=== PATIENT | male | born 1960 | race Caucasian/White ===

== ENCOUNTER 2021-03-12 17:28 | Inpatient (IN) | payer SELFPAY ==
[2021-03-12] MEDS ORDERED: Sodium Chloride 0.9% 10 ML Syringe FLUSH PRN (17:36)
[2021-03-12] MEDS ORDERED: cefTRIAXone 2 GM in Sodium Chloride 0.9% 100 ML IV ONE (17:39)
[2021-03-12] MEDS ORDERED: Albuterol 6.7 GM Inhaler INH ONE (17:40)
[2021-03-12] MEDS ORDERED: Ibuprofen 600 MG Tab PO ONE (17:42)
--- NOTE | 2021-03-12 17:54 | EDM.PDOC ---
<Scotty Paz - Last Filed: 03/12/21 18:47> ED HPI GENERAL MEDICAL PROBLEM - General Chief Complaint: Respiratory Problem Stated Complaint: COVID SYMPTOMS Time Seen by Provider: 03/12/21 17:29 Source of Information: Reports: Patient, Provider History Limitations: Reports: No Limitations - History of Present Illness INITIAL COMMENTS - FREE TEXT/NARRATIVE: The patient presents from the walk in clinic with dyspnea and hypoxia. He said this all started about 2 to 3 days ago. He denies cough. He has a fever when he arrived here of 101. He had a CXR done there and it appeared to look like COVID pattern with bilateral fluffy infiltrates in the lower lobes. He was checked for COVID by rapid essay and it was negative. His oxygen saturations went down to 88%. He was put on oxygen and sent up here to the ER. He refused to come by ambulance. 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 The patient does not smoke. He quit 20 years ago. He has no history of asthma or COPD. He is obese and recently lost about 80 pounds. He was hypertensive but with the weight loss he was able to come off of his medications. He has type II diabetes and he is on metformin. He has no chest pain, abdominal pain, nausea or vomiting. Onset: Gradual Duration: Day(s): (3) Severity: Moderate Improves with: Reports: None Worsens with: Reports: None Associated Symptoms: Reports: Fever/Chills, Shortness of Breath. Denies: Chest Pain, Cough, Headaches, Nausea/Vomiting - Related Data Allergies Allergy/AdvReac Type Severity Reaction Status Date / Time acetaminophen [From Tylenol] Allergy Severe Tachycardia Verified 03/12/21 17:38 aspirin Allergy Severe Tachycardia Verified 03/12/21 17:38 Home Meds: Home Meds Aspirin [Adult Aspirin Regimen] 81 mg PO DAILY 03/12/21 [History] metFORMIN [Glucophage XR] 500 mg PO BID 03/12/21 [History] Past Medical History Cardiovascular History: Reports: Hypertension Endocrine/Metabolic History: Reports: Diabetes, Type II Social & Family History - Tobacco Use Tobacco Use Status *Q: Former Tobacco User Used Tobacco, but Quit: Yes Month/Year Tobacco Last Used: 20+ years - Recreational Drug Use Recreational Drug Use: No ED ROS GENERAL - Review of Systems Review Of Systems: See Below Constitutional: Reports: Fever, Chills, Malaise, Weakness, Fatigue HEENT: Reports: No Symptoms Respiratory: Reports: Shortness of Breath. Denies: Cough Cardiovascular: Reports: No Symptoms Endocrine: Reports: No Symptoms GI/Abdominal: Reports: No Symptoms : Reports: No Symptoms Musculoskeletal: Reports: No Symptoms ED EXAM, GENERAL - Physical Exam Exam: See Below Exam Limited By: No Limitations General Appearance: Alert, No Apparent Distress Ears: Normal External Exam Nose: Normal Inspection Head: Atraumatic, Normocephalic Neck: Normal Inspection Respiratory/Chest: No Respiratory Distress, Decreased Breath Sounds Cardiovascular: Regular Rate, Rhythm, No Edema, No Murmur GI/Abdominal: Soft, Non-Tender, No Organomegaly, No Mass Back Exam: Normal Inspection Extremities: Normal Inspection #1 Interpretation EKG Date: 03/12/21 Time: 18:27 Rhythm: Other (sinus tachycardia) Rate (Beats/Min): 107 [place]: Normal P-Wave: Present QRS: Normal ST-T: Normal QT: Normal Course - Re-Assessments/Exams Free Text/Narrative Re-Assessment/Exam: 03/12/21 17:55 I ordered oxygen, IV saline lock, blood cultures, lactic acid, ABG, labs, al buterol 2 puffs, and rocephin 2 grams IV. 03/12/21 18:38 His EKG shows a sinus tachycardia with no acute changes. 03/12/21 18:47 His ABG shows a normal pH of 7.45. His pCO2 is low at 29.6. His pO2 is low at 74. I will have his oxygen bumped up some. It is change of shift. Dr Mott to take over. Departure - Departure Disposition: Admitted As Inpatient 65 Clinical Impression: COVID-19, Hypoxia - Discharge Information Referrals: Tricia Mohr NP [Primary Care Provider] - Forms: ED Department Discharge Sepsis Event Note (ED) - Evaluation Sepsis Screening Result: Possible Severe Sepsis Risk <Henry Mott - Last Filed: 03/12/21 19:58> Course - Vital Signs Last Recorded V/S: Last Vital Signs Temp 38.8 C H 03/12/21 17:35 Pulse 107 H 03/12/21 17:35 Resp 24 H 03/12/21 17:35 BP 166/79 H 03/12/21 17:35 Pulse Ox 96 03/12/21 18:58 - Orders/Labs/Meds Orders: Active Orders 24 hr Category Date Time Status Admission Status [Patient Status] [ADT] Routine ADT 03/12/21 19:54 Active Cardiac Monitoring [RC] . DIRECTED Care 03/12/21 17:36 Active EKG Documentation Completion [RC] STAT Care 03/12/21 17:37 Active Oxygen Therapy [RC] PRN Care 03/12/21 17:36 Active Peripheral IV Care [RC] . DIRECTED Care 03/12/21 17:37 Active RT Post Treatment Assessment [RC] Click to Edit Care 03/12/21 17:40 Active RT Pre-Treatment Assessment [RC] Click to Edit Care 03/12/21 17:40 Active BLOOD CULTURE [MREF] Stat Lab 03/12/21 18:02 Received BLOOD CULTURE [MREF] Stat Lab 03/12/21 18:11 Received D-DIMER QUANTITATIVE [COAG] Stat Lab 03/12/21 18:02 Received INR,PT,PROTHROMBIN TIME [COAG] Stat Lab 03/12/21 18:02 Received PTT,PARTIAL THROMBOPLSTIN TIME [COAG] Stat Lab 03/12/21 18:02 Received Sodium Chloride 0.9% [Saline Flush] Med 03/12/21 17:36 Active 10 ml FLUSH ASDIRECTED PRN Peripheral IV Insertion Adult [OM.PC] Stat Oth 03/12/21 17:36 Ordered Medication Orders Sodium Chloride (Sodium Chloride 0.9% 10 Ml Syringe) 10 ml FLUSH ASDIRECTED PRN PRN Reason: Keep Vein Open Last Admin: 03/12/21 17:49 Dose: 10 ml Documented by: [place] Labs: Laboratory Tests 03/12/21 03/12/21 03/12/21 Range/Units 17:38 18:02 18:02 WBC 4.57 (4.23-9.07) K/mm3 RBC 5.07 (4.63-6.08) M/mm3 Hgb 14.6 (13.7-17.5) gm/dl Hct 43.9 (40.1-51.0) % MCV 86.6 (79.0-92.2) fl MCH 28.8 (25.7-32.2) pg MCHC 33.3 (32.2-35.5) g/dl RDW Std Deviation 44.0 H (35.1-43.9) fL Plt Count 91 L (163-337) K/mm3 MPV 11.9 (9.4-12.3) fl Neut % (Auto) 77.1 H (34.0-67.9) % Lymph % (Auto) 14.9 L (21.8-53.1) % Howard % (Auto) 7.2 (5.3-12.2) % Eos % (Auto) 0 L (0.8-7.0) Baso % (Auto) 0.4 (0.1-1.2) % Neut # (Auto) 3.52 (1.78-5.38) K/mm3 Lymph # (Auto) 0.68 L (1.32-3.57) K/mm3 Howard # (Auto) 0.33 (0.30-0.82) K/mm3 Eos # (Auto) 0.00 L (0.04-0.54) K/mm3 Baso # (Auto) 0.02 (0.01-0.08) K/mm3 Manual Slide Review Abnormal smear Puncture Site . ABG pH 7.45 (7.35-7.45) ABG pCO2 29.6 L (35.0-45.0) mmHg ABG pO2 74.0 L (80.0-100.0) mmHg ABG HCO3 20.3 L (22.0-26.0) meq/L ABG O2 Saturation 96.3 (96.0-97.0) % ABG Base Excess -2.0 (-2-2.0) Shaheen Test Positive O2 Delivery Device . Oxygen Flow Rate 2.0 Sodium 135 L (136-145) mEq/L Potassium 3.9 (3.5-5.1) mEq/L Chloride 100 (98-107) mEq/L Carbon Dioxide 23 (21-32) mEq/L Anion Gap 15.9 H (5-15) BUN 13 (7-18) mg/dL Creatinine 1.2 (0.7-1.3) mg/dL Est Cr Clr Drug Dosing 68.85 mL/min Estimated GFR (MDRD) > 60 (>60) mL/min BUN/Creatinine Ratio 10.8 L (14-18) Glucose 153 H (70-99) mg/dL Lactic Acid (0.4-2.0) mmol/L Calcium 8.0 L (8.5-10.1) mg/dL Ferritin (26-388) ng/ml Total Bilirubin 1.1 H (0.2-1.0) mg/dL AST 115 H (15-37) U/L ALT 89 H (16-63) U/L Alkaline Phosphatase 32 L (46-116) U/L Lactate Dehydrogenase 562 H (85-227) U/L Troponin I 0.019 (0.00-0.056) ng/mL C-Reactive Protein 16.9 H* (<1.0) mg/dL Total Protein 7.4 (6.4-8.2) g/dl Albumin 3.1 L (3.4-5.0) g/dl Globulin 4.3 gm/dL Albumin/Globulin Ratio 0.7 L (1-2) SARS-CoV-2 RNA (NICOLE) (NEGATIVE) 03/12/21 03/12/21 03/12/21 Range/Units 18:02 18:02 18:15 WBC (4.23-9.07) K/mm3 RBC (4.63-6.08) M/mm3 Hgb (13.7-17.5) gm/dl Hct (40.1-51.0) % MCV (79.0-92.2) fl MCH (25.7-32.2) pg MCHC (32.2-35.5) g/dl RDW Std Deviation (35.1-43.9) fL Plt Count (163-337) K/mm3 MPV (9.4-12.3) fl Neut % (Auto) (34.0-67.9) % Lymph % (Auto) (21.8-53.1) % Howard % (Auto) (5.3-12.2) % Eos % (Auto) (0.8-7.0) Baso % (Auto) (0.1-1.2) % Neut # (Auto) (1.78-5.38) K/mm3 Lymph # (Auto) (1.32-3.57) K/mm3 Howard # (Auto) (0.30-0.82) K/mm3 Eos # (Auto) (0.04-0.54) K/mm3 Baso # (Auto) (0.01-0.08) K/mm3 Manual Slide Review Puncture Site ABG pH (7.35-7.45) ABG pCO2 (35.0-45.0) mmHg ABG pO2 (80.0-100.0) mmHg ABG HCO3 (22.0-26.0) meq/L ABG O2 Saturation (96.0-97.0) % ABG Base Excess (-2-2.0) Shaheen Test O2 Delivery Device Oxygen Flow Rate Sodium (136-145) mEq/L Potassium (3.5-5.1) mEq/L Chloride (98-107) mEq/L Carbon Dioxide (21-32) mEq/L Anion Gap (5-15) BUN (7-18) mg/dL Creatinine (0.7-1.3) mg/dL Est Cr Clr Drug Dosing mL/min Estimated GFR (MDRD) (>60) mL/min BUN/Creatinine Ratio (14-18) Glucose (70-99) mg/dL Lactic Acid 1.4 (0.4-2.0) mmol/L Calcium (8.5-10.1) mg/dL Ferritin 3732 H (26-388) ng/ml Total Bilirubin (0.2-1.0) mg/dL AST (15-37) U/L ALT (16-63) U/L Alkaline Phosphatase (46-116) U/L Lactate Dehydrogenase (85-227) U/L Troponin I (0.00-0.056) ng/mL C-Reactive Protein (<1.0) mg/dL Total Protein (6.4-8.2) g/dl Albumin (3.4-5.0) g/dl Globulin gm/dL Albumin/Globulin Ratio (1-2) SARS-CoV-2 RNA (NICOLE) Positive H (NEGATIVE) Meds: Medications Generic Name Dose Route Start Last Admin Trade Name Freq PRN Reason Stop Dose Admin Sodium Chloride 10 ml 03/12/21 17:36 03/12/21 17:49 Sodium Chloride 0.9% 10 Ml Syringe FLUSH 10 ml ASDIRECTED PRN Administration Keep Vein Open Discontinued Medications Generic Name Dose Route Start Last Admin Trade Name Freq PRN Reason Stop Dose Admin Albuterol 0 gm 03/12/21 17:40 03/12/21 17:49 Albuterol 6.7 Gm Inhaler INH 03/12/21 17:41 2 puff ONETIME ONE Administration Dexamethasone 6 mg 03/12/21 19:49 Dexamethasone 10 Mg/Ml Sdv IVPUSH 03/12/21 19:50 ONETIME ONE Ceftriaxone Sodium 2 gm/ 100 mls @ 200 mls/hr 03/12/21 17:39 03/12/21 17:49 Sodium Chloride IV 03/12/21 18:08 200 mls/hr ONETIME ONE Administration Ibuprofen 600 mg 03/12/21 17:42 03/12/21 17:49 Ibuprofen 600 Mg Tab PO 03/12/21 17:43 600 mg ONETIME ONE Administration - Re-Assessments/Exams Free Text/Narrative Re-Assessment/Exam: 03/12/21 19:48 Assumed care at change of shift at this point awaiting D-dimer this was ordered. Case was reviewed with Dr. Shipley, who will assume care. He would like for me to start 6 mg of Decadron. Departure - Departure Time of Disposition: 19:58 Sepsis Event Note (ED) - Focused Exam Vital Signs: Vital Signs Temp Pulse Resp BP Pulse Ox Pulse Ox 03/12/21 18:58 96 03/12/21 17:35 38.8 C H 107 H 24 H 166/79 H 96 - My Orders Last 24 Hours: My Active Orders 03/12/21 19:54 Admission Status [Patient Status] [ADT] Routine - Assessment/Plan Last 24 Hours: My Active Orders 03/12/21 19:54 Admission Status [Patient Status] [ADT] Routine
[2021-03-12] MEDS ORDERED: Dexamethasone 10 MG/ML SDV IVPUSH ONE (19:49)
[2021-03-13] MEDS ORDERED: metFORMIN 500 MG Tab PO SCH (07:00)
--- NOTE | 2021-03-13 07:10 | PCM.HP.2 ---
H&P History of Present Illness - General Date of Service: 03/13/21 Admit Problem/Dx: Admission Diagnosis/Problem Admission Diagnosis/Problem Hypoxia Source of Information: Patient, Old Records, Provider, RN, RN Notes Reviewed History Limitations: Reports: No Limitations - History of Present Illness Initial Comments - Free Text/Narative: This is a 60-year-old male presents to ED on 03/12/2021 with dyspnea and hypoxia. He reportedly went to the walk-in clinic who sent him here. He states symptoms began about 2 to 3 days prior. Denies a cough but was noted to have a fever on arrival of 101. Chest x-ray was obtained at the walk-in clinic which showed bilateral infiltrates in the lower lobes consistent with COVID-19 pneumonia. He was reportedly checked with a rapid Covid screen and was negative there. Saturations were noted to decrease to 80% and he was started on oxygen and sent here. They tried to send him by ambulance but he refused. 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 Patient is a former tobacco user quit 20 years ago. No history of lung problems such as asthma or COPD. He is obese with a BMI of 48.3 however he reports he recently lost 80 pounds. Was hypertensive though was able to come off his medications due to weight loss. He is a type II diabetic on Metformin. Denies any chest pain, abdominal pain, nausea, or vomiting. In the ED twelve-lead EKG was obtained showing sinus tachycardia at 107 bpm with no ectopy. Respirations were 24. Blood pressure 166/79. Pulse ox 96% on oxygen. Labs are obtained with a WBC of 4.57. Hemoglobin 14.6. Platelet 91,000. Neutrophils 77.1%. ABGs obtained with a pH of 7.45. PCO2 of 29.6. PO2 of 74.0. HCO3 of 20.3. Saturations of 96.3. This is well on 2 L. Sodium was 135. Potassium 3.9. Chloride 100. Carbon dioxide 23. Anion gap is 15.9. BUN is 13. Creatinine 1.2. GFR greater than 60. Glucose is 153. Calcium 8.0. Bilirubin 1.1. AST is 115. ALT 89. Alkaline phosphatase 32. LDH is 562. Troponin 0 0.019. CRP is 16.9. Protein 7.4. Albumin 3.1. Lactic acid is 1.1. Ferritin is 3732. D-dimer is 1.43. SARS-CoV-2 RNA is positive. He is given 6 mg dexamethasone and 2 g of Rocephin. He is also given an albuterol puff and ibuprofen. He carries a history of hypertension type II DM. He is a former smoker. His PCP is Tricia Mohr NP. He is subsequently admitted to the medical floor on te lemetry for management of his COVID-19 pneumonia. - Related Data Allergies/Adverse Reactions: Allergies Allergy/AdvReac Type Severity Reaction Status Date / Time acetaminophen [From Tylenol] Allergy Severe Tachycardia Verified 03/12/21 17:38 aspirin Allergy Severe Tachycardia Verified 03/12/21 17:38 Home Medications: Home Meds Aspirin [Adult Aspirin Regimen] 81 mg PO DAILY 03/12/21 [History] metFORMIN [Glucophage XR] 500 mg PO BID 03/12/21 [History] Past Medical History HEENT History: Reports: Impaired Vision Cardiovascular History: Reports: Hypertension Endocrine/Metabolic History: Reports: Diabetes, Type II Dermatologic History: Reports: Eczema - Infectious Disease History Infectious Disease History: Reports: None - Past Surgical History HEENT Surgical History: Reports: Tonsillectomy GI Surgical History: Reports: Colonoscopy Social & Family History - Family History Family Medical History: No Pertinent Family History - Tobacco Use Tobacco Use Status *Q: Former Tobacco User Years of Tobacco use: 15 Packs/Tins Daily: 4 Used Tobacco, but Quit: Yes Month/Year Tobacco Last Used: 2020 Second Hand Smoke Exposure: No - Caffeine Use Caffeine Use: Reports: Soda - Recreational Drug Use Recreational Drug Use: No H&P Review of Systems - Review of Systems: Review Of Systems: See Below General: Reports: Fever, Chills, Malaise, Weakness, Fatigue, Weight Loss HEENT: Reports: No Symptoms. Denies: Headaches, Sore Throat Pulmonary: Reports: Shortness of Breath. Denies: Wheezing, Pleuritic Chest Pain, Cough, Sputum Cardiovascular: Reports: Dyspnea on Exertion. Denies: Chest Pain, Palpitations, Edema, Blood Pressure Problem Gastrointestinal: Reports: No Symptoms. Denies: Abdominal Pain, Constipation, Diarrhea, Nausea, Vomiting Genitourinary: Reports: No Symptoms. Denies: Pain Musculoskeletal: Reports: No Symptoms Skin: Reports: No Symptoms. Denies: Cyanosis Psychiatric: Reports: No Symptoms Neurological: Reports: No Symptoms. Denies: Confusion, Pre-Existing Deficit, Difficulty Walking, Gait Disturbance Hematologic/Lymphatic: Reports: No Symptoms Immunologic: Reports: No Symptoms Exam - Exam Exam: See Below - Vital Signs Vital Signs: Last Vital Signs Temp 97.9 F 03/13/21 05:31 Pulse 75 03/13/21 05:31 Resp 20 03/13/21 05:31 BP 108/51 L 03/13/21 05:31 Pulse Ox 97 03/13/21 05:55 Weight: 346 lb - Exam Quality Assessment: Supplemental Oxygen (3L), DVT Prophylaxis. No: Urinary Catheter General: Alert, Oriented, Cooperative. No: Mild Distress HEENT: Conjunctiva Clear, EACs Clear, Mucosa Moist & Lavinia, Posterior Pharynx Clear Neck: Supple, Trachea Midline Lungs: Normal Respiratory Effort, Decreased Breath Sounds, Wheezing (right sided end expiratory ). No: Crackles, Rhonchi Cardiovascular: Regular Rate, Regular Rhythm GI/Abdominal Exam: Normal Bowel Sounds, Soft, Non-Tender, No Distention (Male) Exam: Deferred Rectal (Males) Exam: Deferred Back Exam: Normal Inspection, Full Range of Motion Extremities: Normal Inspection, Normal Range of Motion, Non-Tender, No Pedal Edema, Normal Capillary Refill Skin: Warm, Dry, Intact Neurological: Cranial Nerves Intact (grossly ) Neuro Extensive - Mental Status: Alert, Oriented x3, Normal Mood/Affect - Patient Data Lab Results Last 24 hrs: Laboratory Results - last 24 hr 03/12/21 03/12/21 03/12/21 Range/Units 17:38 18:02 18:02 WBC 4.57 (4.23-9.07) K/mm3 RBC 5.07 (4.63-6.08) M/mm3 Hgb 14.6 (13.7-17.5) gm/dl Hct 43.9 (40.1-51.0) % MCV 86.6 (79.0-92.2) fl MCH 28.8 (25.7-32.2) pg MCHC 33.3 (32.2-35.5) g/dl RDW Std Deviation 44.0 H (35.1-43.9) fL Plt Count 91 L (163-337) K/mm3 MPV 11.9 (9.4-12.3) fl Neut % (Auto) 77.1 H (34.0-67.9) % Lymph % (Auto) 14.9 L (21.8-53.1) % [place] % (Auto) 7.2 (5.3-12.2) % Eos % (Auto) 0 L (0.8-7.0) Baso % (Auto) 0.4 (0.1-1.2) % Neut # (Auto) 3.52 (1.78-5.38) K/mm3 Lymph # (Auto) 0.68 L (1.32-3.57) K/mm3 [place] # (Auto) 0.33 (0.30-0.82) K/mm3 Eos # (Auto) 0.00 L (0.04-0.54) K/mm3 Baso # (Auto) 0.02 (0.01-0.08) K/mm3 Manual Slide Review Abnormal smear PT 11.5 (9.7-12.0) SECONDS INR 1.08 APTT 27.5 (21.7-31.4) SECONDS D-Dimer, Quantitative 1.43 H (0.19-0.50) mg/L Puncture Site . ABG pH 7.45 (7.35-7.45) ABG pCO2 29.6 L (35.0-45.0) mmHg ABG pO2 74.0 L (80.0-100.0) mmHg ABG HCO3 20.3 L (22.0-26.0) meq/L ABG O2 Saturation 96.3 (96.0-97.0) % ABG Base Excess -2.0 (-2-2.0) Shaheen Test Positive VBG pH (7.30-7.40) VBG pCO2 (41-51) mmHg VBG pO2 (40-80) mmHG VBG HCO3 (22-26) meq/L VBG O2 Saturation VBG Base Excess (-4.0-2.0) O2 Delivery Device . Oxygen Flow Rate 2.0 Sodium (136-145) mEq/L Potassium (3.5-5.1) mEq/L Chloride (98-107) mEq/L Carbon Dioxide (21-32) mEq/L Anion Gap (5-15) BUN (7-18) mg/dL Creatinine (0.7-1.3) mg/dL Est Cr Clr Drug Dosing mL/min Estimated GFR (MDRD) (>60) mL/min BUN/Creatinine Ratio (14-18) Glucose (70-99) mg/dL Lactic Acid (0.4-2.0) mmol/L Calcium (8.5-10.1) mg/dL Ferritin (26-388) ng/ml Total Bilirubin (0.2-1.0) mg/dL Direct Bilirubin (0.0-0.2) mg/dl Indirect Bilirubin AST (15-37) U/L ALT (16-63) U/L Alkaline Phosphatase (46-116) U/L Lactate Dehydrogenase (85-227) U/L Troponin I (0.00-0.056) ng/mL C-Reactive Protein (<1.0) mg/dL Total Protein (6.4-8.2) g/dl Albumin (3.4-5.0) g/dl Globulin gm/dL Albumin/Globulin Ratio (1-2) SARS-CoV-2 RNA (NICOLE) (NEGATIVE) 03/12/21 03/12/21 03/12/21 Range/Units 18:02 18:02 18:02 WBC (4.23-9.07) K/mm3 RBC (4.63-6.08) M/mm3 Hgb (13.7-17.5) gm/dl Hct (40.1-51.0) % MCV (79.0-92.2) fl MCH (25.7-32.2) pg MCHC (32.2-35.5) g/dl RDW Std Deviation (35.1-43.9) fL Plt Count (163-337) K/mm3 MPV (9.4-12.3) fl Neut % (Auto) (34.0-67.9) % Lymph % (Auto) (21.8-53.1) % [place] % (Auto) (5.3-12.2) % Eos % (Auto) (0.8-7.0) Baso % (Auto) (0.1-1.2) % Neut # (Auto) (1.78-5.38) K/mm3 Lymph # (Auto) (1.32-3.57) K/mm3 [place] # (Auto) (0.30-0.82) K/mm3 Eos # (Auto) (0.04-0.54) K/mm3 Baso # (Auto) (0.01-0.08) K/mm3 Manual Slide Review PT (9.7-12.0) SECONDS INR APTT (21.7-31.4) SECONDS D-Dimer, Quantitative (0.19-0.50) mg/L Puncture Site ABG pH (7.35-7.45) ABG pCO2 (35.0-45.0) mmHg ABG pO2 (80.0-100.0) mmHg ABG HCO3 (22.0-26.0) meq/L ABG O2 Saturation (96.0-97.0) % ABG Base Excess (-2-2.0) Shaheen Test VBG pH (7.30-7.40) VBG pCO2 (41-51) mmHg VBG pO2 (40-80) mmHG VBG HCO3 (22-26) meq/L VBG O2 Saturation VBG Base Excess (-4.0-2.0) O2 Delivery Device Oxygen Flow Rate Sodium 135 L (136-145) mEq/L Potassium 3.9 (3.5-5.1) mEq/L Chloride 100 (98-107) mEq/L Carbon Dioxide 23 (21-32) mEq/L Anion Gap 15.9 H (5-15) BUN 13 (7-18) mg/dL Creatinine 1.2 (0.7-1.3) mg/dL Est Cr Clr Drug Dosing 68.85 mL/min Estimated GFR (MDRD) > 60 (>60) mL/min BUN/Creatinine Ratio 10.8 L (14-18) Glucose 153 H (70-99) mg/dL Lactic Acid 1.4 (0.4-2.0) mmol/L Calcium 8.0 L (8.5-10.1) mg/dL Ferritin 3732 H (26-388) ng/ml Total Bilirubin 1.1 H (0.2-1.0) mg/dL Direct Bilirubin (0.0-0.2) mg/dl Indirect Bilirubin AST 115 H (15-37) U/L ALT 89 H (16-63) U/L Alkaline Phosphatase 32 L (46-116) U/L Lactate Dehydrogenase 562 H (85-227) U/L Troponin I 0.019 (0.00-0.056) ng/mL C-Reactive Protein 16.9 H* (<1.0) mg/dL Total Protein 7.4 (6.4-8.2) g/dl Albumin 3.1 L (3.4-5.0) g/dl Globulin 4.3 gm/dL Albumin/Globulin Ratio 0.7 L (1-2) SARS-CoV-2 RNA (NICOLE) (NEGATIVE) 03/12/21 03/13/21 03/13/21 Range/Units 18:15 06:01 06:01 WBC 3.82 L (4.23-9.07) K/mm3 RBC 5.10 (4.63-6.08) M/mm3 Hgb 14.9 (13.7-17.5) gm/dl Hct 44.6 (40.1-51.0) % MCV 87.5 (79.0-92.2) fl MCH 29.2 (25.7-32.2) pg MCHC 33.4 (32.2-35.5) g/dl RDW Std Deviation 45.0 H (35.1-43.9) fL Plt Count 96 L (163-337) K/mm3 MPV 11.6 (9.4-12.3) fl Neut % (Auto) (34.0-67.9) % Lymph % (Auto) (21.8-53.1) % [place] % (Auto) (5.3-12.2) % Eos % (Auto) (0.8-7.0) Baso % (Auto) (0.1-1.2) % Neut # (Auto) (1.78-5.38) K/mm3 Lymph # (Auto) (1.32-3.57) K/mm3 [place] # (Auto) (0.30-0.82) K/mm3 Eos # (Auto) (0.04-0.54) K/mm3 Baso # (Auto) (0.01-0.08) K/mm3 Manual Slide Review PT (9.7-12.0) SECONDS INR APTT (21.7-31.4) SECONDS D-Dimer, Quantitative 1.13 H (0.19-0.50) mg/L Puncture Site ABG pH (7.35-7.45) ABG pCO2 (35.0-45.0) mmHg ABG pO2 (80.0-100.0) mmHg ABG HCO3 (22.0-26.0) meq/L ABG O2 Saturation (96.0-97.0) % ABG Base Excess (-2-2.0) Shaheen Test VBG pH (7.30-7.40) VBG pCO2 (41-51) mmHg VBG pO2 (40-80) mmHG VBG HCO3 (22-26) meq/L VBG O2 Saturation VBG Base Excess (-4.0-2.0) O2 Delivery Device Oxygen Flow Rate Sodium (136-145) mEq/L Potassium (3.5-5.1) mEq/L Chloride (98-107) mEq/L Carbon Dioxide (21-32) mEq/L Anion Gap (5-15) BUN (7-18) mg/dL Creatinine (0.7-1.3) mg/dL Est Cr Clr Drug Dosing mL/min Estimated GFR (MDRD) (>60) mL/min BUN/Creatinine Ratio (14-18) Glucose (70-99) mg/dL Lactic Acid (0.4-2.0) mmol/L Calcium (8.5-10.1) mg/dL Ferritin (26-388) ng/ml Total Bilirubin (0.2-1.0) mg/dL Direct Bilirubin (0.0-0.2) mg/dl Indirect Bilirubin AST (15-37) U/L ALT (16-63) U/L Alkaline Phosphatase (46-116) U/L Lactate Dehydrogenase (85-227) U/L Troponin I (0.00-0.056) ng/mL C-Reactive Protein (<1.0) mg/dL Total Protein (6.4-8.2) g/dl Albumin (3.4-5.0) g/dl Globulin gm/dL Albumin/Globulin Ratio (1-2) SARS-CoV-2 RNA (NICOLE) Positive H (NEGATIVE) 03/13/21 03/13/21 Range/Units 06:01 06:02 WBC (4.23-9.07) K/mm3 RBC (4.63-6.08) M/mm3 Hgb (13.7-17.5) gm/dl Hct (40.1-51.0) % MCV (79.0-92.2) fl MCH (25.7-32.2) pg MCHC (32.2-35.5) g/dl RDW Std Deviation (35.1-43.9) fL Plt Count (163-337) K/mm3 MPV (9.4-12.3) fl Neut % (Auto) (34.0-67.9) % Lymph % (Auto) (21.8-53.1) % [place] % (Auto) (5.3-12.2) % Eos % (Auto) (0.8-7.0) Baso % (Auto) (0.1-1.2) % Neut # (Auto) (1.78-5.38) K/mm3 Lymph # (Auto) (1.32-3.57) K/mm3 [place] # (Auto) (0.30-0.82) K/mm3 Eos # (Auto) (0.04-0.54) K/mm3 Baso # (Auto) (0.01-0.08) K/mm3 Manual Slide Review PT (9.7-12.0) SECONDS INR APTT (21.7-31.4) SECONDS D-Dimer, Quantitative (0.19-0.50) mg/L Puncture Site ABG pH (7.35-7.45) ABG pCO2 (35.0-45.0) mmHg ABG pO2 (80.0-100.0) mmHg ABG HCO3 (22.0-26.0) meq/L ABG O2 Saturation (96.0-97.0) % ABG Base Excess (-2-2.0) Shaheen Test VBG pH 7.32 (7.30-7.40) VBG pCO2 53.7 H (41-51) mmHg VBG pO2 26.0 L (40-80) mmHG VBG HCO3 26.8 H (22-26) meq/L VBG O2 Saturation 35.4 VBG Base Excess 0.1 (-4.0-2.0) O2 Delivery Device Nasal cannula Oxygen Flow Rate 3.0 Sodium 141 (136-145) mEq/L Potassium 4.9 (3.5-5.1) mEq/L Chloride 103 (98-107) mEq/L Carbon Dioxide 29 (21-32) mEq/L Anion Gap 13.9 (5-15) BUN 16 (7-18) mg/dL Creatinine 1.1 (0.7-1.3) mg/dL Est Cr Clr Drug Dosing 75.11 mL/min Estimated GFR (MDRD) > 60 (>60) mL/min BUN/Creatinine Ratio 14.5 (14-18) Glucose 231 H (70-99) mg/dL Lactic Acid (0.4-2.0) mmol/L Calcium 8.1 L (8.5-10.1) mg/dL Ferritin (26-388) ng/ml Total Bilirubin 0.8 (0.2-1.0) mg/dL Direct Bilirubin 0.50 H (0.0-0.2) mg/dl Indirect Bilirubin 0.30 AST 99 H (15-37) U/L ALT 87 H (16-63) U/L Alkaline Phosphatase 31 L (46-116) U/L Lactate Dehydrogenase (85-227) U/L Troponin I (0.00-0.056) ng/mL C-Reactive Protein (<1.0) mg/dL Total Protein 7.5 (6.4-8.2) g/dl Albumin 2.9 L (3.4-5.0) g/dl Globulin 4.6 gm/dL Albumin/Globulin Ratio 0.6 L (1-2) SARS-CoV-2 RNA (NICOLE) (NEGATIVE) Result Diagrams: 03/13/21 06:01 03/13/21 06:01 Sepsis Event Note - Evaluation Sepsis Screening Result: Possible Sepsis Risk - Focused Exam Vital Signs: Vital Signs Temp Pulse Pulse Resp BP BP Pulse Ox 03/13/21 05:55 03/13/21 05:31 97.9 F 75 20 108/51 L 99 03/12/21 21:02 98.8 F 86 18 112/63 98 03/12/21 20:31 94 20 124/72 94 L Pulse Ox 03/13/21 05:55 97 03/13/21 05:31 03/12/21 21:02 03/12/21 20:31 - Problem List (1) Type II diabetes mellitus SNOMED Code(s): 57576375 ICD Code: E11.9 - TYPE 2 DIABETES MELLITUS WITHOUT COMPLICATIONS Status: Chronic Priority: Medium Current Visit: Yes Qualifiers: Diabetes mellitus newspaper carrier insulin use: without long-term use Diabetes mellitus complication status: without complication Qualified Code(s): E11.9 - Type 2 diabetes mellitus without complications (2) History of hypertension SNOMED Code(s): 464421660 ICD Code: Z86.79 - PERSONAL HISTORY OF OTHER DISEASES OF THE CIRCULATORY SYSTEM Status: Chronic Priority: Low Current Visit: No (3) Morbid obesity SNOMED Code(s): 036454109 ICD Code: E66.01 - MORBID (SEVERE) OBESITY DUE TO EXCESS CALORIES Status: Chronic Priority: Low Current Visit: No (4) Elevated d-dimer SNOMED Code(s): 281980063 ICD Code: R79.89 - OTHER SPECIFIED ABNORMAL FINDINGS OF BLOOD CHEMISTRY Status: Acute Priority: Medium Current Visit: Yes (5) COVID-19 SNOMED Code(s): 653637157 ICD Code: U07.1 - COVID-19 Status: Acute Priority: High Current Visit: Yes (6) Hypoxia SNOMED Code(s): 230983215 ICD Code: R09.02 - HYPOXEMIA Status: Acute Priority: High Current Visit: Yes (7) Thrombocytopenia SNOMED Code(s): 487967712 ICD Code: D69.6 - THROMBOCYTOPENIA, UNSPECIFIED Status: Acute Priority: High Current Visit: Yes (8) Hepatic steatosis SNOMED Code(s): 596026137 ICD Code: K76.0 - FATTY (CHANGE OF) LIVER, NOT ELSEWHERE CLASSIFIED Status: Chronic Priority: Low Current Visit: Yes (9) Cholelithiasis SNOMED Code(s): 013521657 ICD Code: K80.20 - CALCULUS OF GALLBLADDER W/O CHOLECYSTITIS W/O OBSTRUCTION Status: Chronic Priority: Low Current Visit: Yes Qualifiers: Cholelithiasis location: gallbladder Cholecystitis presence: with cholecystitis Cholecystitis acuity: chronic Biliary obstruction: without biliary obstruction Qualified Code(s): K80.10 - Calculus of gallbladder with chronic cholecystitis without obstruction (10) Hypoalbuminemia SNOMED Code(s): 761559224 ICD Code: E88.09 - OTH DISORDERS OF PLASMA-PROTEIN METABOLISM, NEC Status: Acute Priority: Medium Current Visit: Yes Problem List Initiated/Reviewed/Updated: Yes Orders Last 24hrs: Active Orders 24 hr Category Date Time Status Admission Status [Patient Status] [ADT] Routine ADT 03/12/21 19:54 Active Cardiac Monitoring [RC] . DIRECTED Care 03/12/21 17:36 Active Oxygen Therapy [RC] PRN Care 03/12/21 17:36 Active RT Post Treatment Assessment [RC] Click to Edit Care 03/12/21 21:51 Active RT Pre-Treatment Assessment [RC] Click to Edit Care 03/12/21 21:51 Active Up With Assistance [RC] BID Care 03/12/21 21:46 Active ADA Diabetic [[place] [employer] Diet] [DIET Diet 03/13/21 Breakfast Active ] Ang Chest [CT] Stat Exams 03/12/21 20:57 Taken BLOOD CULTURE [MREF] Stat Lab 03/12/21 18:02 Received BLOOD CULTURE [MREF] Stat Lab 03/12/21 18:11 Received CBC W/O DIFF,HEMOGRAM [HEME] MOTH@0700 Lab 03/17/21 07:00 Ordered CBC W/O DIFF,HEMOGRAM [HEME] MOTH@0700 Lab 03/20/21 07:00 Ordered CBC W/O DIFF,HEMOGRAM [HEME] MOTH@0700 Lab 03/24/21 07:00 Ordered CBC W/O DIFF,HEMOGRAM [HEME] MOTH@0700 Lab 03/27/21 07:00 Ordered CBC W/O DIFF,HEMOGRAM [HEME] MOTH@0700 Lab 03/31/21 07:00 Ordered Albuterol [Proventil HFA] Med 03/12/21 21:50 Active See Dose Instructions INH Q6H PRN Aspirin [Halfprin] Med 03/13/21 09:00 Active 81 mg PO DAILY Heparin Sodium Med 03/12/21 21:15 Pending 5,000 units SUBCUT Q8H Sodium Chloride 0.9% [Saline Flush] Med 03/12/21 17:36 Active 10 ml FLUSH ASDIRECTED PRN metFORMIN [Glucophage] Med 03/13/21 07:00 Active 500 mg PO BIDMEALS Peripheral IV Insertion Adult [OM.PC] Stat Oth 03/12/21 17:36 Ordered Code Status [Resuscitation Status] Routine Resus Stat 03/12/21 21:34 Ordered Medication Orders Albuterol (Albuterol 6.7 Gm Inhaler) 0 gm INH Q6H PRN PRN Reason: Shortness of Breath Aspirin (Aspirin 81 Mg Tab.Ec) 81 mg PO DAILY CRULY Heparin Sodium (Porcine) (Heparin Sodium 5,000 Units/Ml Vial) 5,000 units SUBCUT Q8H CURLY Metformin HCl (Metformin 500 Mg Tab) 500 mg PO BIDMEALS CURLY Sodium Chloride (Sodium Chloride 0.9% 10 Ml Syringe) 10 ml FLUSH ASDIRECTED PRN PRN Reason: Keep Vein Open Last Admin: 03/12/21 17:49 Dose: 10 ml Documented by: AUSTIN Assessment/Plan Comment:: Assessment - 03/13/2021 (admitted late 03/12/2021) * This is a 60-year-old male presents to ED with dyspnea and hypoxia * Hx of hypertension though was able to come off his medications due to weight loss. He is a type II diabetic on Metformin. * Went to the walk-in clinic who sent him here * Symptoms began about 2 to 3 days prior * Denies a cough but was noted to have a fever on arrival of 101 * Chest x-ray was obtained at the walk-in clinic which showed bilateral infiltrates in the lower lobes consistent with COVID-19 pneumonia. * He was reportedly checked with a rapid Covid screen and was negative there * Saturations were noted to decrease to 80% and he was started on oxygen and sent here. 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 No history of lung problems such as asthma or COPD * Obese with a BMI of 48.3 however he reports he recently lost 80 pounds * Denies any chest pain, abdominal pain, nausea, or vomiting. * 12-lead EKG was obtained showing sinus tachycardia at 107 bpm with no ectopy. * Labs are obtained in ED and on floor: * WBC 4.57-->3.82 * Hemoglobin 14.6 ->14.9 * Platelet 91,000-->96,000 * Neutrophils 77.1%. * ABGs obtained with a pH of 7.45. PCO2 of 29.6. PO2 of 74.0. HCO3 of 20.3. Saturations of 96.3. This is on 2 L. * VB.32. PCO2 53.7. PO2 26.0. HCO3 of 26.8. Oxygen saturation 35.4. On 3 L. * Sodium 135-->141 * Potassium 3.9-->4.9 * Chloride 100-->103 * Carbon dioxide 23-->29 * Anion gap 15.9-->13.9 * BUN is 13-->16. Creatinine 1.2-->1.1. GFR greater than 60--> Greater than 60. * Glucose 153-->231. * Calcium 8.0-->8.1. * Bilirubin 1.1-->0.8. Direct bilirubin 0.50, Indirect bilirubin 0.30 * AST 115-->99. ALT 89-->87. Alkaline phosphatase 32-->31. * LDH 562. * Troponin 0.019. * CRP 16.9. * Protein 7.4-->7.5. * Albumin 3.1-->2.9. * Lactic acid 1.1. * Ferritin 3732. * D-dimer 1.43. * SARS-CoV-2 RNA is positive. * He is given 6 mg dexamethasone and 2 g of Rocephin. He is also given 2 puffs of an albuterol inhaler and ibuprofen. * Subsequently admitted to the medical floor on telemetry for management of his COVID-19 pneumonia. * CT obtained on floor on 03/12/2021 shows: * 1. No evidence of pulmonary embolus * 2. Moderate bilateral airspace disease compatible with infection * 3. Mild to moderate mediastinal and bihilar adenopathy * 4. Moderate hepatic steatosis * 5. Cholelithiasis PLAN: COVID-19 Hypoxia Elevated d-dimer Hypoalbuminemia * O2 as needed with goal saturations of 88-95% * Remdesivir day 08/06 * Dexamethasone day 09/11 * IS/Acapella * RT consultation * Airborne and contact isolation * Telemetry * Continuous pulse oximetry * Encourage proning * Encourage ambulation around room * CTA obtained and negative * Heparin subcutaneous * Continue daily aspirin * [employer] Check[employer] And Cashiers Supervisor consultation * Daily labs * Famotidine 20mg BID * PRN motrin for pain/fever (Reported adverse reaction to Tylenol) Type II diabetes mellitus * Hold home metformin * Low dose sliding scale insulin * QID AC and Bedtime blood glucose checks * Check A1C * Anticipate rise in blood glucose readings due to steroids History of hypertension * No current home BP meds * Monitor vital signs Thrombocytopenia * Monitor Morbid obesity * [employer] Checkers And [employer] Supervisor consultation Hepatic steatosis Cholelithiasis * No acute concerns * PCP follow-up Code status: Full Code PCP: Tricia Mohr NP DVT prohylaxis: Subcutaneous heparin Disposition: Patient admitted to [facility] on telemetry for COVID-19 treatment. Anticipated length of stay 4 to 5 days. - Mortality Measure Prognosis:: Good
[2021-03-13] MEDS: Heparin Sodium 5,000 Units/ML Vial SUBCUT SCH ×5 (07:35→22:50)
[2021-03-13] MEDS ORDERED: Ondansetron 4 MG/2 ML SDV IV PRN (07:40)
--- NOTE | 2021-03-13 07:52 | CT ---
CT chest Technique: Multiple axial sections were obtained from above the lung apices inferiorly through the lung bases. Intravenous contrast was utilized. Study has been performed as a pulmonary angiogram protocol. Comparison: No prior chest imaging is available. Findings: Pulmonary arteries are moderately well opacified. No filling defects are seen to indicate pulmonary embolism. Mild coronary artery calcification is seen. Slight atherosclerotic calcification is noted within the thoracic aorta. No aneurysm is seen within the thoracic aorta. No pericardial thickening is identified. Slightly prominent lymph nodes are seen within both hilar regions. Lymph nodes are noted within the mediastinum which are minimally prominent. Liver shows fatty infiltration. Calcified gallstones are seen within the gallbladder. Spleen measures at the upper limits of normal in size at 14.0 cm. Lung window settings were reviewed. Multiple patchy areas of increased density are seen throughout both sides of the chest. Bone window settings were reviewed. No acute osseous abnormality is seen. Diffuse disc space narrowing is seen within the spine as well as diffuse endplate osteophytes. Impression: 1. No findings of pulmonary embolism. 2. Multiple areas of pulmonary density throughout both sides of the chest compatible with multifocal pneumonia. Please exclude COVID etiology. 3. Fatty infiltration within the liver. Spleen size is at the upper limits of normal. Calcified gallstones are seen within the gallbladder. Degenerative change is scattered within the spine. 4. Slightly prominent mediastinal and hilar lymph nodes most likely reactive from the lung process. Diagnostic code #3 I agree with preliminary report from [facility], finalized on 03/12/21, 11:11 PM CDT, code 1
[2021-03-13] MEDS ORDERED: Ibuprofen 600 MG Tab PO PRN (08:14)
[2021-03-13] MEDS: Aspirin 81 MG Tab.EC PO SCH (08:28)
[2021-03-13] MEDS: Famotidine 20 MG Tab PO SCH ×2 (08:28→22:51)
[2021-03-13] MEDS ORDERED: REMDESIVIR 200 MG in Sodium Chloride 0.9% 250 ML IV ONE (08:30)
[2021-03-13 08:51] LABS: HEMOGLOBIN A1C 6.8 %
[2021-03-13] MEDS: Insulin Lispro 100 UNIT/ML 10 ML Vial SUBCUT SCH ×3 (12:00→22:50)
[2021-03-13] MEDS: Dexamethasone 4 MG Tab PO SCH (17:57)
[2021-03-13] MEDS: oxyCODONE 5 MG Tab PO PRN (22:51)
[2021-03-14] MEDS: Heparin Sodium 5,000 Units/ML Vial SUBCUT SCH ×2 (05:57→06:31)
[2021-03-14] MEDS: oxyCODONE 5 MG Tab PO PRN ×4 (07:13→21:27)
--- NOTE | 2021-03-14 07:17 | PCM.PN ---
- General Info Date of Service: 03/14/21 Admission Dx/Problem (Free Text): Admission Diagnosis/Problem Admission Diagnosis/Problem Hypoxia Functional Status: Reports: Pain Controlled, Tolerating Diet, Ambulating, Urinating, Incentive Spirometry, Other (Acapella ). Denies: New Symptoms - Review of Systems General: Reports: No Symptoms, Weakness (improving ), Fatigue (improving ). Denies: Fever, Malaise, Chills HEENT: Reports: No Symptoms. Denies: Headaches, Sore Throat Pulmonary: Reports: No Symptoms. Denies: Shortness of Breath, Cough, Sputum, Wheezing Cardiovascular: Reports: Dyspnea on Exertion (improved ). Denies: Chest Pain, Palpitations, Edema Gastrointestinal: Reports: No Symptoms. Denies: Abdominal Pain, Constipation, Diarrhea, Nausea, Vomiting Genitourinary: Reports: No Symptoms. Denies: Pain Musculoskeletal: Reports: No Symptoms Skin: Reports: No Symptoms. Denies: Cyanosis Neurological: Reports: No Symptoms. Denies: Confusion, Pre-Existing Deficit, Difficulty Walking, Gait Disturbance Psychiatric: Reports: No Symptoms - Patient Data Vitals - Most Recent: Last Vital Signs Temp 98.2 F 03/14/21 06:03 Pulse 78 03/14/21 06:03 Resp 20 03/14/21 06:03 BP 132/76 03/14/21 06:03 Pulse Ox 95 03/14/21 06:03 Weight - Most Recent: 342 lb 8 oz I&O - Last 24 Hours: Intake & Output 03/13/21 03/14/21 03/14/21 22:59 06:59 14:59 Intake Total 767 500 Balance 767 500 Lab Results Last 24 Hours: Laboratory Results - last 24 hr 03/13/21 03/13/21 03/13/21 Range/Units 07:45 11:31 17:08 POC Glucose 227 H 137 H (70-99) mg/dL Hemoglobin A1c 6.8 H ( - 5.6) % 03/13/21 03/14/21 Range/Units 22:20 05:55 POC Glucose 166 H 205 H (70-99) mg/dL Hemoglobin A1c ( - 5.6) % Med Orders - Current: Current Medications Albuterol (Albuterol 6.7 Gm Inhaler) 0 gm INH Q6H PRN PRN Reason: Shortness of Breath Aspirin (Aspirin 81 Mg Tab.Ec) 81 mg PO DAILY [facility] Last Admin: 03/13/21 08:28 Dose: 81 mg Documented by: Dexamethasone (Dexamethasone 4 Mg Tab) 6 mg PO Q24H [facility] Stop: 03/21/21 18:01 Last Admin: 03/13/21 17:57 Dose: 6 mg Documented by: Famotidine (Famotidine 20 Mg Tab) 20 mg PO BID [facility] Last Admin: 03/13/21 22:51 Dose: 20 mg Documented by: Heparin Sodium (Porcine) (Heparin Sodium 5,000 Units/Ml Vial) 5,000 units SUBCUT Q8H [facility] Last Admin: 03/14/21 06:31 Dose: Not Given Documented by: Remdesivir 100 mg/ Sodium (Chloride) 100 mls @ 100 mls/hr IV Q24H [facility] Stop: 03/17/21 09:29 Ibuprofen (Ibuprofen 600 Mg Tab) 600 mg PO Q6H PRN PRN Reason: fever/pain Last Admin: 03/13/21 17:57 Dose: 600 mg Documented by: Insulin Human Lispro (Insulin Lispro 100 Unit/Ml 10 Ml Vial) 0 unit SUBCUT QIDACANDBED [facility]; Protocol Last Admin: 03/13/21 22:50 Dose: 2 unit Documented by: Multivitamins/Minerals/Vitamin C (Multivitamin Tab) 1 tab PO DAILY [facility] Ondansetron HCl (Ondansetron 4 Mg/2 Ml Sdv) 4 mg IV Q6H PRN PRN Reason: Nausea/Vomiting Oxycodone HCl (Oxycodone 5 Mg Tab) 5 mg PO Q4H PRN PRN Reason: Pain (moderate 4-6) Last Admin: 03/14/21 07:13 Dose: 5 mg Documented by: Sodium Chloride (Sodium Chloride 0.9% 10 Ml Syringe) 10 ml FLUSH ASDIRECTED PRN PRN Reason: Keep Vein Open Last Admin: 03/12/21 17:49 Dose: 10 ml Documented by: Discontinued Medications Albuterol (Albuterol 6.7 Gm Inhaler) 0 gm INH ONETIME ONE Stop: 03/12/21 17:41 Last Admin: 03/12/21 17:49 Dose: 2 puff Documented by: Dexamethasone (Dexamethasone 10 Mg/Ml Sdv) 6 mg IVPUSH ONETIME ONE Stop: 03/12/21 19:50 Last Admin: 03/12/21 20:24 Dose: 6 mg Documented by: Ceftriaxone Sodium 2 gm/ (Sodium Chloride) 100 mls @ 200 mls/hr IV ONETIME ONE Stop: 03/12/21 18:08 Last Admin: 03/12/21 17:49 Dose: 200 mls/hr Documented by: Remdesivir 200 mg/ Sodium (Chloride) 250 mls @ 250 mls/hr IV ONETIME ONE Stop: 03/13/21 09:29 Last Admin: 03/13/21 08:28 Dose: 250 mls/hr Documented by: Ibuprofen (Ibuprofen 600 Mg Tab) 600 mg PO ONETIME ONE Stop: 03/12/21 17:43 Last Admin: 03/12/21 17:49 Dose: 600 mg Documented by: Metformin HCl (Metformin 500 Mg Tab) 500 mg PO BIDMEALS [facility] Last Admin: 03/13/21 07:36 Dose: Not Given Documented by: - Exam Quality Assessment: Supplemental Oxygen (1L), DVT Prophylaxis. No: Urine Catheter General: Alert, Oriented, Cooperative, No Acute Distress HEENT: Pupils Equal, Pupils Reactive, Mucous Membr. Moist/[place] Neck: Supple, Trachea Midline Lungs: Normal Respiratory Effort, Decreased Breath Sounds. No: Crackles, Rhonchi, Wheezing Cardiovascular: Regular Rate, Regular Rhythm GI/Abdominal Exam: Normal Bowel Sounds, Soft, Non-Tender, No Distention (Male) Exam: Deferred Back Exam: Normal Inspection, Full Range of Motion Extremities: Normal Inspection, Normal Range of Motion, Non-Tender, Normal Capillary Refill, Pedal Edema Peripheral Pulses: 2+: Radial (L), Radial (R), Dorsalis Pedis (L), Dorsalis Pedis (R) Skin: Warm, Dry, Intact Neurological: No New Focal Deficit Psy/Mental Status: Alert, Normal Affect, Normal Mood - Patient Data Lab Results Last 24 hrs: Laboratory Results - last 24 hr 03/13/21 03/13/21 03/13/21 Range/Units 07:45 11:31 17:08 POC Glucose 227 H 137 H (70-99) mg/dL Hemoglobin A1c 6.8 H ( - 5.6) % 03/13/21 03/14/21 Range/Units 22:20 05:55 POC Glucose 166 H 205 H (70-99) mg/dL Hemoglobin A1c ( - 5.6) % Result Diagrams: 03/14/21 06:30 03/14/21 06:36 Sepsis Event Note - Evaluation Sepsis Screening Result: Possible Sepsis Risk - Focused Exam Vital Signs: Vital Signs Temp Pulse Resp BP Pulse Ox Pulse Ox 03/14/21 06:03 98.2 F 78 20 132/76 95 03/14/21 05:49 92 L 03/13/21 22:55 83 20 129/76 93 L 03/13/21 20:39 91 L - Problem List & Annotations (1) Type II diabetes mellitus SNOMED Code(s): 42264995 Code(s): E11.9 - TYPE 2 DIABETES MELLITUS WITHOUT COMPLICATIONS Status: Chronic Priority: Medium Current Visit: Yes Qualifiers: Diabetes mellitus senior living insulin use: without senior living use Diabetes mellitus complication status: without complication Qualified Code(s): E11.9 - Type 2 diabetes mellitus without complications (2) History of hypertension SNOMED Code(s): 480208610 Code(s): Z86.79 - PERSONAL HISTORY OF OTHER DISEASES OF THE CIRCULATORY SYSTEM Status: Chronic Priority: Low Current Visit: No (3) Morbid obesity SNOMED Code(s): 183375886 Code(s): E66.01 - MORBID (SEVERE) OBESITY DUE TO EXCESS CALORIES Status: Chronic Priority: Low Current Visit: No (4) Elevated d-dimer SNOMED Code(s): 217335912 Code(s): R79.89 - OTHER SPECIFIED ABNORMAL FINDINGS OF BLOOD CHEMISTRY Status: Acute Priority: Medium Current Visit: Yes (5) COVID-19 SNOMED Code(s): 138806984 Code(s): U07.1 - COVID-19 Status: Acute Priority: High Current Visit: Yes (6) Hypoxia SNOMED Code(s): 311688823 Code(s): R09.02 - HYPOXEMIA Status: Acute Priority: High Current Visit: Yes (7) Thrombocytopenia SNOMED Code(s): 118897359 Code(s): D69.6 - THROMBOCYTOPENIA, UNSPECIFIED Status: Acute Priority: High Current Visit: Yes (8) Hepatic steatosis SNOMED Code(s): 576199952 Code(s): K76.0 - FATTY (CHANGE OF) LIVER, NOT ELSEWHERE CLASSIFIED Status: Chronic Priority: Low Current Visit: Yes (9) Cholelithiasis SNOMED Code(s): 350946795 Code(s): K80.20 - CALCULUS OF GALLBLADDER W/O CHOLECYSTITIS W/O OBSTRUCTION Status: Chronic Priority: Low Current Visit: Yes Qualifiers: Cholelithiasis location: gallbladder Cholecystitis presence: with cholecystitis Cholecystitis acuity: chronic Biliary obstruction: without biliary obstruction Qualified Code(s): K80.10 - Calculus of gallbladder with chronic cholecystitis without obstruction (10) Hypoalbuminemia SNOMED Code(s): 434289473 Code(s): E88.09 - OTH DISORDERS OF PLASMA-PROTEIN METABOLISM, NEC Status: Acute Priority: Medium Current Visit: Yes - Problem List Review Problem List Initiated/Reviewed/Updated: Yes - My Orders Last 24 Hours: My Active Orders 03/13/21 07:38 Positioning, Patient [RC] ASDIRECTED RT Incentive Spirometry [RC] ASDIRECTED Isolation [COMM] Stat RT Acapella [RESPCARE] Routine 03/13/21 07:40 Height and Weight [RC] 0600 Intake and Output [RC] 05,16 Vital Signs [RC] 0300,0900,1500,2100 Ondansetron [Zofran] 4 mg IV Q6H PRN 03/13/21 07:41 Pulse Oximetry [RC] CONTINUOUS 03/13/21 07:43 OT Evaluation and Treatment [CONS] Routine PT Evaluation and Treatment [CONS] Routine Respiratory Care Assess and Treatment [CONS] Routine 03/13/21 07:45 Blood Glucose Check, Bedside [RC] QIDACANDBED 03/13/21 08:05 Consult to Gastroenterology Technician [CONS] Routine 03/13/21 08:14 Ibuprofen [Motrin] 600 mg PO Q6H PRN 03/13/21 09:00 Famotidine [Pepcid] 20 mg PO BID 03/13/21 11:00 Insulin Lispro [HumaLOG] See Protocol SUBCUT QIDACANDBED 03/13/21 18:00 dexAMETHasone 6 mg PO Q24H 03/14/21 06:36 C-REACTIVE PROTEIN [CHEM] AM COMPREHENSIVE METABOLIC PN,CMP [CHEM] AM MAGNESIUM [CHEM] AM 03/14/21 08:30 Remdesivir 100 mg Sodium Chloride 0.9% [Normal Saline] 100 ml IV Q24H 03/15/21 05:11 C-REACTIVE PROTEIN [CHEM] AM COMPREHENSIVE METABOLIC PN,CMP [CHEM] AM D-DIMER QUANTITATIVE [COAG] AM MAGNESIUM [CHEM] AM 03/16/21 05:11 C-REACTIVE PROTEIN [CHEM] AM COMPREHENSIVE METABOLIC PN,CMP [CHEM] AM MAGNESIUM [CHEM] AM 03/17/21 05:11 C-REACTIVE PROTEIN [CHEM] AM COMPREHENSIVE METABOLIC PN,CMP [CHEM] AM MAGNESIUM [CHEM] AM - Assessment Assessment:: Assessment - 03/13/2021 (admitted late 03/12/2021) * This is a 60-year-old male presents to ED with dyspnea and hypoxia * Hx of hypertension though was able to come off his medications due to weight loss. He is a type II diabetic on Metformin. * Went to the walk-in clinic who sent him here * Symptoms began about 2 to 3 days prior * Denies a cough but was noted to have a fever on arrival of 101 * Chest x-ray was obtained at the walk-in clinic which showed bilateral infiltrates in the lower lobes consistent with COVID-19 pneumonia. * He was reportedly checked with a rapid Covid screen and was negative there * Saturations were noted to decrease to 80% and he was started on oxygen and sent here. 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 No history of lung problems such as asthma or COPD * Obese with a BMI of 48.3 however he reports he recently lost 80 pounds * Denies any chest pain, abdominal pain, nausea, or vomiting. * 12-lead EKG was obtained showing sinus tachycardia at 107 bpm with no ectopy. * Labs are obtained in ED and on floor: * WBC 4.57-->3.82 * Hemoglobin 14.6 ->14.9 * Platelet 91,000-->96,000 * Neutrophils 77.1%. * ABGs obtained with a pH of 7.45. PCO2 of 29.6. PO2 of 74.0. HCO3 of 20.3. Saturations of 96.3. This is on 2 L. * VB.32. PCO2 53.7. PO2 26.0. HCO3 of 26.8. Oxygen saturation 35.4. On 3 L. * Sodium 135-->141 * Potassium 3.9-->4.9 * Chloride 100-->103 * Carbon dioxide 23-->29 * Anion gap 15.9-->13.9 * BUN is 13-->16. Creatinine 1.2-->1.1. GFR greater than 60--> Greater than 60. * Glucose 153-->231. * Calcium 8.0-->8.1. * Bilirubin 1.1-->0.8. Direct bilirubin 0.50, Indirect bilirubin 0.30 * AST 115-->99. ALT 89-->87. Alkaline phosphatase 32-->31. * LDH 562. * Troponin 0.019. * CRP 16.9. * Protein 7.4-->7.5. * Albumin 3.1-->2.9. * Lactic acid 1.1. * Ferritin 3732. * D-dimer 1.43. * SARS-CoV-2 RNA is positive. * He is given 6 mg dexamethasone and 2 g of Rocephin. He is also given 2 puffs of an albuterol inhaler and ibuprofen. * Subsequently admitted to the medical floor on telemetry for management of his COVID-19 pneumonia. * CT obtained on floor on 03/12/2021 shows: * 1. No evidence of pulmonary embolus * 2. Moderate bilateral airspace disease compatible with infection * 3. Mild to moderate mediastinal and bihilar adenopathy * 4. Moderate hepatic steatosis * 5. Cholelithiasis 03/14/2021 This is a 60-year-old male admitted for COVID-19 treatment and hypoxia. Overall he is been doing quite well. Has been ambulating around the room. He did note some blood in his urine today so UA will be ordered. labs today show WBC 5.20. Hemoglobin 14.5. Hematocrit 43.6. Platelet improved to 100,000. Neutrophils elevated at 74.7.sodium of 139. Potassium 4.6. Chloride 103. Carbon dioxide 28. Anion gap 12.6. BUN 22. Creatinine 1.2. GFR greater than 60. Glucose has been 1 37-2 12. Calcium is 8.0. Magnesium 2.5. Total bilirubin 0.8. AST is 80, ALT 77, alkaline phosphatase 27. CRP is 12.6. Albumin is 2.7. We will recheck a D-dimer tomorrow. He has been weaned down to 1 L of oxygen. He has been utilizing his incentive spirometry and Acapella. He reports he is still tired but feels pretty good. We will continue treatment plan with likely discharge after completing remdesivir. - Plan Plan:: COVID-19 Hypoxia Elevated d-dimer Hypoalbuminemia * O2 as needed with goal saturations of 88-95% * Remdesivir day 2/ * Dexamethasone day 10/09 * IS/Acapella * RT consultation * Airborne and contact isolation * Telemetry * Continuous pulse oximetry * Encourage proning * Encourage ambulation around room * CTA obtained and negative * Heparin subcutaneous * Continue daily aspirin * Gastroenterology Technician consultation * Daily labs * Famotidine 20mg BID * PRN motrin for pain/fever (Reported adverse reaction to Tylenol) Type II diabetes mellitus * Hold home metformin * Medium dose sliding scale insulin * QID AC and Bedtime blood glucose checks * Anticipate rise in blood glucose readings due to steroids History of hypertension * No current home BP meds * Monitor vital signs Thrombocytopenia, improving * Monitor Morbid obesity * Gastroenterology Technician consultation Hepatic steatosis Cholelithiasis * No acute concerns * PCP follow-up Code status: Full Code PCP: Tricia Mohr NP DVT prohylaxis: Subcutaneous heparin Disposition: Patient admitted to [facility] on telemetry for COVID-19 treatment. Anticipated length of stay 4 to 5 days.
[2021-03-14] MEDS: REMDESIVIR 100 MG in Sodium Chloride 0.9% 100 ML IV SCH (07:51)
[2021-03-14] MEDS: Famotidine 20 MG Tab PO SCH ×3 (07:51→21:26)
[2021-03-14] MEDS: Multivitamin Tab PO SCH ×2 (07:52→08:51)
[2021-03-14] MEDS: Insulin Lispro 100 UNIT/ML 10 ML Vial SUBCUT SCH ×4 (07:52→21:26)
[2021-03-14] MEDS: Aspirin 81 MG Tab.EC PO SCH ×2 (07:52→08:50)
[2021-03-14] MEDS ORDERED: Lidocaine 2% Jelly 10 ML Urojet MUCMEM ONE (16:00)
[2021-03-14] MEDS ORDERED: Sodium Chloride 0.9% 10 ML Syringe FLUSH PRN (16:43)
[2021-03-14] MEDS ORDERED: Diatrizoate Meglumine/Diatrizoate Sodium 37% 120 ML Bottle PO ONE (16:43)
[2021-03-14] MEDS ORDERED: Iopamidol 612 MG/ML 100 ML Bottle IVPUSH ONE (16:43)
[2021-03-14] MEDS: Dexamethasone 4 MG Tab PO SCH (17:27)
[2021-03-14] MEDS ORDERED: Tamsulosin 0.4 MG Cap.ER PO ONE (17:55)
[2021-03-14] MEDS: Albuterol 6.7 GM Inhaler INH PRN (19:16)
[2021-03-15] MEDS: REMDESIVIR 100 MG in Sodium Chloride 0.9% 100 ML IV SCH (08:10)
[2021-03-15] MEDS: Aspirin 81 MG Tab.EC PO SCH (08:11)
[2021-03-15] MEDS: Multivitamin Tab PO SCH (08:11)
[2021-03-15] MEDS: Famotidine 20 MG Tab PO SCH ×2 (08:11→21:15)
[2021-03-15] MEDS: Insulin Lispro 100 UNIT/ML 10 ML Vial SUBCUT SCH ×4 (08:11→21:14)
--- NOTE | 2021-03-15 08:34 | CT ---
CT abdomen and pelvis Technique: Multiple axial sections were obtained from above the dome of the diaphragm inferiorly through the pubic symphysis. Intravenous and oral contrast was utilized. Delayed images were also obtained through the abdomen and pelvis. Reconstructed coronal and sagittal images were obtained. Comparison: No prior CT abdomen or pelvis study is available. Findings: Right kidney shows surrounding inflammatory change. Mild diminished enhancement of the right kidney is seen as well as slight enlargement. There is dilated right ureter being noted. These findings are caused by an obstructing distal right ureteral calculus measuring approximately 3.5 mm. This occurs slightly proximal to the UVJ. There appears to be a minimal calcification measuring about 1-1.5 mm within the bladder. Kidneys show no abnormal calculi. On delayed images there is no contrast excretion into the right ureter. Delayed images show contrast within the left ureter and bladder. Diffuse patchy areas of increased density are seen within both lung bases as visualized which is compatible with COVID pneumonia. Liver shows slight fatty infiltration. Numerous calcified gallstones are noted within the gallbladder. Spleen measures at the upper limits of normal in size at 13.76 cm. Adrenal glands show no nodule. Pancreas shows no discrete abnormality. Abdominal aorta shows mild atherosclerotic calcification within the aorta and iliac vessels with no aneurysm being seen. No retroperitoneal adenopathy or mesenteric abnormalities are seen. Appendix is seen which is normal in size. No pelvic mass or adenopathy is identified. Bone window settings were reviewed which show diffuse degenerative change throughout the spine as well as within the sacroiliac joints and both hips. Impression: 1. Obstructing calculus within the distal right ureter located proximal to the UVJ. This obstructing calculus measures approximately 3.5 mm. This obstructing calculus causes obstructive changes within the right kidney as noted above. 2. Findings of COVID pneumonia within both lung bases. 3. Other findings as noted above which are nonacute. Diagnostic code #3 I agree with preliminary report from [facility], finalized on 03/14/21, 5:57 PM CDT, code 1
--- NOTE | 2021-03-15 10:10 | PCM.PN ---
- General Info Date of Service: 03/15/21 Admission Dx/Problem (Free Text): Admission Diagnosis/Problem Admission Diagnosis/Problem Hypoxia Subjective Update: Patient with mild cough denies chest pain denies sob no further hematuria Functional Status: Reports: Pain Controlled - Review of Systems HEENT: Reports: No Symptoms Pulmonary: Reports: Cough Cardiovascular: Reports: No Symptoms Gastrointestinal: Reports: No Symptoms Musculoskeletal: Reports: No Symptoms Skin: Reports: No Symptoms - Patient Data Vitals - Most Recent: Last Vital Signs Temp 97.7 F 03/15/21 08:09 Pulse 82 03/15/21 08:09 Resp 18 03/15/21 08:09 BP 137/78 03/15/21 08:09 Pulse Ox 91 L 03/15/21 09:04 Weight - Most Recent: 341 lb 9.6 oz I&O - Last 24 Hours: Intake & Output 03/14/21 03/15/21 03/15/21 22:59 06:59 14:59 Intake Total 1258 600 Output Total 975 Balance 1258 -375 Lab Results Last 24 Hours: Laboratory Results - last 24 hr 03/14/21 03/14/21 03/14/21 Range/Units 06:30 11:11 13:38 WBC 5.20 (4.23-9.07) K/mm3 RBC 4.98 (4.63-6.08) M/mm3 Hgb 14.5 (13.7-17.5) gm/dl Hct 43.6 (40.1-51.0) % MCV 87.6 (79.0-92.2) fl MCH 29.1 (25.7-32.2) pg MCHC 33.3 (32.2-35.5) g/dl RDW Std Deviation 44.5 H (35.1-43.9) fL Plt Count 100 L (163-337) K/mm3 MPV 11.8 (9.4-12.3) fl Neut % (Auto) 74.7 H (34.0-67.9) % Lymph % (Auto) 13.7 L (21.8-53.1) % Ness % (Auto) 9.6 (5.3-12.2) % Eos % (Auto) 0 L (0.8-7.0) Baso % (Auto) 1.0 (0.1-1.2) % Neut # (Auto) 3.89 (1.78-5.38) K/mm3 Lymph # (Auto) 0.71 L (1.32-3.57) K/mm3 Ness # (Auto) 0.50 (0.30-0.82) K/mm3 Eos # (Auto) 0.00 L (0.04-0.54) K/mm3 Baso # (Auto) 0.05 (0.01-0.08) K/mm3 Manual Slide Review D-Dimer, Quantitative (0.19-0.50) mg/L Sodium (136-145) mEq/L Potassium (3.5-5.1) mEq/L Chloride (98-107) mEq/L Carbon Dioxide (21-32) mEq/L Anion Gap (5-15) BUN (7-18) mg/dL Creatinine (0.7-1.3) mg/dL Est Cr Clr Drug Dosing mL/min Estimated GFR (MDRD) (>60) mL/min BUN/Creatinine Ratio (14-18) Glucose (70-99) mg/dL POC Glucose 165 H (70-99) mg/dL Calcium (8.5-10.1) mg/dL Magnesium (1.8-2.4) mg/dL Total Bilirubin (0.2-1.0) mg/dL AST (15-37) U/L ALT (16-63) U/L Alkaline Phosphatase (46-116) U/L C-Reactive Protein (<1.0) mg/dL Total Protein (6.4-8.2) g/dl Albumin (3.4-5.0) g/dl Globulin gm/dL Albumin/Globulin Ratio (1-2) Urine Color Brown H (Yellow) Urine Appearance Cloudy H (Clear) Urine pH 6.0 (5.0-8.0) Ur Specific Gray > or = 1.030 (1.005-1.030) Urine Protein 2+ H (Negative) Urine Glucose (UA) Negative (Negative) Urine Ketones Negative (Negative) Urine Occult Blood 3+ H (Negative) Urine Nitrite Negative (Negative) Urine Bilirubin 1+ H (Negative) Urine Urobilinogen 4.0 H (0.2-1.0) Ur Leukocyte Esterase Negative (Negative) Urine RBC 20-30 H (0-5) /hpf Urine WBC Not seen (0-5) /hpf Ur Squamous Epith Cells Not seen (0-5) /hpf Amorphous Sediment Many H (NOT SEEN) /hpf Urine Bacteria Not seen (FEW) /hpf Urine Mucus Not seen (FEW) /hpf 03/14/21 03/14/21 03/15/21 Range/Units 17:26 21:17 06:15 WBC (4.23-9.07) K/mm3 RBC (4.63-6.08) M/mm3 Hgb (13.7-17.5) gm/dl Hct (40.1-51.0) % MCV (79.0-92.2) fl MCH (25.7-32.2) pg MCHC (32.2-35.5) g/dl RDW Std Deviation (35.1-43.9) fL Plt Count (163-337) K/mm3 MPV (9.4-12.3) fl Neut % (Auto) (34.0-67.9) % Lymph % (Auto) (21.8-53.1) % Ness % (Auto) (5.3-12.2) % Eos % (Auto) (0.8-7.0) Baso % (Auto) (0.1-1.2) % Neut # (Auto) (1.78-5.38) K/mm3 Lymph # (Auto) (1.32-3.57) K/mm3 Ness # (Auto) (0.30-0.82) K/mm3 Eos # (Auto) (0.04-0.54) K/mm3 Baso # (Auto) (0.01-0.08) K/mm3 Manual Slide Review D-Dimer, Quantitative (0.19-0.50) mg/L Sodium (136-145) mEq/L Potassium (3.5-5.1) mEq/L Chloride (98-107) mEq/L Carbon Dioxide (21-32) mEq/L Anion Gap (5-15) BUN (7-18) mg/dL Creatinine (0.7-1.3) mg/dL Est Cr Clr Drug Dosing mL/min Estimated GFR (MDRD) (>60) mL/min BUN/Creatinine Ratio (14-18) Glucose (70-99) mg/dL POC Glucose 147 H 159 H 215 H (70-99) mg/dL Calcium (8.5-10.1) mg/dL Magnesium (1.8-2.4) mg/dL Total Bilirubin (0.2-1.0) mg/dL AST (15-37) U/L ALT (16-63) U/L Alkaline Phosphatase (46-116) U/L C-Reactive Protein (<1.0) mg/dL Total Protein (6.4-8.2) g/dl Albumin (3.4-5.0) g/dl Globulin gm/dL Albumin/Globulin Ratio (1-2) Urine Color (Yellow) Urine Appearance (Clear) Urine pH (5.0-8.0) Ur Specific Gray (1.005-1.030) Urine Protein (Negative) Urine Glucose (UA) (Negative) Urine Ketones (Negative) Urine Occult Blood (Negative) Urine Nitrite (Negative) Urine Bilirubin (Negative) Urine Urobilinogen (0.2-1.0) Ur Leukocyte Esterase (Negative) Urine RBC (0-5) /hpf Urine WBC (0-5) /hpf Ur Squamous Epith Cells (0-5) /hpf Amorphous Sediment (NOT SEEN) /hpf Urine Bacteria (FEW) /hpf Urine Mucus (FEW) /hpf 03/15/21 03/15/21 03/15/21 Range/Units 07:18 07:18 07:18 WBC 5.17 (4.23-9.07) K/mm3 RBC 5.01 (4.63-6.08) M/mm3 Hgb 14.7 (13.7-17.5) gm/dl Hct 44.2 (40.1-51.0) % MCV 88.2 (79.0-92.2) fl MCH 29.3 (25.7-32.2) pg MCHC 33.3 (32.2-35.5) g/dl RDW Std Deviation 45.2 H (35.1-43.9) fL Plt Count 143 L (163-337) K/mm3 MPV 11.0 (9.4-12.3) fl Neut % (Auto) 64.4 (34.0-67.9) % Lymph % (Auto) 18.6 L (21.8-53.1) % Ness % (Auto) 13.3 H (5.3-12.2) % Eos % (Auto) 0 L (0.8-7.0) Baso % (Auto) 3.1 H (0.1-1.2) % Neut # (Auto) 3.33 (1.78-5.38) K/mm3 Lymph # (Auto) 0.96 L (1.32-3.57) K/mm3 Ness # (Auto) 0.69 (0.30-0.82) K/mm3 Eos # (Auto) 0.00 L (0.04-0.54) K/mm3 Baso # (Auto) 0.16 H (0.01-0.08) K/mm3 Manual Slide Review Normal smear D-Dimer, Quantitative 1.71 H (0.19-0.50) mg/L Sodium 138 (136-145) mEq/L Potassium 4.4 (3.5-5.1) mEq/L Chloride 103 (98-107) mEq/L Carbon Dioxide 25 (21-32) mEq/L Anion Gap 14.4 (5-15) BUN 26 H (7-18) mg/dL Creatinine 1.2 (0.7-1.3) mg/dL Est Cr Clr Drug Dosing 68.85 mL/min Estimated GFR (MDRD) > 60 (>60) mL/min BUN/Creatinine Ratio 21.7 H (14-18) Glucose 212 H (70-99) mg/dL POC Glucose (70-99) mg/dL Calcium 8.2 L (8.5-10.1) mg/dL Magnesium 2.7 H (1.8-2.4) mg/dL Total Bilirubin 0.9 (0.2-1.0) mg/dL AST 77 H (15-37) U/L ALT 75 H (16-63) U/L Alkaline Phosphatase 29 L (46-116) U/L C-Reactive Protein 9.5 H* (<1.0) mg/dL Total Protein 7.5 (6.4-8.2) g/dl Albumin 2.9 L (3.4-5.0) g/dl Globulin 4.6 gm/dL Albumin/Globulin Ratio 0.6 L (1-2) Urine Color (Yellow) Urine Appearance (Clear) Urine pH (5.0-8.0) Ur Specific Gray (1.005-1.030) Urine Protein (Negative) Urine Glucose (UA) (Negative) Urine Ketones (Negative) Urine Occult Blood (Negative) Urine Nitrite (Negative) Urine Bilirubin (Negative) Urine Urobilinogen (0.2-1.0) Ur Leukocyte Esterase (Negative) Urine RBC (0-5) /hpf Urine WBC (0-5) /hpf Ur Squamous Epith Cells (0-5) /hpf Amorphous Sediment (NOT SEEN) /hpf Urine Bacteria (FEW) /hpf Urine Mucus (FEW) /hpf Aiden Results Last 24 Hours: Microbiology 03/12/21 18:11 Blood Culture - Preliminary Blood - Venous - Lab Draw 03/12/21 18:02 Blood Culture - Preliminary Blood - Venous Med Orders - Current: Current Medications Albuterol (Albuterol 6.7 Gm Inhaler) 0 gm INH Q6H PRN PRN Reason: Shortness of Breath Last Admin: 03/14/21 19:16 Dose: 2 puff Documented by: Aspirin (Aspirin 81 Mg Tab.Ec) 81 mg PO DAILY [facility] Last Admin: 03/15/21 08:11 Dose: 81 mg Documented by: Dexamethasone (Dexamethasone 4 Mg Tab) 6 mg PO Q24H [facility] Stop: 03/21/21 18:01 Last Admin: 03/14/21 17:27 Dose: 6 mg Documented by: Famotidine (Famotidine 20 Mg Tab) 20 mg PO BID [facility] Last Admin: 03/15/21 08:11 Dose: 20 mg Documented by: Remdesivir 100 mg/ Sodium (Chloride) 100 mls @ 100 mls/hr IV Q24H [facility] Stop: 03/17/21 09:29 Last Admin: 03/15/21 08:10 Dose: 100 mls/hr Documented by: Ibuprofen (Ibuprofen 600 Mg Tab) 600 mg PO Q6H PRN PRN Reason: fever/pain Last Admin: 03/13/21 17:57 Dose: 600 mg Documented by: Insulin Human Lispro (Insulin Lispro 100 Unit/Ml 10 Ml Vial) 0 unit SUBCUT QIDACANDBED [facility]; Protocol Last Admin: 03/15/21 08:11 Dose: 4 unit Documented by: Multivitamins/Minerals/Vitamin C (Multivitamin Tab) 1 tab PO DAILY [facility] Last Admin: 03/15/21 08:11 Dose: 1 tab Documented by: Ondansetron HCl (Ondansetron 4 Mg/2 Ml Sdv) 4 mg IV Q6H PRN PRN Reason: Nausea/Vomiting Oxycodone HCl (Oxycodone 5 Mg Tab) 5 mg PO Q4H PRN PRN Reason: Pain (moderate 4-6) Last Admin: 03/14/21 21:27 Dose: 5 mg Documented by: Sodium Chloride (Sodium Chloride 0.9% 10 Ml Syringe) 10 ml FLUSH ASDIRECTED PRN PRN Reason: Keep Vein Open Last Admin: 03/12/21 17:49 Dose: 10 ml Documented by: Discontinued Medications Albuterol (Albuterol 6.7 Gm Inhaler) 0 gm INH ONETIME ONE Stop: 03/12/21 17:41 Last Admin: 03/12/21 17:49 Dose: 2 puff Documented by: Dexamethasone (Dexamethasone 10 Mg/Ml Sdv) 6 mg IVPUSH ONETIME ONE Stop: 03/12/21 19:50 Last Admin: 03/12/21 20:24 Dose: 6 mg Documented by: Diatrizoate Meglum/Diatrizoate Sod (Diatrizoate Meglumine/Diatrizoate Sodium 37% 120 Ml Bottle) 60 ml PO ONETIME ONE Stop: 03/14/21 16:44 Last Admin: 03/14/21 16:55 Dose: 60 ml Documented by: Heparin Sodium (Porcine) (Heparin Sodium 5,000 Units/Ml Vial) 5,000 units SUBCUT Q8H [facility] Last Admin: 03/14/21 06:31 Dose: Not Given Documented by: Ceftriaxone Sodium 2 gm/ (Sodium Chloride) 100 mls @ 200 mls/hr IV ONETIME ONE Stop: 03/12/21 18:08 Last Admin: 03/12/21 17:49 Dose: 200 mls/hr Documented by: Remdesivir 200 mg/ Sodium (Chloride) 250 mls @ 250 mls/hr IV ONETIME ONE Stop: 03/13/21 09:29 Last Admin: 03/13/21 08:28 Dose: 250 mls/hr Documented by: Ibuprofen (Ibuprofen 600 Mg Tab) 600 mg PO ONETIME ONE Stop: 03/12/21 17:43 Last Admin: 03/12/21 17:49 Dose: 600 mg Documented by: Iopamidol (Iopamidol 612 Mg/Ml 100 Ml Bottle) 100 ml IVPUSH ONETIME ONE Stop: 03/14/21 16:44 Last Admin: 03/14/21 16:56 Dose: 100 ml Documented by: Lidocaine HCl (Lidocaine 2% Jelly 10 Ml Urojet) 10 ml MUCMEM ONETIME ONE Stop: 03/14/21 16:01 Last Admin: 03/14/21 16:54 Dose: 10 ml Documented by: Metformin HCl (Metformin 500 Mg Tab) 500 mg PO BIDMEALS [facility] Last Admin: 03/13/21 07:36 Dose: Not Given Documented by: Sodium Chloride (Sodium Chloride 0.9% 10 Ml Syringe) 10 ml FLUSH ONETIME PRN PRN Reason: Keep Vein Open Stop: 03/14/21 19:00 Last Admin: 03/14/21 16:56 Dose: 10 ml Documented by: Tamsulosin HCl (Tamsulosin 0.4 Mg Cap.Er) 0.4 mg PO ONETIME ONE Stop: 03/14/21 17:56 Last Admin: 03/14/21 18:09 Dose: 0.4 mg Documented by: - Exam Urinary Catheter Total Time: 0Days 0Hours General: Alert, Oriented HEENT: EOMI, Mucous Membr. Moist/[place] Neck: Supple Lungs: Decreased Breath Sounds Cardiovascular: Regular Rate, Regular Rhythm GI/Abdominal Exam: Normal Bowel Sounds, Soft, Non-Tender Extremities: Normal Inspection Skin: Warm, Dry, Intact Neurological: No New Focal Deficit - Patient Data Lab Results Last 24 hrs: Laboratory Results - last 24 hr 03/14/21 03/14/21 03/14/21 Range/Units 06:30 11:11 13:38 WBC 5.20 (4.23-9.07) K/mm3 RBC 4.98 (4.63-6.08) M/mm3 Hgb 14.5 (13.7-17.5) gm/dl Hct 43.6 (40.1-51.0) % MCV 87.6 (79.0-92.2) fl MCH 29.1 (25.7-32.2) pg MCHC 33.3 (32.2-35.5) g/dl RDW Std Deviation 44.5 H (35.1-43.9) fL Plt Count 100 L (163-337) K/mm3 MPV 11.8 (9.4-12.3) fl Neut % (Auto) 74.7 H (34.0-67.9) % Lymph % (Auto) 13.7 L (21.8-53.1) % Ness % (Auto) 9.6 (5.3-12.2) % Eos % (Auto) 0 L (0.8-7.0) Baso % (Auto) 1.0 (0.1-1.2) % Neut # (Auto) 3.89 (1.78-5.38) K/mm3 Lymph # (Auto) 0.71 L (1.32-3.57) K/mm3 Ness # (Auto) 0.50 (0.30-0.82) K/mm3 Eos # (Auto) 0.00 L (0.04-0.54) K/mm3 Baso # (Auto) 0.05 (0.01-0.08) K/mm3 Manual Slide Review D-Dimer, Quantitative (0.19-0.50) mg/L Sodium (136-145) mEq/L Potassium (3.5-5.1) mEq/L Chloride (98-107) mEq/L Carbon Dioxide (21-32) mEq/L Anion Gap (5-15) BUN (7-18) mg/dL Creatinine (0.7-1.3) mg/dL Est Cr Clr Drug Dosing mL/min Estimated GFR (MDRD) (>60) mL/min BUN/Creatinine Ratio (14-18) Glucose (70-99) mg/dL POC Glucose 165 H (70-99) mg/dL Calcium (8.5-10.1) mg/dL Magnesium (1.8-2.4) mg/dL Total Bilirubin (0.2-1.0) mg/dL AST (15-37) U/L ALT (16-63) U/L Alkaline Phosphatase (46-116) U/L C-Reactive Protein (<1.0) mg/dL Total Protein (6.4-8.2) g/dl Albumin (3.4-5.0) g/dl Globulin gm/dL Albumin/Globulin Ratio (1-2) Urine Color Brown H (Yellow) Urine Appearance Cloudy H (Clear) Urine pH 6.0 (5.0-8.0) Ur Specific Gray > or = 1.030 (1.005-1.030) Urine Protein 2+ H (Negative) Urine Glucose (UA) Negative (Negative) Urine Ketones Negative (Negative) Urine Occult Blood 3+ H (Negative) Urine Nitrite Negative (Negative) Urine Bilirubin 1+ H (Negative) Urine Urobilinogen 4.0 H (0.2-1.0) Ur Leukocyte Esterase Negative (Negative) Urine RBC 20-30 H (0-5) /hpf Urine WBC Not seen (0-5) /hpf Ur Squamous Epith Cells Not seen (0-5) /hpf Amorphous Sediment Many H (NOT SEEN) /hpf Urine Bacteria Not seen (FEW) /hpf Urine Mucus Not seen (FEW) /hpf 03/14/21 03/14/21 03/15/21 Range/Units 17:26 21:17 06:15 WBC (4.23-9.07) K/mm3 RBC (4.63-6.08) M/mm3 Hgb (13.7-17.5) gm/dl Hct (40.1-51.0) % MCV (79.0-92.2) fl MCH (25.7-32.2) pg MCHC (32.2-35.5) g/dl RDW Std Deviation (35.1-43.9) fL Plt Count (163-337) K/mm3 MPV (9.4-12.3) fl Neut % (Auto) (34.0-67.9) % Lymph % (Auto) (21.8-53.1) % Ness % (Auto) (5.3-12.2) % Eos % (Auto) (0.8-7.0) Baso % (Auto) (0.1-1.2) % Neut # (Auto) (1.78-5.38) K/mm3 Lymph # (Auto) (1.32-3.57) K/mm3 Ness # (Auto) (0.30-0.82) K/mm3 Eos # (Auto) (0.04-0.54) K/mm3 Baso # (Auto) (0.01-0.08) K/mm3 Manual Slide Review D-Dimer, Quantitative (0.19-0.50) mg/L Sodium (136-145) mEq/L Potassium (3.5-5.1) mEq/L Chloride (98-107) mEq/L Carbon Dioxide (21-32) mEq/L Anion Gap (5-15) BUN (7-18) mg/dL Creatinine (0.7-1.3) mg/dL Est Cr Clr Drug Dosing mL/min Estimated GFR (MDRD) (>60) mL/min BUN/Creatinine Ratio (14-18) Glucose (70-99) mg/dL POC Glucose 147 H 159 H 215 H (70-99) mg/dL Calcium (8.5-10.1) mg/dL Magnesium (1.8-2.4) mg/dL Total Bilirubin (0.2-1.0) mg/dL AST (15-37) U/L ALT (16-63) U/L Alkaline Phosphatase (46-116) U/L C-Reactive Protein (<1.0) mg/dL Total Protein (6.4-8.2) g/dl Albumin (3.4-5.0) g/dl Globulin gm/dL Albumin/Globulin Ratio (1-2) Urine Color (Yellow) Urine Appearance (Clear) Urine pH (5.0-8.0) Ur Specific Gray (1.005-1.030) Urine Protein (Negative) Urine Glucose (UA) (Negative) Urine Ketones (Negative) Urine Occult Blood (Negative) Urine Nitrite (Negative) Urine Bilirubin (Negative) Urine Urobilinogen (0.2-1.0) Ur Leukocyte Esterase (Negative) Urine RBC (0-5) /hpf Urine WBC (0-5) /hpf Ur Squamous Epith Cells (0-5) /hpf Amorphous Sediment (NOT SEEN) /hpf Urine Bacteria (FEW) /hpf Urine Mucus (FEW) /hpf 03/15/21 03/15/21 03/15/21 Range/Units 07:18 07:18 07:18 WBC 5.17 (4.23-9.07) K/mm3 RBC 5.01 (4.63-6.08) M/mm3 Hgb 14.7 (13.7-17.5) gm/dl Hct 44.2 (40.1-51.0) % MCV 88.2 (79.0-92.2) fl MCH 29.3 (25.7-32.2) pg MCHC 33.3 (32.2-35.5) g/dl RDW Std Deviation 45.2 H (35.1-43.9) fL Plt Count 143 L (163-337) K/mm3 MPV 11.0 (9.4-12.3) fl Neut % (Auto) 64.4 (34.0-67.9) % Lymph % (Auto) 18.6 L (21.8-53.1) % Ness % (Auto) 13.3 H (5.3-12.2) % Eos % (Auto) 0 L (0.8-7.0) Baso % (Auto) 3.1 H (0.1-1.2) % Neut # (Auto) 3.33 (1.78-5.38) K/mm3 Lymph # (Auto) 0.96 L (1.32-3.57) K/mm3 Ness # (Auto) 0.69 (0.30-0.82) K/mm3 Eos # (Auto) 0.00 L (0.04-0.54) K/mm3 Baso # (Auto) 0.16 H (0.01-0.08) K/mm3 Manual Slide Review Normal smear D-Dimer, Quantitative 1.71 H (0.19-0.50) mg/L Sodium 138 (136-145) mEq/L Potassium 4.4 (3.5-5.1) mEq/L Chloride 103 (98-107) mEq/L Carbon Dioxide 25 (21-32) mEq/L Anion Gap 14.4 (5-15) BUN 26 H (7-18) mg/dL Creatinine 1.2 (0.7-1.3) mg/dL Est Cr Clr Drug Dosing 68.85 mL/min Estimated GFR (MDRD) > 60 (>60) mL/min BUN/Creatinine Ratio 21.7 H (14-18) Glucose 212 H (70-99) mg/dL POC Glucose (70-99) mg/dL Calcium 8.2 L (8.5-10.1) mg/dL Magnesium 2.7 H (1.8-2.4) mg/dL Total Bilirubin 0.9 (0.2-1.0) mg/dL AST 77 H (15-37) U/L ALT 75 H (16-63) U/L Alkaline Phosphatase 29 L (46-116) U/L C-Reactive Protein 9.5 H* (<1.0) mg/dL Total Protein 7.5 (6.4-8.2) g/dl Albumin 2.9 L (3.4-5.0) g/dl Globulin 4.6 gm/dL Albumin/Globulin Ratio 0.6 L (1-2) Urine Color (Yellow) Urine Appearance (Clear) Urine pH (5.0-8.0) Ur Specific Gray (1.005-1.030) Urine Protein (Negative) Urine Glucose (UA) (Negative) Urine Ketones (Negative) Urine Occult Blood (Negative) Urine Nitrite (Negative) Urine Bilirubin (Negative) Urine Urobilinogen (0.2-1.0) Ur Leukocyte Esterase (Negative) Urine RBC (0-5) /hpf Urine WBC (0-5) /hpf Ur Squamous Epith Cells (0-5) /hpf Amorphous Sediment (NOT SEEN) /hpf Urine Bacteria (FEW) /hpf Urine Mucus (FEW) /hpf Result Diagrams: 03/15/21 07:18 03/15/21 07:18 Aiden Results Last 24 hrs: Microbiology 03/12/21 18:11 Blood Culture - Preliminary Blood - Venous - Lab Draw 03/12/21 18:02 Blood Culture - Preliminary Blood - Venous Imaging Impressions Last 24 hrs: CT AP notable for 4.5 mm stone at the right UV junction with moderate right hydroureteronephrosis and extensive right perinephric/periureteral inflammation Sepsis Event Note - Evaluation Sepsis Screening Result: Possible Sepsis Risk - Focused Exam Vital Signs: Vital Signs Temp Pulse Resp BP Pulse Ox Pulse Ox 03/15/21 09:04 91 L 03/15/21 08:09 97.7 F 82 18 137/78 96 03/15/21 07:36 98.1 F 82 20 143/81 H 95 03/15/21 04:22 98.2 F 81 18 144/67 H 92 L - Problem List Review Problem List Initiated/Reviewed/Updated: Yes - My Orders Last 24 Hours: My Active Orders 03/14/21 Dinner ADA Diabetic [[place] [employer] Diet] [DIET] - Assessment Assessment:: Assessment - 03/13/2021 (admitted late 03/12/2021) * This is a 60-year-old male presents to ED with dyspnea and hypoxia * Hx of hypertension though was able to come off his medications due to weight loss. He is a type II diabetic on Metformin. * Went to the walk-in clinic who sent him here * Symptoms began about 2 to 3 days prior * Denies a cough but was noted to have a fever on arrival of 101 * Chest x-ray was obtained at the walk-in clinic which showed bilateral infiltrates in the lower lobes consistent with COVID-19 pneumonia. * He was reportedly checked with a rapid Covid screen and was negative there * Saturations were noted to decrease to 80% and he was started on oxygen and sent here. 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 No history of lung problems such as asthma or COPD * Obese with a BMI of 48.3 however he reports he recently lost 80 pounds * Denies any chest pain, abdominal pain, nausea, or vomiting. * 12-lead EKG was obtained showing sinus tachycardia at 107 bpm with no ectopy. * Labs are obtained in ED and on floor: * WBC 4.57-->3.82 * Hemoglobin 14.6 ->14.9 * Platelet 91,000-->96,000 * Neutrophils 77.1%. * ABGs obtained with a pH of 7.45. PCO2 of 29.6. PO2 of 74.0. HCO3 of 20.3. Saturations of 96.3. This is on 2 L. * VB.32. PCO2 53.7. PO2 26.0. HCO3 of 26.8. Oxygen saturation 35.4. On 3 L. * Sodium 135-->141 * Potassium 3.9-->4.9 * Chloride 100-->103 * Carbon dioxide 23-->29 * Anion gap 15.9-->13.9 * BUN is 13-->16. Creatinine 1.2-->1.1. GFR greater than 60--> Greater than 60. * Glucose 153-->231. * Calcium 8.0-->8.1. * Bilirubin 1.1-->0.8. Direct bilirubin 0.50, Indirect bilirubin 0.30 * AST 115-->99. ALT 89-->87. Alkaline phosphatase 32-->31. * LDH 562. * Troponin 0.019. * CRP 16.9. * Protein 7.4-->7.5. * Albumin 3.1-->2.9. * Lactic acid 1.1. * Ferritin 3732. * D-dimer 1.43. * SARS-CoV-2 RNA is positive. * He is given 6 mg dexamethasone and 2 g of Rocephin. He is also given 2 puffs of an albuterol inhaler and ibuprofen. * Subsequently admitted to the medical floor on telemetry for management of his COVID-19 pneumonia. * CT obtained on floor on 03/12/2021 shows: * 1. No evidence of pulmonary embolus * 2. Moderate bilateral airspace disease compatible with infection * 3. Mild to moderate mediastinal and bihilar adenopathy * 4. Moderate hepatic steatosis * 5. Cholelithiasis 03/14/2021 This is a 60-year-old male admitted for COVID-19 treatment and hypoxia. Overall he is been doing quite well. Has been ambulating around the room. He did note some blood in his urine today so UA will be ordered. labs today show WBC 5.20. Hemoglobin 14.5. Hematocrit 43.6. Platelet improved to 100,000. Neutrophils elevated at 74.7.sodium of 139. Potassium 4.6. Chloride 103. Carbon dioxide 28. Anion gap 12.6. BUN 22. Creatinine 1.2. GFR greater than 60. Glucose has been 1 37-2 12. Calcium is 8.0. Magnesium 2.5. Total bilirubin 0.8. AST is 80, ALT 77, alkaline phosphatase 27. CRP is 12.6. Albumin is 2.7. We will recheck a D-dimer tomorrow. He has been weaned down to 1 L of oxygen. He has been utilizing his incentive spirometry and Acapella. He reports he is still tired but feels pretty good. We will continue treatment plan with likely discharge after completing remdesivir. - Plan Plan:: COVID-19 Hypoxia Elevated d-dimer Hypoalbuminemia * O2 as needed with goal saturations of 88-95% * Remdesivir-continue * Dexamethasone -continue * IS/Acapella * RT consultation * Airborne and contact isolation * Telemetry * Continuous pulse oximetry * Encourage proning * Encourage ambulation around room * CTA obtained and negative * Heparin subcutaneous * Continue daily aspirin * Medical Transport Specialist consultation * Daily labs * Famotidine 20mg BID * PRN motrin for pain/fever (Reported adverse reaction to Tylenol) Type II diabetes mellitus * Hold home metformin * Medium dose sliding scale insulin * QID AC and Bedtime blood glucose checks * Anticipate rise in blood glucose readings due to steroids History of hypertension * No current home BP meds * Monitor vital signs Thrombocytopenia, improving * Monitor Morbid obesity * Medical Transport Specialist consultation Hepatic steatosis Cholelithiasis * No acute concerns * PCP follow-up * Nephrolithiasis with right hydroureteronephrosis. CT AP notable for 4.5 mm stone at the right UV junction with moderate right hydroureteronephrosis and extensive right perinephric/periureteral inflammation -case discussed with urology; per urology 90% likelihood that stone will pass by itself -started on flomax 03/14 Code status: Full Code PCP: Tricia Mohr NP DVT prohylaxis: Subcutaneous heparin Disposition: Patient admitted to [facility] on telemetry for COVID-19 treatment. Anticipated length of stay 4 to 5 days.
[2021-03-15] MEDS: Dexamethasone 4 MG Tab PO SCH (18:46)
[2021-03-15] MEDS: oxyCODONE 5 MG Tab PO PRN (21:15)
[2021-03-16] MEDS: Albuterol 6.7 GM Inhaler INH PRN ×3 (08:21→21:14)
[2021-03-16] MEDS: Multivitamin Tab PO SCH (09:29)
[2021-03-16] MEDS: REMDESIVIR 100 MG in Sodium Chloride 0.9% 100 ML IV SCH (09:29)
[2021-03-16] MEDS: Insulin Lispro 100 UNIT/ML 10 ML Vial SUBCUT SCH ×4 (09:29→21:19)
[2021-03-16] MEDS: Famotidine 20 MG Tab PO SCH ×2 (09:29→20:56)
[2021-03-16] MEDS: Aspirin 81 MG Tab.EC PO SCH (09:29)
--- NOTE | 2021-03-16 12:44 | PCM.PN ---
- General Info Date of Service: 03/16/21 Admission Dx/Problem (Free Text): Admission Diagnosis/Problem Admission Diagnosis/Problem Hypoxia Subjective Update: denies chest pain on supplemental oxygen intermittent cough no diarrhea - Review of Systems General: Reports: Weakness, Fatigue HEENT: Reports: No Symptoms Pulmonary: Reports: Cough Cardiovascular: Reports: No Symptoms Gastrointestinal: Reports: No Symptoms Musculoskeletal: Reports: No Symptoms Neurological: Reports: No Symptoms - Patient Data Vitals - Most Recent: Last Vital Signs Temp 98.4 F 03/16/21 09:38 Pulse 85 03/16/21 09:38 Resp 20 03/16/21 09:38 BP 137/65 03/16/21 09:38 Pulse Ox 90 L 03/16/21 09:38 Weight - Most Recent: 341 lb 1.6 oz I&O - Last 24 Hours: Intake & Output 03/15/21 03/16/21 03/16/21 22:59 06:59 14:59 Intake Total 188 800 Output Total 900 Balance 188 -100 Lab Results Last 24 Hours: Laboratory Results - last 24 hr 03/15/21 03/15/21 03/16/21 Range/Units 17:03 21:13 05:44 WBC (4.23-9.07) K/mm3 RBC (4.63-6.08) M/mm3 Hgb (13.7-17.5) gm/dl Hct (40.1-51.0) % MCV (79.0-92.2) fl MCH (25.7-32.2) pg MCHC (32.2-35.5) g/dl RDW Std Deviation (35.1-43.9) fL Plt Count (163-337) K/mm3 MPV (9.4-12.3) fl Neut % (Auto) (34.0-67.9) % Lymph % (Auto) (21.8-53.1) % Guthrie % (Auto) (5.3-12.2) % Eos % (Auto) (0.8-7.0) Baso % (Auto) (0.1-1.2) % Neut # (Auto) (1.78-5.38) K/mm3 Lymph # (Auto) (1.32-3.57) K/mm3 Guthrie # (Auto) (0.30-0.82) K/mm3 Eos # (Auto) (0.04-0.54) K/mm3 Baso # (Auto) (0.01-0.08) K/mm3 Manual Slide Review Sodium 142 (136-145) mEq/L Potassium 4.1 (3.5-5.1) mEq/L Chloride 107 (98-107) mEq/L Carbon Dioxide 25 (21-32) mEq/L Anion Gap 14.1 (5-15) BUN 22 H (7-18) mg/dL Creatinine 1.0 (0.7-1.3) mg/dL Est Cr Clr Drug Dosing 82.62 mL/min Estimated GFR (MDRD) > 60 (>60) mL/min BUN/Creatinine Ratio 22.0 H (14-18) Glucose 225 H (70-99) mg/dL POC Glucose 144 H 167 H (70-99) mg/dL Calcium 7.9 L (8.5-10.1) mg/dL Magnesium 2.4 (1.8-2.4) mg/dL Total Bilirubin 0.9 (0.2-1.0) mg/dL AST 74 H (15-37) U/L ALT 80 H (16-63) U/L Alkaline Phosphatase 27 L (46-116) U/L C-Reactive Protein 6.2 H* (<1.0) mg/dL Total Protein 7.1 (6.4-8.2) g/dl Albumin 2.7 L (3.4-5.0) g/dl Globulin 4.4 gm/dL Albumin/Globulin Ratio 0.6 L (1-2) 03/16/21 03/16/21 03/16/21 Range/Units 05:44 06:46 10:37 WBC 5.15 (4.23-9.07) K/mm3 RBC 4.94 (4.63-6.08) M/mm3 Hgb 14.5 (13.7-17.5) gm/dl Hct 43.3 (40.1-51.0) % MCV 87.7 (79.0-92.2) fl MCH 29.4 (25.7-32.2) pg MCHC 33.5 (32.2-35.5) g/dl RDW Std Deviation 45.5 H (35.1-43.9) fL Plt Count 163 (163-337) K/mm3 MPV 10.6 (9.4-12.3) fl Neut % (Auto) 68.6 H (34.0-67.9) % Lymph % (Auto) 18.8 L (21.8-53.1) % Guthrie % (Auto) 9.9 (5.3-12.2) % Eos % (Auto) 0 L (0.8-7.0) Baso % (Auto) 1.9 H (0.1-1.2) % Neut # (Auto) 3.53 (1.78-5.38) K/mm3 Lymph # (Auto) 0.97 L (1.32-3.57) K/mm3 Guthrie # (Auto) 0.51 (0.30-0.82) K/mm3 Eos # (Auto) 0.00 L (0.04-0.54) K/mm3 Baso # (Auto) 0.10 H (0.01-0.08) K/mm3 Manual Slide Review Normal smear Sodium (136-145) mEq/L Potassium (3.5-5.1) mEq/L Chloride (98-107) mEq/L Carbon Dioxide (21-32) mEq/L Anion Gap (5-15) BUN (7-18) mg/dL Creatinine (0.7-1.3) mg/dL Est Cr Clr Drug Dosing mL/min Estimated GFR (MDRD) (>60) mL/min BUN/Creatinine Ratio (14-18) Glucose (70-99) mg/dL POC Glucose 219 H 155 H (70-99) mg/dL Calcium (8.5-10.1) mg/dL Magnesium (1.8-2.4) mg/dL Total Bilirubin (0.2-1.0) mg/dL AST (15-37) U/L ALT (16-63) U/L Alkaline Phosphatase (46-116) U/L C-Reactive Protein (<1.0) mg/dL Total Protein (6.4-8.2) g/dl Albumin (3.4-5.0) g/dl Globulin gm/dL Albumin/Globulin Ratio (1-2) Med Orders - Current: Current Medications Albuterol (Albuterol 6.7 Gm Inhaler) 0 gm INH Q6H PRN PRN Reason: Shortness of Breath Last Admin: 03/16/21 08:21 Dose: 2 puff Documented by: Aspirin (Aspirin 81 Mg Tab.Ec) 81 mg PO DAILY [facility] Last Admin: 03/16/21 09:29 Dose: 81 mg Documented by: Dexamethasone (Dexamethasone 4 Mg Tab) 6 mg PO Q24H [facility] Stop: 03/21/21 18:01 Last Admin: 03/15/21 18:46 Dose: 6 mg Documented by: Famotidine (Famotidine 20 Mg Tab) 20 mg PO BID [facility] Last Admin: 03/16/21 09:29 Dose: 20 mg Documented by: Remdesivir 100 mg/ Sodium (Chloride) 100 mls @ 100 mls/hr IV Q24H [facility] Stop: 03/17/21 09:29 Last Admin: 03/16/21 09:29 Dose: 100 mls/hr Documented by: Ibuprofen (Ibuprofen 600 Mg Tab) 600 mg PO Q6H PRN PRN Reason: fever/pain Last Admin: 03/13/21 17:57 Dose: 600 mg Documented by: Insulin Human Lispro (Insulin Lispro 100 Unit/Ml 10 Ml Vial) 0 unit SUBCUT QIDACANDBED [facility]; Protocol Last Admin: 03/16/21 10:41 Dose: 2 unit Documented by: Multivitamins/Minerals/Vitamin C (Multivitamin Tab) 1 tab PO DAILY [facility] Last Admin: 03/16/21 09:29 Dose: 1 tab Documented by: Ondansetron HCl (Ondansetron 4 Mg/2 Ml Sdv) 4 mg IV Q6H PRN PRN Reason: Nausea/Vomiting Oxycodone HCl (Oxycodone 5 Mg Tab) 5 mg PO Q4H PRN PRN Reason: Pain (moderate 4-6) Last Admin: 03/15/21 21:15 Dose: 5 mg Documented by: Sodium Chloride (Sodium Chloride 0.9% 10 Ml Syringe) 10 ml FLUSH ASDIRECTED PRN PRN Reason: Keep Vein Open Last Admin: 03/12/21 17:49 Dose: 10 ml Documented by: Discontinued Medications Albuterol (Albuterol 6.7 Gm Inhaler) 0 gm INH ONETIME ONE Stop: 03/12/21 17:41 Last Admin: 03/12/21 17:49 Dose: 2 puff Documented by: Dexamethasone (Dexamethasone 10 Mg/Ml Sdv) 6 mg IVPUSH ONETIME ONE Stop: 03/12/21 19:50 Last Admin: 03/12/21 20:24 Dose: 6 mg Documented by: Diatrizoate Meglum/Diatrizoate Sod (Diatrizoate Meglumine/Diatrizoate Sodium 37% 120 Ml Bottle) 60 ml PO ONETIME ONE Stop: 03/14/21 16:44 Last Admin: 03/14/21 16:55 Dose: 60 ml Documented by: Heparin Sodium (Porcine) (Heparin Sodium 5,000 Units/Ml Vial) 5,000 units SUBCUT Q8H [facility] Last Admin: 03/14/21 06:31 Dose: Not Given Documented by: Ceftriaxone Sodium 2 gm/ (Sodium Chloride) 100 mls @ 200 mls/hr IV ONETIME ONE Stop: 03/12/21 18:08 Last Admin: 03/12/21 17:49 Dose: 200 mls/hr Documented by: Remdesivir 200 mg/ Sodium (Chloride) 250 mls @ 250 mls/hr IV ONETIME ONE Stop: 03/13/21 09:29 Last Admin: 03/13/21 08:28 Dose: 250 mls/hr Documented by: Ibuprofen (Ibuprofen 600 Mg Tab) 600 mg PO ONETIME ONE Stop: 03/12/21 17:43 Last Admin: 03/12/21 17:49 Dose: 600 mg Documented by: Iopamidol (Iopamidol 612 Mg/Ml 100 Ml Bottle) 100 ml IVPUSH ONETIME ONE Stop: 03/14/21 16:44 Last Admin: 03/14/21 16:56 Dose: 100 ml Documented by: Lidocaine HCl (Lidocaine 2% Jelly 10 Ml Urojet) 10 ml MUCMEM ONETIME ONE Stop: 03/14/21 16:01 Last Admin: 03/14/21 16:54 Dose: 10 ml Documented by: Metformin HCl (Metformin 500 Mg Tab) 500 mg PO BIDMEALS [facility] Last Admin: 03/13/21 07:36 Dose: Not Given Documented by: Sodium Chloride (Sodium Chloride 0.9% 10 Ml Syringe) 10 ml FLUSH ONETIME PRN PRN Reason: Keep Vein Open Stop: 03/14/21 19:00 Last Admin: 03/14/21 16:56 Dose: 10 ml Documented by: Tamsulosin HCl (Tamsulosin 0.4 Mg Cap.Er) 0.4 mg PO ONETIME ONE Stop: 03/14/21 17:56 Last Admin: 03/14/21 18:09 Dose: 0.4 mg Documented by: - Exam Quality Assessment: Supplemental Oxygen Urinary Catheter Total Time: 0Days 0Hours General: Alert, Oriented HEENT: EOMI Neck: Supple Lungs: Decreased Breath Sounds Cardiovascular: Regular Rate, Regular Rhythm GI/Abdominal Exam: Soft, Non-Tender, No Distention Extremities: Normal Inspection Skin: Warm, Dry, Intact Neurological: No New Focal Deficit Psy/Mental Status: Alert, Normal Affect, Normal Mood - Patient Data Lab Results Last 24 hrs: Laboratory Results - last 24 hr 03/15/21 03/15/21 03/16/21 Range/Units 17:03 21:13 05:44 WBC (4.23-9.07) K/mm3 RBC (4.63-6.08) M/mm3 Hgb (13.7-17.5) gm/dl Hct (40.1-51.0) % MCV (79.0-92.2) fl MCH (25.7-32.2) pg MCHC (32.2-35.5) g/dl RDW Std Deviation (35.1-43.9) fL Plt Count (163-337) K/mm3 MPV (9.4-12.3) fl Neut % (Auto) (34.0-67.9) % Lymph % (Auto) (21.8-53.1) % Guthrie % (Auto) (5.3-12.2) % Eos % (Auto) (0.8-7.0) Baso % (Auto) (0.1-1.2) % Neut # (Auto) (1.78-5.38) K/mm3 Lymph # (Auto) (1.32-3.57) K/mm3 Guthrie # (Auto) (0.30-0.82) K/mm3 Eos # (Auto) (0.04-0.54) K/mm3 Baso # (Auto) (0.01-0.08) K/mm3 Manual Slide Review Sodium 142 (136-145) mEq/L Potassium 4.1 (3.5-5.1) mEq/L Chloride 107 (98-107) mEq/L Carbon Dioxide 25 (21-32) mEq/L Anion Gap 14.1 (5-15) BUN 22 H (7-18) mg/dL Creatinine 1.0 (0.7-1.3) mg/dL Est Cr Clr Drug Dosing 82.62 mL/min Estimated GFR (MDRD) > 60 (>60) mL/min BUN/Creatinine Ratio 22.0 H (14-18) Glucose 225 H (70-99) mg/dL POC Glucose 144 H 167 H (70-99) mg/dL Calcium 7.9 L (8.5-10.1) mg/dL Magnesium 2.4 (1.8-2.4) mg/dL Total Bilirubin 0.9 (0.2-1.0) mg/dL AST 74 H (15-37) U/L ALT 80 H (16-63) U/L Alkaline Phosphatase 27 L (46-116) U/L C-Reactive Protein 6.2 H* (<1.0) mg/dL Total Protein 7.1 (6.4-8.2) g/dl Albumin 2.7 L (3.4-5.0) g/dl Globulin 4.4 gm/dL Albumin/Globulin Ratio 0.6 L (1-2) 03/16/21 03/16/21 03/16/21 Range/Units 05:44 06:46 10:37 WBC 5.15 (4.23-9.07) K/mm3 RBC 4.94 (4.63-6.08) M/mm3 Hgb 14.5 (13.7-17.5) gm/dl Hct 43.3 (40.1-51.0) % MCV 87.7 (79.0-92.2) fl MCH 29.4 (25.7-32.2) pg MCHC 33.5 (32.2-35.5) g/dl RDW Std Deviation 45.5 H (35.1-43.9) fL Plt Count 163 (163-337) K/mm3 MPV 10.6 (9.4-12.3) fl Neut % (Auto) 68.6 H (34.0-67.9) % Lymph % (Auto) 18.8 L (21.8-53.1) % Guthrie % (Auto) 9.9 (5.3-12.2) % Eos % (Auto) 0 L (0.8-7.0) Baso % (Auto) 1.9 H (0.1-1.2) % Neut # (Auto) 3.53 (1.78-5.38) K/mm3 Lymph # (Auto) 0.97 L (1.32-3.57) K/mm3 Guthrie # (Auto) 0.51 (0.30-0.82) K/mm3 Eos # (Auto) 0.00 L (0.04-0.54) K/mm3 Baso # (Auto) 0.10 H (0.01-0.08) K/mm3 Manual Slide Review Normal smear Sodium (136-145) mEq/L Potassium (3.5-5.1) mEq/L Chloride (98-107) mEq/L Carbon Dioxide (21-32) mEq/L Anion Gap (5-15) BUN (7-18) mg/dL Creatinine (0.7-1.3) mg/dL Est Cr Clr Drug Dosing mL/min Estimated GFR (MDRD) (>60) mL/min BUN/Creatinine Ratio (14-18) Glucose (70-99) mg/dL POC Glucose 219 H 155 H (70-99) mg/dL Calcium (8.5-10.1) mg/dL Magnesium (1.8-2.4) mg/dL Total Bilirubin (0.2-1.0) mg/dL AST (15-37) U/L ALT (16-63) U/L Alkaline Phosphatase (46-116) U/L C-Reactive Protein (<1.0) mg/dL Total Protein (6.4-8.2) g/dl Albumin (3.4-5.0) g/dl Globulin gm/dL Albumin/Globulin Ratio (1-2) Result Diagrams: 03/16/21 05:44 03/16/21 05:44 Sepsis Event Note - Evaluation Sepsis Screening Result: Possible Sepsis Risk - Focused Exam Vital Signs: Vital Signs Temp Pulse Resp BP Pulse Ox Pulse Ox 03/16/21 09:38 98.4 F 85 20 137/65 90 L 03/16/21 08:48 90 L 03/16/21 08:21 94 L 03/16/21 04:33 78 90 L 03/16/21 04:31 98.2 F 66 15 119/73 88 L - Problem List Review Problem List Initiated/Reviewed/Updated: Yes - Assessment Assessment:: Assessment - 03/13/2021 (admitted late 03/12/2021) * This is a 60-year-old male presents to ED with dyspnea and hypoxia * Hx of hypertension though was able to come off his medications due to weight loss. He is a type II diabetic on Metformin. * Went to the walk-in clinic who sent him here * Symptoms began about 2 to 3 days prior * Denies a cough but was noted to have a fever on arrival of 101 * Chest x-ray was obtained at the walk-in clinic which showed bilateral infiltrates in the lower lobes consistent with COVID-19 pneumonia. * He was reportedly checked with a rapid Covid screen and was negative there * Saturations were noted to decrease to 80% and he was started on oxygen and sent here. 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 No history of lung problems such as asthma or COPD * Obese with a BMI of 48.3 however he reports he recently lost 80 pounds * Denies any chest pain, abdominal pain, nausea, or vomiting. * 12-lead EKG was obtained showing sinus tachycardia at 107 bpm with no ectopy. * Labs are obtained in ED and on floor: * WBC 4.57-->3.82 * Hemoglobin 14.6 ->14.9 * Platelet 91,000-->96,000 * Neutrophils 77.1%. * ABGs obtained with a pH of 7.45. PCO2 of 29.6. PO2 of 74.0. HCO3 of 20.3. Saturations of 96.3. This is on 2 L. * VB.32. PCO2 53.7. PO2 26.0. HCO3 of 26.8. Oxygen saturation 35.4. On 3 L. * Sodium 135-->141 * Potassium 3.9-->4.9 * Chloride 100-->103 * Carbon dioxide 23-->29 * Anion gap 15.9-->13.9 * BUN is 13-->16. Creatinine 1.2-->1.1. GFR greater than 60--> Greater than 60. * Glucose 153-->231. * Calcium 8.0-->8.1. * Bilirubin 1.1-->0.8. Direct bilirubin 0.50, Indirect bilirubin 0.30 * AST 115-->99. ALT 89-->87. Alkaline phosphatase 32-->31. * LDH 562. * Troponin 0.019. * CRP 16.9. * Protein 7.4-->7.5. * Albumin 3.1-->2.9. * Lactic acid 1.1. * Ferritin 3732. * D-dimer 1.43. * SARS-CoV-2 RNA is positive. * He is given 6 mg dexamethasone and 2 g of Rocephin. He is also given 2 puffs of an albuterol inhaler and ibuprofen. * Subsequently admitted to the medical floor on telemetry for management of his COVID-19 pneumonia. * CT obtained on floor on 03/12/2021 shows: * 1. No evidence of pulmonary embolus * 2. Moderate bilateral airspace disease compatible with infection * 3. Mild to moderate mediastinal and bihilar adenopathy * 4. Moderate hepatic steatosis * 5. Cholelithiasis 03/14/2021 This is a 60-year-old male admitted for COVID-19 treatment and hypoxia. Overall he is been doing quite well. Has been ambulating around the room. He did note some blood in his urine today so UA will be ordered. labs today show WBC 5.20. Hemoglobin 14.5. Hematocrit 43.6. Platelet improved to 100,000. Neutrophils elevated at 74.7.sodium of 139. Potassium 4.6. Chloride 103. Carbon dioxide 28. Anion gap 12.6. BUN 22. Creatinine 1.2. GFR greater than 60. Glucose has been 1 37-2 12. Calcium is 8.0. Magnesium 2.5. Total bilirubin 0.8. AST is 80, ALT 77, alkaline phosphatase 27. CRP is 12.6. Albumin is 2.7. We will recheck a D-dimer tomorrow. He has been weaned down to 1 L of oxygen. He has been utilizing his incentive spirometry and Acapella. He reports he is still tired but feels pretty good. We will continue treatment plan with likely discharge after completing remdesivir. - Plan Plan:: COVID-19 Hypoxia Elevated d-dimer Hypoalbuminemia * O2 as needed with goal saturations of 88-95% * Remdesivir-continue * Dexamethasone -continue * IS/Acapella * RT consultation * Airborne and contact isolation * Telemetry * Continuous pulse oximetry * Encourage proning * Encourage ambulation around room * CTA obtained and negative * Heparin subcutaneous * Continue daily aspirin * Estimator And Drafter Supervisor consultation * Daily labs * Famotidine 20mg BID * PRN motrin for pain/fever (Reported adverse reaction to Tylenol) Type II diabetes mellitus * Hold home metformin * Medium dose sliding scale insulin * QID AC and Bedtime blood glucose checks * Anticipate rise in blood glucose readings due to steroids History of hypertension * No current home BP meds * Monitor vital signs Thrombocytopenia, improving * Monitor Morbid obesity * Estimator And Drafter Supervisor consultation Hepatic steatosis Cholelithiasis * No acute concerns * PCP follow-up * Nephrolithiasis with right hydroureteronephrosis. CT AP notable for 4.5 mm stone at the right UV junction with moderate right hydroureteronephrosis and extensive right perinephric/periureteral inflammation -case discussed with urology; per urology 90% likelihood that stone will pass by itself -started on flomax 03/14 Code status: Full Code PCP: Tricia Mohr NP DVT prohylaxis: scd; heparin stopped due to jason hematuria Disposition: Patient admitted to [facility] on telemetry for COVID-19 treatment. Anticipated length of stay 4 to 5 days.
[2021-03-16] MEDS ORDERED: HYDROmorphone 0.5 MG/0.5 ML Syringe IVPUSH PRN (12:50)
[2021-03-16] MEDS: Dexamethasone 4 MG Tab PO SCH (17:43)
[2021-03-16] MEDS: oxyCODONE 5 MG Tab PO PRN (20:55)
[2021-03-16] MEDS: Tamsulosin 0.4 MG Cap.ER PO SCH (20:56)
[2021-03-17] MEDS: oxyCODONE 5 MG Tab PO PRN ×3 (04:00→13:47)
--- NOTE | 2021-03-17 07:39 | PCM.PN ---
<Red Lutz - Last Filed: 03/17/21 12:24> - General Info Date of Service: 03/17/21 Admission Dx/Problem (Free Text): Admission Diagnosis/Problem Admission Diagnosis/Problem Hypoxia Functional Status: Reports: Pain Controlled, Tolerating Diet (Reports loss of some taste), Ambulating, Urinating, Incentive Spirometry, Other (Acapella ). Denies: New Symptoms - Review of Systems General: Reports: No Symptoms, Weakness, Fatigue. Denies: Fever, Malaise, Chills HEENT: Reports: No Symptoms. Denies: Headaches, Sore Throat Pulmonary: Reports: Shortness of Breath, Cough. Denies: Sputum, Wheezing Cardiovascular: Reports: No Symptoms, Dyspnea on Exertion. Denies: Chest Pain, Palpitations Gastrointestinal: Reports: No Symptoms. Denies: Abdominal Pain, Constipation, Diarrhea, Nausea, Vomiting Genitourinary: Reports: No Symptoms. Denies: Pain Musculoskeletal: Reports: No Symptoms Skin: Reports: No Symptoms. Denies: Cyanosis Neurological: Reports: No Symptoms. Denies: Confusion, Numbness, Pre-Existing Deficit, Tingling, Difficulty Walking, Weakness, Gait Disturbance Psychiatric: Reports: No Symptoms - Patient Data Vitals - Most Recent: Last Vital Signs Temp 98.2 F 03/17/21 03:52 Pulse 66 03/17/21 04:10 Resp 14 03/16/21 21:03 BP 126/64 03/17/21 03:52 Pulse Ox 90 L 03/17/21 05:43 Weight - Most Recent: 339 lb 9.6 oz I&O - Last 24 Hours: Intake & Output 03/16/21 03/17/21 03/17/21 22:59 06:59 14:59 Intake Total 190 800 Output Total 1200 Balance 190 -400 Lab Results Last 24 Hours: Laboratory Results - last 24 hr 03/16/21 03/16/21 03/16/21 Range/Units 10:37 16:22 21:01 WBC (4.23-9.07) K/mm3 RBC (4.63-6.08) M/mm3 Hgb (13.7-17.5) gm/dl Hct (40.1-51.0) % MCV (79.0-92.2) fl MCH (25.7-32.2) pg MCHC (32.2-35.5) g/dl RDW Std Deviation (35.1-43.9) fL Plt Count (163-337) K/mm3 MPV (9.4-12.3) fl Neut % (Auto) (34.0-67.9) % Lymph % (Auto) (21.8-53.1) % [place] % (Auto) (5.3-12.2) % Eos % (Auto) (0.8-7.0) Baso % (Auto) (0.1-1.2) % Neut # (Auto) (1.78-5.38) K/mm3 Lymph # (Auto) (1.32-3.57) K/mm3 [place] # (Auto) (0.30-0.82) K/mm3 Eos # (Auto) (0.04-0.54) K/mm3 Baso # (Auto) (0.01-0.08) K/mm3 Manual Slide Review Sodium (136-145) mEq/L Potassium (3.5-5.1) mEq/L Chloride (98-107) mEq/L Carbon Dioxide (21-32) mEq/L Anion Gap (5-15) BUN (7-18) mg/dL Creatinine (0.7-1.3) mg/dL Est Cr Clr Drug Dosing mL/min Estimated GFR (MDRD) (>60) mL/min BUN/Creatinine Ratio (14-18) Glucose (70-99) mg/dL POC Glucose 155 H 121 H 231 H (70-99) mg/dL Calcium (8.5-10.1) mg/dL Magnesium (1.8-2.4) mg/dL Total Bilirubin (0.2-1.0) mg/dL AST (15-37) U/L ALT (16-63) U/L Alkaline Phosphatase (46-116) U/L C-Reactive Protein (<1.0) mg/dL Total Protein (6.4-8.2) g/dl Albumin (3.4-5.0) g/dl Globulin gm/dL Albumin/Globulin Ratio (1-2) 03/17/21 03/17/21 03/17/21 Range/Units 05:36 05:36 06:27 WBC 5.44 (4.23-9.07) K/mm3 RBC 4.67 (4.63-6.08) M/mm3 Hgb 13.6 L (13.7-17.5) gm/dl Hct 41.1 (40.1-51.0) % MCV 88.0 (79.0-92.2) fl MCH 29.1 (25.7-32.2) pg MCHC 33.1 (32.2-35.5) g/dl RDW Std Deviation 45.5 H (35.1-43.9) fL Plt Count 181 (163-337) K/mm3 MPV 11.0 (9.4-12.3) fl Neut % (Auto) 67.0 (34.0-67.9) % Lymph % (Auto) 18.8 L (21.8-53.1) % [place] % (Auto) 11.6 (5.3-12.2) % Eos % (Auto) 0.2 L (0.8-7.0) Baso % (Auto) 1.3 H (0.1-1.2) % Neut # (Auto) 3.65 (1.78-5.38) K/mm3 Lymph # (Auto) 1.02 L (1.32-3.57) K/mm3 [place] # (Auto) 0.63 (0.30-0.82) K/mm3 Eos # (Auto) 0.01 L (0.04-0.54) K/mm3 Baso # (Auto) 0.07 (0.01-0.08) K/mm3 Manual Slide Review Normal smear Sodium 143 (136-145) mEq/L Potassium 4.1 (3.5-5.1) mEq/L Chloride 108 H (98-107) mEq/L Carbon Dioxide 25 (21-32) mEq/L Anion Gap 14.1 (5-15) BUN 20 H (7-18) mg/dL Creatinine 0.9 (0.7-1.3) mg/dL Est Cr Clr Drug Dosing 91.80 mL/min Estimated GFR (MDRD) > 60 (>60) mL/min BUN/Creatinine Ratio 22.2 H (14-18) Glucose 239 H (70-99) mg/dL POC Glucose 219 H (70-99) mg/dL Calcium 7.7 L (8.5-10.1) mg/dL Magnesium 2.3 (1.8-2.4) mg/dL Total Bilirubin 0.8 (0.2-1.0) mg/dL AST 65 H (15-37) U/L ALT 83 H (16-63) U/L Alkaline Phosphatase 27 L (46-116) U/L C-Reactive Protein 6.5 H* (<1.0) mg/dL Total Protein 6.6 (6.4-8.2) g/dl Albumin 2.4 L (3.4-5.0) g/dl Globulin 4.2 gm/dL Albumin/Globulin Ratio 0.6 L (1-2) Med Orders - Current: Current Medications Albuterol (Albuterol 6.7 Gm Inhaler) 0 gm INH Q6H PRN PRN Reason: Shortness of Breath Last Admin: 03/16/21 21:14 Dose: 2 puff Documented by: Aspirin (Aspirin 81 Mg Tab.Ec) 81 mg PO DAILY [facility] Last Admin: 03/16/21 09:29 Dose: 81 mg Documented by: Dexamethasone (Dexamethasone 4 Mg Tab) 6 mg PO Q24H [facility] Stop: 03/21/21 18:01 Last Admin: 03/16/21 17:43 Dose: 6 mg Documented by: Famotidine (Famotidine 20 Mg Tab) 20 mg PO BID [facility] Last Admin: 03/16/21 20:56 Dose: 20 mg Documented by: Hydromorphone HCl (Hydromorphone 0.5 Mg/0.5 Ml Syringe) 0.5 mg IVPUSH Q1H PRN PRN Reason: Pain (severe 7-10) Last Admin: 03/16/21 21:20 Dose: 0.5 mg Documented by: Remdesivir 100 mg/ Sodium (Chloride) 100 mls @ 100 mls/hr IV Q24H [facility] Stop: 03/17/21 09:29 Last Admin: 03/16/21 09:29 Dose: 100 mls/hr Documented by: Ibuprofen (Ibuprofen 600 Mg Tab) 600 mg PO Q6H PRN PRN Reason: fever/pain Last Admin: 03/13/21 17:57 Dose: 600 mg Documented by: Insulin Human Lispro (Insulin Lispro 100 Unit/Ml 10 Ml Vial) 0 unit SUBCUT QIDACANDBED [facility]; Protocol Last Admin: 03/16/21 21:19 Dose: 4 unit Documented by: Multivitamins/Minerals/Vitamin C (Multivitamin Tab) 1 tab PO DAILY [facility] Last Admin: 03/16/21 09:29 Dose: 1 tab Documented by: Ondansetron HCl (Ondansetron 4 Mg/2 Ml Sdv) 4 mg IV Q6H PRN PRN Reason: Nausea/Vomiting Oxycodone HCl (Oxycodone 5 Mg Tab) 5 mg PO Q4H PRN PRN Reason: Pain (moderate 4-6) Last Admin: 03/17/21 04:00 Dose: 5 mg Documented by: Sodium Chloride (Sodium Chloride 0.9% 10 Ml Syringe) 10 ml FLUSH ASDIRECTED PRN PRN Reason: Keep Vein Open Last Admin: 03/12/21 17:49 Dose: 10 ml Documented by: Tamsulosin HCl (Tamsulosin 0.4 Mg Cap.Er) 0.4 mg PO DAILY [facility] Last Admin: 03/16/21 20:56 Dose: 0.4 mg Documented by: Discontinued Medications Albuterol (Albuterol 6.7 Gm Inhaler) 0 gm INH ONETIME ONE Stop: 03/12/21 17:41 Last Admin: 03/12/21 17:49 Dose: 2 puff Documented by: Dexamethasone (Dexamethasone 10 Mg/Ml Sdv) 6 mg IVPUSH ONETIME ONE Stop: 03/12/21 19:50 Last Admin: 03/12/21 20:24 Dose: 6 mg Documented by: Diatrizoate Meglum/Diatrizoate Sod (Diatrizoate Meglumine/Diatrizoate Sodium 37% 120 Ml Bottle) 60 ml PO ONETIME ONE Stop: 03/14/21 16:44 Last Admin: 03/14/21 16:55 Dose: 60 ml Documented by: Heparin Sodium (Porcine) (Heparin Sodium 5,000 Units/Ml Vial) 5,000 units SUBCUT Q8H [facility] Last Admin: 03/14/21 06:31 Dose: Not Given Documented by: Ceftriaxone Sodium 2 gm/ (Sodium Chloride) 100 mls @ 200 mls/hr IV ONETIME ONE Stop: 03/12/21 18:08 Last Admin: 03/12/21 17:49 Dose: 200 mls/hr Documented by: Remdesivir 200 mg/ Sodium (Chloride) 250 mls @ 250 mls/hr IV ONETIME ONE Stop: 03/13/21 09:29 Last Admin: 03/13/21 08:28 Dose: 250 mls/hr Documented by: Ibuprofen (Ibuprofen 600 Mg Tab) 600 mg PO ONETIME ONE Stop: 03/12/21 17:43 Last Admin: 03/12/21 17:49 Dose: 600 mg Documented by: Iopamidol (Iopamidol 612 Mg/Ml 100 Ml Bottle) 100 ml IVPUSH ONETIME ONE Stop: 03/14/21 16:44 Last Admin: 03/14/21 16:56 Dose: 100 ml Documented by: Lidocaine HCl (Lidocaine 2% Jelly 10 Ml Urojet) 10 ml MUCMEM ONETIME ONE Stop: 03/14/21 16:01 Last Admin: 03/14/21 16:54 Dose: 10 ml Documented by: Metformin HCl (Metformin 500 Mg Tab) 500 mg PO BIDMEALS CURLY Last Admin: 03/13/21 07:36 Dose: Not Given Documented by: Sodium Chloride (Sodium Chloride 0.9% 10 Ml Syringe) 10 ml FLUSH ONETIME PRN PRN Reason: Keep Vein Open Stop: 03/14/21 19:00 Last Admin: 03/14/21 16:56 Dose: 10 ml Documented by: Tamsulosin HCl (Tamsulosin 0.4 Mg Cap.Er) 0.4 mg PO ONETIME ONE Stop: 03/14/21 17:56 Last Admin: 03/14/21 18:09 Dose: 0.4 mg Documented by: - Exam Quality Assessment: Supplemental Oxygen (Switching to high flow today. ), DVT Prophylaxis. No: Urine Catheter Urinary Catheter Total Time: 0Days 0Hours General: Alert, Oriented, Cooperative, No Acute Distress HEENT: Pupils Equal, Pupils Reactive, Mucous Membr. Moist/[place] Neck: Supple, Trachea Midline Lungs: Normal Respiratory Effort, Decreased Breath Sounds. No: Crackles, Rales, Wheezing Cardiovascular: Regular Rate, Regular Rhythm GI/Abdominal Exam: Normal Bowel Sounds, Soft, Non-Tender, No Distention (Male) Exam: Deferred Back Exam: Normal Inspection, Full Range of Motion Extremities: Normal Inspection, Normal Range of Motion, Non-Tender, No Pedal Edema, Normal Capillary Refill Peripheral Pulses: 2+: Radial (L), Radial (R), Dorsalis Pedis (L), Dorsalis Pedis (R) Skin: Warm, Dry, Intact Neurological: No New Focal Deficit Psy/Mental Status: Alert, Normal Affect, Normal Mood - Patient Data Lab Results Last 24 hrs: Laboratory Results - last 24 hr 03/16/21 03/16/21 03/16/21 Range/Units 10:37 16:22 21:01 WBC (4.23-9.07) K/mm3 RBC (4.63-6.08) M/mm3 Hgb (13.7-17.5) gm/dl Hct (40.1-51.0) % MCV (79.0-92.2) fl MCH (25.7-32.2) pg MCHC (32.2-35.5) g/dl RDW Std Deviation (35.1-43.9) fL Plt Count (163-337) K/mm3 MPV (9.4-12.3) fl Neut % (Auto) (34.0-67.9) % Lymph % (Auto) (21.8-53.1) % [place] % (Auto) (5.3-12.2) % Eos % (Auto) (0.8-7.0) Baso % (Auto) (0.1-1.2) % Neut # (Auto) (1.78-5.38) K/mm3 Lymph # (Auto) (1.32-3.57) K/mm3 [place] # (Auto) (0.30-0.82) K/mm3 Eos # (Auto) (0.04-0.54) K/mm3 Baso # (Auto) (0.01-0.08) K/mm3 Manual Slide Review Sodium (136-145) mEq/L Potassium (3.5-5.1) mEq/L Chloride (98-107) mEq/L Carbon Dioxide (21-32) mEq/L Anion Gap (5-15) BUN (7-18) mg/dL Creatinine (0.7-1.3) mg/dL Est Cr Clr Drug Dosing mL/min Estimated GFR (MDRD) (>60) mL/min BUN/Creatinine Ratio (14-18) Glucose (70-99) mg/dL POC Glucose 155 H 121 H 231 H (70-99) mg/dL Calcium (8.5-10.1) mg/dL Magnesium (1.8-2.4) mg/dL Total Bilirubin (0.2-1.0) mg/dL AST (15-37) U/L ALT (16-63) U/L Alkaline Phosphatase (46-116) U/L C-Reactive Protein (<1.0) mg/dL Total Protein (6.4-8.2) g/dl Albumin (3.4-5.0) g/dl Globulin gm/dL Albumin/Globulin Ratio (1-2) 03/17/21 03/17/21 03/17/21 Range/Units 05:36 05:36 06:27 WBC 5.44 (4.23-9.07) K/mm3 RBC 4.67 (4.63-6.08) M/mm3 Hgb 13.6 L (13.7-17.5) gm/dl Hct 41.1 (40.1-51.0) % MCV 88.0 (79.0-92.2) fl MCH 29.1 (25.7-32.2) pg MCHC 33.1 (32.2-35.5) g/dl RDW Std Deviation 45.5 H (35.1-43.9) fL Plt Count 181 (163-337) K/mm3 MPV 11.0 (9.4-12.3) fl Neut % (Auto) 67.0 (34.0-67.9) % Lymph % (Auto) 18.8 L (21.8-53.1) % [place] % (Auto) 11.6 (5.3-12.2) % Eos % (Auto) 0.2 L (0.8-7.0) Baso % (Auto) 1.3 H (0.1-1.2) % Neut # (Auto) 3.65 (1.78-5.38) K/mm3 Lymph # (Auto) 1.02 L (1.32-3.57) K/mm3 [place] # (Auto) 0.63 (0.30-0.82) K/mm3 Eos # (Auto) 0.01 L (0.04-0.54) K/mm3 Baso # (Auto) 0.07 (0.01-0.08) K/mm3 Manual Slide Review Normal smear Sodium 143 (136-145) mEq/L Potassium 4.1 (3.5-5.1) mEq/L Chloride 108 H (98-107) mEq/L Carbon Dioxide 25 (21-32) mEq/L Anion Gap 14.1 (5-15) BUN 20 H (7-18) mg/dL Creatinine 0.9 (0.7-1.3) mg/dL Est Cr Clr Drug Dosing 91.80 mL/min Estimated GFR (MDRD) > 60 (>60) mL/min BUN/Creatinine Ratio 22.2 H (14-18) Glucose 239 H (70-99) mg/dL POC Glucose 219 H (70-99) mg/dL Calcium 7.7 L (8.5-10.1) mg/dL Magnesium 2.3 (1.8-2.4) mg/dL Total Bilirubin 0.8 (0.2-1.0) mg/dL AST 65 H (15-37) U/L ALT 83 H (16-63) U/L Alkaline Phosphatase 27 L (46-116) U/L C-Reactive Protein 6.5 H* (<1.0) mg/dL Total Protein 6.6 (6.4-8.2) g/dl Albumin 2.4 L (3.4-5.0) g/dl Globulin 4.2 gm/dL Albumin/Globulin Ratio 0.6 L (1-2) Result Diagrams: 03/17/21 05:36 03/17/21 05:36 Sepsis Event Note - Evaluation Sepsis Screening Result: Possible Sepsis Risk - Focused Exam Vital Signs: Vital Signs Temp Temp Pulse Pulse Resp BP BP 03/17/21 05:43 03/17/21 04:10 66 03/17/21 03:52 98.2 F 76 126/64 03/16/21 21:15 03/16/21 21:03 98.2 F 87 14 145/77 H Pulse Ox Pulse Ox 03/17/21 05:43 90 L 03/17/21 04:10 88 L 03/17/21 03:52 80 L 03/16/21 21:15 93 L 03/16/21 21:03 91 L - Problem List & Annotations (1) Type II diabetes mellitus SNOMED Code(s): 88993032 Code(s): E11.9 - TYPE 2 DIABETES MELLITUS WITHOUT COMPLICATIONS Status: Chronic Priority: Medium Current Visit: Yes Qualifiers: Diabetes mellitus intermediate frame tender insulin use: without prison use Diabetes mellitus complication status: without complication Qualified Code(s): E11.9 - Type 2 diabetes mellitus without complications (2) History of hypertension SNOMED Code(s): 070546282 Code(s): Z86.79 - PERSONAL HISTORY OF OTHER DISEASES OF THE CIRCULATORY SYSTEM Status: Chronic Priority: Low Current Visit: No (3) Morbid obesity SNOMED Code(s): 065276585 Code(s): E66.01 - MORBID (SEVERE) OBESITY DUE TO EXCESS CALORIES Status: Chronic Priority: Low Current Visit: No (4) Elevated d-dimer SNOMED Code(s): 593520900 Code(s): R79.89 - OTHER SPECIFIED ABNORMAL FINDINGS OF BLOOD CHEMISTRY Status: Acute Priority: Medium Current Visit: Yes (5) COVID-19 SNOMED Code(s): 481185372 Code(s): U07.1 - COVID-19 Status: Acute Priority: High Current Visit: Yes (6) Hypoxia SNOMED Code(s): 206902696 Code(s): R09.02 - HYPOXEMIA Status: Acute Priority: High Current Visit: Yes (7) Thrombocytopenia SNOMED Code(s): 915234874 Code(s): D69.6 - THROMBOCYTOPENIA, UNSPECIFIED Status: Acute Priority: High Current Visit: Yes (8) Hepatic steatosis SNOMED Code(s): 931239519 Code(s): K76.0 - FATTY (CHANGE OF) LIVER, NOT ELSEWHERE CLASSIFIED Status: Chronic Priority: Low Current Visit: Yes (9) Cholelithiasis SNOMED Code(s): 014669022 Code(s): K80.20 - CALCULUS OF GALLBLADDER W/O CHOLECYSTITIS W/O OBSTRUCTION Status: Chronic Priority: Low Current Visit: Yes Qualifiers: Cholelithiasis location: gallbladder Cholecystitis presence: with cholecystitis Cholecystitis acuity: chronic Biliary obstruction: without biliary obstruction Qualified Code(s): K80.10 - Calculus of gallbladder with chronic cholecystitis without obstruction (10) Hypoalbuminemia SNOMED Code(s): 762863257 Code(s): E88.09 - OTH DISORDERS OF PLASMA-PROTEIN METABOLISM, NEC Status: Acute Priority: Medium Current Visit: Yes (11) Nephrolithiasis SNOMED Code(s): 09976109 Code(s): N20.0 - CALCULUS OF KIDNEY Status: Acute Current Visit: Yes (12) Hydroureter on right SNOMED Code(s): 77473761 Code(s): N13.4 - HYDROURETER Status: Acute Current Visit: Yes (13) Hydronephrosis SNOMED Code(s): 08484212 Code(s): N13.30 - UNSPECIFIED HYDRONEPHROSIS Status: Acute Priority: High Current Visit: Yes Qualifiers: Hydronephrosis type: unspecified Qualified Code(s): N13.30 - Unspecified hydronephrosis - Problem List Review Problem List Initiated/Reviewed/Updated: Yes - My Orders Last 24 Hours: My Active Orders 03/18/21 05:11 CBC WITH AUTO DIFF [HEME] AM - Assessment Assessment:: Assessment - 03/13/2021 (admitted late 03/12/2021) * This is a 60-year-old male presents to ED with dyspnea and hypoxia * Hx of hypertension though was able to come off his medications due to weight loss. He is a type II diabetic on Metformin. * Went to the walk-in clinic who sent him here * Symptoms began about 2 to 3 days prior * Denies a cough but was noted to have a fever on arrival of 101 * Chest x-ray was obtained at the walk-in clinic which showed bilateral infiltrates in the lower lobes consistent with COVID-19 pneumonia. * He was reportedly checked with a rapid Covid screen and was negative there * Saturations were noted to decrease to 80% and he was started on oxygen and sent here. 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 No history of lung problems such as asthma or COPD * Obese with a BMI of 48.3 however he reports he recently lost 80 pounds * Denies any chest pain, abdominal pain, nausea, or vomiting. * 12-lead EKG was obtained showing sinus tachycardia at 107 bpm with no ectopy. * Labs are obtained in ED and on floor: * WBC 4.57-->3.82 * Hemoglobin 14.6 ->14.9 * Platelet 91,000-->96,000 * Neutrophils 77.1%. * ABGs obtained with a pH of 7.45. PCO2 of 29.6. PO2 of 74.0. HCO3 of 20.3. Saturations of 96.3. This is on 2 L. * VB.32. PCO2 53.7. PO2 26.0. HCO3 of 26.8. Oxygen saturation 35.4. On 3 L. * Sodium 135-->141 * Potassium 3.9-->4.9 * Chloride 100-->103 * Carbon dioxide 23-->29 * Anion gap 15.9-->13.9 * BUN is 13-->16. Creatinine 1.2-->1.1. GFR greater than 60--> Greater than 60. * Glucose 153-->231. * Calcium 8.0-->8.1. * Bilirubin 1.1-->0.8. Direct bilirubin 0.50, Indirect bilirubin 0.30 * AST 115-->99. ALT 89-->87. Alkaline phosphatase 32-->31. * LDH 562. * Troponin 0.019. * CRP 16.9. * Protein 7.4-->7.5. * Albumin 3.1-->2.9. * Lactic acid 1.1. * Ferritin 3732. * D-dimer 1.43. * SARS-CoV-2 RNA is positive. * He is given 6 mg dexamethasone and 2 g of Rocephin. He is also given 2 puffs of an albuterol inhaler and ibuprofen. * Subsequently admitted to the medical floor on telemetry for management of his COVID-19 pneumonia. * CT obtained on floor on 03/12/2021 shows: * 1. No evidence of pulmonary embolus * 2. Moderate bilateral airspace disease compatible with infection * 3. Mild to moderate mediastinal and bihilar adenopathy * 4. Moderate hepatic steatosis * 5. Cholelithiasis 03/14/2021 This is a 60-year-old male admitted for COVID-19 treatment and hypoxia. Overall he is been doing quite well. Has been ambulating around the room. He did note some blood in his urine today so UA will be ordered. labs today show WBC 5.20. Hemoglobin 14.5. Hematocrit 43.6. Platelet improved to 100,000. Neutrophils elevated at 74.7.sodium of 139. Potassium 4.6. Chloride 103. Carbon dioxide 28. Anion gap 12.6. BUN 22. Creatinine 1.2. GFR greater than 60. Glucose has been 1 37-2 12. Calcium is 8.0. Magnesium 2.5. Total bilirubin 0.8. AST is 80, ALT 77, alkaline phosphatase 27. CRP is 12.6. Albumin is 2.7. We will recheck a D-dimer tomorrow. He has been weaned down to 1 L of oxygen. He has been utilizing his incentive spirometry and Acapella. He reports he is still tired but feels pretty good. We will continue treatment plan with likely discharge after completing remdesivir. 03/15/2021 Patient with mild cough denies chest pain denies sob no further hematuria 03/16/2021 denies chest pain on supplemental oxygen intermittent cough no diarrhea 03/17/2021 60-year-old male admitted for treatment of COVID-19 hypoxia. Late 03-14-2021 patient was noted to have gross bleeding from his penis. UA was obtained and CT scan of the abdomen pelvis was also obtained showing 1. Obstructing calculus within the distal right ureter located proximal to the UVJ. This obstructing calculus measures approximately 3.5 mm. This obstructing calculus causes obstructive changes within the right kidney as noted above. 2. Findings of Covid pneumonia within both lung bases. 3. Other findings as noted above which are nonacute. Three-way irrigating Gonzalez catheter was placed. Attending hospitalist did contact urology who reported a high probability of the patient passing the stone. He was placed on Flomax. Gonzalez catheter was ultimately removed. Since that time patient has had worsening desaturations. He was switched to high flow 50 L with an FiO2 of 65%. He was given Actemra. We will start the patient on 125 mg Solu-Medrol every 12 hours for now. Repeat chest x-ray was obtained showing worsening infiltrates. We again discussed proning, although the patient reports that he is unable to prone. We discussed utilizing incentive spirometry and A capella. Labs today show a WBC of 5.44. Hemoglobin 13.6. Platelet 181,000. Neutrophils 67%. D-dimer is 1.99. Sodium 143. Potassium 4.1. Chloride 108. Carbon dioxide 25. Anion gap 14.1. BUN is 20. Creatinine 0.9. GFR greater than 60. Glucose is 239. Calcium 7.7. Magnesium is 2.3. Bilirubin 0.8. AST 65, ALT 83, alkaline phosphatase 27. CRP is 6.5. Albumin is 2.4. Patient did complete remdesivir treatment today. As his bleeding from his penis is stopped and as he has no gross hematuria anymore we will begin Lovenox 40 mg daily for VTE prophylaxis. Unknown length of stay pending oxygen wean. - Plan Plan:: COVID-19 Hypoxia Elevated d-dimer Hypoalbuminemia * O2 as needed with goal saturations of 88-95% * Completed Remdesivir * Switch from dexamethasone to 125mg BID solumedrol due to worsening saturations * IS/Acapella * RT consultation * High flow oxygen as directed * Airborne and contact isolation * Telemetry * Continuous pulse oximetry * Encourage proning * Encourage ambulation around room * CTA obtained and negative * Lovenox subcutaneous * Continue daily aspirin * Global Lead consultation * Daily labs * Famotidine 20mg BID * PRN motrin for pain/fever (Reported adverse reaction to Tylenol) * Given Actemera on 03/17/2021 Type II diabetes mellitus * Hold home metformin * Medium dose sliding scale insulin * QID AC and Bedtime blood glucose checks * Anticipate rise in blood glucose readings due to steroids History of hypertension * No current home BP meds * Monitor vital signs Thrombocytopenia, improving * Monitor Morbid obesity * Global Lead consultation Hepatic steatosis Cholelithiasis * No acute concerns * PCP follow-up Nephrolithiasis right hydroureteronephrosis * CT obtained * Case discussed with urology; per urology 90% likelihood that stone will pass by itself * Started on Flomax 03/14 Code status: Full Code PCP: Tricia Mohr NP DVT prohylaxis: Lovenox Disposition: Patient admitted to [facility] [place] on telemetry for COVID-19 treatment. LOS >96 hours due to worsening COVID-19 PNA. <David Hernandez Jr - Last Filed: 03/17/21 16:50> - Patient Data Vitals - Most Recent: Last Vital Signs Temp 98.2 F 03/17/21 16:22 Pulse 75 03/17/21 16:22 Resp 20 03/17/21 16:22 BP 142/62 H 03/17/21 16:22 Pulse Ox 95 03/17/21 16:22 I&O - Last 24 Hours: Intake & Output 03/17/21 03/17/21 03/17/21 06:59 14:59 22:59 Intake Total 800 560 Output Total 1200 400 Balance -400 160 Lab Results Last 24 Hours: Laboratory Results - last 24 hr 03/16/21 03/17/21 03/17/21 Range/Units 21:01 05:36 05:36 WBC 5.44 (4.23-9.07) K/mm3 RBC 4.67 (4.63-6.08) M/mm3 Hgb 13.6 L (13.7-17.5) gm/dl Hct 41.1 (40.1-51.0) % MCV 88.0 (79.0-92.2) fl MCH 29.1 (25.7-32.2) pg MCHC 33.1 (32.2-35.5) g/dl RDW Std Deviation 45.5 H (35.1-43.9) fL Plt Count 181 (163-337) K/mm3 MPV 11.0 (9.4-12.3) fl Neut % (Auto) 67.0 (34.0-67.9) % Lymph % (Auto) 18.8 L (21.8-53.1) % [place] % (Auto) 11.6 (5.3-12.2) % Eos % (Auto) 0.2 L (0.8-7.0) Baso % (Auto) 1.3 H (0.1-1.2) % Neut # (Auto) 3.65 (1.78-5.38) K/mm3 Lymph # (Auto) 1.02 L (1.32-3.57) K/mm3 [place] # (Auto) 0.63 (0.30-0.82) K/mm3 Eos # (Auto) 0.01 L (0.04-0.54) K/mm3 Baso # (Auto) 0.07 (0.01-0.08) K/mm3 Manual Slide Review Normal smear D-Dimer, Quantitative (0.19-0.50) mg/L Sodium 143 (136-145) mEq/L Potassium 4.1 (3.5-5.1) mEq/L Chloride 108 H (98-107) mEq/L Carbon Dioxide 25 (21-32) mEq/L Anion Gap 14.1 (5-15) BUN 20 H (7-18) mg/dL Creatinine 0.9 (0.7-1.3) mg/dL Est Cr Clr Drug Dosing 91.80 mL/min Estimated GFR (MDRD) > 60 (>60) mL/min BUN/Creatinine Ratio 22.2 H (14-18) Glucose 239 H (70-99) mg/dL POC Glucose 231 H (70-99) mg/dL Calcium 7.7 L (8.5-10.1) mg/dL Magnesium 2.3 (1.8-2.4) mg/dL Total Bilirubin 0.8 (0.2-1.0) mg/dL AST 65 H (15-37) U/L ALT 83 H (16-63) U/L Alkaline Phosphatase 27 L (46-116) U/L C-Reactive Protein 6.5 H* (<1.0) mg/dL Total Protein 6.6 (6.4-8.2) g/dl Albumin 2.4 L (3.4-5.0) g/dl Globulin 4.2 gm/dL Albumin/Globulin Ratio 0.6 L (1-2) 03/17/21 03/17/21 03/17/21 Range/Units 06:27 10:37 11:07 WBC (4.23-9.07) K/mm3 RBC (4.63-6.08) M/mm3 Hgb (13.7-17.5) gm/dl Hct (40.1-51.0) % MCV (79.0-92.2) fl MCH (25.7-32.2) pg MCHC (32.2-35.5) g/dl RDW Std Deviation (35.1-43.9) fL Plt Count (163-337) K/mm3 MPV (9.4-12.3) fl Neut % (Auto) (34.0-67.9) % Lymph % (Auto) (21.8-53.1) % [place] % (Auto) (5.3-12.2) % Eos % (Auto) (0.8-7.0) Baso % (Auto) (0.1-1.2) % Neut # (Auto) (1.78-5.38) K/mm3 Lymph # (Auto) (1.32-3.57) K/mm3 [place] # (Auto) (0.30-0.82) K/mm3 Eos # (Auto) (0.04-0.54) K/mm3 Baso # (Auto) (0.01-0.08) K/mm3 Manual Slide Review D-Dimer, Quantitative 1.99 H (0.19-0.50) mg/L Sodium (136-145) mEq/L Potassium (3.5-5.1) mEq/L Chloride (98-107) mEq/L Carbon Dioxide (21-32) mEq/L Anion Gap (5-15) BUN (7-18) mg/dL Creatinine (0.7-1.3) mg/dL Est Cr Clr Drug Dosing mL/min Estimated GFR (MDRD) (>60) mL/min BUN/Creatinine Ratio (14-18) Glucose (70-99) mg/dL POC Glucose 219 H 139 H (70-99) mg/dL Calcium (8.5-10.1) mg/dL Magnesium (1.8-2.4) mg/dL Total Bilirubin (0.2-1.0) mg/dL AST (15-37) U/L ALT (16-63) U/L Alkaline Phosphatase (46-116) U/L C-Reactive Protein (<1.0) mg/dL Total Protein (6.4-8.2) g/dl Albumin (3.4-5.0) g/dl Globulin gm/dL Albumin/Globulin Ratio (1-2) / Range/Units 16:25 WBC (4.23-9.07) K/mm3 RBC (4.63-6.08) M/mm3 Hgb (13.7-17.5) gm/dl Hct (40.1-51.0) % MCV (79.0-92.2) fl MCH (25.7-32.2) pg MCHC (32.2-35.5) g/dl RDW Std Deviation (35.1-43.9) fL Plt Count (163-337) K/mm3 MPV (9.4-12.3) fl Neut % (Auto) (34.0-67.9) % Lymph % (Auto) (21.8-53.1) % [place] % (Auto) (5.3-12.2) % Eos % (Auto) (0.8-7.0) Baso % (Auto) (0.1-1.2) % Neut # (Auto) (1.78-5.38) K/mm3 Lymph # (Auto) (1.32-3.57) K/mm3 [place] # (Auto) (0.30-0.82) K/mm3 Eos # (Auto) (0.04-0.54) K/mm3 Baso # (Auto) (0.01-0.08) K/mm3 Manual Slide Review D-Dimer, Quantitative (0.19-0.50) mg/L Sodium (136-145) mEq/L Potassium (3.5-5.1) mEq/L Chloride (98-107) mEq/L Carbon Dioxide (21-32) mEq/L Anion Gap (5-15) BUN (7-18) mg/dL Creatinine (0.7-1.3) mg/dL Est Cr Clr Drug Dosing mL/min Estimated GFR (MDRD) (>60) mL/min BUN/Creatinine Ratio (14-18) Glucose (70-99) mg/dL POC Glucose 209 H (70-99) mg/dL Calcium (8.5-10.1) mg/dL Magnesium (1.8-2.4) mg/dL Total Bilirubin (0.2-1.0) mg/dL AST (15-37) U/L ALT (16-63) U/L Alkaline Phosphatase (46-116) U/L C-Reactive Protein (<1.0) mg/dL Total Protein (6.4-8.2) g/dl Albumin (3.4-5.0) g/dl Globulin gm/dL Albumin/Globulin Ratio (1-2) Med Orders - Current: Current Medications Albuterol (Albuterol 6.7 Gm Inhaler) 0 gm INH Q6H PRN PRN Reason: Shortness of Breath Last Admin: 03/17/21 14:13 Dose: 2 puff Documented by: Aspirin (Aspirin 81 Mg Tab.Ec) 81 mg PO DAILY [facility] Last Admin: 03/17/21 09:46 Dose: 81 mg Documented by: Enoxaparin Sodium (Enoxaparin 40 Mg/0.4 Ml Syringe) 40 mg SUBCUT DAILY [facility] Last Admin: 03/17/21 11:27 Dose: 40 mg Documented by: Famotidine (Famotidine 20 Mg Tab) 20 mg PO BID [facility] Last Admin: 03/17/21 09:46 Dose: 20 mg Documented by: Hydromorphone HCl (Hydromorphone 0.5 Mg/0.5 Ml Syringe) 0.5 mg IVPUSH Q1H PRN PRN Reason: Pain (severe 7-10) Last Admin: 03/16/21 21:20 Dose: 0.5 mg Documented by: Ibuprofen (Ibuprofen 600 Mg Tab) 600 mg PO Q6H PRN PRN Reason: fever/pain Last Admin: 03/13/21 17:57 Dose: 600 mg Documented by: Insulin Human Lispro (Insulin Lispro 100 Unit/Ml 10 Ml Vial) 0 unit SUBCUT QIDACANDBED [facility]; Protocol Last Admin: 03/17/21 16:48 Dose: 4 unit Documented by: Methylprednisolone Sodium Succinate (Methylprednisolone Sodium Succinate 125 Mg/2 Ml Sdv) 125 mg IVPUSH Q12H [facility] Last Admin: 03/17/21 13:18 Dose: 125 mg Documented by: Multivitamins/Minerals/Vitamin C (Multivitamin Tab) 1 tab PO DAILY [facility] Last Admin: 03/17/21 09:47 Dose: 1 tab Documented by: Ondansetron HCl (Ondansetron 4 Mg/2 Ml Sdv) 4 mg IV Q6H PRN PRN Reason: Nausea/Vomiting Oxycodone HCl (Oxycodone 5 Mg Tab) 5 mg PO Q4H PRN PRN Reason: Pain (moderate 4-6) Last Admin: 03/17/21 13:47 Dose: 5 mg Documented by: Sodium Chloride (Sodium Chloride 0.9% 10 Ml Syringe) 10 ml FLUSH ASDIRECTED PRN PRN Reason: Keep Vein Open Last Admin: 03/12/21 17:49 Dose: 10 ml Documented by: Tamsulosin HCl (Tamsulosin 0.4 Mg Cap.Er) 0.4 mg PO DAILY [facility] Last Admin: 03/17/21 09:47 Dose: 0.4 mg Documented by: Discontinued Medications Albuterol (Albuterol 6.7 Gm Inhaler) 0 gm INH ONETIME ONE Stop: 03/12/21 17:41 Last Admin: 03/12/21 17:49 Dose: 2 puff Documented by: Dexamethasone (Dexamethasone 10 Mg/Ml Sdv) 6 mg IVPUSH ONETIME ONE Stop: 03/12/21 19:50 Last Admin: 03/12/21 20:24 Dose: 6 mg Documented by: Dexamethasone (Dexamethasone 4 Mg Tab) 6 mg PO Q24H [facility] Stop: 03/21/21 18:01 Last Admin: 03/16/21 17:43 Dose: 6 mg Documented by: Diatrizoate Meglum/Diatrizoate Sod (Diatrizoate Meglumine/Diatrizoate Sodium 37% 120 Ml Bottle) 60 ml PO ONETIME ONE Stop: 03/14/21 16:44 Last Admin: 03/14/21 16:55 Dose: 60 ml Documented by: Heparin Sodium (Porcine) (Heparin Sodium 5,000 Units/Ml Vial) 5,000 units SUBCUT Q8H [facility] Last Admin: 03/14/21 06:31 Dose: Not Given Documented by: Ceftriaxone Sodium 2 gm/ (Sodium Chloride) 100 mls @ 200 mls/hr IV ONETIME ONE Stop: 03/12/21 18:08 Last Admin: 03/12/21 17:49 Dose: 200 mls/hr Documented by: Remdesivir 200 mg/ Sodium (Chloride) 250 mls @ 250 mls/hr IV ONETIME ONE Stop: 03/13/21 09:29 Last Admin: 03/13/21 08:28 Dose: 250 mls/hr Documented by: Remdesivir 100 mg/ Sodium (Chloride) 100 mls @ 100 mls/hr IV Q24H [facility] Stop: 03/17/21 09:29 Last Admin: 03/17/21 09:50 Dose: 100 mls/hr Documented by: Tocilizumab 800 mg/ Sodium (Chloride) 100 mls @ 100 mls/hr IV ONETIME ONE Stop: 03/17/21 11:29 Last Admin: 03/17/21 11:24 Dose: 100 mls/hr Documented by: Ibuprofen (Ibuprofen 600 Mg Tab) 600 mg PO ONETIME ONE Stop: 03/12/21 17:43 Last Admin: 03/12/21 17:49 Dose: 600 mg Documented by: Iopamidol (Iopamidol 612 Mg/Ml 100 Ml Bottle) 100 ml IVPUSH ONETIME ONE Stop: 03/14/21 16:44 Last Admin: 03/14/21 16:56 Dose: 100 ml Documented by: Lidocaine HCl (Lidocaine 2% Jelly 10 Ml Urojet) 10 ml MUCMEM ONETIME ONE Stop: 03/14/21 16:01 Last Admin: 03/14/21 16:54 Dose: 10 ml Documented by: Metformin HCl (Metformin 500 Mg Tab) 500 mg PO BIDMEALS CURLY Last Admin: 03/13/21 07:36 Dose: Not Given Documented by: Sodium Chloride (Sodium Chloride 0.9% 10 Ml Syringe) 10 ml FLUSH ONETIME PRN PRN Reason: Keep Vein Open Stop: 03/14/21 19:00 Last Admin: 03/14/21 16:56 Dose: 10 ml Documented by: Tamsulosin HCl (Tamsulosin 0.4 Mg Cap.Er) 0.4 mg PO ONETIME ONE Stop: 03/14/21 17:56 Last Admin: 03/14/21 18:09 Dose: 0.4 mg Documented by: - Patient Data Lab Results Last 24 hrs: Laboratory Results - last 24 hr 03/16/21 03/17/21 03/17/21 Range/Units 21:01 05:36 05:36 WBC 5.44 (4.23-9.07) K/mm3 RBC 4.67 (4.63-6.08) M/mm3 Hgb 13.6 L (13.7-17.5) gm/dl Hct 41.1 (40.1-51.0) % MCV 88.0 (79.0-92.2) fl MCH 29.1 (25.7-32.2) pg MCHC 33.1 (32.2-35.5) g/dl RDW Std Deviation 45.5 H (35.1-43.9) fL Plt Count 181 (163-337) K/mm3 MPV 11.0 (9.4-12.3) fl Neut % (Auto) 67.0 (34.0-67.9) % Lymph % (Auto) 18.8 L (21.8-53.1) % [place] % (Auto) 11.6 (5.3-12.2) % Eos % (Auto) 0.2 L (0.8-7.0) Baso % (Auto) 1.3 H (0.1-1.2) % Neut # (Auto) 3.65 (1.78-5.38) K/mm3 Lymph # (Auto) 1.02 L (1.32-3.57) K/mm3 [place] # (Auto) 0.63 (0.30-0.82) K/mm3 Eos # (Auto) 0.01 L (0.04-0.54) K/mm3 Baso # (Auto) 0.07 (0.01-0.08) K/mm3 Manual Slide Review Normal smear D-Dimer, Quantitative (0.19-0.50) mg/L Sodium 143 (136-145) mEq/L Potassium 4.1 (3.5-5.1) mEq/L Chloride 108 H (98-107) mEq/L Carbon Dioxide 25 (21-32) mEq/L Anion Gap 14.1 (5-15) BUN 20 H (7-18) mg/dL Creatinine 0.9 (0.7-1.3) mg/dL Est Cr Clr Drug Dosing 91.80 mL/min Estimated GFR (MDRD) > 60 (>60) mL/min BUN/Creatinine Ratio 22.2 H (14-18) Glucose 239 H (70-99) mg/dL POC Glucose 231 H (70-99) mg/dL Calcium 7.7 L (8.5-10.1) mg/dL Magnesium 2.3 (1.8-2.4) mg/dL Total Bilirubin 0.8 (0.2-1.0) mg/dL AST 65 H (15-37) U/L ALT 83 H (16-63) U/L Alkaline Phosphatase 27 L (46-116) U/L C-Reactive Protein 6.5 H* (<1.0) mg/dL Total Protein 6.6 (6.4-8.2) g/dl Albumin 2.4 L (3.4-5.0) g/dl Globulin 4.2 gm/dL Albumin/Globulin Ratio 0.6 L (1-2) 03/17/21 03/17/21 03/17/21 Range/Units 06:27 10:37 11:07 WBC (4.23-9.07) K/mm3 RBC (4.63-6.08) M/mm3 Hgb (13.7-17.5) gm/dl Hct (40.1-51.0) % MCV (79.0-92.2) fl MCH (25.7-32.2) pg MCHC (32.2-35.5) g/dl RDW Std Deviation (35.1-43.9) fL Plt Count (163-337) K/mm3 MPV (9.4-12.3) fl Neut % (Auto) (34.0-67.9) % Lymph % (Auto) (21.8-53.1) % [place] % (Auto) (5.3-12.2) % Eos % (Auto) (0.8-7.0) Baso % (Auto) (0.1-1.2) % Neut # (Auto) (1.78-5.38) K/mm3 Lymph # (Auto) (1.32-3.57) K/mm3 [place] # (Auto) (0.30-0.82) K/mm3 Eos # (Auto) (0.04-0.54) K/mm3 Baso # (Auto) (0.01-0.08) K/mm3 Manual Slide Review D-Dimer, Quantitative 1.99 H (0.19-0.50) mg/L Sodium (136-145) mEq/L Potassium (3.5-5.1) mEq/L Chloride (98-107) mEq/L Carbon Dioxide (21-32) mEq/L Anion Gap (5-15) BUN (7-18) mg/dL Creatinine (0.7-1.3) mg/dL Est Cr Clr Drug Dosing mL/min Estimated GFR (MDRD) (>60) mL/min BUN/Creatinine Ratio (14-18) Glucose (70-99) mg/dL POC Glucose 219 H 139 H (70-99) mg/dL Calcium (8.5-10.1) mg/dL Magnesium (1.8-2.4) mg/dL Total Bilirubin (0.2-1.0) mg/dL AST (15-37) U/L ALT (16-63) U/L Alkaline Phosphatase (46-116) U/L C-Reactive Protein (<1.0) mg/dL Total Protein (6.4-8.2) g/dl Albumin (3.4-5.0) g/dl Globulin gm/dL Albumin/Globulin Ratio (1-2) / Range/Units 16:25 WBC (4.23-9.07) K/mm3 RBC (4.63-6.08) M/mm3 Hgb (13.7-17.5) gm/dl Hct (40.1-51.0) % MCV (79.0-92.2) fl MCH (25.7-32.2) pg MCHC (32.2-35.5) g/dl RDW Std Deviation (35.1-43.9) fL Plt Count (163-337) K/mm3 MPV (9.4-12.3) fl Neut % (Auto) (34.0-67.9) % Lymph % (Auto) (21.8-53.1) % [place] % (Auto) (5.3-12.2) % Eos % (Auto) (0.8-7.0) Baso % (Auto) (0.1-1.2) % Neut # (Auto) (1.78-5.38) K/mm3 Lymph # (Auto) (1.32-3.57) K/mm3 [place] # (Auto) (0.30-0.82) K/mm3 Eos # (Auto) (0.04-0.54) K/mm3 Baso # (Auto) (0.01-0.08) K/mm3 Manual Slide Review D-Dimer, Quantitative (0.19-0.50) mg/L Sodium (136-145) mEq/L Potassium (3.5-5.1) mEq/L Chloride (98-107) mEq/L Carbon Dioxide (21-32) mEq/L Anion Gap (5-15) BUN (7-18) mg/dL Creatinine (0.7-1.3) mg/dL Est Cr Clr Drug Dosing mL/min Estimated GFR (MDRD) (>60) mL/min BUN/Creatinine Ratio (14-18) Glucose (70-99) mg/dL POC Glucose 209 H (70-99) mg/dL Calcium (8.5-10.1) mg/dL Magnesium (1.8-2.4) mg/dL Total Bilirubin (0.2-1.0) mg/dL AST (15-37) U/L ALT (16-63) U/L Alkaline Phosphatase (46-116) U/L C-Reactive Protein (<1.0) mg/dL Total Protein (6.4-8.2) g/dl Albumin (3.4-5.0) g/dl Globulin gm/dL Albumin/Globulin Ratio (1-2) Result Diagrams: 03/17/21 05:36 03/17/21 05:36 Sepsis Event Note - Focused Exam Vital Signs: Vital Signs Temp Pulse Resp BP Pulse Ox Pulse Ox Pulse Ox 03/17/21 16:22 98.2 F 75 20 142/62 H 95 03/17/21 14:14 92 L 03/17/21 13:21 98.2 F 88 20 134/60 92 L 03/17/21 10:48 90 L 03/17/21 09:31 98.1 F 90 24 H 132/63 80 L 03/17/21 08:22 90 L 03/17/21 05:43 90 L - Plan Plan:: Case reviewed and discussed in full. Agree with evaluation, assessment and plan.
[2021-03-17] MEDS: Albuterol 6.7 GM Inhaler INH PRN ×3 (08:21→20:24)
[2021-03-17] MEDS: Aspirin 81 MG Tab.EC PO SCH (09:46)
[2021-03-17] MEDS: Famotidine 20 MG Tab PO SCH ×2 (09:46→22:19)
[2021-03-17] MEDS: Multivitamin Tab PO SCH (09:47)
[2021-03-17] MEDS: Tamsulosin 0.4 MG Cap.ER PO SCH (09:47)
[2021-03-17] MEDS: Insulin Lispro 100 UNIT/ML 10 ML Vial SUBCUT SCH ×4 (09:48→22:19)
[2021-03-17] MEDS: REMDESIVIR 100 MG in Sodium Chloride 0.9% 100 ML IV SCH (09:50)
[2021-03-17] MEDS: Enoxaparin 40 MG/0.4 ML Syringe SUBCUT SCH (11:27)
[2021-03-17] MEDS: methylPREDNISolone Sodium Succinate 125 MG/2 ML SDV IVPUSH SCH (13:18)
--- NOTE | 2021-03-17 13:41 | CR ---
Chest: Portable view of the chest was obtained. Comparison: Prior CT chest study of 03/12/21. Patchy areas of increased density are seen on both sides of the chest. Chest CT is more accurate for determining severity of parenchymal change. Heart size and mediastinum are within normal limits for portable x-ray. No acute osseous finding is seen. Impression: 1. Patchy areas of increased density on both sides of the chest which correlate to chest CT, these most likely represent multifocal pneumonia. Diagnostic code #3 I agree with preliminary report from [facility], finalized on 03/17/21, 11:46 AM CDT, code 1
[2021-03-18] MEDS: methylPREDNISolone Sodium Succinate 125 MG/2 ML SDV IVPUSH SCH ×2 (01:09→12:30)
[2021-03-18] MEDS ORDERED: Magnesium Hydroxide 400 MG/5 ML Susp 30 ML Cup PO ONE (06:30)
--- NOTE | 2021-03-18 07:43 | PCM.PN ---
<Red Lutz - Last Filed: 03/18/21 11:16> - General Info Date of Service: 03/18/21 Admission Dx/Problem (Free Text): Admission Diagnosis/Problem Admission Diagnosis/Problem Hypoxia Functional Status: Reports: Pain Controlled, Tolerating Diet, Ambulating, Urinating, Incentive Spirometry, Other (Acapella ). Denies: New Symptoms - Review of Systems General: Reports: Weakness, Fatigue, Chills. Denies: Fever, Malaise HEENT: Reports: No Symptoms. Denies: Headaches, Sore Throat Pulmonary: Reports: Cough, Sputum (occasional ). Denies: Shortness of Breath, Wheezing Cardiovascular: Reports: Dyspnea on Exertion. Denies: Chest Pain, Palpitations, Edema Gastrointestinal: Reports: No Symptoms. Denies: Abdominal Pain, Constipation, Diarrhea, Nausea, Vomiting Genitourinary: Reports: No Symptoms. Denies: Pain Musculoskeletal: Reports: No Symptoms Skin: Reports: No Symptoms. Denies: Cyanosis Neurological: Reports: Weakness. Denies: Confusion, Pre-Existing Deficit, Difficulty Walking, Gait Disturbance Psychiatric: Reports: No Symptoms - Patient Data Vitals - Most Recent: Last Vital Signs Temp 97.9 F 03/18/21 03:42 Pulse 66 03/18/21 03:42 Resp 16 03/18/21 03:42 BP 154/84 H 03/18/21 03:42 Pulse Ox 94 L 03/18/21 06:35 Weight - Most Recent: 337 lb 6.4 oz I&O - Last 24 Hours: Intake & Output 03/17/21 03/18/21 03/18/21 22:59 06:59 14:59 Intake Total 560 600 Output Total 400 850 Balance 160 -250 Lab Results Last 24 Hours: Laboratory Results - last 24 hr 03/17/21 03/17/21 03/17/21 Range/Units 10:37 11:07 16:25 WBC (4.23-9.07) K/mm3 RBC (4.63-6.08) M/mm3 Hgb (13.7-17.5) gm/dl Hct (40.1-51.0) % MCV (79.0-92.2) fl MCH (25.7-32.2) pg MCHC (32.2-35.5) g/dl RDW Std Deviation (35.1-43.9) fL Plt Count (163-337) K/mm3 MPV (9.4-12.3) fl Neut % (Auto) (34.0-67.9) % Lymph % (Auto) (21.8-53.1) % [place] % (Auto) (5.3-12.2) % Eos % (Auto) (0.8-7.0) Baso % (Auto) (0.1-1.2) % Neut # (Auto) (1.78-5.38) K/mm3 Lymph # (Auto) (1.32-3.57) K/mm3 [place] # (Auto) (0.30-0.82) K/mm3 Eos # (Auto) (0.04-0.54) K/mm3 Baso # (Auto) (0.01-0.08) K/mm3 Manual Slide Review D-Dimer, Quantitative 1.99 H (0.19-0.50) mg/L Sodium (136-145) mEq/L Potassium (3.5-5.1) mEq/L Chloride (98-107) mEq/L Carbon Dioxide (21-32) mEq/L Anion Gap (5-15) BUN (7-18) mg/dL Creatinine (0.7-1.3) mg/dL Est Cr Clr Drug Dosing mL/min Estimated GFR (MDRD) (>60) mL/min BUN/Creatinine Ratio (14-18) Glucose (70-99) mg/dL POC Glucose 139 H 209 H (70-99) mg/dL Calcium (8.5-10.1) mg/dL Magnesium (1.8-2.4) mg/dL Total Bilirubin (0.2-1.0) mg/dL AST (15-37) U/L ALT (16-63) U/L Alkaline Phosphatase (46-116) U/L C-Reactive Protein (<1.0) mg/dL Total Protein (6.4-8.2) g/dl Albumin (3.4-5.0) g/dl Globulin gm/dL Albumin/Globulin Ratio (1-2) 03/17/21 03/18/21 03/18/21 Range/Units 21:52 05:31 05:31 WBC 7.05 (4.23-9.07) K/mm3 RBC 4.65 (4.63-6.08) M/mm3 Hgb 13.4 L (13.7-17.5) gm/dl Hct 40.9 (40.1-51.0) % MCV 88.0 (79.0-92.2) fl MCH 28.8 (25.7-32.2) pg MCHC 32.8 (32.2-35.5) g/dl RDW Std Deviation 45.4 H (35.1-43.9) fL Plt Count 221 (163-337) K/mm3 MPV 10.9 (9.4-12.3) fl Neut % (Auto) 85.0 H (34.0-67.9) % Lymph % (Auto) 9.4 L (21.8-53.1) % [place] % (Auto) 4.8 L (5.3-12.2) % Eos % (Auto) 0 L (0.8-7.0) Baso % (Auto) 0.1 (0.1-1.2) % Neut # (Auto) 5.99 H (1.78-5.38) K/mm3 Lymph # (Auto) 0.66 L (1.32-3.57) K/mm3 [place] # (Auto) 0.34 (0.30-0.82) K/mm3 Eos # (Auto) 0.00 L (0.04-0.54) K/mm3 Baso # (Auto) 0.01 (0.01-0.08) K/mm3 Manual Slide Review Abnormal smear D-Dimer, Quantitative (0.19-0.50) mg/L Sodium 141 (136-145) mEq/L Potassium 4.7 (3.5-5.1) mEq/L Chloride 104 (98-107) mEq/L Carbon Dioxide 22 (21-32) mEq/L Anion Gap 19.7 H (5-15) BUN 21 H (7-18) mg/dL Creatinine 0.9 (0.7-1.3) mg/dL Est Cr Clr Drug Dosing 91.80 mL/min Estimated GFR (MDRD) > 60 (>60) mL/min BUN/Creatinine Ratio 23.3 H (14-18) Glucose 292 H (70-99) mg/dL POC Glucose 304 H (70-99) mg/dL Calcium 7.9 L (8.5-10.1) mg/dL Magnesium 2.3 (1.8-2.4) mg/dL Total Bilirubin 0.6 (0.2-1.0) mg/dL AST 47 H (15-37) U/L ALT 76 H (16-63) U/L Alkaline Phosphatase 28 L (46-116) U/L C-Reactive Protein 6.3 H* (<1.0) mg/dL Total Protein 6.8 (6.4-8.2) g/dl Albumin 2.5 L (3.4-5.0) g/dl Globulin 4.3 gm/dL Albumin/Globulin Ratio 0.6 L (1-2) 03/18/21 Range/Units 06:49 WBC (4.23-9.07) K/mm3 RBC (4.63-6.08) M/mm3 Hgb (13.7-17.5) gm/dl Hct (40.1-51.0) % MCV (79.0-92.2) fl MCH (25.7-32.2) pg MCHC (32.2-35.5) g/dl RDW Std Deviation (35.1-43.9) fL Plt Count (163-337) K/mm3 MPV (9.4-12.3) fl Neut % (Auto) (34.0-67.9) % Lymph % (Auto) (21.8-53.1) % [place] % (Auto) (5.3-12.2) % Eos % (Auto) (0.8-7.0) Baso % (Auto) (0.1-1.2) % Neut # (Auto) (1.78-5.38) K/mm3 Lymph # (Auto) (1.32-3.57) K/mm3 [place] # (Auto) (0.30-0.82) K/mm3 Eos # (Auto) (0.04-0.54) K/mm3 Baso # (Auto) (0.01-0.08) K/mm3 Manual Slide Review D-Dimer, Quantitative (0.19-0.50) mg/L Sodium (136-145) mEq/L Potassium (3.5-5.1) mEq/L Chloride (98-107) mEq/L Carbon Dioxide (21-32) mEq/L Anion Gap (5-15) BUN (7-18) mg/dL Creatinine (0.7-1.3) mg/dL Est Cr Clr Drug Dosing mL/min Estimated GFR (MDRD) (>60) mL/min BUN/Creatinine Ratio (14-18) Glucose (70-99) mg/dL POC Glucose 304 H (70-99) mg/dL Calcium (8.5-10.1) mg/dL Magnesium (1.8-2.4) mg/dL Total Bilirubin (0.2-1.0) mg/dL AST (15-37) U/L ALT (16-63) U/L Alkaline Phosphatase (46-116) U/L C-Reactive Protein (<1.0) mg/dL Total Protein (6.4-8.2) g/dl Albumin (3.4-5.0) g/dl Globulin gm/dL Albumin/Globulin Ratio (1-2) Med Orders - Current: Current Medications Albuterol (Albuterol 6.7 Gm Inhaler) 0 gm INH Q6H PRN PRN Reason: Shortness of Breath Last Admin: 03/17/21 20:24 Dose: 2 puff Documented by: Aspirin (Aspirin 81 Mg Tab.Ec) 81 mg PO DAILY [facility] Last Admin: 03/17/21 09:46 Dose: 81 mg Documented by: Enoxaparin Sodium (Enoxaparin 40 Mg/0.4 Ml Syringe) 40 mg SUBCUT DAILY [facility] Last Admin: 03/17/21 11:27 Dose: 40 mg Documented by: Famotidine (Famotidine 20 Mg Tab) 20 mg PO BID [facility] Last Admin: 03/17/21 22:19 Dose: 20 mg Documented by: Hydromorphone HCl (Hydromorphone 0.5 Mg/0.5 Ml Syringe) 0.5 mg IVPUSH Q1H PRN PRN Reason: Pain (severe 7-10) Last Admin: 03/16/21 21:20 Dose: 0.5 mg Documented by: Ibuprofen (Ibuprofen 600 Mg Tab) 600 mg PO Q6H PRN PRN Reason: fever/pain Last Admin: 03/13/21 17:57 Dose: 600 mg Documented by: Insulin Human Lispro (Insulin Lispro 100 Unit/Ml 10 Ml Vial) 0 unit SUBCUT QIDACANDBED [facility]; Protocol Last Admin: 03/17/21 22:19 Dose: 8 unit Documented by: Methylprednisolone Sodium Succinate (Methylprednisolone Sodium Succinate 125 Mg/2 Ml Sdv) 125 mg IVPUSH Q12H [facility] Last Admin: 03/18/21 01:09 Dose: 125 mg Documented by: Multivitamins/Minerals/Vitamin C (Multivitamin Tab) 1 tab PO DAILY [facility] Last Admin: 03/17/21 09:47 Dose: 1 tab Documented by: Ondansetron HCl (Ondansetron 4 Mg/2 Ml Sdv) 4 mg IV Q6H PRN PRN Reason: Nausea/Vomiting Oxycodone HCl (Oxycodone 5 Mg Tab) 5 mg PO Q4H PRN PRN Reason: Pain (moderate 4-6) Last Admin: 03/17/21 13:47 Dose: 5 mg Documented by: Sodium Chloride (Sodium Chloride 0.9% 10 Ml Syringe) 10 ml FLUSH ASDIRECTED PRN PRN Reason: Keep Vein Open Last Admin: 03/12/21 17:49 Dose: 10 ml Documented by: Tamsulosin HCl (Tamsulosin 0.4 Mg Cap.Er) 0.4 mg PO DAILY [facility] Last Admin: 03/17/21 09:47 Dose: 0.4 mg Documented by: Discontinued Medications Albuterol (Albuterol 6.7 Gm Inhaler) 0 gm INH ONETIME ONE Stop: 03/12/21 17:41 Last Admin: 03/12/21 17:49 Dose: 2 puff Documented by: Dexamethasone (Dexamethasone 10 Mg/Ml Sdv) 6 mg IVPUSH ONETIME ONE Stop: 03/12/21 19:50 Last Admin: 03/12/21 20:24 Dose: 6 mg Documented by: Dexamethasone (Dexamethasone 4 Mg Tab) 6 mg PO Q24H [facility] Stop: 03/21/21 18:01 Last Admin: 03/16/21 17:43 Dose: 6 mg Documented by: Diatrizoate Meglum/Diatrizoate Sod (Diatrizoate Meglumine/Diatrizoate Sodium 37% 120 Ml Bottle) 60 ml PO ONETIME ONE Stop: 03/14/21 16:44 Last Admin: 03/14/21 16:55 Dose: 60 ml Documented by: Heparin Sodium (Porcine) (Heparin Sodium 5,000 Units/Ml Vial) 5,000 units SUBC UT Q8H [facility] Last Admin: 03/14/21 06:31 Dose: Not Given Documented by: Ceftriaxone Sodium 2 gm/ (Sodium Chloride) 100 mls @ 200 mls/hr IV ONETIME ONE Stop: 03/12/21 18:08 Last Admin: 03/12/21 17:49 Dose: 200 mls/hr Documented by: Remdesivir 200 mg/ Sodium (Chloride) 250 mls @ 250 mls/hr IV ONETIME ONE Stop: 03/13/21 09:29 Last Admin: 03/13/21 08:28 Dose: 250 mls/hr Documented by: Remdesivir 100 mg/ Sodium (Chloride) 100 mls @ 100 mls/hr IV Q24H [facility] Stop: 03/17/21 09:29 Last Admin: 03/17/21 09:50 Dose: 100 mls/hr Documented by: Tocilizumab 800 mg/ Sodium (Chloride) 100 mls @ 100 mls/hr IV ONETIME ONE Stop: 03/17/21 11:29 Last Admin: 03/17/21 11:24 Dose: 100 mls/hr Documented by: Ibuprofen (Ibuprofen 600 Mg Tab) 600 mg PO ONETIME ONE Stop: 03/12/21 17:43 Last Admin: 03/12/21 17:49 Dose: 600 mg Documented by: Iopamidol (Iopamidol 612 Mg/Ml 100 Ml Bottle) 100 ml IVPUSH ONETIME ONE Stop: 03/14/21 16:44 Last Admin: 03/14/21 16:56 Dose: 100 ml Documented by: Lidocaine HCl (Lidocaine 2% Jelly 10 Ml Urojet) 10 ml MUCMEM ONETIME ONE Stop: 03/14/21 16:01 Last Admin: 03/14/21 16:54 Dose: 10 ml Documented by: Magnesium Hydroxide (Magnesium Hydroxide 400 Mg/5 Ml Susp 30 Ml Cup) 30 ml PO ONETIME ONE Stop: 03/18/21 06:31 Metformin HCl (Metformin 500 Mg Tab) 500 mg PO BIDMEALS [facility] Last Admin: 03/13/21 07:36 Dose: Not Given Documented by: Sodium Chloride (Sodium Chloride 0.9% 10 Ml Syringe) 10 ml FLUSH ONETIME PRN PRN Reason: Keep Vein Open Stop: 03/14/21 19:00 Last Admin: 03/14/21 16:56 Dose: 10 ml Documented by: Tamsulosin HCl (Tamsulosin 0.4 Mg Cap.Er) 0.4 mg PO ONETIME ONE Stop: 03/14/21 17:56 Last Admin: 03/14/21 18:09 Dose: 0.4 mg Documented by: - Exam Quality Assessment: Supplemental Oxygen (50 L with FiO2 of 60.), Urine Catheter, DVT Prophylaxis Urinary Catheter Total Time: 0Days 0Hours General: Alert, Oriented, Cooperative, No Acute Distress HEENT: Pupils Equal, Pupils Reactive, Mucous Membr. Moist/[place] Neck: Supple, Trachea Midline Lungs: Normal Respiratory Effort, Decreased Breath Sounds. No: Rhonchi, Wheezing Cardiovascular: Regular Rate, Regular Rhythm GI/Abdominal Exam: Normal Bowel Sounds, Soft, Non-Tender, No Distention (Male) Exam: Deferred Back Exam: Normal Inspection, Full Range of Motion Extremities: Normal Inspection, Normal Range of Motion, Non-Tender, No Pedal Edema, Normal Capillary Refill Peripheral Pulses: 2+: Radial (L), Radial (R), Dorsalis Pedis (L), Dorsalis Pe dis (R) Skin: Warm, Dry, Intact Neurological: No New Focal Deficit Psy/Mental Status: Alert, Normal Affect, Normal Mood - Patient Data Lab Results Last 24 hrs: Laboratory Results - last 24 hr 03/17/21 03/17/21 03/17/21 Range/Units 10:37 11:07 16:25 WBC (4.23-9.07) K/mm3 RBC (4.63-6.08) M/mm3 Hgb (13.7-17.5) gm/dl Hct (40.1-51.0) % MCV (79.0-92.2) fl MCH (25.7-32.2) pg MCHC (32.2-35.5) g/dl RDW Std Deviation (35.1-43.9) fL Plt Count (163-337) K/mm3 MPV (9.4-12.3) fl Neut % (Auto) (34.0-67.9) % Lymph % (Auto) (21.8-53.1) % [place] % (Auto) (5.3-12.2) % Eos % (Auto) (0.8-7.0) Baso % (Auto) (0.1-1.2) % Neut # (Auto) (1.78-5.38) K/mm3 Lymph # (Auto) (1.32-3.57) K/mm3 [place] # (Auto) (0.30-0.82) K/mm3 Eos # (Auto) (0.04-0.54) K/mm3 Baso # (Auto) (0.01-0.08) K/mm3 Manual Slide Review D-Dimer, Quantitative 1.99 H (0.19-0.50) mg/L Sodium (136-145) mEq/L Potassium (3.5-5.1) mEq/L Chloride (98-107) mEq/L Carbon Dioxide (21-32) mEq/L Anion Gap (5-15) BUN (7-18) mg/dL Creatinine (0.7-1.3) mg/dL Est Cr Clr Drug Dosing mL/min Estimated GFR (MDRD) (>60) mL/min BUN/Creatinine Ratio (14-18) Glucose (70-99) mg/dL POC Glucose 139 H 209 H (70-99) mg/dL Calcium (8.5-10.1) mg/dL Magnesium (1.8-2.4) mg/dL Total Bilirubin (0.2-1.0) mg/dL AST (15-37) U/L ALT (16-63) U/L Alkaline Phosphatase (46-116) U/L C-Reactive Protein (<1.0) mg/dL Total Protein (6.4-8.2) g/dl Albumin (3.4-5.0) g/dl Globulin gm/dL Albumin/Globulin Ratio (1-2) 03/17/21 03/18/21 03/18/21 Range/Units 21:52 05:31 05:31 WBC 7.05 (4.23-9.07) K/mm3 RBC 4.65 (4.63-6.08) M/mm3 Hgb 13.4 L (13.7-17.5) gm/dl Hct 40.9 (40.1-51.0) % MCV 88.0 (79.0-92.2) fl MCH 28.8 (25.7-32.2) pg MCHC 32.8 (32.2-35.5) g/dl RDW Std Deviation 45.4 H (35.1-43.9) fL Plt Count 221 (163-337) K/mm3 MPV 10.9 (9.4-12.3) fl Neut % (Auto) 85.0 H (34.0-67.9) % Lymph % (Auto) 9.4 L (21.8-53.1) % [place] % (Auto) 4.8 L (5.3-12.2) % Eos % (Auto) 0 L (0.8-7.0) Baso % (Auto) 0.1 (0.1-1.2) % Neut # (Auto) 5.99 H (1.78-5.38) K/mm3 Lymph # (Auto) 0.66 L (1.32-3.57) K/mm3 [place] # (Auto) 0.34 (0.30-0.82) K/mm3 Eos # (Auto) 0.00 L (0.04-0.54) K/mm3 Baso # (Auto) 0.01 (0.01-0.08) K/mm3 Manual Slide Review Abnormal smear D-Dimer, Quantitative (0.19-0.50) mg/L Sodium 141 (136-145) mEq/L Potassium 4.7 (3.5-5.1) mEq/L Chloride 104 (98-107) mEq/L Carbon Dioxide 22 (21-32) mEq/L Anion Gap 19.7 H (5-15) BUN 21 H (7-18) mg/dL Creatinine 0.9 (0.7-1.3) mg/dL Est Cr Clr Drug Dosing 91.80 mL/min Estimated GFR (MDRD) > 60 (>60) mL/min BUN/Creatinine Ratio 23.3 H (14-18) Glucose 292 H (70-99) mg/dL POC Glucose 304 H (70-99) mg/dL Calcium 7.9 L (8.5-10.1) mg/dL Magnesium 2.3 (1.8-2.4) mg/dL Total Bilirubin 0.6 (0.2-1.0) mg/dL AST 47 H (15-37) U/L ALT 76 H (16-63) U/L Alkaline Phosphatase 28 L (46-116) U/L C-Reactive Protein 6.3 H* (<1.0) mg/dL Total Protein 6.8 (6.4-8.2) g/dl Albumin 2.5 L (3.4-5.0) g/dl Globulin 4.3 gm/dL Albumin/Globulin Ratio 0.6 L (1-2) 03/18/21 Range/Units 06:49 WBC (4.23-9.07) K/mm3 RBC (4.63-6.08) M/mm3 Hgb (13.7-17.5) gm/dl Hct (40.1-51.0) % MCV (79.0-92.2) fl MCH (25.7-32.2) pg MCHC (32.2-35.5) g/dl RDW Std Deviation (35.1-43.9) fL Plt Count (163-337) K/mm3 MPV (9.4-12.3) fl Neut % (Auto) (34.0-67.9) % Lymph % (Auto) (21.8-53.1) % [place] % (Auto) (5.3-12.2) % Eos % (Auto) (0.8-7.0) Baso % (Auto) (0.1-1.2) % Neut # (Auto) (1.78-5.38) K/mm3 Lymph # (Auto) (1.32-3.57) K/mm3 [place] # (Auto) (0.30-0.82) K/mm3 Eos # (Auto) (0.04-0.54) K/mm3 Baso # (Auto) (0.01-0.08) K/mm3 Manual Slide Review D-Dimer, Quantitative (0.19-0.50) mg/L Sodium (136-145) mEq/L Potassium (3.5-5.1) mEq/L Chloride (98-107) mEq/L Carbon Dioxide (21-32) mEq/L Anion Gap (5-15) BUN (7-18) mg/dL Creatinine (0.7-1.3) mg/dL Est Cr Clr Drug Dosing mL/min Estimated GFR (MDRD) (>60) mL/min BUN/Creatinine Ratio (14-18) Glucose (70-99) mg/dL POC Glucose 304 H (70-99) mg/dL Calcium (8.5-10.1) mg/dL Magnesium (1.8-2.4) mg/dL Total Bilirubin (0.2-1.0) mg/dL AST (15-37) U/L ALT (16-63) U/L Alkaline Phosphatase (46-116) U/L C-Reactive Protein (<1.0) mg/dL Total Protein (6.4-8.2) g/dl Albumin (3.4-5.0) g/dl Globulin gm/dL Albumin/Globulin Ratio (1-2) Result Diagrams: 03/18/21 05:31 03/18/21 05:31 Sepsis Event Note - Evaluation Sepsis Screening Result: No Definite Risk - Focused Exam Vital Signs: Vital Signs Temp Pulse Resp BP Pulse Ox Pulse Ox 03/18/21 06:35 94 L 03/18/21 03:42 97.9 F 66 16 154/84 H 88 L 03/18/21 01:16 98.1 F 70 20 146/76 H 90 L 03/17/21 21:54 98.4 F 81 20 150/78 H 90 L 03/17/21 20:24 97 - Problem List & Annotations (1) Type II diabetes mellitus SNOMED Code(s): 27377434 Code(s): E11.9 - TYPE 2 DIABETES MELLITUS WITHOUT COMPLICATIONS Status: [facility] Priority: Medium Current Visit: Yes Qualifiers: 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: without assisted use Diabetes mellitus complication status: without complication Qualified Code(s): E11.9 - Type 2 diabetes mellitus without complications (2) History of hypertension SNOMED Code(s): 719976863 Code(s): Z86.79 - PERSONAL HISTORY OF OTHER DISEASES OF THE CIRCULATORY SYSTEM Status: Chronic Priority: Low Current Visit: No (3) Morbid obesity SNOMED Code(s): 321465270 Code(s): E66.01 - MORBID (SEVERE) OBESITY DUE TO EXCESS CALORIES Status: Chronic Priority: Low Current Visit: No (4) Elevated d-dimer SNOMED Code(s): 306443109 Code(s): R79.89 - OTHER SPECIFIED ABNORMAL FINDINGS OF BLOOD CHEMISTRY Status: Acute Priority: Medium Current Visit: Yes (5) COVID-19 SNOMED Code(s): 291670250 Code(s): U07.1 - COVID-19 Status: Acute Priority: High Current Visit: Yes (6) Hypoxia SNOMED Code(s): 725005264 Code(s): R09.02 - HYPOXEMIA Status: Acute Priority: High Current Visit: Yes (7) Thrombocytopenia SNOMED Code(s): 122940880 Code(s): D69.6 - THROMBOCYTOPENIA, UNSPECIFIED Status: Resolved Priority: High Current Visit: Yes (8) Hepatic steatosis SNOMED Code(s): 283330730 Code(s): K76.0 - FATTY (CHANGE OF) LIVER, NOT ELSEWHERE CLASSIFIED Status: Chronic Priority: Low Current Visit: Yes (9) Cholelithiasis SNOMED Code(s): 511834027 Code(s): K80.20 - CALCULUS OF GALLBLADDER W/O CHOLECYSTITIS W/O OBSTRUCTION Status: Chronic Priority: Low Current Visit: Yes Qualifiers: Cholelithiasis location: gallbladder Cholecystitis presence: with cholecystitis Cholecystitis acuity: chronic Biliary obstruction: without biliary obstruction Qualified Code(s): K80.10 - Calculus of gallbladder with chronic cholecystitis without obstruction (10) Hypoalbuminemia SNOMED Code(s): 135060196 Code(s): E88.09 - OTH DISORDERS OF PLASMA-PROTEIN METABOLISM, NEC Status: Acute Priority: Medium Current Visit: Yes (11) Nephrolithiasis SNOMED Code(s): 25828229 Code(s): N20.0 - CALCULUS OF KIDNEY Status: Acute Current Visit: Yes (12) Hydroureter on right SNOMED Code(s): 55444757 Code(s): N13.4 - HYDROURETER Status: Acute Current Visit: Yes (13) Hydronephrosis SNOMED Code(s): 37438401 Code(s): N13.30 - UNSPECIFIED HYDRONEPHROSIS Status: Acute Priority: High Current Visit: Yes Qualifiers: Hydronephrosis type: unspecified Qualified Code(s): N13.30 - Unspecified hydronephrosis - Problem List Review Problem List Initiated/Reviewed/Updated: Yes - My Orders Last 24 Hours: My Active Orders 03/17/21 11:15 Enoxaparin [Lovenox] 40 mg SUBCUT DAILY 03/17/21 12:30 methylPREDNISolone Sod Succ [Solu-MEDROL] 125 mg IVPUSH Q12H 03/17/21 12:33 RT Oxygen High Flow [RESPCARE] Routine 03/19/21 05:11 CBC WITH AUTO DIFF [HEME] AM CMP [COMPREHENSIVE METABOLIC PN,CMP] [CHEM] AM CRP [C-REACTIVE PROTEIN] [CHEM] AM MAGNESIUM [CHEM] AM 03/19/21 09:54 DD [D-DIMER QUANTITATIVE] [COAG] Q48H 03/20/21 05:11 CBC WITH AUTO DIFF [HEME] AM CMP [COMPREHENSIVE METABOLIC PN,CMP] [CHEM] AM CRP [C-REACTIVE PROTEIN] [CHEM] AM MAGNESIUM [CHEM] AM 03/21/21 05:11 CBC WITH AUTO DIFF [HEME] AM CMP [COMPREHENSIVE METABOLIC PN,CMP] [CHEM] AM CRP [C-REACTIVE PROTEIN] [CHEM] AM MAGNESIUM [CHEM] AM 03/21/21 09:54 DD [D-DIMER QUANTITATIVE] [COAG] Q48H 03/23/21 09:54 DD [D-DIMER QUANTITATIVE] [COAG] Q48H - Assessment Assessment:: Assessment - 03/13/2021 (admitted late 03/12/2021) * This is a 60-year-old male presents to ED with dyspnea and hypoxia * Hx of hypertension though was able to come off his medications due to weight loss. He is a type II diabetic on Metformin. * Went to the walk-in clinic who sent him here * Symptoms began about 2 to 3 days prior * Denies a cough but was noted to have a fever on arrival of 101 * Chest x-ray was obtained at the walk-in clinic which showed bilateral in filtrates in the lower lobes consistent with COVID-19 pneumonia. * He was reportedly checked with a rapid Covid screen and was negative there * Saturations were noted to decrease to 80% and he was started on oxygen and sent here. 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 No history of lung problems such as asthma or COPD * Obese with a BMI of 48.3 however he reports he recently lost 80 pounds * Denies any chest pain, abdominal pain, nausea, or vomiting. * 12-lead EKG was obtained showing sinus tachycardia at 107 bpm with no ectopy. * Labs are obtained in ED and on floor: * WBC 4.57-->3.82 * Hemoglobin 14.6 ->14.9 * Platelet 91,000-->96,000 * Neutrophils 77.1%. * ABGs obtained with a pH of 7.45. PCO2 of 29.6. PO2 of 74.0. HCO3 of 20.3. Saturations of 96.3. This is on 2 L. * VB.32. PCO2 53.7. PO2 26.0. HCO3 of 26.8. Oxygen saturation 35.4. On 3 L. * Sodium 135-->141 * Potassium 3.9-->4.9 * Chloride 100-->103 * Carbon dioxide 23-->29 * Anion gap 15.9-->13.9 * BUN is 13-->16. Creatinine 1.2-->1.1. GFR greater than 60--> Greater than 60. * Glucose 153-->231. * Calcium 8.0-->8.1. * Bilirubin 1.1-->0.8. Direct bilirubin 0.50, Indirect bilirubin 0.30 * AST 115-->99. ALT 89-->87. Alkaline phosphatase 32-->31. * LDH 562. * Troponin 0.019. * CRP 16.9. * Protein 7.4-->7.5. * Albumin 3.1-->2.9. * Lactic acid 1.1. * Ferritin 3732. * D-dimer 1.43. * SARS-CoV-2 RNA is positive. * He is given 6 mg dexamethasone and 2 g of Rocephin. He is also given 2 puffs of an albuterol inhaler and ibuprofen. * Subsequently admitted to the medical floor on telemetry for management of his COVID-19 pneumonia. * CT obtained on floor on 03/12/2021 shows: * 1. No evidence of pulmonary embolus * 2. Moderate bilateral airspace disease compatible with infection * 3. Mild to moderate mediastinal and bihilar adenopathy * 4. Moderate hepatic steatosis * 5. Cholelithiasis 03/14/2021 This is a 60-year-old male admitted for COVID-19 treatment and hypoxia. Overall he is been doing quite well. Has been ambulating around the room. He did note some blood in his urine today so UA will be ordered. labs today show WBC 5.20. Hemoglobin 14.5. Hematocrit 43.6. Platelet improved to 100,000. Neutrophils elevated at 74.7.sodium of 139. Potassium 4.6. Chloride 103. Carbon dioxide 28. Anion gap 12.6. BUN 22. Creatinine 1.2. GFR greater than 60. Glucose has been 1 37-2 12. Calcium is 8.0. Magnesium 2.5. Total bilirubin 0.8. AST is 80, ALT 77, alkaline phosphatase 27. CRP is 12.6. Albumin is 2.7. We will recheck a D-dimer tomorrow. He has been weaned down to 1 L of oxygen. He has been utilizing his incentive spirometry and Acapella. He reports he is still tired but feels pretty good. We will continue treatment plan with likely discharge after completing remdesivir. 03/15/2021 Patient with mild cough denies chest pain denies sob no further hematuria 03/16/2021 denies chest pain on supplemental oxygen intermittent cough no diarrhea 03/17/2021 60-year-old male admitted for treatment of COVID-19 hypoxia. Late 03-14-2021 pat ient was noted to have gross bleeding from his penis. UA was obtained and CT scan of the abdomen pelvis was also obtained showing 1. Obstructing calculus within the distal right ureter located proximal to the UVJ. This obstructing calculus measures approximately 3.5 mm. This obstructing calculus causes obstructive changes within the right kidney as noted above. 2. Findings of Covid pneumonia within both lung bases. 3. Other findings as noted above which are nonacute. Three-way irrigating Gonzalez catheter was placed. Attending hospitalist did contact urology who reported a high probability of the patient passing the stone. He was placed on Flomax. Gonzalez catheter was ultimately removed. Since th at time patient has had worsening desaturations. He was switched to high flow 50 L with an FiO2 of 65%. He was given Actemra. We will start the patient on 125 mg Solu-Medrol every 12 hours for now. Repeat chest x-ray was obtained showing worsening infiltrates. We again discussed proning, although the patient reports that he is unable to prone. We discussed utilizing incentive spirometry and Acapella. Labs today show a WBC of 5.44. Hemoglobin 13.6. Platelet 181,000. Neutrophils 67%. D-dimer is 1.99. Sodium 143. Potassium 4.1. Chloride 108. Carbon dioxide 25. Anion gap 14.1. BUN is 20. Creatinine 0.9. GFR greater than 60. Glucose is 239. Calcium 7.7. Magnesium is 2.3. Bilirubin 0.8. AST 65, ALT 83, alkaline phosphatase 27. CRP is 6.5. Albumin is 2.4. Patient did complete remdesivir treatment today. As his bleeding from his penis is stopped and as he has no gross hematuria anymore we will begin Lovenox 40 mg daily for VTE prophylaxis. Unknown length of stay pending oxygen wean. 03/18/2021 This is a 64-year-old male admitted for Covid pneumonia and after admission found to have a renal stone. Overall he states that he is doing okay. He reports he is chilled but otherwise has no concerns. He has been cautious not overdo it has he feels like he pushed himself a little too hard a few days ago and he had difficulty recovering from that. He denies any abdominal pain or continued bleeding from his penis. He was placed on Lovenox 40 mg daily. We will recheck a D-dimer tomorrow. Labs today show WBC of 7.05. Hemoglobin 13.4. Platelet 221,000. Neutrophils are elevated 85%. Sodium 141. Potassium 4.7. Chloride 104. Carbon dioxide 22. Anion gap 19.7. BUN is 21. Creatinine 0.9. GFR greater than 60. Glucose has been 209 to 304. Magnesium 2.3. Total bilirubin 0.6. AST is 47, ALT 76, alkaline phosphatase 28. CRP is 6.3. Protein 6.8. Albumin 2.5. We will increase sliding scale insulin to high dose and monitor need for long-acting insulin. He continues to utilize incentive spirometry and Acapella. He is on high flow currently 50 L with FiO2 of 60. We will continue to work on weaning oxygen. He received Actemra and has been on twice daily 125 mg Solu-Medrol since. Unknown length of stay due to severity of COVID-19 symptoms. - Plan Plan:: COVID-19 Hypoxia Elevated d-dimer Hypoalbuminemia * O2 as needed with goal saturations of 88-95% * Completed Remdesivir * Switch from dexamethasone to 125mg BID solumedrol due to worsening saturations * IS/Acapella * RT consultation * High flow oxygen as directed * Airborne and contact isolation * Telemetry * Continuous pulse oximetry * Encourage proning * Encourage ambulation around room * CTA obtained and negative * Lovenox subcutaneous * Continue daily aspirin * Hospitality [facility] consultation * Daily labs * Famotidine 20mg BID * PRN motrin for pain/fever (Reported adverse reaction to Tylenol) * Given Actemera on 03/17/2021 Type II diabetes mellitus * Hold home metformin * High dose sliding scale insulin * QID AC and Bedtime blood glucose checks * Anticipate rise in blood glucose readings due to steroids * Monitor need for long acting insulin coverage History of hypertension * No current home BP meds * Monitor vital signs Thrombocytopenia, Resolved * Monitor Morbid obesity * Hospitality [facility] consultation Hepatic steatosis Cholelithiasis * No acute concerns * PCP follow-up Nephrolithiasis right hydroureteronephrosis * CT obtained * Case discussed with urology; per urology 90% likelihood that stone will pass by itself * Started on Flomax 03/14 Code status: Full Code PCP: Tricia Mohr NP DVT prohylaxis: Lovenox Disposition: Patient admitted to [facility] on telemetry for COVID-19 treatment. LOS >96 hours due to worsening COVID-19 PNA. <David Hernandez Jr - Last Filed: 03/18/21 16:46> - Patient Data Vitals - Most Recent: Last Vital Signs Temp 98.4 F 03/18/21 08:35 Pulse 67 03/18/21 08:36 Resp 30 H 03/18/21 08:35 BP 138/63 03/18/21 08:35 Pulse Ox 89 L 03/18/21 10:22 I&O - Last 24 Hours: Intake & Output 03/18/21 03/18/21 03/18/21 06:59 14:59 22:59 Intake Total 600 Output Total 850 Balance -250 Lab Results Last 24 Hours: Laboratory Results - last 24 hr 03/17/21 03/18/21 03/18/21 Range/Units 21:52 05:31 05:31 WBC 7.05 (4.23-9.07) K/mm3 RBC 4.65 (4.63-6.08) M/mm3 Hgb 13.4 L (13.7-17.5) gm/dl Hct 40.9 (40.1-51.0) % MCV 88.0 (79.0-92.2) fl MCH 28.8 (25.7-32.2) pg MCHC 32.8 (32.2-35.5) g/dl RDW Std Deviation 45.4 H (35.1-43.9) fL Plt Count 221 (163-337) K/mm3 MPV 10.9 (9.4-12.3) fl Neut % (Auto) 85.0 H (34.0-67.9) % Lymph % (Auto) 9.4 L (21.8-53.1) % [place] % (Auto) 4.8 L (5.3-12.2) % Eos % (Auto) 0 L (0.8-7.0) Baso % (Auto) 0.1 (0.1-1.2) % Neut # (Auto) 5.99 H (1.78-5.38) K/mm3 Lymph # (Auto) 0.66 L (1.32-3.57) K/mm3 [place] # (Auto) 0.34 (0.30-0.82) K/mm3 Eos # (Auto) 0.00 L (0.04-0.54) K/mm3 Baso # (Auto) 0.01 (0.01-0.08) K/mm3 Manual Slide Review Abnormal smear Sodium 141 (136-145) mEq/L Potassium 4.7 (3.5-5.1) mEq/L Chloride 104 (98-107) mEq/L Carbon Dioxide 22 (21-32) mEq/L Anion Gap 19.7 H (5-15) BUN 21 H (7-18) mg/dL Creatinine 0.9 (0.7-1.3) mg/dL Est Cr Clr Drug Dosing 91.80 mL/min Estimated GFR (MDRD) > 60 (>60) mL/min BUN/Creatinine Ratio 23.3 H (14-18) Glucose 292 H (70-99) mg/dL POC Glucose 304 H (70-99) mg/dL Calcium 7.9 L (8.5-10.1) mg/dL Magnesium 2.3 (1.8-2.4) mg/dL Total Bilirubin 0.6 (0.2-1.0) mg/dL AST 47 H (15-37) U/L ALT 76 H (16-63) U/L Alkaline Phosphatase 28 L (46-116) U/L C-Reactive Protein 6.3 H* (<1.0) mg/dL Total Protein 6.8 (6.4-8.2) g/dl Albumin 2.5 L (3.4-5.0) g/dl Globulin 4.3 gm/dL Albumin/Globulin Ratio 0.6 L (1-2) 03/18/21 03/18/21 Range/Units 06:49 11:40 WBC (4.23-9.07) K/mm3 RBC (4.63-6.08) M/mm3 Hgb (13.7-17.5) gm/dl Hct (40.1-51.0) % MCV (79.0-92.2) fl MCH (25.7-32.2) pg MCHC (32.2-35.5) g/dl RDW Std Deviation (35.1-43.9) fL Plt Count (163-337) K/mm3 MPV (9.4-12.3) fl Neut % (Auto) (34.0-67.9) % Lymph % (Auto) (21.8-53.1) % [place] % (Auto) (5.3-12.2) % Eos % (Auto) (0.8-7.0) Baso % (Auto) (0.1-1.2) % Neut # (Auto) (1.78-5.38) K/mm3 Lymph # (Auto) (1.32-3.57) K/mm3 [place] # (Auto) (0.30-0.82) K/mm3 Eos # (Auto) (0.04-0.54) K/mm3 Baso # (Auto) (0.01-0.08) K/mm3 Manual Slide Review Sodium (136-145) mEq/L Potassium (3.5-5.1) mEq/L Chloride (98-107) mEq/L Carbon Dioxide (21-32) mEq/L Anion Gap (5-15) BUN (7-18) mg/dL Creatinine (0.7-1.3) mg/dL Est Cr Clr Drug Dosing mL/min Estimated GFR (MDRD) (>60) mL/min BUN/Creatinine Ratio (14-18) Glucose (70-99) mg/dL POC Glucose 304 H 279 H (70-99) mg/dL Calcium (8.5-10.1) mg/dL Magnesium (1.8-2.4) mg/dL Total Bilirubin (0.2-1.0) mg/dL AST (15-37) U/L ALT (16-63) U/L Alkaline Phosphatase (46-116) U/L C-Reactive Protein (<1.0) mg/dL Total Protein (6.4-8.2) g/dl Albumin (3.4-5.0) g/dl Globulin gm/dL Albumin/Globulin Ratio (1-2) Aiden Results Last 24 Hours: Microbiology 03/12/21 18:11 Blood Culture - Final Blood - Venous - Lab Draw 03/12/21 18:02 Blood Culture - Final Blood - Venous Med Orders - Current: Current Medications Albuterol (Albuterol 6.7 Gm Inhaler) 0 gm INH Q6H PRN PRN Reason: Shortness of Breath Last Admin: 03/17/21 20:24 Dose: 2 puff Documented by: Aspirin (Aspirin 81 Mg Tab.Ec) 81 mg PO DAILY [facility] Last Admin: 03/18/21 08:23 Dose: 81 mg Documented by: Enoxaparin Sodium (Enoxaparin 40 Mg/0.4 Ml Syringe) 40 mg SUBCUT DAILY [facility] Last Admin: 03/18/21 08:23 Dose: 40 mg Documented by: Famotidine (Famotidine 20 Mg Tab) 20 mg PO BID [facility] Last Admin: 03/18/21 08:23 Dose: 20 mg Documented by: Hydromorphone HCl (Hydromorphone 0.5 Mg/0.5 Ml Syringe) 0.5 mg IVPUSH Q1H PRN PRN Reason: Pain (severe 7-10) Last Admin: 03/16/21 21:20 Dose: 0.5 mg Documented by: Ibuprofen (Ibuprofen 600 Mg Tab) 600 mg PO Q6H PRN PRN Reason: fever/pain Last Admin: 03/13/21 17:57 Dose: 600 mg Documented by: Insulin Human Lispro (Insulin Lispro 100 Unit/Ml 10 Ml Vial) 0 unit SUBCUT QIDACANDBED [facility]; Protocol Last Admin: 03/18/21 12:29 Dose: 9 unit Documented by: Methylprednisolone Sodium Succinate (Methylprednisolone Sodium Succinate 125 Mg/2 Ml Sdv) 125 mg IVPUSH Q12H [facility] Last Admin: 03/18/21 12:30 Dose: 125 mg Documented by: Multivitamins/Minerals/Vitamin C (Multivitamin Tab) 1 tab PO DAILY [facility] Last Admin: 03/18/21 08:23 Dose: 1 tab Documented by: Ondansetron HCl (Ondansetron 4 Mg/2 Ml Sdv) 4 mg IV Q6H PRN PRN Reason: Nausea/Vomiting Oxycodone HCl (Oxycodone 5 Mg Tab) 5 mg PO Q4H PRN PRN Reason: Pain (moderate 4-6) Last Admin: 03/17/21 13:47 Dose: 5 mg Documented by: Sodium Chloride (Sodium Chloride 0.9% 10 Ml Syringe) 10 ml FLUSH ASDIRECTED PRN PRN Reason: Keep Vein Open Last Admin: 03/12/21 17:49 Dose: 10 ml Documented by: Tamsulosin HCl (Tamsulosin 0.4 Mg Cap.Er) 0.4 mg PO DAILY [facility] Last Admin: 03/18/21 08:23 Dose: 0.4 mg Documented by: Discontinued Medications Albuterol (Albuterol 6.7 Gm Inhaler) 0 gm INH ONETIME ONE Stop: 03/12/21 17:41 Last Admin: 03/12/21 17:49 Dose: 2 puff Documented by: Dexamethasone (Dexamethasone 10 Mg/Ml Sdv) 6 mg IVPUSH ONETIME ONE Stop: 03/12/21 19:50 Last Admin: 03/12/21 20:24 Dose: 6 mg Documented by: Dexamethasone (Dexamethasone 4 Mg Tab) 6 mg PO Q24H [facility] Stop: 03/21/21 18:01 Last Admin: 03/16/21 17:43 Dose: 6 mg Documented by: Diatrizoate Meglum/Diatrizoate Sod (Diatrizoate Meglumine/Diatrizoate Sodium 37% 120 Ml Bottle) 60 ml PO ONETIME ONE Stop: 03/14/21 16:44 Last Admin: 03/14/21 16:55 Dose: 60 ml Documented by: Heparin Sodium (Porcine) (Heparin Sodium 5,000 Units/Ml Vial) 5,000 units SUBCUT Q8H [facility] Last Admin: 03/14/21 06:31 Dose: Not Given Documented by: Ceftriaxone Sodium 2 gm/ (Sodium Chloride) 100 mls @ 200 mls/hr IV ONETIME ONE Stop: 03/12/21 18:08 Last Admin: 03/12/21 17:49 Dose: 200 mls/hr Documented by: Remdesivir 200 mg/ Sodium (Chloride) 250 mls @ 250 mls/hr IV ONETIME ONE Stop: 03/13/21 09:29 Last Admin: 03/13/21 08:28 Dose: 250 mls/hr Documented by: Remdesivir 100 mg/ Sodium (Chloride) 100 mls @ 100 mls/hr IV Q24H [facility] Stop: 03/17/21 09:29 Last Admin: 03/17/21 09:50 Dose: 100 mls/hr Documented by: Tocilizumab 800 mg/ Sodium (Chloride) 100 mls @ 100 mls/hr IV ONETIME ONE Stop: 03/17/21 11:29 Last Admin: 03/17/21 11:24 Dose: 100 mls/hr Documented by: Ibuprofen (Ibuprofen 600 Mg Tab) 600 mg PO ONETIME ONE Stop: 03/12/21 17:43 Last Admin: 03/12/21 17:49 Dose: 600 mg Documented by: Iopamidol (Iopamidol 612 Mg/Ml 100 Ml Bottle) 100 ml IVPUSH ONETIME ONE Stop: 03/14/21 16:44 Last Admin: 03/14/21 16:56 Dose: 100 ml Documented by: Lidocaine HCl (Lidocaine 2% Jelly 10 Ml Urojet) 10 ml MUCMEM ONETIME ONE Stop: 03/14/21 16:01 Last Admin: 03/14/21 16:54 Dose: 10 ml Documented by: Magnesium Hydroxide (Magnesium Hydroxide 400 Mg/5 Ml Susp 30 Ml Cup) 30 ml PO ONETIME ONE Stop: 03/18/21 06:31 Last Admin: 03/18/21 06:30 Dose: Not Given Documented by: Metformin HCl (Metformin 500 Mg Tab) 500 mg PO BIDMEALS [facility] Last Admin: 03/13/21 07:36 Dose: Not Given Documented by: Sodium Chloride (Sodium Chloride 0.9% 10 Ml Syringe) 10 ml FLUSH ONETIME PRN PRN Reason: Keep Vein Open Stop: 03/14/21 19:00 Last Admin: 03/14/21 16:56 Dose: 10 ml Documented by: Tamsulosin HCl (Tamsulosin 0.4 Mg Cap.Er) 0.4 mg PO ONETIME ONE Stop: 03/14/21 17:56 Last Admin: 03/14/21 18:09 Dose: 0.4 mg Documented by: - Patient Data Lab Results Last 24 hrs: Laboratory Results - last 24 hr 03/17/21 03/18/21 03/18/21 Range/Units 21:52 05:31 05:31 WBC 7.05 (4.23-9.07) K/mm3 RBC 4.65 (4.63-6.08) M/mm3 Hgb 13.4 L (13.7-17.5) gm/dl Hct 40.9 (40.1-51.0) % MCV 88.0 (79.0-92.2) fl MCH 28.8 (25.7-32.2) pg MCHC 32.8 (32.2-35.5) g/dl RDW Std Deviation 45.4 H (35.1-43.9) fL Plt Count 221 (163-337) K/mm3 MPV 10.9 (9.4-12.3) fl Neut % (Auto) 85.0 H (34.0-67.9) % Lymph % (Auto) 9.4 L (21.8-53.1) % [place] % (Auto) 4.8 L (5.3-12.2) % Eos % (Auto) 0 L (0.8-7.0) Baso % (Auto) 0.1 (0.1-1.2) % Neut # (Auto) 5.99 H (1.78-5.38) K/mm3 Lymph # (Auto) 0.66 L (1.32-3.57) K/mm3 [place] # (Auto) 0.34 (0.30-0.82) K/mm3 Eos # (Auto) 0.00 L (0.04-0.54) K/mm3 Baso # (Auto) 0.01 (0.01-0.08) K/mm3 Manual Slide Review Abnormal smear Sodium 141 (136-145) mEq/L Potassium 4.7 (3.5-5.1) mEq/L Chloride 104 (98-107) mEq/L Carbon Dioxide 22 (21-32) mEq/L Anion Gap 19.7 H (5-15) BUN 21 H (7-18) mg/dL Creatinine 0.9 (0.7-1.3) mg/dL Est Cr Clr Drug Dosing 91.80 mL/min Estimated GFR (MDRD) > 60 (>60) mL/min BUN/Creatinine Ratio 23.3 H (14-18) Glucose 292 H (70-99) mg/dL POC Glucose 304 H (70-99) mg/dL Calcium 7.9 L (8.5-10.1) mg/dL Magnesium 2.3 (1.8-2.4) mg/dL Total Bilirubin 0.6 (0.2-1.0) mg/dL AST 47 H (15-37) U/L ALT 76 H (16-63) U/L Alkaline Phosphatase 28 L (46-116) U/L C-Reactive Protein 6.3 H* (<1.0) mg/dL Total Protein 6.8 (6.4-8.2) g/dl Albumin 2.5 L (3.4-5.0) g/dl Globulin 4.3 gm/dL Albumin/Globulin Ratio 0.6 L (1-2) 03/18/21 03/18/21 Range/Units 06:49 11:40 WBC (4.23-9.07) K/mm3 RBC (4.63-6.08) M/mm3 Hgb (13.7-17.5) gm/dl Hct (40.1-51.0) % MCV (79.0-92.2) fl MCH (25.7-32.2) pg MCHC (32.2-35.5) g/dl RDW Std Deviation (35.1-43.9) fL Plt Count (163-337) K/mm3 MPV (9.4-12.3) fl Neut % (Auto) (34.0-67.9) % Lymph % (Auto) (21.8-53.1) % [place] % (Auto) (5.3-12.2) % Eos % (Auto) (0.8-7.0) Baso % (Auto) (0.1-1.2) % Neut # (Auto) (1.78-5.38) K/mm3 Lymph # (Auto) (1.32-3.57) K/mm3 [place] # (Auto) (0.30-0.82) K/mm3 Eos # (Auto) (0.04-0.54) K/mm3 Baso # (Auto) (0.01-0.08) K/mm3 Manual Slide Review Sodium (136-145) mEq/L Potassium (3.5-5.1) mEq/L Chloride (98-107) mEq/L Carbon Dioxide (21-32) mEq/L Anion Gap (5-15) BUN (7-18) mg/dL Creatinine (0.7-1.3) mg/dL Est Cr Clr Drug Dosing mL/min Estimated GFR (MDRD) (>60) mL/min BUN/Creatinine Ratio (14-18) Glucose (70-99) mg/dL POC Glucose 304 H 279 H (70-99) mg/dL Calcium (8.5-10.1) mg/dL Magnesium (1.8-2.4) mg/dL Total Bilirubin (0.2-1.0) mg/dL AST (15-37) U/L ALT (16-63) U/L Alkaline Phosphatase (46-116) U/L C-Reactive Protein (<1.0) mg/dL Total Protein (6.4-8.2) g/dl Albumin (3.4-5.0) g/dl Globulin gm/dL Albumin/Globulin Ratio (1-2) Result Diagrams: 03/18/21 05:31 03/18/21 05:31 Aiden Results Last 24 hrs: Microbiology 03/12/21 18:11 Blood Culture - Final Blood - Venous - Lab Draw 03/12/21 18:02 Blood Culture - Final Blood - Venous Sepsis Event Note - Focused Exam Vital Signs: Vital Signs Temp Pulse Resp BP Pulse Ox Pulse Ox 03/18/21 10:22 89 L 03/18/21 08:36 67 88 L 03/18/21 08:35 98.4 F 70 30 H 138/63 87 L 03/18/21 06:35 94 L - Plan Plan:: Case discussed in full. Agree with evaluation, assessment and plan.
[2021-03-18] MEDS: Insulin Lispro 100 UNIT/ML 10 ML Vial SUBCUT SCH ×4 (08:22→21:51)
[2021-03-18] MEDS: Aspirin 81 MG Tab.EC PO SCH (08:23)
[2021-03-18] MEDS: Multivitamin Tab PO SCH (08:23)
[2021-03-18] MEDS: Famotidine 20 MG Tab PO SCH ×2 (08:23→21:52)
[2021-03-18] MEDS: Tamsulosin 0.4 MG Cap.ER PO SCH (08:23)
[2021-03-18] MEDS: Enoxaparin 40 MG/0.4 ML Syringe SUBCUT SCH (08:23)
[2021-03-18] MEDS: Albuterol 6.7 GM Inhaler INH PRN (20:55)
[2021-03-18] MEDS: oxyCODONE 5 MG Tab PO PRN (21:52)
[2021-03-19] MEDS: methylPREDNISolone Sodium Succinate 125 MG/2 ML SDV IVPUSH SCH ×3 (01:49→23:59)
--- NOTE | 2021-03-19 07:22 | PCM.PN ---
<Red Lutz - Last Filed: 03/19/21 12:11> - General Info Date of Service: 03/19/21 Admission Dx/Problem (Free Text): Admission Diagnosis/Problem Admission Diagnosis/Problem Hypoxia Functional Status: Reports: Pain Controlled, Tolerating Diet, Ambulating, Urinating, Incentive Spirometry, Other (Acapella ). Denies: New Symptoms - Review of Systems General: Reports: Weakness, Fatigue, Malaise. Denies: Fever, Chills HEENT: Reports: No Symptoms. Denies: Headaches, Sore Throat Pulmonary: Reports: Shortness of Breath, Cough. Denies: Pleuritic Chest Pain, Sputum, Wheezing Cardiovascular: Reports: Dyspnea on Exertion, Edema. Denies: Chest Pain, Palpitations Gastrointestinal: Reports: No Symptoms. Denies: Abdominal Pain, Constipation, Diarrhea, Nausea, Vomiting Genitourinary: Reports: No Symptoms. Denies: Pain Musculoskeletal: Reports: No Symptoms Skin: Reports: No Symptoms. Denies: Cyanosis Neurological: Reports: No Symptoms. Denies: Confusion, Pre-Existing Deficit, Difficulty Walking, Gait Disturbance Psychiatric: Reports: No Symptoms - Patient Data Vitals - Most Recent: Last Vital Signs Temp 97.9 F 03/19/21 06:03 Pulse 61 03/19/21 06:03 Resp 20 03/19/21 06:03 BP 135/64 03/19/21 06:03 Pulse Ox 92 L 03/19/21 06:18 Weight - Most Recent: 336 lb 14.4 oz I&O - Last 24 Hours: Intake & Output 03/18/21 03/19/21 03/19/21 22:59 06:59 14:59 Intake Total 390 350 Output Total 775 700 Balance -385 -350 Lab Results Last 24 Hours: Laboratory Results - last 24 hr 03/18/21 03/18/21 03/18/21 Range/Units 11:40 17:45 21:38 WBC (4.23-9.07) K/mm3 RBC (4.63-6.08) M/mm3 Hgb (13.7-17.5) gm/dl Hct (40.1-51.0) % MCV (79.0-92.2) fl MCH (25.7-32.2) pg MCHC (32.2-35.5) g/dl RDW Std Deviation (35.1-43.9) fL Plt Count (163-337) K/mm3 MPV (9.4-12.3) fl Neut % (Auto) (34.0-67.9) % Lymph % (Auto) (21.8-53.1) % Price % (Auto) (5.3-12.2) % Eos % (Auto) (0.8-7.0) Baso % (Auto) (0.1-1.2) % Neut # (Auto) (1.78-5.38) K/mm3 Lymph # (Auto) (1.32-3.57) K/mm3 Price # (Auto) (0.30-0.82) K/mm3 Eos # (Auto) (0.04-0.54) K/mm3 Baso # (Auto) (0.01-0.08) K/mm3 Manual Slide Review D-Dimer, Quantitative (0.19-0.50) mg/L Sodium (136-145) mEq/L Potassium (3.5-5.1) mEq/L Chloride (98-107) mEq/L Carbon Dioxide (21-32) mEq/L Anion Gap (5-15) BUN (7-18) mg/dL Creatinine (0.7-1.3) mg/dL Est Cr Clr Drug Dosing mL/min Estimated GFR (MDRD) (>60) mL/min BUN/Creatinine Ratio (14-18) Glucose (70-99) mg/dL POC Glucose 279 H 262 H 310 H (70-99) mg/dL Calcium (8.5-10.1) mg/dL Magnesium (1.8-2.4) mg/dL Total Bilirubin (0.2-1.0) mg/dL AST (15-37) U/L ALT (16-63) U/L Alkaline Phosphatase (46-116) U/L C-Reactive Protein (<1.0) mg/dL Total Protein (6.4-8.2) g/dl Albumin (3.4-5.0) g/dl Globulin gm/dL Albumin/Globulin Ratio (1-2) 03/19/21 03/19/21 03/19/21 Range/Units 05:12 05:12 05:12 WBC 10.67 H (4.23-9.07) K/mm3 RBC 4.70 (4.63-6.08) M/mm3 Hgb 13.8 (13.7-17.5) gm/dl Hct 41.7 (40.1-51.0) % MCV 88.7 (79.0-92.2) fl MCH 29.4 (25.7-32.2) pg MCHC 33.1 (32.2-35.5) g/dl RDW Std Deviation 46.0 H (35.1-43.9) fL Plt Count 251 (163-337) K/mm3 MPV 10.7 (9.4-12.3) fl Neut % (Auto) 87.1 H (34.0-67.9) % Lymph % (Auto) 7.5 L (21.8-53.1) % Price % (Auto) 4.5 L (5.3-12.2) % Eos % (Auto) 0.1 L (0.8-7.0) Baso % (Auto) 0.1 (0.1-1.2) % Neut # (Auto) 9.29 H (1.78-5.38) K/mm3 Lymph # (Auto) 0.80 L (1.32-3.57) K/mm3 Price # (Auto) 0.48 (0.30-0.82) K/mm3 Eos # (Auto) 0.01 L (0.04-0.54) K/mm3 Baso # (Auto) 0.01 (0.01-0.08) K/mm3 Manual Slide Review Abnormal smear D-Dimer, Quantitative 1.79 H (0.19-0.50) mg/L Sodium 142 (136-145) mEq/L Potassium 4.7 (3.5-5.1) mEq/L Chloride 109 H (98-107) mEq/L Carbon Dioxide 25 (21-32) mEq/L Anion Gap 12.7 (5-15) BUN 23 H (7-18) mg/dL Creatinine 0.9 (0.7-1.3) mg/dL Est Cr Clr Drug Dosing 91.80 mL/min Estimated GFR (MDRD) > 60 (>60) mL/min BUN/Creatinine Ratio 25.6 H (14-18) Glucose 214 H (70-99) mg/dL POC Glucose (70-99) mg/dL Calcium 8.4 L (8.5-10.1) mg/dL Magnesium 2.4 (1.8-2.4) mg/dL Total Bilirubin 0.7 (0.2-1.0) mg/dL AST 38 H (15-37) U/L ALT 70 H (16-63) U/L Alkaline Phosphatase 33 L (46-116) U/L C-Reactive Protein 3.8 H* (<1.0) mg/dL Total Protein 6.8 (6.4-8.2) g/dl Albumin 2.6 L (3.4-5.0) g/dl Globulin 4.2 gm/dL Albumin/Globulin Ratio 0.6 L (1-2) 03/19/21 Range/Units 06:03 WBC (4.23-9.07) K/mm3 RBC (4.63-6.08) M/mm3 Hgb (13.7-17.5) gm/dl Hct (40.1-51.0) % MCV (79.0-92.2) fl MCH (25.7-32.2) pg MCHC (32.2-35.5) g/dl RDW Std Deviation (35.1-43.9) fL Plt Count (163-337) K/mm3 MPV (9.4-12.3) fl Neut % (Auto) (34.0-67.9) % Lymph % (Auto) (21.8-53.1) % Price % (Auto) (5.3-12.2) % Eos % (Auto) (0.8-7.0) Baso % (Auto) (0.1-1.2) % Neut # (Auto) (1.78-5.38) K/mm3 Lymph # (Auto) (1.32-3.57) K/mm3 Price # (Auto) (0.30-0.82) K/mm3 Eos # (Auto) (0.04-0.54) K/mm3 Baso # (Auto) (0.01-0.08) K/mm3 Manual Slide Review D-Dimer, Quantitative (0.19-0.50) mg/L Sodium (136-145) mEq/L Potassium (3.5-5.1) mEq/L Chloride (98-107) mEq/L Carbon Dioxide (21-32) mEq/L Anion Gap (5-15) BUN (7-18) mg/dL Creatinine (0.7-1.3) mg/dL Est Cr Clr Drug Dosing mL/min Estimated GFR (MDRD) (>60) mL/min BUN/Creatinine Ratio (14-18) Glucose (70-99) mg/dL POC Glucose 210 H (70-99) mg/dL Calcium (8.5-10.1) mg/dL Magnesium (1.8-2.4) mg/dL Total Bilirubin (0.2-1.0) mg/dL AST (15-37) U/L ALT (16-63) U/L Alkaline Phosphatase (46-116) U/L C-Reactive Protein (<1.0) mg/dL Total Protein (6.4-8.2) g/dl Albumin (3.4-5.0) g/dl Globulin gm/dL Albumin/Globulin Ratio (1-2) Aiden Results Last 24 Hours: Microbiology 03/12/21 18:11 Blood Culture - Final Blood - Venous - Lab Draw 03/12/21 18:02 Blood Culture - Final Blood - Venous Med Orders - Current: Current Medications Albuterol (Albuterol 6.7 Gm Inhaler) 0 gm INH Q6H PRN PRN Reason: Shortness of Breath Last Admin: 03/18/21 20:55 Dose: 2 puff Documented by: Aspirin (Aspirin 81 Mg Tab.Ec) 81 mg PO DAILY [facility] Last Admin: 03/18/21 08:23 Dose: 81 mg Documented by: Enoxaparin Sodium (Enoxaparin 40 Mg/0.4 Ml Syringe) 40 mg SUBCUT DAILY [facility] Last Admin: 03/18/21 08:23 Dose: 40 mg Documented by: Famotidine (Famotidine 20 Mg Tab) 20 mg PO BID [facility] Last Admin: 03/18/21 21:52 Dose: 20 mg Documented by: Hydromorphone HCl (Hydromorphone 0.5 Mg/0.5 Ml Syringe) 0.5 mg IVPUSH Q1H PRN PRN Reason: Pain (severe 7-10) Last Admin: 03/16/21 21:20 Dose: 0.5 mg Documented by: Ibuprofen (Ibuprofen 600 Mg Tab) 600 mg PO Q6H PRN PRN Reason: fever/pain Last Admin: 03/13/21 17:57 Dose: 600 mg Documented by: Insulin Human Lispro (Insulin Lispro 100 Unit/Ml 10 Ml Vial) 0 unit SUBCUT QIDACANDBED [facility]; Protocol Last Admin: 03/18/21 21:51 Dose: 12 unit Documented by: Methylprednisolone Sodium Succinate (Methylprednisolone Sodium Succinate 125 Mg/2 Ml Sdv) 125 mg IVPUSH Q12H [facility] Last Admin: 03/19/21 01:49 Dose: 125 mg Documented by: Multivitamins/Minerals/Vitamin C (Multivitamin Tab) 1 tab PO DAILY [facility] Last Admin: 03/18/21 08:23 Dose: 1 tab Documented by: Ondansetron HCl (Ondansetron 4 Mg/2 Ml Sdv) 4 mg IV Q6H PRN PRN Reason: Nausea/Vomiting Oxycodone HCl (Oxycodone 5 Mg Tab) 5 mg PO Q4H PRN PRN Reason: Pain (moderate 4-6) Last Admin: 03/18/21 21:52 Dose: 5 mg Documented by: Sodium Chloride (Sodium Chloride 0.9% 10 Ml Syringe) 10 ml FLUSH ASDIRECTED PRN PRN Reason: Keep Vein Open Last Admin: 03/12/21 17:49 Dose: 10 ml Documented by: Tamsulosin HCl (Tamsulosin 0.4 Mg Cap.Er) 0.4 mg PO DAILY [facility] Last Admin: 03/18/21 08:23 Dose: 0.4 mg Documented by: Discontinued Medications Albuterol (Albuterol 6.7 Gm Inhaler) 0 gm INH ONETIME ONE Stop: 03/12/21 17:41 Last Admin: 03/12/21 17:49 Dose: 2 puff Documented by: Dexamethasone (Dexamethasone 10 Mg/Ml Sdv) 6 mg IVPUSH ONETIME ONE Stop: 03/12/21 19:50 Last Admin: 03/12/21 20:24 Dose: 6 mg Documented by: Dexamethasone (Dexamethasone 4 Mg Tab) 6 mg PO Q24H [facility] Stop: 03/21/21 18:01 Last Admin: 03/16/21 17:43 Dose: 6 mg Documented by: Diatrizoate Meglum/Diatrizoate Sod (Diatrizoate Meglumine/Diatrizoate Sodium 37% 120 Ml Bottle) 60 ml PO ONETIME ONE Stop: 03/14/21 16:44 Last Admin: 03/14/21 16:55 Dose: 60 ml Documented by: Heparin Sodium (Porcine) (Heparin Sodium 5,000 Units/Ml Vial) 5,000 units SUBCUT Q8H [facility] Last Admin: 03/14/21 06:31 Dose: Not Given Documented by: Ceftriaxone Sodium 2 gm/ (Sodium Chloride) 100 mls @ 200 mls/hr IV ONETIME ONE Stop: 03/12/21 18:08 Last Admin: 03/12/21 17:49 Dose: 200 mls/hr Documented by: Remdesivir 200 mg/ Sodium (Chloride) 250 mls @ 250 mls/hr IV ONETIME ONE Stop: 03/13/21 09:29 Last Admin: 03/13/21 08:28 Dose: 250 mls/hr Documented by: Remdesivir 100 mg/ Sodium (Chloride) 100 mls @ 100 mls/hr IV Q24H [facility] Stop: 03/17/21 09:29 Last Admin: 03/17/21 09:50 Dose: 100 mls/hr Documented by: Tocilizumab 800 mg/ Sodium (Chloride) 100 mls @ 100 mls/hr IV ONETIME ONE Stop: 03/17/21 11:29 Last Admin: 03/17/21 11:24 Dose: 100 mls/hr Documented by: Ibuprofen (Ibuprofen 600 Mg Tab) 600 mg PO ONETIME ONE Stop: 03/12/21 17:43 Last Admin: 03/12/21 17:49 Dose: 600 mg Documented by: Iopamidol (Iopamidol 612 Mg/Ml 100 Ml Bottle) 100 ml IVPUSH ONETIME ONE Stop: 03/14/21 16:44 Last Admin: 03/14/21 16:56 Dose: 100 ml Documented by: Lidocaine HCl (Lidocaine 2% Jelly 10 Ml Urojet) 10 ml MUCMEM ONETIME ONE Stop: 03/14/21 16:01 Last Admin: 03/14/21 16:54 Dose: 10 ml Documented by: Magnesium Hydroxide (Magnesium Hydroxide 400 Mg/5 Ml Susp 30 Ml Cup) 30 ml PO ONETIME ONE Stop: 03/18/21 06:31 Last Admin: 03/18/21 06:30 Dose: Not Given Documented by: Metformin HCl (Metformin 500 Mg Tab) [facility] Last Admin: 03/13/21 07:36 Dose: Not Given Documented by: Sodium Chloride (Sodium Chloride 0.9% 10 Ml Syringe) 10 ml FLUSH ONETIME PRN PRN Reason: Keep Vein Open Stop: 03/14/21 19:00 Last Admin: 03/14/21 16:56 Dose: 10 ml Documented by: Tamsulosin HCl (Tamsulosin 0.4 Mg Cap.Er) 0.4 mg PO ONETIME ONE Stop: 03/14/21 17:56 Last Admin: 03/14/21 18:09 Dose: 0.4 mg Documented by: - Exam Quality Assessment: Supplemental Oxygen (BiPAP with FiO2 of 90%), DVT Prophylaxis Urinary Catheter Total Time: 0Days 0Hours General: Alert, Oriented, Cooperative, No Acute Distress HEENT: Pupils Equal, Pupils Reactive, Mucous Membr. Moist/[place] Neck: Supple, Trachea Midline Lungs: Normal Respiratory Effort, Decreased Breath Sounds (Significantly worsened from day prior). No: Crackles, Rales, Wheezing Cardiovascular: Regular Rate, Regular Rhythm GI/Abdominal Exam: Normal Bowel Sounds, Soft, Non-Tender, No Distention (Male) Exam: Deferred Back Exam: Normal Inspection, Full Range of Motion Extremities: Normal Inspection, Normal Range of Motion, Non-Tender, No Pedal Edema Skin: Warm, Dry, Intact Neurological: No New Focal Deficit Psy/Mental Status: Alert - Patient Data Lab Results Last 24 hrs: Laboratory Results - last 24 hr 03/18/21 03/18/21 03/18/21 Range/Units 11:40 17:45 21:38 WBC (4.23-9.07) K/mm3 RBC (4.63-6.08) M/mm3 Hgb (13.7-17.5) gm/dl Hct (40.1-51.0) % MCV (79.0-92.2) fl MCH (25.7-32.2) pg MCHC (32.2-35.5) g/dl RDW Std Deviation (35.1-43.9) fL Plt Count (163-337) K/mm3 MPV (9.4-12.3) fl Neut % (Auto) (34.0-67.9) % Lymph % (Auto) (21.8-53.1) % Price % (Auto) (5.3-12.2) % Eos % (Auto) (0.8-7.0) Baso % (Auto) (0.1-1.2) % Neut # (Auto) (1.78-5.38) K/mm3 Lymph # (Auto) (1.32-3.57) K/mm3 Price # (Auto) (0.30-0.82) K/mm3 Eos # (Auto) (0.04-0.54) K/mm3 Baso # (Auto) (0.01-0.08) K/mm3 Manual Slide Review D-Dimer, Quantitative (0.19-0.50) mg/L Sodium (136-145) mEq/L Potassium (3.5-5.1) mEq/L Chloride (98-107) mEq/L Carbon Dioxide (21-32) mEq/L Anion Gap (5-15) BUN (7-18) mg/dL Creatinine (0.7-1.3) mg/dL Est Cr Clr Drug Dosing mL/min Estimated GFR (MDRD) (>60) mL/min BUN/Creatinine Ratio (14-18) Glucose (70-99) mg/dL POC Glucose 279 H 262 H 310 H (70-99) mg/dL Calcium (8.5-10.1) mg/dL Magnesium (1.8-2.4) mg/dL Total Bilirubin (0.2-1.0) mg/dL AST (15-37) U/L ALT (16-63) U/L Alkaline Phosphatase (46-116) U/L C-Reactive Protein (<1.0) mg/dL Total Protein (6.4-8.2) g/dl Albumin (3.4-5.0) g/dl Globulin gm/dL Albumin/Globulin Ratio (1-2) 03/19/21 03/19/21 03/19/21 Range/Units 05:12 05:12 05:12 WBC 10.67 H (4.23-9.07) K/mm3 RBC 4.70 (4.63-6.08) M/mm3 Hgb 13.8 (13.7-17.5) gm/dl Hct 41.7 (40.1-51.0) % MCV 88.7 (79.0-92.2) fl MCH 29.4 (25.7-32.2) pg MCHC 33.1 (32.2-35.5) g/dl RDW Std Deviation 46.0 H (35.1-43.9) fL Plt Count 251 (163-337) K/mm3 MPV 10.7 (9.4-12.3) fl Neut % (Auto) 87.1 H (34.0-67.9) % Lymph % (Auto) 7.5 L (21.8-53.1) % Price % (Auto) 4.5 L (5.3-12.2) % Eos % (Auto) 0.1 L (0.8-7.0) Baso % (Auto) 0.1 (0.1-1.2) % Neut # (Auto) 9.29 H (1.78-5.38) K/mm3 Lymph # (Auto) 0.80 L (1.32-3.57) K/mm3 Price # (Auto) 0.48 (0.30-0.82) K/mm3 Eos # (Auto) 0.01 L (0.04-0.54) K/mm3 Baso # (Auto) 0.01 (0.01-0.08) K/mm3 Manual Slide Review Abnormal smear D-Dimer, Quantitative 1.79 H (0.19-0.50) mg/L Sodium 142 (136-145) mEq/L Potassium 4.7 (3.5-5.1) mEq/L Chloride 109 H (98-107) mEq/L Carbon Dioxide 25 (21-32) mEq/L Anion Gap 12.7 (5-15) BUN 23 H (7-18) mg/dL Creatinine 0.9 (0.7-1.3) mg/dL Est Cr Clr Drug Dosing 91.80 mL/min Estimated GFR (MDRD) > 60 (>60) mL/min BUN/Creatinine Ratio 25.6 H (14-18) Glucose 214 H (70-99) mg/dL POC Glucose (70-99) mg/dL Calcium 8.4 L (8.5-10.1) mg/dL Magnesium 2.4 (1.8-2.4) mg/dL Total Bilirubin 0.7 (0.2-1.0) mg/dL AST 38 H (15-37) U/L ALT 70 H (16-63) U/L Alkaline Phosphatase 33 L (46-116) U/L C-Reactive Protein 3.8 H* (<1.0) mg/dL Total Protein 6.8 (6.4-8.2) g/dl Albumin 2.6 L (3.4-5.0) g/dl Globulin 4.2 gm/dL Albumin/Globulin Ratio 0.6 L (1-2) 03/19/21 Range/Units 06:03 WBC (4.23-9.07) K/mm3 RBC (4.63-6.08) M/mm3 Hgb (13.7-17.5) gm/dl Hct (40.1-51.0) % MCV (79.0-92.2) fl MCH (25.7-32.2) pg MCHC (32.2-35.5) g/dl RDW Std Deviation (35.1-43.9) fL Plt Count (163-337) K/mm3 MPV (9.4-12.3) fl Neut % (Auto) (34.0-67.9) % Lymph % (Auto) (21.8-53.1) % Price % (Auto) (5.3-12.2) % Eos % (Auto) (0.8-7.0) Baso % (Auto) (0.1-1.2) % Neut # (Auto) (1.78-5.38) K/mm3 Lymph # (Auto) (1.32-3.57) K/mm3 Price # (Auto) (0.30-0.82) K/mm3 Eos # (Auto) (0.04-0.54) K/mm3 Baso # (Auto) (0.01-0.08) K/mm3 Manual Slide Review D-Dimer, Quantitative (0.19-0.50) mg/L Sodium (136-145) mEq/L Potassium (3.5-5.1) mEq/L Chloride (98-107) mEq/L Carbon Dioxide (21-32) mEq/L Anion Gap (5-15) BUN (7-18) mg/dL Creatinine (0.7-1.3) mg/dL Est Cr Clr Drug Dosing mL/min Estimated GFR (MDRD) (>60) mL/min BUN/Creatinine Ratio (14-18) Glucose (70-99) mg/dL POC Glucose 210 H (70-99) mg/dL Calcium (8.5-10.1) mg/dL Magnesium (1.8-2.4) mg/dL Total Bilirubin (0.2-1.0) mg/dL AST (15-37) U/L ALT (16-63) U/L Alkaline Phosphatase (46-116) U/L C-Reactive Protein (<1.0) mg/dL Total Protein (6.4-8.2) g/dl Albumin (3.4-5.0) g/dl Globulin gm/dL Albumin/Globulin Ratio (1-2) Result Diagrams: 03/19/21 05:12 03/19/21 05:12 Aiden Results Last 24 hrs: Microbiology 03/12/21 18:11 Blood Culture - Final Blood - Venous - Lab Draw 03/12/21 18:02 Blood Culture - Final Blood - Venous Sepsis Event Note - Evaluation Sepsis Screening Result: No Definite Risk - Focused Exam Vital Signs: Vital Signs Temp Pulse Resp BP Pulse Ox Pulse Ox 03/19/21 06:18 92 L 03/19/21 06:03 97.9 F 61 20 135/64 92 L 03/19/21 03:25 97 03/18/21 21:52 97.9 F 66 20 154/66 H 92 L 03/18/21 20:56 92 L - Problem List & Annotations (1) Type II diabetes mellitus SNOMED Code(s): 40628144 Code(s): E11.9 - TYPE 2 DIABETES MELLITUS WITHOUT COMPLICATIONS Status: Chronic Priority: Medium Current Visit: Yes Qualifiers: Diabetes mellitus assisted insulin use: without intermediate card tender use Diabetes mellitus complication status: without complication Qualified Code(s): E11.9 - Type 2 diabetes mellitus without complications (2) History of hypertension SNOMED Code(s): 925597189 Code(s): Z86.79 - PERSONAL HISTORY OF OTHER DISEASES OF THE CIRCULATORY SYSTEM Status: Chronic Priority: Low Current Visit: No (3) Morbid obesity SNOMED Code(s): 839266129 Code(s): E66.01 - MORBID (SEVERE) OBESITY DUE TO EXCESS CALORIES Status: Chronic Priority: Low Current Visit: No (4) Elevated d-dimer SNOMED Code(s): 615215677 Code(s): R79.89 - OTHER SPECIFIED ABNORMAL FINDINGS OF BLOOD CHEMISTRY Status: Acute Priority: Medium Current Visit: Yes (5) COVID-19 SNOMED Code(s): 641156667 Code(s): U07.1 - COVID-19 Status: Acute Priority: High Current Visit: Yes (6) Hypoxia SNOMED Code(s): 507447507 Code(s): R09.02 - HYPOXEMIA Status: Acute Priority: High Current Visit: Yes (7) Thrombocytopenia SNOMED Code(s): 321633180 Code(s): D69.6 - THROMBOCYTOPENIA, UNSPECIFIED Status: Resolved Priority: High Current Visit: Yes (8) Hepatic steatosis SNOMED Code(s): 180476370 Code(s): K76.0 - FATTY (CHANGE OF) LIVER, NOT ELSEWHERE CLASSIFIED Status: Chronic Priority: Low Current Visit: Yes (9) Cholelithiasis SNOMED Code(s): 374668149 Code(s): K80.20 - CALCULUS OF GALLBLADDER W/O CHOLECYSTITIS W/O OBSTRUCTION Status: Chronic Priority: Low Current Visit: Yes Qualifiers: Cholelithiasis location: gallbladder Cholecystitis presence: with cholecystitis Cholecystitis acuity: chronic Biliary obstruction: without biliary obstruction Qualified Code(s): K80.10 - Calculus of gallbladder with chronic cholecystitis without obstruction (10) Hypoalbuminemia SNOMED Code(s): 781695324 Code(s): E88.09 - OTH DISORDERS OF PLASMA-PROTEIN METABOLISM, NEC Status: Acute Priority: Medium Current Visit: Yes (11) Nephrolithiasis SNOMED Code(s): 51751873 Code(s): N20.0 - CALCULUS OF KIDNEY Status: Acute Current Visit: Yes (12) Hydroureter on right SNOMED Code(s): 89573199 Code(s): N13.4 - HYDROURETER Status: Acute Current Visit: Yes (13) Hydronephrosis SNOMED Code(s): 41248742 Code(s): N13.30 - UNSPECIFIED HYDRONEPHROSIS Status: Acute Priority: High Current Visit: Yes Qualifiers: Hydronephrosis type: unspecified Qualified Code(s): N13.30 - Unspecified hydronephrosis - Problem List Review Problem List Initiated/Reviewed/Updated: Yes - My Orders Last 24 Hours: My Active Orders 03/20/21 05:11 CBC WITH AUTO DIFF [HEME] AM CMP [COMPREHENSIVE METABOLIC PN,CMP] [CHEM] AM CRP [C-REACTIVE PROTEIN] [CHEM] AM MAGNESIUM [CHEM] AM 03/21/21 05:11 CBC WITH AUTO DIFF [HEME] AM CMP [COMPREHENSIVE METABOLIC PN,CMP] [CHEM] AM CRP [C-REACTIVE PROTEIN] [CHEM] AM MAGNESIUM [CHEM] AM 03/21/21 09:54 DD [D-DIMER QUANTITATIVE] [COAG] Q48H 03/23/21 09:54 DD [D-DIMER QUANTITATIVE] [COAG] Q48H - Assessment Assessment:: Assessment - 03/13/2021 (admitted late 03/12/2021) * This is a 60-year-old male presents to ED with dyspnea and hypoxia * Hx of hypertension though was able to come off his medications due to weight loss. He is a type II diabetic on Metformin. * Went to the walk-in clinic who sent him here * Symptoms began about 2 to 3 days prior * Denies a cough but was noted to have a fever on arrival of 101 * Chest x-ray was obtained at the walk-in clinic which showed bilateral infiltrates in the lower lobes consistent with COVID-19 pneumonia. * He was reportedly checked with a rapid Covid screen and was negative there * Saturations were noted to decrease to 80% and he was started on oxygen and sent here. 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 No history of lung problems such as asthma or COPD * Obese with a BMI of 48.3 however he reports he recently lost 80 pounds * Denies any chest pain, abdominal pain, nausea, or vomiting. * 12-lead EKG was obtained showing sinus tachycardia at 107 bpm with no ectopy. * Labs are obtained in ED and on floor: * WBC 4.57-->3.82 * Hemoglobin 14.6 ->14.9 * Platelet 91,000-->96,000 * Neutrophils 77.1%. * ABGs obtained with a pH of 7.45. PCO2 of 29.6. PO2 of 74.0. HCO3 of 20.3. Saturations of 96.3. This is on 2 L. * VB.32. PCO2 53.7. PO2 26.0. HCO3 of 26.8. Oxygen saturation 35.4. On 3 L. * Sodium 135-->141 * Potassium 3.9-->4.9 * Chloride 100-->103 * Carbon dioxide 23-->29 * Anion gap 15.9-->13.9 * BUN is 13-->16. Creatinine 1.2-->1.1. GFR greater than 60--> Greater than 60. * Glucose 153-->231. * Calcium 8.0-->8.1. * Bilirubin 1.1-->0.8. Direct bilirubin 0.50, Indirect bilirubin 0.30 * AST 115-->99. ALT 89-->87. Alkaline phosphatase 32-->31. * LDH 562. * Troponin 0.019. * CRP 16.9. * Protein 7.4-->7.5. * Albumin 3.1-->2.9. * Lactic acid 1.1. * Ferritin 3732. * D-dimer 1.43. * SARS-CoV-2 RNA is positive. * He is given 6 mg dexamethasone and 2 g of Rocephin. He is also given 2 puffs of an albuterol inhaler and ibuprofen. * Subsequently admitted to the medical floor on telemetry for management of his COVID-19 pneumonia. * CT obtained on floor on 03/12/2021 shows: * 1. No evidence of pulmonary embolus * 2. Moderate bilateral airspace disease compatible with infection * 3. Mild to moderate mediastinal and bihilar adenopathy * 4. Moderate hepatic steatosis * 5. Cholelithiasis 03/14/2021 This is a 60-year-old male admitted for COVID-19 treatment and hypoxia. Overall he is been doing quite well. Has been ambulating around the room. He did note some blood in his urine today so UA will be ordered. labs today show WBC 5.20. Hemoglobin 14.5. Hematocrit 43.6. Platelet improved to 100,000. Neutrophils elevated at 74.7.sodium of 139. Potassium 4.6. Chloride 103. Carbon dioxide 28. Anion gap 12.6. BUN 22. Creatinine 1.2. GFR greater than 60. Glucose has been 1 37-2 12. Calcium is 8.0. Magnesium 2.5. Total bilirubin 0.8. AST is 80, ALT 77, alkaline phosphatase 27. CRP is 12.6. Albumin is 2.7. We will recheck a D-dimer tomorrow. He has been weaned down to 1 L of oxygen. He has been utilizing his incentive spirometry and Acapella. He reports he is still tired but feels pretty good. We will continue treatment plan with likely discharge after completing remdesivir. 03/15/2021 Patient with mild cough denies chest pain denies sob no further hematuria 03/16/2021 denies chest pain on supplemental oxygen intermittent cough no diarrhea 03/17/2021 60-year-old male admitted for treatment of COVID-19 hypoxia. Late 03-14-2021 patient was noted to have gross bleeding from his penis. UA was obtained and CT scan of the abdomen pelvis was also obtained showing 1. Obstructing calculus within the distal right ureter located proximal to the UVJ. This obstructing calculus measures approximately 3.5 mm. This obstructing calculus causes obstructive changes within the right kidney as noted above. 2. Findings of Covid pneumonia within both lung bases. 3. Other findings as noted above which are nonacute. Three-way irrigating Gonzalez catheter was placed. Attending hospitalist did contact urology who reported a high probability of the patient passing the stone. He was placed on Flomax. Gonzalez catheter was ultimately removed. Since that time patient has had worsening desaturations. He was switched to high flow 50 L with an FiO2 of 65%. He was given Actemra. We will start the patient on 125 mg Solu-Medrol every 12 hours for now. Repeat chest x-ray was obtained showing worsening infiltrates. We again discussed proning, although the patient reports that he is unable to prone. We discussed utilizing incentive spirometry and Acapella. Labs today show a WBC of 5.44. Hemoglobin 13.6. Platelet 181,000. Neutrophils 67%. D-dimer is 1.99. Sodium 143. Potassium 4.1. Chloride 108. Carbon dioxide 25. Anion gap 14.1. BUN is 20. Creatinine 0.9. GFR greater than 60. Glucose is 239. Calcium 7.7. Magnesium is 2.3. Bilirubin 0.8. AST 65, ALT 83, alkaline phosphatase 27. CRP is 6.5. Albumin is 2.4. Patient did complete r emdesivir treatment today. As his bleeding from his penis is stopped and as he has no gross hematuria anymore we will begin Lovenox 40 mg daily for VTE prophylaxis. Unknown length of stay pending oxygen wean. 03/18/2021 This is a 64-year-old male admitted for Covid pneumonia and after admission found to have a renal stone. Overall he states that he is doing okay. He repo rts he is chilled but otherwise has no concerns. He has been cautious not overdo it has he feels like he pushed himself a little too hard a few days ago and he had difficulty recovering from that. He denies any abdominal pain or continued bleeding from his penis. He was placed on Lovenox 40 mg daily. We will recheck a D-dimer tomorrow. Labs today show WBC of 7.05. Hemoglobin 13.4. Platelet 221,000. Neutrophils are elevated 85%. Sodium 141. Potassium 4.7. Chloride 104. Carbon dioxide 22. Anion gap 19.7. BUN is 21. Creatinine 0.9. GFR greater than 60. Glucose has been 209 to 304. Magnesium 2.3. Total bilirubin 0.6. AST is 47, ALT 76, alkaline phosphatase 28. CRP is 6.3. P rotein 6.8. Albumin 2.5. We will increase sliding scale insulin to high dose and monitor need for long-acting insulin. He continues to utilize incentive spirometry and Acapella. He is on high flow currently 50 L with FiO2 of 60. We will continue to work on weaning oxygen. He received Actemra and has been on twice daily 125 mg Solu-Medrol since. Unknown length of stay due to severity of COVID-19 symptoms. 03/19/2021 This is a 60-year-old male admitted to the floor for treatment of COVID-19. Once on the floor he was noted to have some bleeding from his penis and was noted to have a renal stone. Bleeding is since resolved. Unfortunate his oxygen demand has been increasing and he is currently on BiPAP. Labs today show WBC of 10.67 which is likely steroid related. Hemoglobin is 13.8. Hematocrit 41.7. Platelet 251,000. Neutrophils are elevated at 87.1%. D-dimer is 1.79 which is slightly decreased from prior. Sodium is 142. Potassium 4.7. Chloride 109. Carbon dioxide 25. Anion gap 12.7. BUN is 23. Creatinine 0.9. GFR is greater than 60. Glucose is 214-310. Calcium is 8.4. Magnesium 2.4. Bilirubin 0.8. AST is 30, ALT 70, alkaline phosphatase 33. CRP is down to 3.8. Protein 6.8. Albumin is up to 2.6. Recheck a chest x-ray today shows worsening infiltrates bilaterally. Lung sounds are significantly diminished over prior day. Will upgrade to ICU status due to worsening saturations. Ever Preston contacted at patient request ([phone]). While in room patient reports that he does not want to be resuscitated and does not want intubation should he take a turn for the worse. He reports he has paperwork on file that says he is DO NOT RESUSCITATE/DO NOT INTUBATE. CODE STATUS changed at patient's request. Dr. Hernandez, attending hospitalist in the room to discuss plan with patient. Patient aware of poor prognosis given worsening symptoms and need for BiPAP. - Plan Plan:: COVID-19 Hypoxia Elevated d-dimer Hypoalbuminemia * O2 as needed with goal saturations of 88-95% * Completed Remdesivir * Continue 125mg BID solumedrol due to worsening saturations * IS/Acapella * RT consultation * High flow oxygen as directed * Airborne and contact isolation * Telemetry * Continuous pulse oximetry * Encourage proning * Encourage ambulation around room * CTA obtained and negative * Lovenox subcutaneous * Continue daily aspirin * Electronics Design Engineer consultation * Daily labs * Famotidine 20mg BID * PRN motrin for pain/fever (Reported adverse reaction to Tylenol) * Given Actemera on 03/17/2021 * Repeat CXR today Type II diabetes mellitus * Hold home metformin * High dose sliding scale insulin * QID AC and Bedtime blood glucose checks * Anticipate rise in blood glucose readings due to steroids * Monitor need for long acting insulin coverage History of hypertension * No current home BP meds * Monitor vital signs Thrombocytopenia, Resolved * Monitor Morbid obesity * Electronics Design Engineer consultation Hepatic steatosis Cholelithiasis * No acute concerns * PCP follow-up Nephrolithiasis right hydroureteronephrosis * CT obtained * Case discussed with urology; per urology 90% likelihood that stone will pass by itself * Started on Flomax 8/13 Code status: DNR/DNI (patient request on 03/19/2021) PCP: Tricia Mohr NP DVT prohylaxis: Lovenox Disposition: Patient admitted to [facility] on telemetry for COVID-19 treatment. Upgraded to ICU status on 03/19/2021 due to worsening saturations. LOS >96Hrs due to need for continued COVID-19 treatment. <MaryDavid Jr - Last Filed: 03/19/21 18:20> - Patient Data Vitals - Most Recent: Last Vital Signs Temp 96.9 F 03/19/21 16:05 Pulse 68 03/19/21 16:05 Resp 25 H 03/19/21 16:05 BP 132/63 03/19/21 16:05 Pulse Ox 98 03/19/21 16:05 I&O - Last 24 Hours: Intake & Output 03/19/21 03/19/21 03/19/21 06:59 14:59 22:59 Intake Total 350 640 Output Total 700 500 Balance -350 140 Lab Results Last 24 Hours: Laboratory Results - last 24 hr 03/18/21 03/19/21 03/19/21 Range/Units 21:38 05:12 05:12 WBC 10.67 H (4.23-9.07) K/mm3 RBC 4.70 (4.63-6.08) M/mm3 Hgb 13.8 (13.7-17.5) gm/dl Hct 41.7 (40.1-51.0) % MCV 88.7 (79.0-92.2) fl MCH 29.4 (25.7-32.2) pg MCHC 33.1 (32.2-35.5) g/dl RDW Std Deviation 46.0 H (35.1-43.9) fL Plt Count 251 (163-337) K/mm3 MPV 10.7 (9.4-12.3) fl Neut % (Auto) 87.1 H (34.0-67.9) % Lymph % (Auto) 7.5 L (21.8-53.1) % Price % (Auto) 4.5 L (5.3-12.2) % Eos % (Auto) 0.1 L (0.8-7.0) Baso % (Auto) 0.1 (0.1-1.2) % Neut # (Auto) 9.29 H (1.78-5.38) K/mm3 Lymph # (Auto) 0.80 L (1.32-3.57) K/mm3 Price # (Auto) 0.48 (0.30-0.82) K/mm3 Eos # (Auto) 0.01 L (0.04-0.54) K/mm3 Baso # (Auto) 0.01 (0.01-0.08) K/mm3 Manual Slide Review Abnormal smear D-Dimer, Quantitative (0.19-0.50) mg/L Sodium 142 (136-145) mEq/L Potassium 4.7 (3.5-5.1) mEq/L Chloride 109 H (98-107) mEq/L Carbon Dioxide 25 (21-32) mEq/L Anion Gap 12.7 (5-15) BUN 23 H (7-18) mg/dL Creatinine 0.9 (0.7-1.3) mg/dL Est Cr Clr Drug Dosing 91.80 mL/min Estimated GFR (MDRD) > 60 (>60) mL/min BUN/Creatinine Ratio 25.6 H (14-18) Glucose 214 H (70-99) mg/dL POC Glucose 310 H (70-99) mg/dL Calcium 8.4 L (8.5-10.1) mg/dL Magnesium 2.4 (1.8-2.4) mg/dL Total Bilirubin 0.7 (0.2-1.0) mg/dL AST 38 H (15-37) U/L ALT 70 H (16-63) U/L Alkaline Phosphatase 33 L (46-116) U/L C-Reactive Protein 3.8 H* (<1.0) mg/dL Total Protein 6.8 (6.4-8.2) g/dl Albumin 2.6 L (3.4-5.0) g/dl Globulin 4.2 gm/dL Albumin/Globulin Ratio 0.6 L (1-2) 03/19/21 03/19/21 03/19/21 Range/Units 05:12 06:03 11:30 WBC (4.23-9.07) K/mm3 RBC (4.63-6.08) M/mm3 Hgb (13.7-17.5) gm/dl Hct (40.1-51.0) % MCV (79.0-92.2) fl MCH (25.7-32.2) pg MCHC (32.2-35.5) g/dl RDW Std Deviation (35.1-43.9) fL Plt Count (163-337) K/mm3 MPV (9.4-12.3) fl Neut % (Auto) (34.0-67.9) % Lymph % (Auto) (21.8-53.1) % Price % (Auto) (5.3-12.2) % Eos % (Auto) (0.8-7.0) Baso % (Auto) (0.1-1.2) % Neut # (Auto) (1.78-5.38) K/mm3 Lymph # (Auto) (1.32-3.57) K/mm3 Price # (Auto) (0.30-0.82) K/mm3 Eos # (Auto) (0.04-0.54) K/mm3 Baso # (Auto) (0.01-0.08) K/mm3 Manual Slide Review D-Dimer, Quantitative 1.79 H (0.19-0.50) mg/L Sodium (136-145) mEq/L Potassium (3.5-5.1) mEq/L Chloride (98-107) mEq/L Carbon Dioxide (21-32) mEq/L Anion Gap (5-15) BUN (7-18) mg/dL Creatinine (0.7-1.3) mg/dL Est Cr Clr Drug Dosing mL/min Estimated GFR (MDRD) (>60) mL/min BUN/Creatinine Ratio (14-18) Glucose (70-99) mg/dL POC Glucose 210 H 255 H (70-99) mg/dL Calcium (8.5-10.1) mg/dL Magnesium (1.8-2.4) mg/dL Total Bilirubin (0.2-1.0) mg/dL AST (15-37) U/L ALT (16-63) U/L Alkaline Phosphatase (46-116) U/L C-Reactive Protein (<1.0) mg/dL Total Protein (6.4-8.2) g/dl Albumin (3.4-5.0) g/dl Globulin gm/dL Albumin/Globulin Ratio (1-2) 03/19/21 Range/Units 17:25 WBC (4.23-9.07) K/mm3 RBC (4.63-6.08) M/mm3 Hgb (13.7-17.5) gm/dl Hct (40.1-51.0) % MCV (79.0-92.2) fl MCH (25.7-32.2) pg MCHC (32.2-35.5) g/dl RDW Std Deviation (35.1-43.9) fL Plt Count (163-337) K/mm3 MPV (9.4-12.3) fl Neut % (Auto) (34.0-67.9) % Lymph % (Auto) (21.8-53.1) % Price % (Auto) (5.3-12.2) % Eos % (Auto) (0.8-7.0) Baso % (Auto) (0.1-1.2) % Neut # (Auto) (1.78-5.38) K/mm3 Lymph # (Auto) (1.32-3.57) K/mm3 Price # (Auto) (0.30-0.82) K/mm3 Eos # (Auto) (0.04-0.54) K/mm3 Baso # (Auto) (0.01-0.08) K/mm3 Manual Slide Review D-Dimer, Quantitative (0.19-0.50) mg/L Sodium (136-145) mEq/L Potassium (3.5-5.1) mEq/L Chloride (98-107) mEq/L Carbon Dioxide (21-32) mEq/L Anion Gap (5-15) BUN (7-18) mg/dL Creatinine (0.7-1.3) mg/dL Est Cr Clr Drug Dosing mL/min Estimated GFR (MDRD) (>60) mL/min BUN/Creatinine Ratio (14-18) Glucose (70-99) mg/dL POC Glucose 221 H (70-99) mg/dL Calcium (8.5-10.1) mg/dL Magnesium (1.8-2.4) mg/dL Total Bilirubin (0.2-1.0) mg/dL AST (15-37) U/L ALT (16-63) U/L Alkaline Phosphatase (46-116) U/L C-Reactive Protein (<1.0) mg/dL Total Protein (6.4-8.2) g/dl Albumin (3.4-5.0) g/dl Globulin gm/dL Albumin/Globulin Ratio (1-2) Med Orders - Current: Current Medications Albuterol (Albuterol 6.7 Gm Inhaler) 0 gm INH Q6H PRN PRN Reason: Shortness of Breath Last Admin: 03/19/21 08:35 Dose: 2 puff Documented by: Albuterol/Ipratropium (Albuterol/Ipratropium 3.0-0.5 Mg/3 Ml Neb Soln) 3 ml NEB Q4H [facility] Last Admin: 03/19/21 13:54 Dose: 3 ml Documented by: Aspirin (Aspirin 81 Mg Tab.Ec) 81 mg PO DAILY [facility] Last Admin: 03/19/21 09:45 Dose: 81 mg Documented by: Enoxaparin Sodium (Enoxaparin 40 Mg/0.4 Ml Syringe) 40 mg SUBCUT DAILY [facility] Last Admin: 03/19/21 09:46 Dose: 40 mg Documented by: Famotidine (Famotidine 20 Mg Tab) 20 mg PO BID [facility] Last Admin: 03/19/21 09:46 Dose: 20 mg Documented by: Hydromorphone HCl (Hydromorphone 0.5 Mg/0.5 Ml Syringe) 0.5 mg IVPUSH Q1H PRN PRN Reason: Pain (severe 7-10) Last Admin: 03/16/21 21:20 Dose: 0.5 mg Documented by: Ibuprofen (Ibuprofen 600 Mg Tab) 600 mg PO Q6H PRN PRN Reason: fever/pain Last Admin: 03/13/21 17:57 Dose: 600 mg Documented by: Insulin Human Lispro (Insulin Lispro 100 Unit/Ml 10 Ml Vial) 0 unit SUBCUT QIDACANDBED [facility]; Protocol Last Admin: 03/19/21 17:47 Dose: 6 unit Documented by: Methylprednisolone Sodium Succinate (Methylprednisolone Sodium Succinate 125 Mg/2 Ml Sdv) 125 mg IVPUSH Q12H [facility] Last Admin: 03/19/21 12:08 Dose: 125 mg Documented by: Multivitamins/Minerals/Vitamin C (Multivitamin Tab) 1 tab PO DAILY [facility] Last Admin: 03/19/21 09:46 Dose: 1 tab Documented by: Ondansetron HCl (Ondansetron 4 Mg/2 Ml Sdv) 4 mg IV Q6H PRN PRN Reason: Nausea/Vomiting Oxycodone HCl (Oxycodone 5 Mg Tab) 5 mg PO Q4H PRN PRN Reason: Pain (moderate 4-6) Last Admin: 03/18/21 21:52 Dose: 5 mg Documented by: Sodium Chloride (Sodium Chloride 0.9% 10 Ml Syringe) 10 ml FLUSH ASDIRECTED PRN PRN Reason: Keep Vein Open Last Admin: 03/12/21 17:49 Dose: 10 ml Documented by: Tamsulosin HCl (Tamsulosin 0.4 Mg Cap.Er) 0.4 mg PO DAILY [facility] Last Admin: 03/19/21 09:46 Dose: 0.4 mg Documented by: Discontinued Medications Albuterol (Albuterol 6.7 Gm Inhaler) 0 gm INH ONETIME ONE Stop: 03/12/21 17:41 Last Admin: 03/12/21 17:49 Dose: 2 puff Documented by: Dexamethasone (Dexamethasone 10 Mg/Ml Sdv) 6 mg IVPUSH ONETIME ONE Stop: 03/12/21 19:50 Last Admin: 03/12/21 20:24 Dose: 6 mg Documented by: Dexamethasone (Dexamethasone 4 Mg Tab) 6 mg PO Q24H [facility]Y Stop: 03/21/21 18:01 Last Admin: 03/16/21 17:43 Dose: 6 mg Documented by: Diatrizoate Meglum/Diatrizoate Sod (Diatrizoate Meglumine/Diatrizoate Sodium 37% 120 Ml Bottle) 60 ml PO ONETIME ONE Stop: 03/14/21 16:44 Last Admin: 03/14/21 16:55 Dose: 60 ml Documented by: Heparin Sodium (Porcine) (Heparin Sodium 5,000 Units/Ml Vial) 5,000 units SUBCUT Q8H [facility] Last Admin: 03/14/21 06:31 Dose: Not Given Documented by: Ceftriaxone Sodium 2 gm/ (Sodium Chloride) 100 mls @ 200 mls/hr IV ONETIME ONE Stop: 03/12/21 18:08 Last Admin: 03/12/21 17:49 Dose: 200 mls/hr Documented by: Remdesivir 200 mg/ Sodium (Chloride) 250 mls @ 250 mls/hr IV ONETIME ONE Stop: 03/13/21 09:29 Last Admin: 03/13/21 08:28 Dose: 250 mls/hr Documented by: Remdesivir 100 mg/ Sodium (Chloride) 100 mls @ 100 mls/hr IV Q24H [facility] Stop: 03/17/21 09:29 Last Admin: 03/17/21 09:50 Dose: 100 mls/hr Documented by: Tocilizumab 800 mg/ Sodium (Chloride) 100 mls @ 100 mls/hr IV ONETIME ONE Stop: 03/17/21 11:29 Last Admin: 03/17/21 11:24 Dose: 100 mls/hr Documented by: Ibuprofen (Ibuprofen 600 Mg Tab) 600 mg PO ONETIME ONE Stop: 03/12/21 17:43 Last Admin: 03/12/21 17:49 Dose: 600 mg Documented by: Iopamidol (Iopamidol 612 Mg/Ml 100 Ml Bottle) 100 ml IVPUSH ONETIME ONE Stop: 03/14/21 16:44 Last Admin: 03/14/21 16:56 Dose: 100 ml Documented by: Lidocaine HCl (Lidocaine 2% Jelly 10 Ml Urojet) 10 ml MUCMEM ONETIME ONE Stop: 03/14/21 16:01 Last Admin: 03/14/21 16:54 Dose: 10 ml Documented by: Magnesium Hydroxide (Magnesium Hydroxide 400 Mg/5 Ml Susp 30 Ml Cup) 30 ml PO ONETIME ONE Stop: 03/18/21 06:31 Last Admin: 03/18/21 06:30 Dose: Not Given Documented by: Metformin HCl (Metformin 500 Mg Tab) 500 mg PO BIDMEALS [facility] Last Admin: 03/13/21 07:36 Dose: Not Given Documented by: Sodium Chloride (Sodium Chloride 0.9% 10 Ml Syringe) 10 ml FLUSH ONETIME PRN PRN Reason: Keep Vein Open Stop: 03/14/21 19:00 Last Admin: 03/14/21 16:56 Dose: 10 ml Documented by: Tamsulosin HCl (Tamsulosin 0.4 Mg Cap.Er) 0.4 mg PO ONETIME ONE Stop: 03/14/21 17:56 Last Admin: 03/14/21 18:09 Dose: 0.4 mg Documented by: - Patient Data Lab Results Last 24 hrs: Laboratory Results - last 24 hr 03/18/21 03/19/21 03/19/21 Range/Units 21:38 05:12 05:12 WBC 10.67 H (4.23-9.07) K/mm3 RBC 4.70 (4.63-6.08) M/mm3 Hgb 13.8 (13.7-17.5) gm/dl Hct 41.7 (40.1-51.0) % MCV 88.7 (79.0-92.2) fl MCH 29.4 (25.7-32.2) pg MCHC 33.1 (32.2-35.5) g/dl RDW Std Deviation 46.0 H (35.1-43.9) fL Plt Count 251 (163-337) K/mm3 MPV 10.7 (9.4-12.3) fl Neut % (Auto) 87.1 H (34.0-67.9) % Lymph % (Auto) 7.5 L (21.8-53.1) % Price % (Auto) 4.5 L (5.3-12.2) % Eos % (Auto) 0.1 L (0.8-7.0) Baso % (Auto) 0.1 (0.1-1.2) % Neut # (Auto) 9.29 H (1.78-5.38) K/mm3 Lymph # (Auto) 0.80 L (1.32-3.57) K/mm3 Price # (Auto) 0.48 (0.30-0.82) K/mm3 Eos # (Auto) 0.01 L (0.04-0.54) K/mm3 Baso # (Auto) 0.01 (0.01-0.08) K/mm3 Manual Slide Review Abnormal smear D-Dimer, Quantitative (0.19-0.50) mg/L Sodium 142 (136-145) mEq/L Potassium 4.7 (3.5-5.1) mEq/L Chloride 109 H (98-107) mEq/L Carbon Dioxide 25 (21-32) mEq/L Anion Gap 12.7 (5-15) BUN 23 H (7-18) mg/dL Creatinine 0.9 (0.7-1.3) mg/dL Est Cr Clr Drug Dosing 91.80 mL/min Estimated GFR (MDRD) > 60 (>60) mL/min BUN/Creatinine Ratio 25.6 H (14-18) Glucose 214 H (70-99) mg/dL POC Glucose 310 H (70-99) mg/dL Calcium 8.4 L (8.5-10.1) mg/dL Magnesium 2.4 (1.8-2.4) mg/dL Total Bilirubin 0.7 (0.2-1.0) mg/dL AST 38 H (15-37) U/L ALT 70 H (16-63) U/L Alkaline Phosphatase 33 L (46-116) U/L C-Reactive Protein 3.8 H* (<1.0) mg/dL Total Protein 6.8 (6.4-8.2) g/dl Albumin 2.6 L (3.4-5.0) g/dl Globulin 4.2 gm/dL Albumin/Globulin Ratio 0.6 L (1-2) 03/19/21 03/19/21 03/19/21 Range/Units 05:12 06:03 11:30 WBC (4.23-9.07) K/mm3 RBC (4.63-6.08) M/mm3 Hgb (13.7-17.5) gm/dl Hct (40.1-51.0) % MCV (79.0-92.2) fl MCH (25.7-32.2) pg MCHC (32.2-35.5) g/dl RDW Std Deviation (35.1-43.9) fL Plt Count (163-337) K/mm3 MPV (9.4-12.3) fl Neut % (Auto) (34.0-67.9) % Lymph % (Auto) (21.8-53.1) % Price % (Auto) (5.3-12.2) % Eos % (Auto) (0.8-7.0) Baso % (Auto) (0.1-1.2) % Neut # (Auto) (1.78-5.38) K/mm3 Lymph # (Auto) (1.32-3.57) K/mm3 Price # (Auto) (0.30-0.82) K/mm3 Eos # (Auto) (0.04-0.54) K/mm3 Baso # (Auto) (0.01-0.08) K/mm3 Manual Slide Review D-Dimer, Quantitative 1.79 H (0.19-0.50) mg/L Sodium (136-145) mEq/L Potassium (3.5-5.1) mEq/L Chloride (98-107) mEq/L Carbon Dioxide (21-32) mEq/L Anion Gap (5-15) BUN (7-18) mg/dL Creatinine (0.7-1.3) mg/dL Est Cr Clr Drug Dosing mL/min Estimated GFR (MDRD) (>60) mL/min BUN/Creatinine Ratio (14-18) Glucose (70-99) mg/dL POC Glucose 210 H 255 H (70-99) mg/dL Calcium (8.5-10.1) mg/dL Magnesium (1.8-2.4) mg/dL Total Bilirubin (0.2-1.0) mg/dL AST (15-37) U/L ALT (16-63) U/L Alkaline Phosphatase (46-116) U/L C-Reactive Protein (<1.0) mg/dL Total Protein (6.4-8.2) g/dl Albumin (3.4-5.0) g/dl Globulin gm/dL Albumin/Globulin Ratio (1-2) 03/19/21 Range/Units 17:25 WBC (4.23-9.07) K/mm3 RBC (4.63-6.08) M/mm3 Hgb (13.7-17.5) gm/dl Hct (40.1-51.0) % MCV (79.0-92.2) fl MCH (25.7-32.2) pg MCHC (32.2-35.5) g/dl RDW Std Deviation (35.1-43.9) fL Plt Count (163-337) K/mm3 MPV (9.4-12.3) fl Neut % (Auto) (34.0-67.9) % Lymph % (Auto) (21.8-53.1) % Price % (Auto) (5.3-12.2) % Eos % (Auto) (0.8-7.0) Baso % (Auto) (0.1-1.2) % Neut # (Auto) (1.78-5.38) K/mm3 Lymph # (Auto) (1.32-3.57) K/mm3 Price # (Auto) (0.30-0.82) K/mm3 Eos # (Auto) (0.04-0.54) K/mm3 Baso # (Auto) (0.01-0.08) K/mm3 Manual Slide Review D-Dimer, Quantitative (0.19-0.50) mg/L Sodium (136-145) mEq/L Potassium (3.5-5.1) mEq/L Chloride (98-107) mEq/L Carbon Dioxide (21-32) mEq/L Anion Gap (5-15) BUN (7-18) mg/dL Creatinine (0.7-1.3) mg/dL Est Cr Clr Drug Dosing mL/min Estimated GFR (MDRD) (>60) mL/min BUN/Creatinine Ratio (14-18) Glucose (70-99) mg/dL POC Glucose 221 H (70-99) mg/dL Calcium (8.5-10.1) mg/dL Magnesium (1.8-2.4) mg/dL Total Bilirubin (0.2-1.0) mg/dL AST (15-37) U/L ALT (16-63) U/L Alkaline Phosphatase (46-116) U/L C-Reactive Protein (<1.0) mg/dL Total Protein (6.4-8.2) g/dl Albumin (3.4-5.0) g/dl Globulin gm/dL Albumin/Globulin Ratio (1-2) Result Diagrams: 03/19/21 05:12 03/19/21 05:12 Sepsis Event Note - Focused Exam Vital Signs: Vital Signs Temp Temp Pulse Pulse Resp BP BP 03/19/21 16:05 96.9 F 68 25 H 132/63 03/19/21 13:55 03/19/21 11:24 03/19/21 11:22 03/19/21 09:51 98.2 F 81 20 128/65 03/19/21 09:02 03/19/21 08:38 03/19/21 08:35 Pulse Ox Pulse Ox Pulse Ox 03/19/21 16:05 98 03/19/21 13:55 92 L 03/19/21 11:24 96 03/19/21 11:22 96 03/19/21 09:51 97 03/19/21 09:02 92 L 03/19/21 08:38 90 L 03/19/21 08:35 86 L - My Orders Last 24 Hours: My Active Orders 03/19/21 09:02 RT BiPAP/CPAP [RC] ASDIRECTED 03/19/21 Lunch Consistent Carbohydrate Diet [DIET] - Plan Plan:: Case discussed in full. Agree with evaluation, assessment, and plan.
[2021-03-19] MEDS: Albuterol 6.7 GM Inhaler INH PRN (08:35)
[2021-03-19] MEDS: Insulin Lispro 100 UNIT/ML 10 ML Vial SUBCUT SCH ×4 (09:45→21:02)
[2021-03-19] MEDS: Aspirin 81 MG Tab.EC PO SCH (09:45)
[2021-03-19] MEDS: Famotidine 20 MG Tab PO SCH ×2 (09:46→20:47)
[2021-03-19] MEDS: Multivitamin Tab PO SCH (09:46)
[2021-03-19] MEDS: Tamsulosin 0.4 MG Cap.ER PO SCH (09:46)
[2021-03-19] MEDS: Enoxaparin 40 MG/0.4 ML Syringe SUBCUT SCH (09:46)
[2021-03-19] MEDS: Albuterol/Ipratropium 3.0-0.5 MG/3 ML Neb Soln NEB SCH ×4 (11:22→21:45)
--- NOTE | 2021-03-19 11:39 | CR ---
Chest: Portable view of the chest was obtained. Comparison: Prior chest x-ray of 03/17/21. Patchy areas of increased density are seen on both sides of the chest. Findings appear to be slightly increased in prominence from prior exam. Heart size and mediastinum are stable. No acute osseous finding is appreciated. Impression: 1. Slight worsening of the chest when compared to prior chest x-ray. Diagnostic code #3
[2021-03-20] MEDS: Albuterol/Ipratropium 3.0-0.5 MG/3 ML Neb Soln NEB SCH ×7 (01:56→21:56)
--- NOTE | 2021-03-20 07:37 | PCM.PN ---
<Red Lutz - Last Filed: 03/20/21 11:51> - General Info Date of Service: 03/20/21 Admission Dx/Problem (Free Text): Admission Diagnosis/Problem Admission Diagnosis/Problem Hypoxia Functional Status: Reports: Pain Controlled, Tolerating Diet, Ambulating, Urinating, Incentive Spirometry, Other (Acapella ). Denies: New Symptoms - Review of Systems General: Reports: Weakness, Fatigue. Denies: Fever, Malaise, Chills HEENT: Reports: No Symptoms. Denies: Headaches, Sore Throat Pulmonary: Reports: Shortness of Breath, Cough. Denies: Pleuritic Chest Pain, Sputum, Wheezing Cardiovascular: Reports: Dyspnea on Exertion. Denies: Chest Pain, Palpitations, Edema, Lightheadedness Gastrointestinal: Reports: No Symptoms. Denies: Abdominal Pain, Constipation, Diarrhea, Nausea, Vomiting Genitourinary: Reports: No Symptoms. Denies: Pain, Hematuria Musculoskeletal: Reports: No Symptoms Skin: Reports: No Symptoms. Denies: Cyanosis Neurological: Reports: No Symptoms. Denies: Confusion, Numbness, Pre-Existing Deficit, Tingling, Difficulty Walking, Weakness, Gait Disturbance Psychiatric: Reports: No Symptoms - Patient Data Vitals - Most Recent: Last Vital Signs Temp 97.2 F 03/20/21 04:00 Pulse 68 03/19/21 16:05 Resp 21 H 03/20/21 04:00 BP 124/70 03/20/21 04:00 Pulse Ox 90 L 03/20/21 06:14 Weight - Most Recent: 332 lb 8 oz I&O - Last 24 Hours: Intake & Output 03/19/21 03/20/21 03/20/21 22:59 06:59 14:59 Intake Total 640 300 Output Total 500 375 Balance 140 -75 Lab Results Last 24 Hours: Laboratory Results - last 24 hr 03/19/21 03/19/21 03/19/21 Range/Units 11:30 17:25 20:31 WBC (4.23-9.07) K/mm3 RBC (4.63-6.08) M/mm3 Hgb (13.7-17.5) gm/dl Hct (40.1-51.0) % MCV (79.0-92.2) fl MCH (25.7-32.2) pg MCHC (32.2-35.5) g/dl RDW Std Deviation (35.1-43.9) fL Plt Count (163-337) K/mm3 MPV (9.4-12.3) fl Neut % (Auto) (34.0-67.9) % Lymph % (Auto) (21.8-53.1) % Winn % (Auto) (5.3-12.2) % Eos % (Auto) (0.8-7.0) Baso % (Auto) (0.1-1.2) % Neut # (Auto) (1.78-5.38) K/mm3 Lymph # (Auto) (1.32-3.57) K/mm3 Winn # (Auto) (0.30-0.82) K/mm3 Eos # (Auto) (0.04-0.54) K/mm3 Baso # (Auto) (0.01-0.08) K/mm3 Sodium (136-145) mEq/L Potassium (3.5-5.1) mEq/L Chloride (98-107) mEq/L Carbon Dioxide (21-32) mEq/L Anion Gap (5-15) BUN (7-18) mg/dL Creatinine (0.7-1.3) mg/dL Est Cr Clr Drug Dosing mL/min Estimated GFR (MDRD) (>60) mL/min BUN/Creatinine Ratio (14-18) Glucose (70-99) mg/dL POC Glucose 255 H 221 H 265 H (70-99) mg/dL Calcium (8.5-10.1) mg/dL Magnesium (1.8-2.4) mg/dL Total Bilirubin (0.2-1.0) mg/dL AST (15-37) U/L ALT (16-63) U/L Alkaline Phosphatase (46-116) U/L C-Reactive Protein (<1.0) mg/dL Total Protein (6.4-8.2) g/dl Albumin (3.4-5.0) g/dl Globulin gm/dL Albumin/Globulin Ratio (1-2) 03/20/21 03/20/21 03/20/21 Range/Units 05:48 05:49 05:49 WBC 10.02 H (4.23-9.07) K/mm3 RBC 4.85 (4.63-6.08) M/mm3 Hgb 14.0 (13.7-17.5) gm/dl Hct 43.1 (40.1-51.0) % MCV 88.9 (79.0-92.2) fl MCH 28.9 (25.7-32.2) pg MCHC 32.5 (32.2-35.5) g/dl RDW Std Deviation 45.6 H (35.1-43.9) fL Plt Count 278 (163-337) K/mm3 MPV 10.5 (9.4-12.3) fl Neut % (Auto) 90.6 H (34.0-67.9) % Lymph % (Auto) 5.6 L (21.8-53.1) % Winn % (Auto) 3.2 L (5.3-12.2) % Eos % (Auto) 0 L (0.8-7.0) Baso % (Auto) 0.0 L (0.1-1.2) % Neut # (Auto) 9.08 H (1.78-5.38) K/mm3 Lymph # (Auto) 0.56 L (1.32-3.57) K/mm3 Winn # (Auto) 0.32 (0.30-0.82) K/mm3 Eos # (Auto) 0.00 L (0.04-0.54) K/mm3 Baso # (Auto) 0.00 L (0.01-0.08) K/mm3 Sodium 141 (136-145) mEq/L Potassium 4.9 (3.5-5.1) mEq/L Chloride 108 H (98-107) mEq/L Carbon Dioxide 25 (21-32) mEq/L Anion Gap 12.9 (5-15) BUN 26 H (7-18) mg/dL Creatinine 0.9 (0.7-1.3) mg/dL Est Cr Clr Drug Dosing 91.80 mL/min Estimated GFR (MDRD) > 60 (>60) mL/min BUN/Creatinine Ratio 28.9 H (14-18) Glucose 262 H (70-99) mg/dL POC Glucose 244 H (70-99) mg/dL Calcium 8.4 L (8.5-10.1) mg/dL Magnesium 2.4 (1.8-2.4) mg/dL Total Bilirubin 0.9 (0.2-1.0) mg/dL AST 35 (15-37) U/L ALT 74 H (16-63) U/L Alkaline Phosphatase 34 L (46-116) U/L C-Reactive Protein 2.0 H* (<1.0) mg/dL Total Protein 6.8 (6.4-8.2) g/dl Albumin 2.7 L (3.4-5.0) g/dl Globulin 4.1 gm/dL Albumin/Globulin Ratio 0.7 L (1-2) Med Orders - Current: Current Medications Albuterol (Albuterol 6.7 Gm Inhaler) 0 gm INH Q6H PRN PRN Reason: Shortness of Breath Last Admin: 03/19/21 08:35 Dose: 2 puff Documented by: Albuterol/Ipratropium (Albuterol/Ipratropium 3.0-0.5 Mg/3 Ml Neb Soln) 3 ml NEB Q4H [facility] Last Admin: 03/20/21 06:13 Dose: 3 ml Documented by: Aspirin (Aspirin 81 Mg Tab.Ec) 81 mg PO DAILY [facility] Last Admin: 03/19/21 09:45 Dose: 81 mg Documented by: Enoxaparin Sodium (Enoxaparin 40 Mg/0.4 Ml Syringe) 40 mg SUBCUT DAILY [facility] Last Admin: 03/19/21 09:46 Dose: 40 mg Documented by: Famotidine (Famotidine 20 Mg Tab) 20 mg PO BID [facility] Last Admin: 03/19/21 20:47 Dose: 20 mg Documented by: Hydromorphone HCl (Hydromorphone 0.5 Mg/0.5 Ml Syringe) 0.5 mg IVPUSH Q1H PRN PRN Reason: Pain (severe 7-10) Last Admin: 03/16/21 21:20 Dose: 0.5 mg Documented by: Ibuprofen (Ibuprofen 600 Mg Tab) 600 mg PO Q6H PRN PRN Reason: fever/pain Last Admin: 03/13/21 17:57 Dose: 600 mg Documented by: Insulin Human Lispro (Insulin Lispro 100 Unit/Ml 10 Ml Vial) 0 unit SUBCUT QIDACANDBED [facility]; Protocol Last Admin: 03/19/21 21:02 Dose: 9 unit Documented by: Methylprednisolone Sodium Succinate (Methylprednisolone Sodium Succinate 125 Mg/2 Ml Sdv) 125 mg IVPUSH Q12H [facility] Last Admin: 03/19/21 23:59 Dose: 125 mg Documented by: Multivitamins/Minerals/Vitamin C (Multivitamin Tab) 1 tab PO DAILY [facility] Last Admin: 03/19/21 09:46 Dose: 1 tab Documented by: Ondansetron HCl (Ondansetron 4 Mg/2 Ml Sdv) 4 mg IV Q6H PRN PRN Reason: Nausea/Vomiting Oxycodone HCl (Oxycodone 5 Mg Tab) 5 mg PO Q4H PRN PRN Reason: Pain (moderate 4-6) Last Admin: 03/18/21 21:52 Dose: 5 mg Documented by: Sodium Chloride (Sodium Chloride 0.9% 10 Ml Syringe) 10 ml FLUSH ASDIRECTED PRN PRN Reason: Keep Vein Open Last Admin: 03/12/21 17:49 Dose: 10 ml Documented by: Tamsulosin HCl (Tamsulosin 0.4 Mg Cap.Er) 0.4 mg PO DAILY [facility] Last Admin: 03/19/21 09:46 Dose: 0.4 mg Documented by: Discontinued Medications Albuterol (Albuterol 6.7 Gm Inhaler) 0 gm INH ONETIME ONE Stop: 03/12/21 17:41 Last Admin: 03/12/21 17:49 Dose: 2 puff Documented by: Dexamethasone (Dexamethasone 10 Mg/Ml Sdv) 6 mg IVPUSH ONETIME ONE Stop: 03/12/21 19:50 Last Admin: 03/12/21 20:24 Dose: 6 mg Documented by: Dexamethasone (Dexamethasone 4 Mg Tab) 6 mg PO Q24H [facility] Stop: 03/21/21 18:01 Last Admin: 03/16/21 17:43 Dose: 6 mg Documented by: Diatrizoate Meglum/Diatrizoate Sod (Diatrizoate Meglumine/Diatrizoate Sodium 37% 120 Ml Bottle) 60 ml PO ONETIME ONE Stop: 03/14/21 16:44 Last Admin: 03/14/21 16:55 Dose: 60 ml Documented by: Heparin Sodium (Porcine) (Heparin Sodium 5,000 Units/Ml Vial) 5,000 units SUBCUT Q8H [facility] Last Admin: 03/14/21 06:31 Dose: Not Given Documented by: Ceftriaxone Sodium 2 gm/ (Sodium Chloride) 100 mls @ 200 mls/hr IV ONETIME ONE Stop: 03/12/21 18:08 Last Admin: 03/12/21 17:49 Dose: 200 mls/hr Documented by: Remdesivir 200 mg/ Sodium (Chloride) 250 mls @ 250 mls/hr IV ONETIME ONE Stop: 03/13/21 09:29 Last Admin: 03/13/21 08:28 Dose: 250 mls/hr Documented by: Remdesivir 100 mg/ Sodium (Chloride) 100 mls @ 100 mls/hr IV Q24H [facility] Stop: 03/17/21 09:29 Last Admin: 03/17/21 09:50 Dose: 100 mls/hr Documented by: Tocilizumab 800 mg/ Sodium (Chloride) 100 mls @ 100 mls/hr IV ONETIME ONE Stop: 03/17/21 11:29 Last Admin: 03/17/21 11:24 Dose: 100 mls/hr Documented by: Ibuprofen (Ibuprofen 600 Mg Tab) 600 mg PO ONETIME ONE Stop: 03/12/21 17:43 Last Admin: 03/12/21 17:49 Dose: 600 mg Documented by: Iopamidol (Iopamidol 612 Mg/Ml 100 Ml Bottle) 100 ml IVPUSH ONETIME ONE Stop: 03/14/21 16:44 Last Admin: 03/14/21 16:56 Dose: 100 ml Documented by: Lidocaine HCl (Lidocaine 2% Jelly 10 Ml Urojet) 10 ml MUCMEM ONETIME ONE Stop: 03/14/21 16:01 Last Admin: 03/14/21 16:54 Dose: 10 ml Documented by: Magnesium Hydroxide (Magnesium Hydroxide 400 Mg/5 Ml Susp 30 Ml Cup) 30 ml PO ONETIME ONE Stop: 03/18/21 06:31 Last Admin: 03/18/21 06:30 Dose: Not Given Documented by: Metformin HCl (Metformin 500 Mg Tab) 500 mg PO BIDMEALS [facility] Last Admin: 03/13/21 07:36 Dose: Not Given Documented by: Sodium Chloride (Sodium Chloride 0.9% 10 Ml Syringe) 10 ml FLUSH ONETIME PRN PRN Reason: Keep Vein Open Stop: 03/14/21 19:00 Last Admin: 03/14/21 16:56 Dose: 10 ml Documented by: Tamsulosin HCl (Tamsulosin 0.4 Mg Cap.Er) 0.4 mg PO ONETIME ONE Stop: 03/14/21 17:56 Last Admin: 03/14/21 18:09 Dose: 0.4 mg Documented by: - Exam Quality Assessment: Supplemental Oxygen (High flow 60 L with 90% FiO2), DVT Prophylaxis. No: Urine Catheter Urinary Catheter Total Time: 0Days 0Hours General: Alert, Oriented, Cooperative, No Acute Distress HEENT: Pupils Equal, Pupils Reactive, Mucous Membr. Moist/[place] Neck: Supple, Trachea Midline Lungs: Normal Respiratory Effort, Decreased Breath Sounds. No: Crackles, Rhonchi, Wheezing Cardiovascular: Regular Rate, Regular Rhythm GI/Abdominal Exam: Normal Bowel Sounds, Soft, Non-Tender, No Distention (Male) Exam: Deferred Back Exam: Normal Inspection, Full Range of Motion Extremities: Normal Inspection, Normal Range of Motion, Non-Tender, No Pedal Edema, Normal Capillary Refill Peripheral Pulses: 2+: Dorsalis Pedis (L), Dorsalis Pedis (R), 3+: Radial (L), Radial (R) Skin: Warm, Dry, Intact Neurological: No New Focal Deficit Psy/Mental Status: Alert, Normal Affect, Normal Mood - Patient Data Lab Results Last 24 hrs: Laboratory Results - last 24 hr 03/19/21 03/19/21 03/19/21 Range/Units 11:30 17:25 20:31 WBC (4.23-9.07) K/mm3 RBC (4.63-6.08) M/mm3 Hgb (13.7-17.5) gm/dl Hct (40.1-51.0) % MCV (79.0-92.2) fl MCH (25.7-32.2) pg MCHC (32.2-35.5) g/dl RDW Std Deviation (35.1-43.9) fL Plt Count (163-337) K/mm3 MPV (9.4-12.3) fl Neut % (Auto) (34.0-67.9) % Lymph % (Auto) (21.8-53.1) % Winn % (Auto) (5.3-12.2) % Eos % (Auto) (0.8-7.0) Baso % (Auto) (0.1-1.2) % Neut # (Auto) (1.78-5.38) K/mm3 Lymph # (Auto) (1.32-3.57) K/mm3 Winn # (Auto) (0.30-0.82) K/mm3 Eos # (Auto) (0.04-0.54) K/mm3 Baso # (Auto) (0.01-0.08) K/mm3 Sodium (136-145) mEq/L Potassium (3.5-5.1) mEq/L Chloride (98-107) mEq/L Carbon Dioxide (21-32) mEq/L Anion Gap (5-15) BUN (7-18) mg/dL Creatinine (0.7-1.3) mg/dL Est Cr Clr Drug Dosing mL/min Estimated GFR (MDRD) (>60) mL/min BUN/Creatinine Ratio (14-18) Glucose (70-99) mg/dL POC Glucose 255 H 221 H 265 H (70-99) mg/dL Calcium (8.5-10.1) mg/dL Magnesium (1.8-2.4) mg/dL Total Bilirubin (0.2-1.0) mg/dL AST (15-37) U/L ALT (16-63) U/L Alkaline Phosphatase (46-116) U/L C-Reactive Protein (<1.0) mg/dL Total Protein (6.4-8.2) g/dl Albumin (3.4-5.0) g/dl Globulin gm/dL Albumin/Globulin Ratio (1-2) 03/20/21 03/20/21 03/20/21 Range/Units 05:48 05:49 05:49 WBC 10.02 H (4.23-9.07) K/mm3 RBC 4.85 (4.63-6.08) M/mm3 Hgb 14.0 (13.7-17.5) gm/dl Hct 43.1 (40.1-51.0) % MCV 88.9 (79.0-92.2) fl MCH 28.9 (25.7-32.2) pg MCHC 32.5 (32.2-35.5) g/dl RDW Std Deviation 45.6 H (35.1-43.9) fL Plt Count 278 (163-337) K/mm3 MPV 10.5 (9.4-12.3) fl Neut % (Auto) 90.6 H (34.0-67.9) % Lymph % (Auto) 5.6 L (21.8-53.1) % Winn % (Auto) 3.2 L (5.3-12.2) % Eos % (Auto) 0 L (0.8-7.0) Baso % (Auto) 0.0 L (0.1-1.2) % Neut # (Auto) 9.08 H (1.78-5.38) K/mm3 Lymph # (Auto) 0.56 L (1.32-3.57) K/mm3 Winn # (Auto) 0.32 (0.30-0.82) K/mm3 Eos # (Auto) 0.00 L (0.04-0.54) K/mm3 Baso # (Auto) 0.00 L (0.01-0.08) K/mm3 Sodium 141 (136-145) mEq/L Potassium 4.9 (3.5-5.1) mEq/L Chloride 108 H (98-107) mEq/L Carbon Dioxide 25 (21-32) mEq/L Anion Gap 12.9 (5-15) BUN 26 H (7-18) mg/dL Creatinine 0.9 (0.7-1.3) mg/dL Est Cr Clr Drug Dosing 91.80 mL/min Estimated GFR (MDRD) > 60 (>60) mL/min BUN/Creatinine Ratio 28.9 H (14-18) Glucose 262 H (70-99) mg/dL POC Glucose 244 H (70-99) mg/dL Calcium 8.4 L (8.5-10.1) mg/dL Magnesium 2.4 (1.8-2.4) mg/dL Total Bilirubin 0.9 (0.2-1.0) mg/dL AST 35 (15-37) U/L ALT 74 H (16-63) U/L Alkaline Phosphatase 34 L (46-116) U/L C-Reactive Protein 2.0 H* (<1.0) mg/dL Total Protein 6.8 (6.4-8.2) g/dl Albumin 2.7 L (3.4-5.0) g/dl Globulin 4.1 gm/dL Albumin/Globulin Ratio 0.7 L (1-2) Result Diagrams: 03/20/21 05:49 03/20/21 05:49 Sepsis Event Note - Evaluation Sepsis Screening Result: Possible Sepsis Risk - Focused Exam Vital Signs: Vital Signs Temp Resp BP Pulse Ox Pulse Ox Pulse Ox 03/20/21 06:14 90 L 03/20/21 06:05 93 L 03/20/21 04:00 97.2 F 21 H 124/70 93 L 03/20/21 01:57 92 L 03/20/21 00:00 97.2 F 20 132/61 93 L 03/19/21 21:39 93 L 03/19/21 20:15 91 L 03/19/21 20:00 97.1 F 19 149/82 H 95 - Problem List & Annotations (1) Type II diabetes mellitus SNOMED Code(s): 52936689 Code(s): E11.9 - TYPE 2 DIABETES MELLITUS WITHOUT COMPLICATIONS Status: Chronic Priority: Medium Current Visit: Yes Qualifiers: Diabetes mellitus mcfp insulin use: without mcfp use Diabetes mellitus complication status: without complication Qualified Code(s): E11.9 - Type 2 diabetes mellitus without complications (2) History of hypertension SNOMED Code(s): 796844804 Code(s): Z86.79 - PERSONAL HISTORY OF OTHER DISEASES OF THE CIRCULATORY SYSTEM Status: Chronic Priority: Low Current Visit: No (3) Morbid obesity SNOMED Code(s): 853317817 Code(s): E66.01 - MORBID (SEVERE) OBESITY DUE TO EXCESS CALORIES Status: Chronic Priority: Low Current Visit: No (4) Elevated d-dimer SNOMED Code(s): 351644599 Code(s): R79.89 - OTHER SPECIFIED ABNORMAL FINDINGS OF BLOOD CHEMISTRY Status: Acute Priority: Medium Current Visit: Yes (5) COVID-19 SNOMED Code(s): 272797473 Code(s): U07.1 - COVID-19 Status: Acute Priority: High Current Visit: Yes (6) Hypoxia SNOMED Code(s): 884130400 Code(s): R09.02 - HYPOXEMIA Status: Acute Priority: High Current Visit: Yes (7) Thrombocytopenia SNOMED Code(s): 654993905 Code(s): D69.6 - THROMBOCYTOPENIA, UNSPECIFIED Status: Resolved Priority: High Current Visit: Yes (8) Hepatic steatosis SNOMED Code(s): 502296633 Code(s): K76.0 - FATTY (CHANGE OF) LIVER, NOT ELSEWHERE CLASSIFIED Status: Chronic Priority: Low Current Visit: Yes (9) Cholelithiasis SNOMED Code(s): 181046214 Code(s): K80.20 - CALCULUS OF GALLBLADDER W/O CHOLECYSTITIS W/O OBSTRUCTION Status: Chronic Priority: Low Current Visit: Yes Qualifiers: Cholelithiasis location: gallbladder Cholecystitis presence: with cholecystitis Cholecystitis acuity: chronic Biliary obstruction: without biliary obstruction Qualified Code(s): K80.10 - Calculus of gallbladder with chronic cholecystitis without obstruction (10) Hypoalbuminemia SNOMED Code(s): 788858502 Code(s): E88.09 - OTH DISORDERS OF PLASMA-PROTEIN METABOLISM, NEC Status: Acute Priority: Medium Current Visit: Yes (11) Nephrolithiasis SNOMED Code(s): 63268635 Code(s): N20.0 - CALCULUS OF KIDNEY Status: Acute Current Visit: Yes (12) Hydroureter on right SNOMED Code(s): 38635453 Code(s): N13.4 - HYDROURETER Status: Acute Current Visit: Yes (13) Hydronephrosis SNOMED Code(s): 80918485 Code(s): N13.30 - UNSPECIFIED HYDRONEPHROSIS Status: Acute Priority: High Current Visit: Yes Qualifiers: Hydronephrosis type: unspecified Qualified Code(s): N13.30 - Unspecified hydronephrosis - Problem List Review Problem List Initiated/Reviewed/Updated: Yes - My Orders Last 24 Hours: My Active Orders 03/19/21 10:42 RT Aerosol Therapy [RC] ASDIRECTED 03/19/21 10:45 Albuterol/Ipratropium [DuoNeb 3.0-0.5 MG/3 ML] 3 ml NEB Q4H 03/19/21 12:07 Code Status [Resuscitation Status] Routine 03/20/21 05:49 CBC WITH AUTO DIFF [HEME] AM 03/21/21 05:11 CBC WITH AUTO DIFF [HEME] AM CMP [COMPREHENSIVE METABOLIC PN,CMP] [CHEM] AM CRP [C-REACTIVE PROTEIN] [CHEM] AM MAGNESIUM [CHEM] AM 03/21/21 09:54 DD [D-DIMER QUANTITATIVE] [COAG] Q48H 03/23/21 09:54 DD [D-DIMER QUANTITATIVE] [COAG] Q48H - Assessment Assessment:: Assessment - 03/13/2021 (admitted late 03/12/2021) * This is a 60-year-old male presents to ED with dyspnea and hypoxia * Hx of hypertension though was able to come off his medications due to weight loss. He is a type II diabetic on Metformin. * Went to the walk-in clinic who sent him here * Symptoms began about 2 to 3 days prior * Denies a cough but was noted to have a fever on arrival of 101 * Chest x-ray was obtained at the walk-in clinic which showed bilateral infiltrates in the lower lobes consistent with COVID-19 pneumonia. * He was reportedly checked with a rapid Covid screen and was negative there * Saturations were noted to decrease to 80% and he was started on oxygen and sent here. 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 No history of lung problems such as asthma or COPD * Obese with a BMI of 48.3 however he reports he recently lost 80 pounds * Denies any chest pain, abdominal pain, nausea, or vomiting. * 12-lead EKG was obtained showing sinus tachycardia at 107 bpm with no ectopy. * Labs are obtained in ED and on floor: * WBC 4.57-->3.82 * Hemoglobin 14.6 ->14.9 * Platelet 91,000-->96,000 * Neutrophils 77.1%. * ABGs obtained with a pH of 7.45. PCO2 of 29.6. PO2 of 74.0. HCO3 of 20.3. Saturations of 96.3. This is on 2 L. * VB.32. PCO2 53.7. PO2 26.0. HCO3 of 26.8. Oxygen saturation 35.4. On 3 L. * Sodium 135-->141 * Potassium 3.9-->4.9 * Chloride 100-->103 * Carbon dioxide 23-->29 * Anion gap 15.9-->13.9 * BUN is 13-->16. Creatinine 1.2-->1.1. GFR greater than 60--> Greater than 60. * Glucose 153-->231. * Calcium 8.0-->8.1. * Bilirubin 1.1-->0.8. Direct bilirubin 0.50, Indirect bilirubin 0.30 * AST 115-->99. ALT 89-->87. Alkaline phosphatase 32-->31. * LDH 562. * Troponin 0.019. * CRP 16.9. * Protein 7.4-->7.5. * Albumin 3.1-->2.9. * Lactic acid 1.1. * Ferritin 3732. * D-dimer 1.43. * SARS-CoV-2 RNA is positive. * He is given 6 mg dexamethasone and 2 g of Rocephin. He is also given 2 puffs of an albuterol inhaler and ibuprofen. * Subsequently admitted to the medical floor on telemetry for management of his COVID-19 pneumonia. * CT obtained on floor on 03/12/2021 shows: * 1. No evidence of pulmonary embolus * 2. Moderate bilateral airspace disease compatible with infection * 3. Mild to moderate mediastinal and bihilar adenopathy * 4. Moderate hepatic steatosis * 5. Cholelithiasis 03/14/2021 This is a 60-year-old male admitted for COVID-19 treatment and hypoxia. Overall he is been doing quite well. Has been ambulating around the room. He did note some blood in his urine today so UA will be ordered. labs today show WBC 5.20. Hemoglobin 14.5. Hematocrit 43.6. Platelet improved to 100,000. Neutrophils elevated at 74.7.sodium of 139. Potassium 4.6. Chloride 103. Carbon dioxide 28. Anion gap 12.6. BUN 22. Creatinine 1.2. GFR greater than 60. Glucose has been 1 37-2 12. Calcium is 8.0. Magnesium 2.5. Total bilirubin 0.8. AST is 80, ALT 77, alkaline phosphatase 27. CRP is 12.6. Albumin is 2.7. We will recheck a D-dimer tomorrow. He has been weaned down to 1 L of oxygen. He has been utilizing his incentive spirometry and Acapella. He reports he is still tired but feels pretty good. We will continue treatment plan with likely discharge after completing remdesivir. 03/15/2021 Patient with mild cough denies chest pain denies sob no further hematuria 03/16/2021 denies chest pain on supplemental oxygen intermittent cough no diarrhea 03/17/2021 60-year-old male admitted for treatment of COVID-19 hypoxia. Late 03-14-2021 samanta conrad was noted to have gross bleeding from his penis. UA was obtained and CT scan of the abdomen pelvis was also obtained showing 1. Obstructing calculus within the distal right ureter located proximal to the UVJ. This obstructing calculus measures approximately 3.5 mm. This obstructing calculus causes obstructive changes within the right kidney as noted above. 2. Findings of Covid pneumonia within both lung bases. 3. Other findings as noted above which are nonacute. Three-way irrigating Gonzalez catheter was placed. Attending hospitalist did contact urology who reported a high probability of the patient passing the stone. He was placed on Flomax. Gonzalez catheter was ultimately removed. Since that time patient has had worsening desaturations. He was switched to high flow 50 L with an FiO2 of 65%. He was given Actemra. We will start the patient on 125 mg Solu-Medrol every 12 hours for now. Repeat chest x-ray was obtained showing worsening infiltrates. We again discussed proning, although the patient reports that he is unable to prone. We discussed utilizing incentive spirometry and Acap ruy. Labs today show a WBC of 5.44. Hemoglobin 13.6. Platelet 181,000. Neutrophils 67%. D-dimer is 1.99. Sodium 143. Potassium 4.1. Chloride 108. Carbon dioxide 25. Anion gap 14.1. BUN is 20. Creatinine 0.9. GFR greater than 60. Glucose is 239. Calcium 7.7. Magnesium is 2.3. Bilirubin 0.8. AST 65, ALT 83, alkaline phosphatase 27. CRP is 6.5. Albumin is 2.4. Patient did complete remdesivir treatment today. As his bleeding from his penis is stopped and as he has no gross hematuria anymore we will begin Lovenox 40 mg daily for VTE prophylaxis. Unknown length of stay pending oxygen wean. 03/18/2021 This is a 64-year-old male admitted for Covid pneumonia and after admission found to have a renal stone. Overall he states that he is doing okay. He reports he is chilled but otherwise has no concerns. He has been cautious not overdo it has he feels like he pushed himself a little too hard a few days ago and he had difficulty recovering from that. He denies any abdominal pain or continued bleeding from his penis. He was placed on Lovenox 40 mg daily. We will recheck a D-dimer tomorrow. Labs today show WBC of 7.05. Hemoglobin 13.4. Platelet 221,000. Neutrophils are elevated 85%. Sodium 141. Potassium 4.7. Chloride 104. Carbon dioxide 22. Anion gap 19.7. BUN is 21. Creatinine 0.9. GFR greater than 60. Glucose has been 209 to 304. Magnesium 2.3. Total bilirubin 0.6. AST is 47, ALT 76, alkaline phosphatase 28. CRP is 6.3. Protein 6.8. Albumin 2.5. We will increase sliding scale insulin to high dose and monitor need for long-acting insulin. He continues to utilize incentive spirometry and Acapella. He is on high flow currently 50 L with FiO2 of 60. We will continue to work on weaning oxygen. He received Actemra and has been on twice daily 125 mg Solu-Medrol since. Unknown length of stay due to severity of COVID-19 symptoms. 03/19/2021 This is a 60-year-old male admitted to the floor for treatment of COVID-19. Once on the floor he was noted to have some bleeding from his penis and was noted to have a renal stone. Bleeding is since resolved. Unfortunate his oxygen demand has been increasing and he is currently on BiPAP. Labs today show WBC of 10.67 which is likely steroid related. Hemoglobin is 13.8. Hematocrit 41.7. Platelet 251,000. Neutrophils are elevated at 87.1%. D-dimer is 1.79 which is slightly decreased from prior. Sodium is 142. Potassium 4.7. Chloride 109. Carbon dioxide 25. Anion gap 12.7. BUN is 23. Creatinine 0.9. GFR is greater than 60. Glucose is 214-310. Calcium is 8.4. Magnesium 2.4. Bilirubin 0.8. AST is 30, ALT 70, alkaline phosphatase 33. CRP is down to 3.8. Protein 6.8. Albumin is up to 2.6. Recheck a chest x-ray today shows worsening infiltrates bilaterally. Lung sounds are significantly diminished over prior day. Will upgrade to ICU status due to worsening saturations. Ever Preston contacted at patient request ([phone]). While in room patient reports that he does not want to be resuscitated and does not want intubation should he take a turn for the worse. He reports he has paperwork on file that says he is DO NOT RESUSCITATE/DO NOT INTUBATE. CODE STATUS changed at patient's request. Dr. Hernandez, attending hospitalist in the room to discuss plan with patient. Patient aware of poor prognosis given worsening symptoms and need for BiPAP. 03/20/2021 60-year-old male admitted to the floor for hypoxia secondary to Covid pneumonia. On the floor patient was found to have renal stone with gross bleeding from his penis. Urology was consulted and stated that this stone will pass. Patient was started on Flomax. Yesterday patient was noted to have worsening saturations and was placed on BiPAP. Chest x-ray was obtained which showed worsening bilateral infiltrates discussion ensued and patient requested to be DNR/DNI status. Patient was upgraded to ICU. Today patient has been on high flow and tolerating this well. Saturations have been low 90s. He is on 60 L with 90% FiO2. He has been proning occasionally and his saturations have been in the upper 90s when he is doing this. He continues to receive 125 mg Solu- Medrol twice daily I will look at decreasing this in the future if he continues to improve. Labs today show WBC of 10.02. He hemoglobin 14.0. Platelet 270,000. Neutrophils 90.6. Sodium 141. Potassium 4.9. Chloride 108. Carbon dioxide 25. Anion gap 12.9. BUN is 26. Creatinine 0.9. GFR greater than 60. Blood glucose readings have been elevated from 221-265. Calcium is 8.4. Magnesium 2.4. Total bilirubin 0.9. AST 35, ALT 74. Alkaline phosphatase 34. CRP is improved to 2.0. Protein 6.8. Albumin 2.7. Procalcitonin less than 0.05. Given the patient's increased blood sugars and need for 6 to 9 units per dosing of Humalog we will start 20 units Lantus daily. This will likely need to be decreased or discontinued as the patient weans off of steroids. Patient will continue admission in the ICU. Overall he remains stable to improved. Con tinues to be short of breath. Unknown length of stay is will depend on continued response to treatment. We again discussed CODE STATUS. Patient reports he would like to remain DNR/DNI and should he get to the point where he needs intubation we will readdress this, per his wishes. - Plan Plan:: COVID-19 Hypoxia Elevated d-dimer Hypoalbuminemia * O2 as needed with goal saturations of 88-95% * Completed Remdesivir * Continue 125mg BID solumedrol due to worsening saturations * IS/Acapella * RT consultation * High flow oxygen as directed * Airborne and contact isolation * Telemetry * Continuous pulse oximetry * Encourage proning * Encourage ambulation around room * CTA obtained and negative * Lovenox subcutaneous * Continue daily aspirin * Continuity Coordinator consultation * Daily labs * Famotidine 20mg BID * PRN motrin for pain/fever (Reported adverse reaction to Tylenol) * Given Actemera on 03/17/2021 * Procalcitonin negative Type II diabetes mellitus * Hold home metformin * High dose sliding scale insulin * QID AC and Bedtime blood glucose checks * Anticipate rise in blood glucose readings due to steroids * Start 20 units Lantus daily and adjust accordingly History of hypertension * No current home BP meds * Monitor vital signs Thrombocytopenia, Resolved * Monitor Morbid obesity * Continuity Coordinator consultation Hepatic steatosis Cholelithiasis * No acute concerns * PCP follow-up Nephrolithiasis right hydroureteronephrosis * CT obtained * Case discussed with urology; per urology 90% likelihood that stone will pass by itself * Started on Flomax 03/14 Code status: DNR/DNI - Patient would like us to re-address this if it appears he is worsening and may need intubation. PCP: Tricia Mohr NP DVT prohylaxis: Lovenox Disposition: Patient admitted to [facility] on telemetry for COVID-19 treatment. Upgraded to ICU status on 03/19/2021 due to worsening saturations. LOS >96Hrs due to need for continued COVID-19 treatment. <David Hernandez Jr - Last Filed: 03/21/21 05:52> - Patient Data Vitals - Most Recent: Last Vital Signs Temp 97.5 F 03/21/21 04:00 Pulse 81 03/21/21 05:39 Resp 20 03/21/21 05:39 BP 122/72 03/21/21 05:39 Pulse Ox 92 L 03/21/21 05:51 I&O - Last 24 Hours: Intake & Output 03/20/21 03/20/21 03/21/21 14:59 22:59 06:59 Intake Total 770 300 Output Total 1200 200 Balance -430 100 Lab Results Last 24 Hours: Laboratory Results - last 24 hr 03/19/21 03/20/21 03/20/21 Range/Units 05:12 05:48 05:49 WBC 10.02 H (4.23-9.07) K/mm3 RBC 4.85 (4.63-6.08) M/mm3 Hgb 14.0 (13.7-17.5) gm/dl Hct 43.1 (40.1-51.0) % MCV 88.9 (79.0-92.2) fl MCH 28.9 (25.7-32.2) pg MCHC 32.5 (32.2-35.5) g/dl RDW Std Deviation 45.6 H (35.1-43.9) fL Plt Count 278 (163-337) K/mm3 MPV 10.5 (9.4-12.3) fl Neut % (Auto) 90.6 H (34.0-67.9) % Lymph % (Auto) 5.6 L (21.8-53.1) % Winn % (Auto) 3.2 L (5.3-12.2) % Eos % (Auto) 0 L (0.8-7.0) Baso % (Auto) 0.0 L (0.1-1.2) % Neut # (Auto) 9.08 H (1.78-5.38) K/mm3 Lymph # (Auto) 0.56 L (1.32-3.57) K/mm3 Winn # (Auto) 0.32 (0.30-0.82) K/mm3 Eos # (Auto) 0.00 L (0.04-0.54) K/mm3 Baso # (Auto) 0.00 L (0.01-0.08) K/mm3 Manual Slide Review Abnormal smear Sodium (136-145) mEq/L Potassium (3.5-5.1) mEq/L Chloride (98-107) mEq/L Carbon Dioxide (21-32) mEq/L Anion Gap (5-15) BUN (7-18) mg/dL Creatinine (0.7-1.3) mg/dL Est Cr Clr Drug Dosing mL/min Estimated GFR (MDRD) (>60) mL/min BUN/Creatinine Ratio (14-18) Glucose (70-99) mg/dL POC Glucose 244 H (70-99) mg/dL Calcium (8.5-10.1) mg/dL Magnesium (1.8-2.4) mg/dL Total Bilirubin (0.2-1.0) mg/dL AST (15-37) U/L ALT (16-63) U/L Alkaline Phosphatase (46-116) U/L C-Reactive Protein (<1.0) mg/dL Total Protein (6.4-8.2) g/dl Albumin (3.4-5.0) g/dl Globulin gm/dL Albumin/Globulin Ratio (1-2) Procalcitonin <0.05 ng/mL 03/20/21 03/20/21 03/20/21 Range/Units 05:49 11:06 17:44 WBC (4.23-9.07) K/mm3 RBC (4.63-6.08) M/mm3 Hgb (13.7-17.5) gm/dl Hct (40.1-51.0) % MCV (79.0-92.2) fl MCH (25.7-32.2) pg MCHC (32.2-35.5) g/dl RDW Std Deviation (35.1-43.9) fL Plt Count (163-337) K/mm3 MPV (9.4-12.3) fl Neut % (Auto) (34.0-67.9) % Lymph % (Auto) (21.8-53.1) % Winn % (Auto) (5.3-12.2) % Eos % (Auto) (0.8-7.0) Baso % (Auto) (0.1-1.2) % Neut # (Auto) (1.78-5.38) K/mm3 Lymph # (Auto) (1.32-3.57) K/mm3 Winn # (Auto) (0.30-0.82) K/mm3 Eos # (Auto) (0.04-0.54) K/mm3 Baso # (Auto) (0.01-0.08) K/mm3 Manual Slide Review Sodium 141 (136-145) mEq/L Potassium 4.9 (3.5-5.1) mEq/L Chloride 108 H (98-107) mEq/L Carbon Dioxide 25 (21-32) mEq/L Anion Gap 12.9 (5-15) BUN 26 H (7-18) mg/dL Creatinine 0.9 (0.7-1.3) mg/dL Est Cr Clr Drug Dosing 91.80 mL/min Estimated GFR (MDRD) > 60 (>60) mL/min BUN/Creatinine Ratio 28.9 H (14-18) Glucose 262 H (70-99) mg/dL POC Glucose 268 H 270 H (70-99) mg/dL Calcium 8.4 L (8.5-10.1) mg/dL Magnesium 2.4 (1.8-2.4) mg/dL Total Bilirubin 0.9 (0.2-1.0) mg/dL AST 35 (15-37) U/L ALT 74 H (16-63) U/L Alkaline Phosphatase 34 L (46-116) U/L C-Reactive Protein 2.0 H* (<1.0) mg/dL Total Protein 6.8 (6.4-8.2) g/dl Albumin 2.7 L (3.4-5.0) g/dl Globulin 4.1 gm/dL Albumin/Globulin Ratio 0.7 L (1-2) Procalcitonin ng/mL 03/20/21 Range/Units 20:57 WBC (4.23-9.07) K/mm3 RBC (4.63-6.08) M/mm3 Hgb (13.7-17.5) gm/dl Hct (40.1-51.0) % MCV (79.0-92.2) fl MCH (25.7-32.2) pg MCHC (32.2-35.5) g/dl RDW Std Deviation (35.1-43.9) fL Plt Count (163-337) K/mm3 MPV (9.4-12.3) fl Neut % (Auto) (34.0-67.9) % Lymph % (Auto) (21.8-53.1) % Winn % (Auto) (5.3-12.2) % Eos % (Auto) (0.8-7.0) Baso % (Auto) (0.1-1.2) % Neut # (Auto) (1.78-5.38) K/mm3 Lymph # (Auto) (1.32-3.57) K/mm3 Winn # (Auto) (0.30-0.82) K/mm3 Eos # (Auto) (0.04-0.54) K/mm3 Baso # (Auto) (0.01-0.08) K/mm3 Manual Slide Review Sodium (136-145) mEq/L Potassium (3.5-5.1) mEq/L Chloride (98-107) mEq/L Carbon Dioxide (21-32) mEq/L Anion Gap (5-15) BUN (7-18) mg/dL Creatinine (0.7-1.3) mg/dL Est Cr Clr Drug Dosing mL/min Estimated GFR (MDRD) (>60) mL/min BUN/Creatinine Ratio (14-18) Glucose (70-99) mg/dL POC Glucose 281 H (70-99) mg/dL Calcium (8.5-10.1) mg/dL Magnesium (1.8-2.4) mg/dL Total Bilirubin (0.2-1.0) mg/dL AST (15-37) U/L ALT (16-63) U/L Alkaline Phosphatase (46-116) U/L C-Reactive Protein (<1.0) mg/dL Total Protein (6.4-8.2) g/dl Albumin (3.4-5.0) g/dl Globulin gm/dL Albumin/Globulin Ratio (1-2) Procalcitonin ng/mL Med Orders - Current: Current Medications Albuterol (Albuterol 6.7 Gm Inhaler) 0 gm INH Q6H PRN PRN Reason: Shortness of Breath Last Admin: 03/19/21 08:35 Dose: 2 puff Documented by: Albuterol/Ipratropium (Albuterol/Ipratropium 3.0-0.5 Mg/3 Ml Neb Soln) 3 ml NEB Q4H [facility] Last Admin: 03/21/21 03:10 Dose: 3 ml Documented by: Aspirin (Aspirin 81 Mg Tab.Ec) 81 mg PO DAILY [facility] Last Admin: 03/20/21 08:27 Dose: 81 mg Documented by: Enoxaparin Sodium (Enoxaparin 40 Mg/0.4 Ml Syringe) 40 mg SUBCUT DAILY [facility] Last Admin: 03/20/21 08:28 Dose: 40 mg Documented by: Famotidine (Famotidine 20 Mg Tab) 20 mg PO BID [facility] Last Admin: 03/20/21 20:55 Dose: 20 mg Documented by: Hydromorphone HCl (Hydromorphone 0.5 Mg/0.5 Ml Syringe) 0.5 mg IVPUSH Q1H PRN PRN Reason: Pain (severe 7-10) Last Admin: 03/16/21 21:20 Dose: 0.5 mg Documented by: Ibuprofen (Ibuprofen 600 Mg Tab) 600 mg PO Q6H PRN PRN Reason: fever/pain Last Admin: 03/13/21 17:57 Dose: 600 mg Documented by: Insulin Glargine (Insulin Glarg,Human.Rec.Analog 100 Unit/Ml) 20 unit SUBCUT DAILY [facility] Last Admin: 03/20/21 10:38 Dose: 20 units Documented by: Insulin Human Lispro (Insulin Lispro 100 Unit/Ml 10 Ml Vial) 0 unit SUBCUT QIDACANDBED [facility]; Protocol Last Admin: 03/20/21 21:14 Dose: 9 unit Documented by: Methylprednisolone Sodium Succinate (Methylprednisolone Sodium Succinate 125 Mg/2 Ml Sdv) 125 mg IVPUSH Q12H [facility] Last Admin: 03/21/21 00:41 Dose: 125 mg Documented by: Multivitamins/Minerals/Vitamin C (Multivitamin Tab) 1 tab PO DAILY [facility] Last Admin: 03/20/21 08:27 Dose: 1 tab Documented by: Ondansetron HCl (Ondansetron 4 Mg/2 Ml Sdv) 4 mg IV Q6H PRN PRN Reason: Nausea/Vomiting Oxycodone HCl (Oxycodone 5 Mg Tab) 5 mg PO Q4H PRN PRN Reason: Pain (moderate 4-6) Last Admin: 03/18/21 21:52 Dose: 5 mg Documented by: Sodium Chloride (Sodium Chloride 0.9% 10 Ml Syringe) 10 ml FLUSH ASDIRECTED PRN PRN Reason: Keep Vein Open Last Admin: 03/12/21 17:49 Dose: 10 ml Documented by: Tamsulosin HCl (Tamsulosin 0.4 Mg Cap.Er) 0.4 mg PO DAILY [facility] Last Admin: 03/20/21 08:27 Dose: 0.4 mg Documented by: Discontinued Medications Albuterol (Albuterol 6.7 Gm Inhaler) 0 gm INH ONETIME ONE Stop: 03/12/21 17:41 Last Admin: 03/12/21 17:49 Dose: 2 puff Documented by: Dexamethasone (Dexamethasone 10 Mg/Ml Sdv) 6 mg IVPUSH ONETIME ONE Stop: 03/12/21 19:50 Last Admin: 03/12/21 20:24 Dose: 6 mg Documented by: Dexamethasone (Dexamethasone 4 Mg Tab) 6 mg PO Q24H CURLY Stop: 03/21/21 18:01 Last Admin: 03/16/21 17:43 Dose: 6 mg Documented by: Diatrizoate Meglum/Diatrizoate Sod (Diatrizoate Meglumine/Diatrizoate Sodium 37% 120 Ml Bottle) 60 ml PO ONETIME ONE Stop: 03/14/21 16:44 Last Admin: 03/14/21 16:55 Dose: 60 ml Documented by: Heparin Sodium (Porcine) (Heparin Sodium 5,000 Units/Ml Vial) 5,000 units SUBCUT Q8H [facility] Last Admin: 03/14/21 06:31 Dose: Not Given Documented by: Ceftriaxone Sodium 2 gm/ (Sodium Chloride) 100 mls @ 200 mls/hr IV ONETIME ONE Stop: 03/12/21 18:08 Last Admin: 03/12/21 17:49 Dose: 200 mls/hr Documented by: Remdesivir 200 mg/ Sodium (Chloride) 250 mls @ 250 mls/hr IV ONETIME ONE Stop: 03/13/21 09:29 Last Admin: 03/13/21 08:28 Dose: 250 mls/hr Documented by: Remdesivir 100 mg/ Sodium (Chloride) 100 mls @ 100 mls/hr IV Q24H [facility] Stop: 03/17/21 09:29 Last Admin: 03/17/21 09:50 Dose: 100 mls/hr Documented by: Tocilizumab 800 mg/ Sodium (Chloride) 100 mls @ 100 mls/hr IV ONETIME ONE Stop: 03/17/21 11:29 Last Admin: 03/17/21 11:24 Dose: 100 mls/hr Documented by: Ibuprofen (Ibuprofen 600 Mg Tab) 600 mg PO ONETIME ONE Stop: 03/12/21 17:43 Last Admin: 03/12/21 17:49 Dose: 600 mg Documented by: Iopamidol (Iopamidol 612 Mg/Ml 100 Ml Bottle) 100 ml IVPUSH ONETIME ONE Stop: 03/14/21 16:44 Last Admin: 03/14/21 16:56 Dose: 100 ml Documented by: Lidocaine HCl (Lidocaine 2% Jelly 10 Ml Urojet) 10 ml MUCMEM ONETIME ONE Stop: 03/14/21 16:01 Last Admin: 03/14/21 16:54 Dose: 10 ml Documented by: Magnesium Hydroxide (Magnesium Hydroxide 400 Mg/5 Ml Susp 30 Ml Cup) 30 ml PO ONETIME ONE Stop: 03/18/21 06:31 Last Admin: 03/18/21 06:30 Dose: Not Given Documented by: Metformin HCl (Metformin 500 Mg Tab) 500 mg PO BIDMEALS CURLY Last Admin: 03/13/21 07:36 Dose: Not Given Documented by: Sodium Chloride (Sodium Chloride 0.9% 10 Ml Syringe) 10 ml FLUSH ONETIME PRN PRN Reason: Keep Vein Open Stop: 03/14/21 19:00 Last Admin: 03/14/21 16:56 Dose: 10 ml Documented by: Tamsulosin HCl (Tamsulosin 0.4 Mg Cap.Er) 0.4 mg PO ONETIME ONE Stop: 03/14/21 17:56 Last Admin: 03/14/21 18:09 Dose: 0.4 mg Documented by: - Patient Data Lab Results Last 24 hrs: Laboratory Results - last 24 hr 03/19/21 03/20/21 03/20/21 Range/Units 05:12 05:48 05:49 WBC 10.02 H (4.23-9.07) K/mm3 RBC 4.85 (4.63-6.08) M/mm3 Hgb 14.0 (13.7-17.5) gm/dl Hct 43.1 (40.1-51.0) % MCV 88.9 (79.0-92.2) fl MCH 28.9 (25.7-32.2) pg MCHC 32.5 (32.2-35.5) g/dl RDW Std Deviation 45.6 H (35.1-43.9) fL Plt Count 278 (163-337) K/mm3 MPV 10.5 (9.4-12.3) fl Neut % (Auto) 90.6 H (34.0-67.9) % Lymph % (Auto) 5.6 L (21.8-53.1) % Winn % (Auto) 3.2 L (5.3-12.2) % Eos % (Auto) 0 L (0.8-7.0) Baso % (Auto) 0.0 L (0.1-1.2) % Neut # (Auto) 9.08 H (1.78-5.38) K/mm3 Lymph # (Auto) 0.56 L (1.32-3.57) K/mm3 Winn # (Auto) 0.32 (0.30-0.82) K/mm3 Eos # (Auto) 0.00 L (0.04-0.54) K/mm3 Baso # (Auto) 0.00 L (0.01-0.08) K/mm3 Manual Slide Review Abnormal smear Sodium (136-145) mEq/L Potassium (3.5-5.1) mEq/L Chloride (98-107) mEq/L Carbon Dioxide (21-32) mEq/L Anion Gap (5-15) BUN (7-18) mg/dL Creatinine (0.7-1.3) mg/dL Est Cr Clr Drug Dosing mL/min Estimated GFR (MDRD) (>60) mL/min BUN/Creatinine Ratio (14-18) Glucose (70-99) mg/dL POC Glucose 244 H (70-99) mg/dL Calcium (8.5-10.1) mg/dL Magnesium (1.8-2.4) mg/dL Total Bilirubin (0.2-1.0) mg/dL AST (15-37) U/L ALT (16-63) U/L Alkaline Phosphatase (46-116) U/L C-Reactive Protein (<1.0) mg/dL Total Protein (6.4-8.2) g/dl Albumin (3.4-5.0) g/dl Globulin gm/dL Albumin/Globulin Ratio (1-2) Procalcitonin <0.05 ng/mL 03/20/21 03/20/21 03/20/21 Range/Units 05:49 11:06 17:44 WBC (4.23-9.07) K/mm3 RBC (4.63-6.08) M/mm3 Hgb (13.7-17.5) gm/dl Hct (40.1-51.0) % MCV (79.0-92.2) fl MCH (25.7-32.2) pg MCHC (32.2-35.5) g/dl RDW Std Deviation (35.1-43.9) fL Plt Count (163-337) K/mm3 MPV (9.4-12.3) fl Neut % (Auto) (34.0-67.9) % Lymph % (Auto) (21.8-53.1) % Winn % (Auto) (5.3-12.2) % Eos % (Auto) (0.8-7.0) Baso % (Auto) (0.1-1.2) % Neut # (Auto) (1.78-5.38) K/mm3 Lymph # (Auto) (1.32-3.57) K/mm3 Winn # (Auto) (0.30-0.82) K/mm3 Eos # (Auto) (0.04-0.54) K/mm3 Baso # (Auto) (0.01-0.08) K/mm3 Manual Slide Review Sodium 141 (136-145) mEq/L Potassium 4.9 (3.5-5.1) mEq/L Chloride 108 H (98-107) mEq/L Carbon Dioxide 25 (21-32) mEq/L Anion Gap 12.9 (5-15) BUN 26 H (7-18) mg/dL Creatinine 0.9 (0.7-1.3) mg/dL Est Cr Clr Drug Dosing 91.80 mL/min Estimated GFR (MDRD) > 60 (>60) mL/min BUN/Creatinine Ratio 28.9 H (14-18) Glucose 262 H (70-99) mg/dL POC Glucose 268 H 270 H (70-99) mg/dL Calcium 8.4 L (8.5-10.1) mg/dL Magnesium 2.4 (1.8-2.4) mg/dL Total Bilirubin 0.9 (0.2-1.0) mg/dL AST 35 (15-37) U/L ALT 74 H (16-63) U/L Alkaline Phosphatase 34 L (46-116) U/L C-Reactive Protein 2.0 H* (<1.0) mg/dL Total Protein 6.8 (6.4-8.2) g/dl Albumin 2.7 L (3.4-5.0) g/dl Globulin 4.1 gm/dL Albumin/Globulin Ratio 0.7 L (1-2) Procalcitonin ng/mL 03/20/21 Range/Units 20:57 WBC (4.23-9.07) K/mm3 RBC (4.63-6.08) M/mm3 Hgb (13.7-17.5) gm/dl Hct (40.1-51.0) % MCV (79.0-92.2) fl MCH (25.7-32.2) pg MCHC (32.2-35.5) g/dl RDW Std Deviation (35.1-43.9) fL Plt Count (163-337) K/mm3 MPV (9.4-12.3) fl Neut % (Auto) (34.0-67.9) % Lymph % (Auto) (21.8-53.1) % Winn % (Auto) (5.3-12.2) % Eos % (Auto) (0.8-7.0) Baso % (Auto) (0.1-1.2) % Neut # (Auto) (1.78-5.38) K/mm3 Lymph # (Auto) (1.32-3.57) K/mm3 Winn # (Auto) (0.30-0.82) K/mm3 Eos # (Auto) (0.04-0.54) K/mm3 Baso # (Auto) (0.01-0.08) K/mm3 Manual Slide Review Sodium (136-145) mEq/L Potassium (3.5-5.1) mEq/L Chloride (98-107) mEq/L Carbon Dioxide (21-32) mEq/L Anion Gap (5-15) BUN (7-18) mg/dL Creatinine (0.7-1.3) mg/dL Est Cr Clr Drug Dosing mL/min Estimated GFR (MDRD) (>60) mL/min BUN/Creatinine Ratio (14-18) Glucose (70-99) mg/dL POC Glucose 281 H (70-99) mg/dL Calcium (8.5-10.1) mg/dL Magnesium (1.8-2.4) mg/dL Total Bilirubin (0.2-1.0) mg/dL AST (15-37) U/L ALT (16-63) U/L Alkaline Phosphatase (46-116) U/L C-Reactive Protein (<1.0) mg/dL Total Protein (6.4-8.2) g/dl Albumin (3.4-5.0) g/dl Globulin gm/dL Albumin/Globulin Ratio (1-2) Procalcitonin ng/mL Result Diagrams: 03/20/21 05:49 03/20/21 05:49 Sepsis Event Note - Focused Exam Vital Signs: Vital Signs Temp Pulse Resp BP Pulse Ox Pulse Ox 03/21/21 05:51 92 L 03/21/21 05:39 81 20 122/72 91 L 03/21/21 05:38 17 03/21/21 05:00 56 L 21 H 91 L 03/21/21 04:00 97.5 F 61 18 89 L 03/21/21 03:10 89 L 03/21/21 03:00 65 18 88 L 03/21/21 02:00 53 L 21 H 89 L 03/21/21 01:00 15 03/21/21 00:43 67 15 125/71 88 L 03/21/21 00:42 17 03/21/21 00:00 63 21 H 89 L 03/20/21 23:00 56 L 21 H 89 L 03/20/21 22:00 66 17 92 L 03/20/21 21:57 91 L 03/20/21 21:21 96.8 F L 91 L 03/20/21 21:19 27 H 03/20/21 21:01 120 H 17 91 L 03/20/21 20:50 84 21 H 144/73 H 89 L 03/20/21 20:49 73 24 H 93 L 03/20/21 20:00 79 20 92 L 03/20/21 19:00 86 19 87 L 03/20/21 18:00 93 20 92 L - Plan Plan:: Case discussed in full. Agree with evaluation, assessment and plan.
[2021-03-20] MEDS: Tamsulosin 0.4 MG Cap.ER PO SCH (08:27)
[2021-03-20] MEDS: Multivitamin Tab PO SCH (08:27)
[2021-03-20] MEDS: Aspirin 81 MG Tab.EC PO SCH (08:27)
[2021-03-20] MEDS: Famotidine 20 MG Tab PO SCH ×2 (08:27→20:55)
[2021-03-20] MEDS: Enoxaparin 40 MG/0.4 ML Syringe SUBCUT SCH (08:28)
[2021-03-20] MEDS: Insulin Lispro 100 UNIT/ML 10 ML Vial SUBCUT SCH ×4 (09:15→21:14)
[2021-03-20] MEDS: Insulin Glarg,Human.Rec.Analog 100 Unit/ML SUBCUT SCH (10:38)
[2021-03-20] MEDS: methylPREDNISolone Sodium Succinate 125 MG/2 ML SDV IVPUSH SCH (12:46)
[2021-03-21] MEDS: methylPREDNISolone Sodium Succinate 125 MG/2 ML SDV IVPUSH SCH ×3 (00:41→20:17)
[2021-03-21] MEDS: Albuterol/Ipratropium 3.0-0.5 MG/3 ML Neb Soln NEB SCH ×6 (03:10→21:50)
--- NOTE | 2021-03-21 07:50 | PCM.PN ---
<Red Lutz - Last Filed: 03/21/21 11:27> - General Info Date of Service: 03/21/21 Admission Dx/Problem (Free Text): Admission Diagnosis/Problem Admission Diagnosis/Problem Hypoxia Functional Status: Reports: Pain Controlled, Tolerating Diet, Ambulating, Urinating, Incentive Spirometry, Other. Denies: New Symptoms - Review of Systems General: Reports: Weakness, Fatigue. Denies: Fever, Malaise, Chills HEENT: Reports: No Symptoms. Denies: Headaches, Sore Throat Pulmonary: Reports: Shortness of Breath, Cough, Sputum Cardiovascular: Reports: Dyspnea on Exertion. Denies: Chest Pain, Palpitations, Edema, Lightheadedness Gastrointestinal: Reports: Constipation (refusing laxative/stool softeners). Denies: Abdominal Pain, Diarrhea, Nausea, Vomiting Genitourinary: Reports: No Symptoms. Denies: Pain Musculoskeletal: Reports: Back Pain (chronic and worse when proning) Skin: Reports: No Symptoms. Denies: Cyanosis Neurological: Reports: No Symptoms, Weakness. Denies: Confusion, Numbness, Pre-Existing Deficit, Tingling, Difficulty Walking, Gait Disturbance Psychiatric: Reports: No Symptoms - Patient Data Vitals - Most Recent: Last Vital Signs Temp 97.5 F 03/21/21 04:00 Pulse 81 03/21/21 05:39 Resp 20 03/21/21 05:39 BP 122/72 03/21/21 05:39 Pulse Ox 91 L 03/21/21 06:41 Weight - Most Recent: 331 lb 3.2 oz I&O - Last 24 Hours: Intake & Output 03/20/21 03/21/21 03/21/21 22:59 06:59 14:59 Intake Total 770 300 Output Total 1200 450 Balance -430 -150 Lab Results Last 24 Hours: Laboratory Results - last 24 hr 03/19/21 03/20/21 03/20/21 Range/Units 05:12 05:49 11:06 WBC (4.23-9.07) K/mm3 RBC (4.63-6.08) M/mm3 Hgb (13.7-17.5) gm/dl Hct (40.1-51.0) % MCV (79.0-92.2) fl MCH (25.7-32.2) pg MCHC (32.2-35.5) g/dl RDW Std Deviation (35.1-43.9) fL Plt Count (163-337) K/mm3 MPV (9.4-12.3) fl Neut % (Auto) (34.0-67.9) % Lymph % (Auto) (21.8-53.1) % [place] % (Auto) (5.3-12.2) % Eos % (Auto) (0.8-7.0) Baso % (Auto) (0.1-1.2) % Neut # (Auto) (1.78-5.38) K/mm3 Lymph # (Auto) (1.32-3.57) K/mm3 [place] # (Auto) (0.30-0.82) K/mm3 Eos # (Auto) (0.04-0.54) K/mm3 Baso # (Auto) (0.01-0.08) K/mm3 Manual Slide Review Abnormal smear D-Dimer, Quantitative (0.19-0.50) mg/L Sodium (136-145) mEq/L Potassium (3.5-5.1) mEq/L Chloride (98-107) mEq/L Carbon Dioxide (21-32) mEq/L Anion Gap (5-15) BUN (7-18) mg/dL Creatinine (0.7-1.3) mg/dL Est Cr Clr Drug Dosing mL/min Estimated GFR (MDRD) (>60) mL/min BUN/Creatinine Ratio (14-18) Glucose (70-99) mg/dL POC Glucose 268 H (70-99) mg/dL Calcium (8.5-10.1) mg/dL Magnesium (1.8-2.4) mg/dL Total Bilirubin (0.2-1.0) mg/dL AST (15-37) U/L ALT (16-63) U/L Alkaline Phosphatase (46-116) U/L C-Reactive Protein (<1.0) mg/dL Total Protein (6.4-8.2) g/dl Albumin (3.4-5.0) g/dl Globulin gm/dL Albumin/Globulin Ratio (1-2) Procalcitonin <0.05 ng/mL 03/20/21 03/20/21 03/21/21 Range/Units 17:44 20:57 05:20 WBC 11.32 H (4.23-9.07) K/mm3 RBC 4.94 (4.63-6.08) M/mm3 Hgb 14.5 (13.7-17.5) gm/dl Hct 43.9 (40.1-51.0) % MCV 88.9 (79.0-92.2) fl MCH 29.4 (25.7-32.2) pg MCHC 33.0 (32.2-35.5) g/dl RDW Std Deviation 46.1 H (35.1-43.9) fL Plt Count 269 (163-337) K/mm3 MPV 10.6 (9.4-12.3) fl Neut % (Auto) 91.2 H (34.0-67.9) % Lymph % (Auto) 4.0 L (21.8-53.1) % [place] % (Auto) 3.9 L (5.3-12.2) % Eos % (Auto) 0.2 L (0.8-7.0) Baso % (Auto) 0.1 (0.1-1.2) % Neut # (Auto) 10.33 H (1.78-5.38) K/mm3 Lymph # (Auto) 0.45 L (1.32-3.57) K/mm3 [place] # (Auto) 0.44 (0.30-0.82) K/mm3 Eos # (Auto) 0.02 L (0.04-0.54) K/mm3 Baso # (Auto) 0.01 (0.01-0.08) K/mm3 Manual Slide Review Abnormal smear D-Dimer, Quantitative (0.19-0.50) mg/L Sodium (136-145) mEq/L Potassium (3.5-5.1) mEq/L Chloride (98-107) mEq/L Carbon Dioxide (21-32) mEq/L Anion Gap (5-15) BUN (7-18) mg/dL Creatinine (0.7-1.3) mg/dL Est Cr Clr Drug Dosing mL/min Estimated GFR (MDRD) (>60) mL/min BUN/Creatinine Ratio (14-18) Glucose (70-99) mg/dL POC Glucose 270 H 281 H (70-99) mg/dL Calcium (8.5-10.1) mg/dL Magnesium (1.8-2.4) mg/dL Total Bilirubin (0.2-1.0) mg/dL AST (15-37) U/L ALT (16-63) U/L Alkaline Phosphatase (46-116) U/L C-Reactive Protein (<1.0) mg/dL Total Protein (6.4-8.2) g/dl Albumin (3.4-5.0) g/dl Globulin gm/dL Albumin/Globulin Ratio (1-2) Procalcitonin ng/mL 03/21/21 03/21/21 03/21/21 Range/Units 05:20 05:20 06:44 WBC (4.23-9.07) K/mm3 RBC (4.63-6.08) M/mm3 Hgb (13.7-17.5) gm/dl Hct (40.1-51.0) % MCV (79.0-92.2) fl MCH (25.7-32.2) pg MCHC (32.2-35.5) g/dl RDW Std Deviation (35.1-43.9) fL Plt Count (163-337) K/mm3 MPV (9.4-12.3) fl Neut % (Auto) (34.0-67.9) % Lymph % (Auto) (21.8-53.1) % [place] % (Auto) (5.3-12.2) % Eos % (Auto) (0.8-7.0) Baso % (Auto) (0.1-1.2) % Neut # (Auto) (1.78-5.38) K/mm3 Lymph # (Auto) (1.32-3.57) K/mm3 [place] # (Auto) (0.30-0.82) K/mm3 Eos # (Auto) (0.04-0.54) K/mm3 Baso # (Auto) (0.01-0.08) K/mm3 Manual Slide Review D-Dimer, Quantitative 1.88 H (0.19-0.50) mg/L Sodium 142 (136-145) mEq/L Potassium 5.2 H (3.5-5.1) mEq/L Chloride 107 (98-107) mEq/L Carbon Dioxide 24 (21-32) mEq/L Anion Gap 16.2 H (5-15) BUN 27 H (7-18) mg/dL Creatinine 1.0 (0.7-1.3) mg/dL Est Cr Clr Drug Dosing 82.62 mL/min Estimated GFR (MDRD) > 60 (>60) mL/min BUN/Creatinine Ratio 27.0 H (14-18) Glucose 254 H (70-99) mg/dL POC Glucose 264 H (70-99) mg/dL Calcium 8.3 L (8.5-10.1) mg/dL Magnesium 2.3 (1.8-2.4) mg/dL Total Bilirubin 0.9 (0.2-1.0) mg/dL AST 35 (15-37) U/L ALT 79 H (16-63) U/L Alkaline Phosphatase 32 L (46-116) U/L C-Reactive Protein 1.2 H* (<1.0) mg/dL Total Protein 6.8 (6.4-8.2) g/dl Albumin 2.7 L (3.4-5.0) g/dl Globulin 4.1 gm/dL Albumin/Globulin Ratio 0.7 L (1-2) Procalcitonin ng/mL Med Orders - Current: Current Medications Albuterol (Albuterol 6.7 Gm Inhaler) 0 gm INH Q6H PRN PRN Reason: Shortness of Breath Last Admin: 03/19/21 08:35 Dose: 2 puff Documented by: Albuterol/Ipratropium (Albuterol/Ipratropium 3.0-0.5 Mg/3 Ml Neb Soln) 3 ml NEB Q4H [facility] Last Admin: 03/21/21 06:18 Dose: 3 ml Documented by: Aspirin (Aspirin 81 Mg Tab.Ec) 81 mg PO DAILY [facility] Last Admin: 03/20/21 08:27 Dose: 81 mg Documented by: Enoxaparin Sodium (Enoxaparin 40 Mg/0.4 Ml Syringe) 40 mg SUBCUT DAILY [facility] Last Admin: 03/20/21 08:28 Dose: 40 mg Documented by: Famotidine (Famotidine 20 Mg Tab) 20 mg PO BID [facility] Last Admin: 03/20/21 20:55 Dose: 20 mg Documented by: Hydromorphone HCl (Hydromorphone 0.5 Mg/0.5 Ml Syringe) 0.5 mg IVPUSH Q1H PRN PRN Reason: Pain (severe 7-10) Last Admin: 03/16/21 21:20 Dose: 0.5 mg Documented by: Ibuprofen (Ibuprofen 600 Mg Tab) 600 mg PO Q6H PRN PRN Reason: fever/pain Last Admin: 03/13/21 17:57 Dose: 600 mg Documented by: Insulin Glargine (Insulin Glarg,Human.Rec.Analog 100 Unit/Ml) 20 unit SUBCUT DAILY [facility] Last Admin: 03/20/21 10:38 Dose: 20 units Documented by: Insulin Human Lispro (Insulin Lispro 100 Unit/Ml 10 Ml Vial) 0 unit SUBCUT QIDACANDBED [facility]; Protocol Last Admin: 03/20/21 21:14 Dose: 9 unit Documented by: Methylprednisolone Sodium Succinate (Methylprednisolone Sodium Succinate 125 Mg/2 Ml Sdv) 125 mg IVPUSH Q12H [facility] Last Admin: 03/21/21 00:41 Dose: 125 mg Documented by: Multivitamins/Minerals/Vitamin C (Multivitamin Tab) 1 tab PO DAILY [facility] Last Admin: 03/20/21 08:27 Dose: 1 tab Documented by: Ondansetron HCl (Ondansetron 4 Mg/2 Ml Sdv) 4 mg IV Q6H PRN PRN Reason: Nausea/Vomiting Oxycodone HCl (Oxycodone 5 Mg Tab) 5 mg PO Q4H PRN PRN Reason: Pain (moderate 4-6) Last Admin: 03/18/21 21:52 Dose: 5 mg Documented by: Sodium Chloride (Sodium Chloride 0.9% 10 Ml Syringe) 10 ml FLUSH ASDIRECTED PRN PRN Reason: Keep Vein Open Last Admin: 03/12/21 17:49 Dose: 10 ml Documented by: Tamsulosin HCl (Tamsulosin 0.4 Mg Cap.Er) 0.4 mg PO DAILY [facility] Last Admin: 03/20/21 08:27 Dose: 0.4 mg Documented by: Discontinued Medications Albuterol (Albuterol 6.7 Gm Inhaler) 0 gm INH ONETIME ONE Stop: 03/12/21 17:41 Last Admin: 03/12/21 17:49 Dose: 2 puff Documented by: Dexamethasone (Dexamethasone 10 Mg/Ml Sdv) 6 mg IVPUSH ONETIME ONE Stop: 03/12/21 19:50 Last Admin: 03/12/21 20:24 Dose: 6 mg Documented by: Dexamethasone (Dexamethasone 4 Mg Tab) 6 mg PO Q24H [facility] Stop: 03/21/21 18:01 Last Admin: 03/16/21 17:43 Dose: 6 mg Documented by: Diatrizoate Meglum/Diatrizoate Sod (Diatrizoate Meglumine/Diatrizoate Sodium 37% 120 Ml Bottle) 60 ml PO ONETIME ONE Stop: 03/14/21 16:44 Last Admin: 03/14/21 16:55 Dose: 60 ml Documented by: Heparin Sodium (Porcine) (Heparin Sodium 5,000 Units/Ml Vial) 5,000 units SUBCUT Q8H [facility] Last Admin: 03/14/21 06:31 Dose: Not Given Documented by: Ceftriaxone Sodium 2 gm/ (Sodium Chloride) 100 mls @ 200 mls/hr IV ONETIME ONE Stop: 03/12/21 18:08 Last Admin: 03/12/21 17:49 Dose: 200 mls/hr Documented by: Remdesivir 200 mg/ Sodium (Chloride) 250 mls @ 250 mls/hr IV ONETIME ONE Stop: 03/13/21 09:29 Last Admin: 03/13/21 08:28 Dose: 250 mls/hr Documented by: Remdesivir 100 mg/ Sodium (Chloride) 100 mls @ 100 mls/hr IV Q24H [facility] Stop: 03/17/21 09:29 Last Admin: 03/17/21 09:50 Dose: 100 mls/hr Documented by: Tocilizumab 800 mg/ Sodium (Chloride) 100 mls @ 100 mls/hr IV ONETIME ONE Stop: 03/17/21 11:29 Last Admin: 03/17/21 11:24 Dose: 100 mls/hr Documented by: Ibuprofen (Ibuprofen 600 Mg Tab) 600 mg PO ONETIME ONE Stop: 03/12/21 17:43 Last Admin: 03/12/21 17:49 Dose: 600 mg Documented by: Iopamidol (Iopamidol 612 Mg/Ml 100 Ml Bottle) 100 ml IVPUSH ONETIME ONE Stop: 03/14/21 16:44 Last Admin: 03/14/21 16:56 Dose: 100 ml Documented by: Lidocaine HCl (Lidocaine 2% Jelly 10 Ml Urojet) 10 ml MUCMEM ONETIME ONE Stop: 03/14/21 16:01 Last Admin: 03/14/21 16:54 Dose: 10 ml Documented by: Magnesium Hydroxide (Magnesium Hydroxide 400 Mg/5 Ml Susp 30 Ml Cup) 30 ml PO ONETIME ONE Stop: 03/18/21 06:31 Last Admin: 03/18/21 06:30 Dose: Not Given Documented by: Metformin HCl (Metformin 500 Mg Tab) 500 mg PO BIDMEALS CURLY Last Admin: 03/13/21 07:36 Dose: Not Given Documented by: Sodium Chloride (Sodium Chloride 0.9% 10 Ml Syringe) 10 ml FLUSH ONETIME PRN PRN Reason: Keep Vein Open Stop: 03/14/21 19:00 Last Admin: 03/14/21 16:56 Dose: 10 ml Documented by: Tamsulosin HCl (Tamsulosin 0.4 Mg Cap.Er) 0.4 mg PO ONETIME ONE Stop: 03/14/21 17:56 Last Admin: 03/14/21 18:09 Dose: 0.4 mg Documented by: - Exam Quality Assessment: Supplemental Oxygen (High flow 60 L with FiO2 of 85%), DVT Prophylaxis. No: Urine Catheter Urinary Catheter Total Time: 0Days 0Hours General: Alert, Oriented, Cooperative, No Acute Distress HEENT: Pupils Equal, Pupils Reactive, Mucous Membr. Moist/Everest Neck: Supple, Trachea Midline Lungs: Decreased Breath Sounds (However greatly improved). No: Normal Respiratory Effort, Crackles, Rhonchi, Wheezing Cardiovascular: Regular Rate, Regular Rhythm GI/Abdominal Exam: Normal Bowel Sounds, Soft, Non-Tender, Distended (Mild). No: Guarding, Rigid (Male) Exam: No: Deferred Back Exam: Normal Inspection, Full Range of Motion Extremities: Normal Inspection, Normal Range of Motion, Non-Tender, No Pedal Edema, Normal Capillary Refill Peripheral Pulses: 2+: Radial (L), Radial (R), Dorsalis Pedis (L), Dorsalis Pedis (R) Skin: Warm, Dry, Intact Neurological: No New Focal Deficit Psy/Mental Status: Alert, Normal Affect, Normal Mood - Patient Data Lab Results Last 24 hrs: Laboratory Results - last 24 hr 03/19/21 03/20/2103/20/21 Range/Units 05:12 05:49 11:06 WBC (4.23-9.07) K/mm3 RBC (4.63-6.08) M/mm3 Hgb (13.7-17.5) gm/dl Hct (40.1-51.0) % MCV (79.0-92.2) fl MCH (25.7-32.2) pg MCHC (32.2-35.5) g/dl RDW Std Deviation (35.1-43.9) fL Plt Count (163-337) K/mm3 MPV (9.4-12.3) fl Neut % (Auto) (34.0-67.9) % Lymph % (Auto) (21.8-53.1) % [place] % (Auto) (5.3-12.2) % Eos % (Auto) (0.8-7.0) Baso % (Auto) (0.1-1.2) % Neut # (Auto) (1.78-5.38) K/mm3 Lymph # (Auto) (1.32-3.57) K/mm3 [place] # (Auto) (0.30-0.82) K/mm3 Eos # (Auto) (0.04-0.54) K/mm3 Baso # (Auto) (0.01-0.08) K/mm3 Manual Slide Review Abnormal smear D-Dimer, Quantitative (0.19-0.50) mg/L Sodium (136-145) mEq/L Potassium (3.5-5.1) mEq/L Chloride (98-107) mEq/L Carbon Dioxide (21-32) mEq/L Anion Gap (5-15) BUN (7-18) mg/dL Creatinine (0.7-1.3) mg/dL Est Cr Clr Drug Dosing mL/min Estimated GFR (MDRD) (>60) mL/min BUN/Creatinine Ratio (14-18) Glucose (70-99) mg/dL POC Glucose 268 H (70-99) mg/dL Calcium (8.5-10.1) mg/dL Magnesium (1.8-2.4) mg/dL Total Bilirubin (0.2-1.0) mg/dL AST (15-37) U/L ALT (16-63) U/L Alkaline Phosphatase (46-116) U/L C-Reactive Protein (<1.0) mg/dL Total Protein (6.4-8.2) g/dl Albumin (3.4-5.0) g/dl Globulin gm/dL Albumin/Globulin Ratio (1-2) Procalcitonin <0.05 ng/mL 03/20/21 03/20/21 03/21/21 Range/Units 17:44 20:57 05:20 WBC 11.32 H (4.23-9.07) K/mm3 RBC 4.94 (4.63-6.08) M/mm3 Hgb 14.5 (13.7-17.5) gm/dl Hct 43.9 (40.1-51.0) % MCV 88.9 (79.0-92.2) fl MCH 29.4 (25.7-32.2) pg MCHC 33.0 (32.2-35.5) g/dl RDW Std Deviation 46.1 H (35.1-43.9) fL Plt Count 269 (163-337) K/mm3 MPV 10.6 (9.4-12.3) fl Neut % (Auto) 91.2 H (34.0-67.9) % Lymph % (Auto) 4.0 L (21.8-53.1) % [place] % (Auto) 3.9 L (5.3-12.2) % Eos % (Auto) 0.2 L (0.8-7.0) Baso % (Auto) 0.1 (0.1-1.2) % Neut # (Auto) 10.33 H (1.78-5.38) K/mm3 Lymph # (Auto) 0.45 L (1.32-3.57) K/mm3 [place] # (Auto) 0.44 (0.30-0.82) K/mm3 Eos # (Auto) 0.02 L (0.04-0.54) K/mm3 Baso # (Auto) 0.01 (0.01-0.08) K/mm3 Manual Slide Review Abnormal smear D-Dimer, Quantitative (0.19-0.50) mg/L Sodium (136-145) mEq/L Potassium (3.5-5.1) mEq/L Chloride (98-107) mEq/L Carbon Dioxide (21-32) mEq/L Anion Gap (5-15) BUN (7-18) mg/dL Creatinine (0.7-1.3) mg/dL Est Cr Clr Drug Dosing mL/min Estimated GFR (MDRD) (>60) mL/min BUN/Creatinine Ratio (14-18) Glucose (70-99) mg/dL POC Glucose 270 H 281 H (70-99) mg/dL Calcium (8.5-10.1) mg/dL Magnesium (1.8-2.4) mg/dL Total Bilirubin (0.2-1.0) mg/dL AST (15-37) U/L ALT (16-63) U/L Alkaline Phosphatase (46-116) U/L C-Reactive Protein (<1.0) mg/dL Total Protein (6.4-8.2) g/dl Albumin (3.4-5.0) g/dl Globulin gm/dL Albumin/Globulin Ratio (1-2) Procalcitonin ng/mL 03/21/21 03/21/21 03/21/21 Range/Units 05:20 05:20 06:44 WBC (4.23-9.07) K/mm3 RBC (4.63-6.08) M/mm3 Hgb (13.7-17.5) gm/dl Hct (40.1-51.0) % MCV (79.0-92.2) fl MCH (25.7-32.2) pg MCHC (32.2-35.5) g/dl RDW Std Deviation (35.1-43.9) fL Plt Count (163-337) K/mm3 MPV (9.4-12.3) fl Neut % (Auto) (34.0-67.9) % Lymph % (Auto) (21.8-53.1) % [place] % (Auto) (5.3-12.2) % Eos % (Auto) (0.8-7.0) Baso % (Auto) (0.1-1.2) % Neut # (Auto) (1.78-5.38) K/mm3 Lymph # (Auto) (1.32-3.57) K/mm3 [place] # (Auto) (0.30-0.82) K/mm3 Eos # (Auto) (0.04-0.54) K/mm3 Baso # (Auto) (0.01-0.08) K/mm3 Manual Slide Review D-Dimer, Quantitative 1.88 H (0.19-0.50) mg/L Sodium 142 (136-145) mEq/L Potassium 5.2 H (3.5-5.1) mEq/L Chloride 107 (98-107) mEq/L Carbon Dioxide 24 (21-32) mEq/L Anion Gap 16.2 H (5-15) BUN 27 H (7-18) mg/dL Creatinine 1.0 (0.7-1.3) mg/dL Est Cr Clr Drug Dosing 82.62 mL/min Estimated GFR (MDRD) > 60 (>60) mL/min BUN/Creatinine Ratio 27.0 H (14-18) Glucose 254 H (70-99) mg/dL POC Glucose 264 H (70-99) mg/dL Calcium 8.3 L (8.5-10.1) mg/dL Magnesium 2.3 (1.8-2.4) mg/dL Total Bilirubin 0.9 (0.2-1.0) mg/dL AST 35 (15-37) U/L ALT 79 H (16-63) U/L Alkaline Phosphatase 32 L (46-116) U/L C-Reactive Protein 1.2 H* (<1.0) mg/dL Total Protein 6.8 (6.4-8.2) g/dl Albumin 2.7 L (3.4-5.0) g/dl Globulin 4.1 gm/dL Albumin/Globulin Ratio 0.7 L (1-2) Procalcitonin ng/mL Result Diagrams: 03/21/21 05:20 03/21/21 05:20 Sepsis Event Note - Evaluation Sepsis Screening Result: Possible Sepsis Risk - Focused Exam Vital Signs: Vital Signs Temp Pulse Resp BP Pulse Ox Pulse Ox 03/21/21 06:41 91 L 03/21/21 06:18 94 L 03/21/21 05:51 92 L 03/21/21 05:39 81 20 122/72 91 L 03/21/21 05:38 17 03/21/21 05:00 56 L 21 H 91 L 03/21/21 04:00 97.5 F 61 18 89 L 03/21/21 03:10 89 L 03/21/21 03:00 65 18 88 L 03/21/21 02:00 53 L 21 H 89 L 03/21/21 01:00 15 03/21/21 00:43 67 15 125/71 88 L 03/21/21 00:42 17 03/21/21 00:00 63 21 H 89 L 03/20/21 23:00 56 L 21 H 89 L 03/20/21 22:00 66 17 92 L 03/20/21 21:57 91 L 03/20/21 21:21 96.8 F L 91 L 03/20/21 21:19 27 H 03/20/21 21:01 120 H 17 91 L 03/20/21 20:50 84 21 H 144/73 H 89 L 03/20/21 20:49 73 24 H 93 L 03/20/21 20:00 79 20 92 L - Problem List & Annotations (1) Type II diabetes mellitus SNOMED Code(s): 48567094 Code(s): E11.9 - TYPE 2 DIABETES MELLITUS WITHOUT COMPLICATIONS Status: Chronic Priority: Medium Current Visit: Yes Qualifiers: Diabetes mellitus residential insulin use: without terminal clerk use Diabetes mellitus complication status: without complication Qualified Code(s): E11.9 - Type 2 diabetes mellitus without complications (2) History of hypertension SNOMED Code(s): 391757789 Code(s): Z86.79 - PERSONAL HISTORY OF OTHER DISEASES OF THE CIRCULATORY SYSTEM Status: Chronic Priority: Low Current Visit: No (3) Morbid obesity SNOMED Code(s): 568223573 Code(s): E66.01 - MORBID (SEVERE) OBESITY DUE TO EXCESS CALORIES Status: Chronic Priority: Low Current Visit: No (4) Elevated d-dimer SNOMED Code(s): 628731246 Code(s): R79.89 - OTHER SPECIFIED ABNORMAL FINDINGS OF BLOOD CHEMISTRY Status: Acute Priority: Medium Current Visit: Yes (5) COVID-19 SNOMED Code(s): 174860314 Code(s): U07.1 - COVID-19 Status: Acute Priority: High Current Visit: Yes (6) Hypoxia SNOMED Code(s): 362484568 Code(s): R09.02 - HYPOXEMIA Status: Acute Priority: High Current Visit: Yes (7) Thrombocytopenia SNOMED Code(s): 570711546 Code(s): D69.6 - THROMBOCYTOPENIA, UNSPECIFIED Status: Resolved Priority: High Current Visit: Yes (8) Hepatic steatosis SNOMED Code(s): 594147224 Code(s): K76.0 - FATTY (CHANGE OF) LIVER, NOT ELSEWHERE CLASSIFIED Status: Chronic Priority: Low Current Visit: Yes (9) Cholelithiasis SNOMED Code(s): 368566851 Code(s): K80.20 - CALCULUS OF GALLBLADDER W/O CHOLECYSTITIS W/O OBSTRUCTION Status: Chronic Priority: Low Current Visit: Yes Qualifiers: Cholelithiasis location: gallbladder Cholecystitis presence: with cholecystitis Cholecystitis acuity: chronic Biliary obstruction: without biliary obstruction Qualified Code(s): K80.10 - Calculus of gallbladder with chronic cholecystitis without obstruction (10) Hypoalbuminemia SNOMED Code(s): 390429666 Code(s): E88.09 - OTH DISORDERS OF PLASMA-PROTEIN METABOLISM, NEC Status: Acute Priority: Medium Current Visit: Yes (11) Nephrolithiasis SNOMED Code(s): 68847074 Code(s): N20.0 - CALCULUS OF KIDNEY Status: Acute Current Visit: Yes (12) Hydroureter on right SNOMED Code(s): 55858655 Code(s): N13.4 - HYDROURETER Status: Acute Current Visit: Yes (13) Hydronephrosis SNOMED Code(s): 87954045 Code(s): N13.30 - UNSPECIFIED HYDRONEPHROSIS Status: Acute Priority: High Current Visit: Yes Qualifiers: Hydronephrosis type: unspecified Qualified Code(s): N13.30 - Unspecified hydronephrosis - Problem List Review Problem List Initiated/Reviewed/Updated: Yes - My Orders Last 24 Hours: My Active Orders 03/20/21 10:30 Insulin Glarg,Human.Rec.Analog [LantUS] 20 unit SUBCUT DAILY 03/23/21 09:54 DD [D-DIMER QUANTITATIVE] [COAG] Q48H - Assessment Assessment:: Assessment - 03/13/2021 (admitted late 03/12/2021) * This is a 60-year-old male presents to ED with dyspnea and hypoxia * Hx of hypertension though was able to come off his medications due to weight loss. He is a type II diabetic on Metformin. * Went to the walk-in clinic who sent him here * Symptoms began about 2 to 3 days prior * Denies a cough but was noted to have a fever on arrival of 101 * Chest x-ray was obtained at the walk-in clinic which showed bilateral infiltrates in the lower lobes consistent with COVID-19 pneumonia. * He was reportedly checked with a rapid Covid screen and was negative there * Saturations were noted to decrease to 80% and he was started on oxygen and sent here. 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 No history of lung problems such as asthma or COPD * Obese with a BMI of 48.3 however he reports he recently lost 80 pounds * Denies any chest pain, abdominal pain, nausea, or vomiting. * 12-lead EKG was obtained showing sinus tachycardia at 107 bpm with no ectopy. * Labs are obtained in ED and on floor: * WBC 4.57-->3.82 * Hemoglobin 14.6 ->14.9 * Platelet 91,000-->96,000 * Neutrophils 77.1%. * ABGs obtained with a pH of 7.45. PCO2 of 29.6. PO2 of 74.0. HCO3 of 20.3. Saturations of 96.3. This is on 2 L. * VB.32. PCO2 53.7. PO2 26.0. HCO3 of 26.8. Oxygen saturation 35.4. On 3 L. * Sodium 135-->141 * Potassium 3.9-->4.9 * Chloride 100-->103 * Carbon dioxide 23-->29 * Anion gap 15.9-->13.9 * BUN is 13-->16. Creatinine 1.2-->1.1. GFR greater than 60--> Greater than 60. * Glucose 153-->231. * Calcium 8.0-->8.1. * Bilirubin 1.1-->0.8. Direct bilirubin 0.50, Indirect bilirubin 0.30 * AST 115-->99. ALT 89-->87. Alkaline phosphatase 32-->31. * LDH 562. * Troponin 0.019. * CRP 16.9. * Protein 7.4-->7.5. * Albumin 3.1-->2.9. * Lactic acid 1.1. * Ferritin 3732. * D-dimer 1.43. * SARS-CoV-2 RNA is positive. * He is given 6 mg dexamethasone and 2 g of Rocephin. He is also given 2 puffs of an albuterol inhaler and ibuprofen. * Subsequently admitted to the medical floor on telemetry for management of his COVID-19 pneumonia. * CT obtained on floor on 03/12/2021 shows: * 1. No evidence of pulmonary embolus * 2. Moderate bilateral airspace disease compatible with infection * 3. Mild to moderate mediastinal and bihilar adenopathy * 4. Moderate hepatic steatosis * 5. Cholelithiasis 03/14/2021 This is a 60-year-old male admitted for COVID-19 treatment and hypoxia. Overall he is been doing quite well. Has been ambulating around the room. He did note some blood in his urine today so UA will be ordered. labs today show WBC 5.20. Hemoglobin 14.5. Hematocrit 43.6. Platelet improved to 100,000. Neutrophils elevated at 74.7.sodium of 139. Potassium 4.6. Chloride 103. Carbon dioxide 28. Anion gap 12.6. BUN 22. Creatinine 1.2. GFR greater than 60. Glucose has been 1 37-2 12. Calcium is 8.0. Magnesium 2.5. Total bilirubin 0.8. AST is 80, ALT 77, alkaline phosphatase 27. CRP is 12.6. Albumin is 2.7. We will recheck a D-dimer tomorrow. He has been weaned down to 1 L of oxygen. He has been utilizing his incentive spirometry and Acapella. He reports he is still tired but feels pretty good. We will continue treatment plan with likely discharge after completing remdesivir. 03/15/2021 Patient with mild cough denies chest pain denies sob no further hematuria 03/16/2021 denies chest pain on supplemental oxygen intermittent cough no diarrhea 03/17/2021 60-year-old male admitted for treatment of COVID-19 hypoxia. Late 03-14-2021 patient was noted to have gross bleeding from his penis. UA was obtained and CT scan of the abdomen pelvis was also obtained showing 1. Obstructing calculus within the distal right ureter located proximal to the UVJ. This obstructing calculus measures approximately 3.5 mm. This obstructing calculus causes obstructive changes within the right kidney as noted above. 2. Findings of Covid pneumonia within both lung bases. 3. Other findings as noted above which are nonacute. Three-way irrigating Gonzalez catheter was placed. Attending hospitalist did contact urology who reported a high probability of the patient passing the stone. He was placed on Flomax. Gonzalez catheter was ultimately removed. Since that time patient has had worsening desaturations. He was switched to high flow 50 L with an FiO2 of 65%. He was given Actemra. We will start the patient on 125 mg Solu-Medrol every 12 hours for now. Repeat chest x-ray was obtained showing worsening infiltrates. We again discussed proning, although the patient reports that he is unable to prone. We discussed utilizing incentive spirometry and Acapella. Labs today show a WBC of 5.44. Hemoglobin 13.6. Platelet 181,000. Neutrophils 67%. D-dimer is 1.99. Sodium 143. Potassium 4.1. Chloride 108. Carbon dioxide 25. Anion gap 14.1. BUN is 20. Creatinine 0.9. GFR greater than 60. Glucose is 239. Calcium 7.7. Magnesium is 2.3. Bilirubin 0.8. AST 65, ALT 83, alkaline phosphatase 27. CRP is 6.5. Albumin is 2.4. Patient did complete remdesivir treatment today. As his bleeding from his penis is stopped and as he has no gross hematuria anymore we will begin Lovenox 40 mg daily for VTE prophyl axis. Unknown length of stay pending oxygen wean. 03/18/2021 This is a 64-year-old male admitted for Covid pneumonia and after admission found to have a renal stone. Overall he states that he is doing okay. He reports he is chilled but otherwise has no concerns. He has been cautious not overdo it has he feels like he pushed himself a little too hard a few days ago and he had difficulty recovering from that. He denies any abdominal pain or continued bleeding from his penis. He was placed on Lovenox 40 mg daily. We will recheck a D-dimer tomorrow. Labs today show WBC of 7.05. Hemoglobin 13.4. Platelet 221,000. Neutrophils are elevated 85%. Sodium 141. Potassium 4.7. Chloride 104. Carbon dioxide 22. Anion gap 19.7. BUN is 21. Creatinine 0.9. GFR greater than 60. Glucose has been 209 to 304. Magnesium 2.3. Total bilirubin 0.6. AST is 47, ALT 76, alkaline phosphatase 28. CRP is 6.3. Protein 6.8. Albumin 2.5. We will increase sliding scale insulin to high dose and monitor need for long-acting insulin. He continues to utilize incentive spi rometry and Acapella. He is on high flow currently 50 L with FiO2 of 60. We will continue to work on weaning oxygen. He received Actemra and has been on twice daily 125 mg Solu-Medrol since. Unknown length of stay due to severity of COVID-19 symptoms. 03/19/2021 This is a 60-year-old male admitted to the floor for treatment of COVID-19. Once on the floor he was noted to have some bleeding from his penis and was noted to have a renal stone. Bleeding is since resolved. Unfortunate his oxygen demand has been increasing and he is currently on BiPAP. Labs today show WBC of 10.67 which is likely steroid related. Hemoglobin is 13.8. Hematocrit 41.7. Platelet 251,000. Neutrophils are elevated at 87.1%. D-dimer is 1.79 which is slightly decreased from prior. Sodium is 142. Potassium 4.7. Chloride 109. Carbon dioxide 25. Anion gap 12.7. BUN is 23. Creatinine 0.9. GFR is greater than 60. Glucose is 214-310. Calcium is 8.4. Magnesium 2.4. Bilirubin 0.8. AST is 30, ALT 70, alkaline phosphatase 33. CRP is down to 3.8. Protein 6.8. Albumin is up to 2.6. Recheck a chest x-ray today shows worsening infiltrates bilaterally. Lung sounds are significantly diminished over prior day. Will upgrade to ICU status due to worsening saturations. Step daughter Kary contacted at patient request ([phone]). While in room patient reports that he does not want to be resuscitated and does not want intubation should he take a turn for the worse. He reports he has paperwork on file that says he is DO NOT RESUSCITATE/DO NOT INTUBATE. CODE STATUS changed at patient's request. Dr. Hernandez, attending hospitalist in the room to discuss plan with patient. Patient aware of poor prognosis given worsening symptoms and need for BiPAP. 03/20/2021 60-year-old male admitted to the floor for hypoxia secondary to Covid pneumonia. On the floor patient was found to have renal stone with gross bleeding from his penis. Urology was consulted and stated that this stone will pass. Patient was started on Flomax. Yesterday patient was noted to have worsening saturations and was placed on BiPAP. Chest x-ray was obtained which showed worsening bilateral infiltrates discussion ensued and patient requested to be DNR/DNI status. Patient was upgraded to ICU. Today patient has been on high flow and tolerating this well. Saturations have been low 90s. He is on 60 L with 90% FiO2. He has been proning occasionally and his saturations have been in the upper 90s when he is doing this. He continues to receive 125 mg Solu-Medrol twice daily I will look at decreasing this in the future if he continues to improve. Labs today show WBC of 10.02. He hemoglobin 14.0. Platelet 270,000. Neutrophils 90.6. Sodium 141. Potassium 4.9. Chloride 108. Carbon dioxide 25. Anion gap 12.9. BUN is 26. Creatinine 0.9. GFR greater than 60. Blood glucose readings have been elevated from 221-265. Calcium is 8.4. Magnesium 2.4. Total bilirubin 0.9. AST 35, ALT 74. Alkaline phosphatase 34. CRP is improved to 2.0. Protein 6.8. Albumin 2.7. Procalcitonin less than 0.05. Given the patient's increased blood sugars and need for 6 to 9 units per dosing of Humalog we will start 20 units Lantus daily. This will likely need to be decreased or discontinued as the patient weans off of steroids. Patient will continue admission in the ICU. Overall he remains stable to improved. Continues to be short of breath. Unknown length of stay is will depend on continued response to treatment. We again discussed CODE STATUS. Patient reports he would like to remain DNR/DNI and should he get to the point where he needs intubation we will readdress this, per his wishes. 03/21/2021 This is a 60-year-old male admitted to the floor with hypoxia secondary to COVID-19 pneumonia. Today patient's lung sounds are greatly improved however still quite diminished. He remains on high flow 60 L at 85% FiO2. Labs show a WBC of 11.32 which is likely steroid induced. Hemoglobin 14.5. Platelet 259,000. Neutrophils are elevated 91.2%. D-dimer is 1.88. Sodium is 142. Potassium 5.2. Chloride 107. Carbon dioxide 24. Anion gap is 16.2. BUN is 27. Creatinine 1.0. GFR greater than 60. Glucose has been 2 64-2 81. Calcium is 8.3. Magnesium 2.3. Total bilirubin 0.9. AST is 35, ALT 79, alkaline phos phatase 32. CRP is 1.2. Protein 6.8. Albumin 2.7. Patient has been proning but states he can only do this for short periods due to back pain. He has been utilizing his incentive spirometer and Acapella. Nursing were instructed to continue to encourage this. Patient may resume PT and OT today. He was stepdown from ICU to [facility] on telemetry. We will increase his long-acting insulin to 30 units daily due to continued elevated blood sugars. Steroid will be decreased to 60 mg every 8 hours. Continue current treatment plan. Unknown length of stay pending improvement from COVID-19 pneumonia. - Plan Plan:: COVID-19 Hypoxia Elevated d-dimer Hypoalbuminemia * O2 as needed with goal saturations of 88-95% * Completed Remdesivir * Decrease Solu-Medrol to 60 mg every 8 hour * IS/Acapella * RT consultation * High flow oxygen as directed * Airborne and contact isolation * Telemetry * Continuous pulse oximetry * Encourage proning * Encourage ambulation around room * CTA obtained and negative * Lovenox subcutaneous * Continue daily aspirin * Computer Software Engineer consultation * Daily labs * Famotidine 20mg BID * PRN motrin for pain/fever (Reported adverse reaction to Tylenol) * Given Actemera on 03/17/2021 * Procalcitonin negative * Cultures negative thus far * PT/OT Type II diabetes mellitus * Hold home metformin * High dose sliding scale insulin * QID AC and Bedtime blood glucose checks * Anticipate rise in blood glucose readings due to steroids * Increase Lantus to 30 units daily due to continued increased blood sugars History of hypertension * No current home BP meds * Monitor vital signs Thrombocytopenia, Resolved * Monitor Morbid obesity * Computer Software Engineer consultation Hepatic steatosis Cholelithiasis * No acute concerns * PCP follow-up Nephrolithiasis right hydroureteronephrosis * CT obtained * Case discussed with urology; per urology 90% likelihood that stone will pass by itself * Started on Flomax 03/14 Code status: DNR/DNI - Patient would like us to re-address this if it appears he is worsening and may need intubation. PCP: Tricia Mohr NP DVT prohylaxis: Lovenox Disposition: Patient admitted to [facility] on telemetry for COVID-19 treatment. Upgraded to ICU status on 03/19/2021 due to worsening saturations. Downgraded to MedSurg status on telemetry on 03/21/2021. LOS >96Hrs due to need for continued COVID-19 treatment. <David Hernandez Jr - Last Filed: 03/21/21 14:43> - Patient Data Vitals - Most Recent: Last Vital Signs Temp 96.8 F L 03/21/21 12:00 Pulse 81 03/21/21 05:39 Resp 21 H 03/21/21 12:00 BP 129/70 03/21/21 12:00 Pulse Ox 92 L 03/21/21 12:00 I&O - Last 24 Hours: Intake & Output 03/20/21 03/21/21 03/21/21 22:59 06:59 14:59 Intake Total 830 300 240 Output Total 1200 450 Balance -370 -150 240 Lab Results Last 24 Hours: Laboratory Results - last 24 hr 03/20/21 03/20/21 03/21/21 Range/Units 17:44 20:57 05:20 WBC 11.32 H (4.23-9.07) K/mm3 RBC 4.94 (4.63-6.08) M/mm3 Hgb 14.5 (13.7-17.5) gm/dl Hct 43.9 (40.1-51.0) % MCV 88.9 (79.0-92.2) fl MCH 29.4 (25.7-32.2) pg MCHC 33.0 (32.2-35.5) g/dl RDW Std Deviation 46.1 H (35.1-43.9) fL Plt Count 269 (163-337) K/mm3 MPV 10.6 (9.4-12.3) fl Neut % (Auto) 91.2 H (34.0-67.9) % Lymph % (Auto) 4.0 L (21.8-53.1) % [place] % (Auto) 3.9 L (5.3-12.2) % Eos % (Auto) 0.2 L (0.8-7.0) Baso % (Auto) 0.1 (0.1-1.2) % Neut # (Auto) 10.33 H (1.78-5.38) K/mm3 Lymph # (Auto) 0.45 L (1.32-3.57) K/mm3 [place] # (Auto) 0.44 (0.30-0.82) K/mm3 Eos # (Auto) 0.02 L (0.04-0.54) K/mm3 Baso # (Auto) 0.01 (0.01-0.08) K/mm3 Manual Slide Review Abnormal smear D-Dimer, Quantitative (0.19-0.50) mg/L Sodium (136-145) mEq/L Potassium (3.5-5.1) mEq/L Chloride (98-107) mEq/L Carbon Dioxide (21-32) mEq/L Anion Gap (5-15) BUN (7-18) mg/dL Creatinine (0.7-1.3) mg/dL Est Cr Clr Drug Dosing mL/min Estimated GFR (MDRD) (>60) mL/min BUN/Creatinine Ratio (14-18) Glucose (70-99) mg/dL POC Glucose 270 H 281 H (70-99) mg/dL Calcium (8.5-10.1) mg/dL Magnesium (1.8-2.4) mg/dL Total Bilirubin (0.2-1.0) mg/dL AST (15-37) U/L ALT (16-63) U/L Alkaline Phosphatase (46-116) U/L C-Reactive Protein (<1.0) mg/dL Total Protein (6.4-8.2) g/dl Albumin (3.4-5.0) g/dl Globulin gm/dL Albumin/Globulin Ratio (1-2) 03/21/21 03/21/2103/21/21 Range/Units 05:20 05:20 06:44 WBC (4.23-9.07) K/mm3 RBC (4.63-6.08) M/mm3 Hgb (13.7-17.5) gm/dl Hct (40.1-51.0) % MCV (79.0-92.2) fl MCH (25.7-32.2) pg MCHC (32.2-35.5) g/dl RDW Std Deviation (35.1-43.9) fL Plt Count (163-337) K/mm3 MPV (9.4-12.3) fl Neut % (Auto) (34.0-67.9) % Lymph % (Auto) (21.8-53.1) % [place] % (Auto) (5.3-12.2) % Eos % (Auto) (0.8-7.0) Baso % (Auto) (0.1-1.2) % Neut # (Auto) (1.78-5.38) K/mm3 Lymph # (Auto) (1.32-3.57) K/mm3 [place] # (Auto) (0.30-0.82) K/mm3 Eos # (Auto) (0.04-0.54) K/mm3 Baso # (Auto) (0.01-0.08) K/mm3 Manual Slide Review D-Dimer, Quantitative 1.88 H (0.19-0.50) mg/L Sodium 142 (136-145) mEq/L Potassium 5.2 H (3.5-5.1) mEq/L Chloride 107 (98-107) mEq/L Carbon Dioxide 24 (21-32) mEq/L Anion Gap 16.2 H (5-15) BUN 27 H (7-18) mg/dL Creatinine 1.0 (0.7-1.3) mg/dL Est Cr Clr Drug Dosing 82.62 mL/min Estimated GFR (MDRD) > 60 (>60) mL/min BUN/Creatinine Ratio 27.0 H (14-18) Glucose 254 H (70-99) mg/dL POC Glucose 264 H (70-99) mg/dL Calcium 8.3 L (8.5-10.1) mg/dL Magnesium 2.3 (1.8-2.4) mg/dL Total Bilirubin 0.9 (0.2-1.0) mg/dL AST 35 (15-37) U/L ALT 79 H (16-63) U/L Alkaline Phosphatase 32 L (46-116) U/L C-Reactive Protein 1.2 H* (<1.0) mg/dL Total Protein 6.8 (6.4-8.2) g/dl Albumin 2.7 L (3.4-5.0) g/dl Globulin 4.1 gm/dL Albumin/Globulin Ratio 0.7 L (1-2) 03/21/21 Range/Units 12:27 WBC (4.23-9.07) K/mm3 RBC (4.63-6.08) M/mm3 Hgb (13.7-17.5) gm/dl Hct (40.1-51.0) % MCV (79.0-92.2) fl MCH (25.7-32.2) pg MCHC (32.2-35.5) g/dl RDW Std Deviation (35.1-43.9) fL Plt Count (163-337) K/mm3 MPV (9.4-12.3) fl Neut % (Auto) (34.0-67.9) % Lymph % (Auto) (21.8-53.1) % [place] % (Auto) (5.3-12.2) % Eos % (Auto) (0.8-7.0) Baso % (Auto) (0.1-1.2) % Neut # (Auto) (1.78-5.38) K/mm3 Lymph # (Auto) (1.32-3.57) K/mm3 [place] # (Auto) (0.30-0.82) K/mm3 Eos # (Auto) (0.04-0.54) K/mm3 Baso # (Auto) (0.01-0.08) K/mm3 Manual Slide Review D-Dimer, Quantitative (0.19-0.50) mg/L Sodium (136-145) mEq/L Potassium (3.5-5.1) mEq/L Chloride (98-107) mEq/L Carbon Dioxide (21-32) mEq/L Anion Gap (5-15) BUN (7-18) mg/dL Creatinine (0.7-1.3) mg/dL Est Cr Clr Drug Dosing mL/min Estimated GFR (MDRD) (>60) mL/min BUN/Creatinine Ratio (14-18) Glucose (70-99) mg/dL POC Glucose 253 H (70-99) mg/dL Calcium (8.5-10.1) mg/dL Magnesium (1.8-2.4) mg/dL Total Bilirubin (0.2-1.0) mg/dL AST (15-37) U/L ALT (16-63) U/L Alkaline Phosphatase (46-116) U/L C-Reactive Protein (<1.0) mg/dL Total Protein (6.4-8.2) g/dl Albumin (3.4-5.0) g/dl Globulin gm/dL Albumin/Globulin Ratio (1-2) Med Orders - Current: Current Medications Albuterol (Albuterol 6.7 Gm Inhaler) 0 gm INH Q6H PRN PRN Reason: Shortness of Breath Last Admin: 03/19/21 08:35 Dose: 2 puff Documented by: Albuterol/Ipratropium (Albuterol/Ipratropium 3.0-0.5 Mg/3 Ml Neb Soln) 3 ml NEB Q4H [facility] Last Admin: 03/21/21 09:58 Dose: 3 ml Documented by: Aspirin (Aspirin 81 Mg Tab.Ec) 81 mg PO DAILY [facility] Last Admin: 03/21/21 08:58 Dose: 81 mg Documented by: Enoxaparin Sodium (Enoxaparin 40 Mg/0.4 Ml Syringe) 40 mg SUBCUT DAILY [facility] Last Admin: 03/21/21 08:56 Dose: 40 mg Documented by: Famotidine (Famotidine 20 Mg Tab) 20 mg PO BID [facility] Last Admin: 03/21/21 08:57 Dose: 20 mg Documented by: Hydromorphone HCl (Hydromorphone 0.5 Mg/0.5 Ml Syringe) 0.5 mg IVPUSH Q1H PRN PRN Reason: Pain (severe 7-10) Last Admin: 03/16/21 21:20 Dose: 0.5 mg Documented by: Ibuprofen (Ibuprofen 600 Mg Tab) 600 mg PO Q6H PRN PRN Reason: fever/pain Last Admin: 03/13/21 17:57 Dose: 600 mg Documented by: Insulin Glargine (Insulin Glarg,Human.Rec.Analog 100 Unit/Ml) 30 unit SUBCUT DAILY [facility] Insulin Human Lispro (Insulin Lispro 100 Unit/Ml 10 Ml Vial) 0 unit SUBCUT QIDACANDBED [facility]; Protocol Last Admin: 03/21/21 12:50 Dose: 9 unit Documented by: Methylprednisolone Sodium Succinate (Methylprednisolone Sodium Succinate 125 Mg/2 Ml Sdv) 60 mg IVPUSH Q8H [facility] Last Admin: 03/21/21 12:49 Dose: 60 mg Documented by: Multivitamins/Minerals/Vitamin C (Multivitamin Tab) 1 tab PO DAILY [facility] Last Admin: 03/21/21 08:57 Dose: 1 tab Documented by: Ondansetron HCl (Ondansetron 4 Mg/2 Ml Sdv) 4 mg IV Q6H PRN PRN Reason: Nausea/Vomiting Oxycodone HCl (Oxycodone 5 Mg Tab) 5 mg PO Q4H PRN PRN Reason: Pain (moderate 4-6) Last Admin: 03/18/21 21:52 Dose: 5 mg Documented by: Sodium Chloride (Sodium Chloride 0.9% 10 Ml Syringe) 10 ml FLUSH ASDIRECTED PRN PRN Reason: Keep Vein Open Last Admin: 03/12/21 17:49 Dose: 10 ml Documented by: Tamsulosin HCl (Tamsulosin 0.4 Mg Cap.Er) 0.4 mg PO DAILY [facility] Last Admin: 03/21/21 08:57 Dose: 0.4 mg Documented by: Discontinued Medications Albuterol (Albuterol 6.7 Gm Inhaler) 0 gm INH ONETIME ONE Stop: 03/12/21 17:41 Last Admin: 03/12/21 17:49 Dose: 2 puff Documented by: Dexamethasone (Dexamethasone 10 Mg/Ml Sdv) 6 mg IVPUSH ONETIME ONE Stop: 03/12/21 19:50 Last Admin: 03/12/21 20:24 Dose: 6 mg Documented by: Dexamethasone (Dexamethasone 4 Mg Tab) 6 mg PO Q24H [facility] Stop: 03/21/21 18:01 Last Admin: 03/16/21 17:43 Dose: 6 mg Documented by: Diatrizoate Meglum/Diatrizoate Sod (Diatrizoate Meglumine/Diatrizoate Sodium 37% 120 Ml Bottle) 60 ml PO ONETIME ONE Stop: 03/14/21 16:44 Last Admin: 03/14/21 16:55 Dose: 60 ml Documented by: Heparin Sodium (Porcine) (Heparin Sodium 5,000 Units/Ml Vial) 5,000 units SUBCUT Q8H [facility] Last Admin: 03/14/21 06:31 Dose: Not Given Documented by: Ceftriaxone Sodium 2 gm/ (Sodium Chloride) 100 mls @ 200 mls/hr IV ONETIME ONE Stop: 03/12/21 18:08 Last Admin: 03/12/21 17:49 Dose: 200 mls/hr Documented by: Remdesivir 200 mg/ Sodium (Chloride) 250 mls @ 250 mls/hr IV ONETIME ONE Stop: 03/13/21 09:29 Last Admin: 03/13/21 08:28 Dose: 250 mls/hr Documented by: Remdesivir 100 mg/ Sodium (Chloride) 100 mls @ 100 mls/hr IV Q24H [facility] Stop: 03/17/21 09:29 Last Admin: 03/17/21 09:50 Dose: 100 mls/hr Documented by: Tocilizumab 800 mg/ Sodium (Chloride) 100 mls @ 100 mls/hr IV ONETIME ONE Stop: 03/17/21 11:29 Last Admin: 03/17/21 11:24 Dose: 100 mls/hr Documented by: Ibuprofen (Ibuprofen 600 Mg Tab) 600 mg PO ONETIME ONE Stop: 03/12/21 17:43 Last Admin: 03/12/21 17:49 Dose: 600 mg Documented by: Insulin Glargine (Insulin Glarg,Human.Rec.Analog 100 Unit/Ml) 20 unit SUBCUT DAILY [facility] Last Admin: 03/21/21 08:56 Dose: 20 units Documented by: Iopamidol (Iopamidol 612 Mg/Ml 100 Ml Bottle) 100 ml IVPUSH ONETIME ONE Stop: 03/14/21 16:44 Last Admin: 03/14/21 16:56 Dose: 100 ml Documented by: Lidocaine HCl (Lidocaine 2% Jelly 10 Ml Urojet) 10 ml MUCMEM ONETIME ONE Stop: 03/14/21 16:01 Last Admin: 03/14/21 16:54 Dose: 10 ml Documented by: Magnesium Hydroxide (Magnesium Hydroxide 400 Mg/5 Ml Susp 30 Ml Cup) 30 ml PO ONETIME ONE Stop: 03/18/21 06:31 Last Admin: 03/18/21 06:30 Dose: Not Given Documented by: Metformin HCl (Metformin 500 Mg Tab) 500 mg PO BIDMEALS [facility] Last Admin: 03/13/21 07:36 Dose: Not Given Documented by: Methylprednisolone Sodium Succinate (Methylprednisolone Sodium Succinate 125 Mg/2 Ml Sdv) 125 mg IVPUSH Q12H [facility] Last Admin: 03/21/21 00:41 Dose: 125 mg Documented by: Sodium Chloride (Sodium Chloride 0.9% 10 Ml Syringe) 10 ml FLUSH ONETIME PRN PRN Reason: Keep Vein Open Stop: 03/14/21 19:00 Last Admin: 03/14/21 16:56 Dose: 10 ml Documented by: Tamsulosin HCl (Tamsulosin 0.4 Mg Cap.Er) 0.4 mg PO ONETIME ONE Stop: 03/14/21 17:56 Last Admin: 03/14/21 18:09 Dose: 0.4 mg Documented by: - Patient Data Lab Results Last 24 hrs: Laboratory Results - last 24 hr 03/20/21 03/20/21 03/21/21 Range/Units 17:44 20:57 05:20 WBC 11.32 H (4.23-9.07) K/mm3 RBC 4.94 (4.63-6.08) M/mm3 Hgb 14.5 (13.7-17.5) gm/dl Hct 43.9 (40.1-51.0) % MCV 88.9 (79.0-92.2) fl MCH 29.4 (25.7-32.2) pg MCHC 33.0 (32.2-35.5) g/dl RDW Std Deviation 46.1 H (35.1-43.9) fL Plt Count 269 (163-337) K/mm3 MPV 10.6 (9.4-12.3) fl Neut % (Auto) 91.2 H (34.0-67.9) % Lymph % (Auto) 4.0 L (21.8-53.1) % [place] % (Auto) 3.9 L (5.3-12.2) % Eos % (Auto) 0.2 L (0.8-7.0) Baso % (Auto) 0.1 (0.1-1.2) % Neut # (Auto) 10.33 H (1.78-5.38) K/mm3 Lymph # (Auto) 0.45 L (1.32-3.57) K/mm3 [place] # (Auto) 0.44 (0.30-0.82) K/mm3 Eos # (Auto) 0.02 L (0.04-0.54) K/mm3 Baso # (Auto) 0.01 (0.01-0.08) K/mm3 Manual Slide Review Abnormal smear D-Dimer, Quantitative (0.19-0.50) mg/L Sodium (136-145) mEq/L Potassium (3.5-5.1) mEq/L Chloride (98-107) mEq/L Carbon Dioxide (21-32) mEq/L Anion Gap (5-15) BUN (7-18) mg/dL Creatinine (0.7-1.3) mg/dL Est Cr Clr Drug Dosing mL/min Estimated GFR (MDRD) (>60) mL/min BUN/Creatinine Ratio (14-18) Glucose (70-99) mg/dL POC Glucose 270 H 281 H (70-99) mg/dL Calcium (8.5-10.1) mg/dL Magnesium (1.8-2.4) mg/dL Total Bilirubin (0.2-1.0) mg/dL AST (15-37) U/L ALT (16-63) U/L Alkaline Phosphatase (46-116) U/L C-Reactive Protein (<1.0) mg/dL Total Protein (6.4-8.2) g/dl Albumin (3.4-5.0) g/dl Globulin gm/dL Albumin/Globulin Ratio (1-2) 03/21/21 03/21/21 03/21/21 Range/Units 05:20 05:20 06:44 WBC (4.23-9.07) K/mm3 RBC (4.63-6.08) M/mm3 Hgb (13.7-17.5) gm/dl Hct (40.1-51.0) % MCV (79.0-92.2) fl MCH (25.7-32.2) pg MCHC (32.2-35.5) g/dl RDW Std Deviation (35.1-43.9) fL Plt Count (163-337) K/mm3 MPV (9.4-12.3) fl Neut % (Auto) (34.0-67.9) % Lymph % (Auto) (21.8-53.1) % [place] % (Auto) (5.3-12.2) % Eos % (Auto) (0.8-7.0) Baso % (Auto) (0.1-1.2) % Neut # (Auto) (1.78-5.38) K/mm3 Lymph # (Auto) (1.32-3.57) K/mm3 [place] # (Auto) (0.30-0.82) K/mm3 Eos # (Auto) (0.04-0.54) K/mm3 Baso # (Auto) (0.01-0.08) K/mm3 Manual Slide Review D-Dimer, Quantitative 1.88 H (0.19-0.50) mg/L Sodium 142 (136-145) mEq/L Potassium 5.2 H (3.5-5.1) mEq/L Chloride 107 (98-107) mEq/L Carbon Dioxide 24 (21-32) mEq/L Anion Gap 16.2 H (5-15) BUN 27 H (7-18) mg/dL Creatinine 1.0 (0.7-1.3) mg/dL Est Cr Clr Drug Dosing 82.62 mL/min Estimated GFR (MDRD) > 60 (>60) mL/min BUN/Creatinine Ratio 27.0 H (14-18) Glucose 254 H (70-99) mg/dL POC Glucose 264 H (70-99) mg/dL Calcium 8.3 L (8.5-10.1) mg/dL Magnesium 2.3 (1.8-2.4) mg/dL Total Bilirubin 0.9 (0.2-1.0) mg/dL AST 35 (15-37) U/L ALT 79 H (16-63) U/L Alkaline Phosphatase 32 L (46-116) U/L C-Reactive Protein 1.2 H* (<1.0) mg/dL Total Protein 6.8 (6.4-8.2) g/dl Albumin 2.7 L (3.4-5.0) g/dl Globulin 4.1 gm/dL Albumin/Globulin Ratio 0.7 L (1-2) // Range/Units 12:27 WBC (4.23-9.07) K/mm3 RBC (4.63-6.08) M/mm3 Hgb (13.7-17.5) gm/dl Hct (40.1-51.0) % MCV (79.0-92.2) fl MCH (25.7-32.2) pg MCHC (32.2-35.5) g/dl RDW Std Deviation (35.1-43.9) fL Plt Count (163-337) K/mm3 MPV (9.4-12.3) fl Neut % (Auto) (34.0-67.9) % Lymph % (Auto) (21.8-53.1) % [place] % (Auto) (5.3-12.2) % Eos % (Auto) (0.8-7.0) Baso % (Auto) (0.1-1.2) % Neut # (Auto) (1.78-5.38) K/mm3 Lymph # (Auto) (1.32-3.57) K/mm3 [place] # (Auto) (0.30-0.82) K/mm3 Eos # (Auto) (0.04-0.54) K/mm3 Baso # (Auto) (0.01-0.08) K/mm3 Manual Slide Review D-Dimer, Quantitative (0.19-0.50) mg/L Sodium (136-145) mEq/L Potassium (3.5-5.1) mEq/L Chloride (98-107) mEq/L Carbon Dioxide (21-32) mEq/L Anion Gap (5-15) BUN (7-18) mg/dL Creatinine (0.7-1.3) mg/dL Est Cr Clr Drug Dosing mL/min Estimated GFR (MDRD) (>60) mL/min BUN/Creatinine Ratio (14-18) Glucose (70-99) mg/dL POC Glucose 253 H (70-99) mg/dL Calcium (8.5-10.1) mg/dL Magnesium (1.8-2.4) mg/dL Total Bilirubin (0.2-1.0) mg/dL AST (15-37) U/L ALT (16-63) U/L Alkaline Phosphatase (46-116) U/L C-Reactive Protein (<1.0) mg/dL Total Protein (6.4-8.2) g/dl Albumin (3.4-5.0) g/dl Globulin gm/dL Albumin/Globulin Ratio (1-2) Result Diagrams: 03/21/21 05:20 03/21/21 05:20 Sepsis Event Note - Focused Exam Vital Signs: Vital Signs Temp Temp Pulse Resp BP BP Pulse Ox 03/21/21 12:00 96.8 F L 21 H 129/70 92 L 03/21/21 09:58 03/21/21 08:00 96.9 F 21 H 141/75 H 90 L 03/21/21 06:41 03/21/21 06:18 03/21/21 05:51 92 L 03/21/21 05:39 81 20 122/72 91 L 03/21/21 05:38 17 03/21/21 05:00 56 L 21 H 91 L 03/21/21 04:00 97.5 F 61 18 89 L 03/21/21 03:10 03/21/21 03:00 65 18 88 L Pulse Ox 03/21/21 12:00 03/21/21 09:58 91 L 03/21/21 08:00 03/21/21 06:41 91 L 03/21/21 06:18 94 L 03/21/21 05:51 03/21/21 05:39 03/21/21 05:38 03/21/21 05:00 03/21/21 04:00 03/21/21 03:10 89 L 03/21/21 03:00 - Plan Plan:: Case discussed in full. Agree with evaluation, assessment and plan.
[2021-03-21] MEDS: Insulin Lispro 100 UNIT/ML 10 ML Vial SUBCUT SCH ×5 (08:55→21:47)
[2021-03-21] MEDS: Enoxaparin 40 MG/0.4 ML Syringe SUBCUT SCH (08:56)
[2021-03-21] MEDS: Insulin Glarg,Human.Rec.Analog 100 Unit/ML SUBCUT SCH (08:56)
[2021-03-21] MEDS: Famotidine 20 MG Tab PO SCH ×2 (08:57→20:17)
[2021-03-21] MEDS: Multivitamin Tab PO SCH (08:57)
[2021-03-21] MEDS: Tamsulosin 0.4 MG Cap.ER PO SCH (08:57)
[2021-03-21] MEDS: Aspirin 81 MG Tab.EC PO SCH (08:58)
[2021-03-22] MEDS: Albuterol/Ipratropium 3.0-0.5 MG/3 ML Neb Soln NEB SCH ×6 (02:52→22:21)
[2021-03-22] MEDS: methylPREDNISolone Sodium Succinate 125 MG/2 ML SDV IVPUSH SCH ×3 (04:33→20:14)
--- NOTE | 2021-03-22 07:02 | PCM.PN ---
- General Info Date of Service: 03/22/21 Admission Dx/Problem (Free Text): The patient was admitted secondary to COVID-19 pneumonia. Subjective Update: The patient is a 60-year-old gentleman who was admitted secondary to COVID-19 pneumonia on March 13, 2021. The patient today says that he is not doing very well. He has remained on oxygen although he has been eating without his oxygen. The patient has denied any pain. He has been tolerating the diet but he does not like the taste. The patient has been using the restroom. Functional Status: Reports: Pain Controlled, Tolerating Diet - Review of Systems General: Reports: Weakness, Fatigue HEENT: Reports: Sinus Congestion Pulmonary: Reports: Cough Cardiovascular: Reports: No Symptoms Gastrointestinal: Reports: No Symptoms Genitourinary: Reports: No Symptoms Musculoskeletal: Reports: No Symptoms Skin: Reports: No Symptoms Neurological: Reports: No Symptoms Psychiatric: Reports: No Symptoms - Patient Data Vitals - Most Recent: Last Vital Signs Temp 36.1 C 03/22/21 04:00 Pulse 67 03/22/21 06:00 Resp 19 03/22/21 06:00 BP 150/76 H 03/22/21 04:00 Pulse Ox 89 L 03/22/21 06:17 Weight - Most Recent: 149.685 kg I&O - Last 24 Hours: Intake & Output 03/21/21 03/22/21 03/22/21 22:59 06:59 14:59 Intake Total 450 600 Output Total 800 600 Balance -350 0 Lab Results Last 24 Hours: Laboratory Results - last 24 hr 03/21/21 03/21/21 03/21/21 Range/Units 05:20 12:27 16:30 WBC (4.23-9.07) K/mm3 RBC (4.63-6.08) M/mm3 Hgb (13.7-17.5) gm/dl Hct (40.1-51.0) % MCV (79.0-92.2) fl MCH (25.7-32.2) pg MCHC (32.2-35.5) g/dl RDW Std Deviation (35.1-43.9) fL Plt Count (163-337) K/mm3 MPV (9.4-12.3) fl Neut % (Auto) (34.0-67.9) % Lymph % (Auto) (21.8-53.1) % [place] % (Auto) (5.3-12.2) % Eos % (Auto) (0.8-7.0) Baso % (Auto) (0.1-1.2) % Neut # (Auto) (1.78-5.38) K/mm3 Lymph # (Auto) (1.32-3.57) K/mm3 [place] # (Auto) (0.30-0.82) K/mm3 Eos # (Auto) (0.04-0.54) K/mm3 Baso # (Auto) (0.01-0.08) K/mm3 Manual Slide Review Abnormal smear POC Glucose 253 H 289 H (70-99) mg/dL 03/21/21 03/22/21 03/22/21 Range/Units 20:14 05:45 05:46 WBC 12.31 H (4.23-9.07) K/mm3 RBC 4.82 (4.63-6.08) M/mm3 Hgb 14.1 (13.7-17.5) gm/dl Hct 42.9 (40.1-51.0) % MCV 89.0 (79.0-92.2) fl MCH 29.3 (25.7-32.2) pg MCHC 32.9 (32.2-35.5) g/dl RDW Std Deviation 45.8 H (35.1-43.9) fL Plt Count 251 (163-337) K/mm3 MPV 10.7 (9.4-12.3) fl Neut % (Auto) 92.4 H (34.0-67.9) % Lymph % (Auto) 3.1 L (21.8-53.1) % [place] % (Auto) 3.9 L (5.3-12.2) % Eos % (Auto) 0 L (0.8-7.0) Baso % (Auto) 0.1 (0.1-1.2) % Neut # (Auto) 11.38 H (1.78-5.38) K/mm3 Lymph # (Auto) 0.38 L (1.32-3.57) K/mm3 [place] # (Auto) 0.48 (0.30-0.82) K/mm3 Eos # (Auto) 0.00 L (0.04-0.54) K/mm3 Baso # (Auto) 0.01 (0.01-0.08) K/mm3 Manual Slide Review Abnormal smear POC Glucose 386 H 323 H (70-99) mg/dL Med Orders - Current: Current Medications Albuterol (Albuterol 6.7 Gm Inhaler) 0 gm INH Q6H PRN PRN Reason: Shortness of Breath Last Admin: 03/19/21 08:35 Dose: 2 puff Documented by: Albuterol/Ipratropium (Albuterol/Ipratropium 3.0-0.5 Mg/3 Ml Neb Soln) 3 ml NEB Q4H [facility] Last Admin: 03/22/21 06:16 Dose: 3 ml Documented by: Aspirin (Aspirin 81 Mg Tab.Ec) 81 mg PO DAILY [facility] Last Admin: 03/21/21 08:58 Dose: 81 mg Documented by: Enoxaparin Sodium (Enoxaparin 40 Mg/0.4 Ml Syringe) 40 mg SUBCUT DAILY [facility] Last Admin: 03/21/21 08:56 Dose: 40 mg Documented by: Famotidine (Famotidine 20 Mg Tab) 20 mg PO BID [facility] Last Admin: 03/21/21 20:17 Dose: 20 mg Documented by: Hydromorphone HCl (Hydromorphone 0.5 Mg/0.5 Ml Syringe) 0.5 mg IVPUSH Q1H PRN PRN Reason: Pain (severe 7-10) Last Admin: 03/16/21 21:20 Dose: 0.5 mg Documented by: Ibuprofen (Ibuprofen 600 Mg Tab) 600 mg PO Q6H PRN PRN Reason: fever/pain Last Admin: 03/13/21 17:57 Dose: 600 mg Documented by: Insulin Glargine (Insulin Glarg,Human.Rec.Analog 100 Unit/Ml) 30 unit SUBCUT DAILY [facility] Insulin Human Lispro (Insulin Lispro 100 Unit/Ml 10 Ml Vial) 0 unit SUBCUT QIDACANDBED [facility]; Protocol Last Admin: 03/21/21 21:47 Dose: Not Given Documented by: Methylprednisolone Sodium Succinate (Methylprednisolone Sodium Succinate 125 Mg/2 Ml Sdv) 60 mg IVPUSH Q8H [facility] Last Admin: 03/22/21 04:33 Dose: 60 mg Documented by: Multivitamins/Minerals/Vitamin C (Multivitamin Tab) 1 tab PO DAILY [facility] Last Admin: 03/21/21 08:57 Dose: 1 tab Documented by: Ondansetron HCl (Ondansetron 4 Mg/2 Ml Sdv) 4 mg IV Q6H PRN PRN Reason: Nausea/Vomiting Oxycodone HCl (Oxycodone 5 Mg Tab) 5 mg PO Q4H PRN PRN Reason: Pain (moderate 4-6) Last Admin: 03/18/21 21:52 Dose: 5 mg Documented by: Sodium Chloride (Sodium Chloride 0.9% 10 Ml Syringe) 10 ml FLUSH ASDIRECTED PRN PRN Reason: Keep Vein Open Last Admin: 03/12/21 17:49 Dose: 10 ml Documented by: Tamsulosin HCl (Tamsulosin 0.4 Mg Cap.Er) 0.4 mg PO DAILY [facility] Last Admin: 03/21/21 08:57 Dose: 0.4 mg Documented by: Discontinued Medications Albuterol (Albuterol 6.7 Gm Inhaler) 0 gm INH ONETIME ONE Stop: 03/12/21 17:41 Last Admin: 03/12/21 17:49 Dose: 2 puff Documented by: Dexamethasone (Dexamethasone 10 Mg/Ml Sdv) 6 mg IVPUSH ONETIME ONE Stop: 03/12/21 19:50 Last Admin: 03/12/21 20:24 Dose: 6 mg Documented by: Dexamethasone (Dexamethasone 4 Mg Tab) 6 mg PO Q24H [facility] Stop: 03/21/21 18:01 Last Admin: 03/16/21 17:43 Dose: 6 mg Documented by: Diatrizoate Meglum/Diatrizoate Sod (Diatrizoate Meglumine/Diatrizoate Sodium 37% 120 Ml Bottle) 60 ml PO ONETIME ONE Stop: 03/14/21 16:44 Last Admin: 03/14/21 16:55 Dose: 60 ml Documented by: Heparin Sodium (Porcine) (Heparin Sodium 5,000 Units/Ml Vial) 5,000 units SUBCUT Q8H [facility] Last Admin: 03/14/21 06:31 Dose: Not Given Documented by: Ceftriaxone Sodium 2 gm/ (Sodium Chloride) 100 mls @ 200 mls/hr IV ONETIME ONE Stop: 03/12/21 18:08 Last Admin: 03/12/21 17:49 Dose: 200 mls/hr Documented by: Remdesivir 200 mg/ Sodium (Chloride) 250 mls @ 250 mls/hr IV ONETIME ONE Stop: 03/13/21 09:29 Last Admin: 03/13/21 08:28 Dose: 250 mls/hr Documented by: Remdesivir 100 mg/ Sodium (Chloride) 100 mls @ 100 mls/hr IV Q24H [facility] Stop: 03/17/21 09:29 Last Admin: 03/17/21 09:50 Dose: 100 mls/hr Documented by: Tocilizumab 800 mg/ Sodium (Chloride) 100 mls @ 100 mls/hr IV ONETIME ONE Stop: 03/17/21 11:29 Last Admin: 03/17/21 11:24 Dose: 100 mls/hr Documented by: Ibuprofen (Ibuprofen 600 Mg Tab) 600 mg PO ONETIME ONE Stop: 03/12/21 17:43 Last Admin: 03/12/21 17:49 Dose: 600 mg Documented by: Insulin Glargine (Insulin Glarg,Human.Rec.Analog 100 Unit/Ml) 20 unit SUBCUT DAILY [facility] Last Admin: 03/21/21 08:56 Dose: 20 units Documented by: Iopamidol (Iopamidol 612 Mg/Ml 100 Ml Bottle) 100 ml IVPUSH ONETIME ONE Stop: 03/14/21 16:44 Last Admin: 03/14/21 16:56 Dose: 100 ml Documented by: Lidocaine HCl (Lidocaine 2% Jelly 10 Ml Urojet) 10 ml MUCMEM ONETIME ONE Stop: 03/14/21 16:01 Last Admin: 03/14/21 16:54 Dose: 10 ml Documented by: Magnesium Hydroxide (Magnesium Hydroxide 400 Mg/5 Ml Susp 30 Ml Cup) 30 ml PO ONETIME ONE Stop: 03/18/21 06:31 Last Admin: 03/18/21 06:30 Dose: Not Given Documented by: Metformin HCl (Metformin 500 Mg Tab) 500 mg PO BIDMEALS [facility] Last Admin: 03/13/21 07:36 Dose: Not Given Documented by: Methylprednisolone Sodium Succinate (Methylprednisolone Sodium Succinate 125 Mg/2 Ml Sdv) 125 mg IVPUSH Q12H [facility] Last Admin: 03/21/21 00:41 Dose: 125 mg Documented by: Sodium Chloride (Sodium Chloride 0.9% 10 Ml Syringe) 10 ml FLUSH ONETIME PRN PRN Reason: Keep Vein Open Stop: 03/14/21 19:00 Last Admin: 03/14/21 16:56 Dose: 10 ml Documented by: Tamsulosin HCl (Tamsulosin 0.4 Mg Cap.Er) 0.4 mg PO ONETIME ONE Stop: 03/14/21 17:56 Last Admin: 03/14/21 18:09 Dose: 0.4 mg Documented by: - Exam Quality Assessment: DVT Prophylaxis. No: Supplemental Oxygen (No oxygen while eating.) Urinary Catheter Total Time: 0Days 0Hours General: Alert, Oriented, Cooperative HEENT: Pupils Equal, Pupils Reactive, EOMI, Mucous Membr. Moist/[place]ck: Supple, Trachea Midline Lungs: Decreased Breath Sounds, Crackles (Bibasilar) Cardiovascular: Regular Rate, Regular Rhythm GI/Abdominal Exam: Normal Bowel Sounds, Soft, Non-Tender, No Distention (Male) Exam: Deferred Back Exam: Normal Inspection, Full Range of Motion Extremities: Normal Inspection, No Pedal Edema Skin: Warm, Dry, Intact Neurological: No New Focal Deficit Psy/Mental Status: Alert, Normal Affect, Agitated - Patient Data Lab Results Last 24 hrs: Laboratory Results - last 24 hr 03/21/21 03/21/21 03/21/21 Range/Units 05:20 12:27 16:30 WBC (4.23-9.07) K/mm3 RBC (4.63-6.08) M/mm3 Hgb (13.7-17.5) gm/dl Hct (40.1-51.0) % MCV (79.0-92.2) fl MCH (25.7-32.2) pg MCHC (32.2-35.5) g/dl RDW Std Deviation (35.1-43.9) fL Plt Count (163-337) K/mm3 MPV (9.4-12.3) fl Neut % (Auto) (34.0-67.9) % Lymph % (Auto) (21.8-53.1) % [place] % (Auto) (5.3-12.2) % Eos % (Auto) (0.8-7.0) Baso % (Auto) (0.1-1.2) % Neut # (Auto) (1.78-5.38) K/mm3 Lymph # (Auto) (1.32-3.57) K/mm3 [place] # (Auto) (0.30-0.82) K/mm3 Eos # (Auto) (0.04-0.54) K/mm3 Baso # (Auto) (0.01-0.08) K/mm3 Manual Slide Review Abnormal smear POC Glucose 253 H 289 H (70-99) mg/dL 03/21/21 03/22/21 03/22/21 Range/Units 20:14 05:45 05:46 WBC 12.31 H (4.23-9.07) K/mm3 RBC 4.82 (4.63-6.08) M/mm3 Hgb 14.1 (13.7-17.5) gm/dl Hct 42.9 (40.1-51.0) % MCV 89.0 (79.0-92.2) fl MCH 29.3 (25.7-32.2) pg MCHC 32.9 (32.2-35.5) g/dl RDW Std Deviation 45.8 H (35.1-43.9) fL Plt Count 251 (163-337) K/mm3 MPV 10.7 (9.4-12.3) fl Neut % (Auto) 92.4 H (34.0-67.9) % Lymph % (Auto) 3.1 L (21.8-53.1) % [place] % (Auto) 3.9 L (5.3-12.2) % Eos % (Auto) 0 L (0.8-7.0) Baso % (Auto) 0.1 (0.1-1.2) % Neut # (Auto) 11.38 H (1.78-5.38) K/mm3 Lymph # (Auto) 0.38 L (1.32-3.57) K/mm3 [place] # (Auto) 0.48 (0.30-0.82) K/mm3 Eos # (Auto) 0.00 L (0.04-0.54) K/mm3 Baso # (Auto) 0.01 (0.01-0.08) K/mm3 Manual Slide Review Abnormal smear POC Glucose 386 H 323 H (70-99) mg/dL Result Diagrams: 03/22/21 05:45 03/22/21 05:45 Sepsis Event Note - Evaluation Sepsis Screening Result: Possible Sepsis Risk - Focused Exam Vital Signs: Vital Signs Temp Pulse Resp BP Pulse Ox Pulse Ox 03/22/21 06:17 89 L 03/22/21 06:00 67 19 03/22/21 04:00 36.1 C 22 H 150/76 H 90 L 03/22/21 03:00 83 20 89 L 03/22/21 02:53 89 L 03/22/21 02:00 68 22 H 93 L 03/22/21 01:00 80 19 92 L 03/22/21 00:00 36.1 C 20 142/61 H 90 L 03/21/21 23:54 97 03/21/21 23:00 107 H 23 H 96 03/21/21 22:00 69 21 H 92 L 03/21/21 21:48 91 L 03/21/21 21:00 88 20 91 L 03/21/21 20:00 35.8 C L 22 H 138/76 94 L - Problem List & Annotations (1) Acute respiratory failure due to COVID-19 SNOMED Code(s): 706188331 Code(s): U07.1 - COVID-19; J96.00 - ACUTE RESPIRATORY FAILURE, UNSP W HYPOXIA OR HYPERCAPNIA Status: Acute Priority: High Current Visit: Yes (2) Hypoxia SNOMED Code(s): 340403414 Code(s): R09.02 - HYPOXEMIA Status: Acute Priority: High Current Visit: Yes (3) Pneumonia due to COVID-19 virus SNOMED Code(s): 513455441909103778 Code(s): U07.1 - COVID-19; J12.82 - PNEUMONIA DUE TO CORONAVIRUS DISEASE 2019 Status: Acute Priority: High Current Visit: Yes (4) Hypertension SNOMED Code(s): 27859451 Code(s): I10 - ESSENTIAL (PRIMARY) HYPERTENSION Status: Chronic Priority: Medium Current Visit: Yes Qualifiers: Hypertension type: primary hypertension Qualified Code(s): I10 - Essential (primary) hypertension (5) Type II diabetes mellitus SNOMED Code(s): 45943117 Code(s): E11.9 - TYPE 2 DIABETES MELLITUS WITHOUT COMPLICATIONS Status: Chronic Priority: Medium Current Visit: Yes Qualifiers: Diabetes mellitus retirement insulin use: without retirement use Diabetes mellitus complication status: without complication Qualified Code(s): E11.9 - Type 2 diabetes mellitus without complications - Problem List Review Problem List Initiated/Reviewed/Updated: Yes - Assessment Assessment:: Assessment - 03/13/2021 (admitted late 03/12/2021) * This is a 60-year-old male presents to ED with dyspnea and hypoxia * Hx of hypertension though was able to come off his medications due to weight loss. He is a type II diabetic on Metformin. * Went to the walk-in clinic who sent him here * Symptoms began about 2 to 3 days prior * Denies a cough but was noted to have a fever on arrival of 101 * Chest x-ray was obtained at the walk-in clinic which showed bilateral infiltrates in the lower lobes consistent with COVID-19 pneumonia. * He was reportedly checked with a rapid Covid screen and was negative there * Saturations were noted to decrease to 80% and he was started on oxygen and sent here. 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 No history of lung problems such as asthma or COPD * Obese with a BMI of 48.3 however he reports he recently lost 80 pounds * Denies any chest pain, abdominal pain, nausea, or vomiting. * 12-lead EKG was obtained showing sinus tachycardia at 107 bpm with no ectopy. * Labs are obtained in ED and on floor: * WBC 4.57-->3.82 * Hemoglobin 14.6 ->14.9 * Platelet 91,000-->96,000 * Neutrophils 77.1%. * ABGs obtained with a pH of 7.45. PCO2 of 29.6. PO2 of 74.0. HCO3 of 20.3. Saturations of 96.3. This is on 2 L. * VB.32. PCO2 53.7. PO2 26.0. HCO3 of 26.8. Oxygen saturation 35.4. On 3 L. * Sodium 135-->141 * Potassium 3.9-->4.9 * Chloride 100-->103 * Carbon dioxide 23-->29 * Anion gap 15.9-->13.9 * BUN is 13-->16. Creatinine 1.2-->1.1. GFR greater than 60--> Greater than 60. * Glucose 153-->231. * Calcium 8.0-->8.1. * Bilirubin 1.1-->0.8. Direct bilirubin 0.50, Indirect bilirubin 0.30 * AST 115-->99. ALT 89-->87. Alkaline phosphatase 32-->31. * LDH 562. * Troponin 0.019. * CRP 16.9. * Protein 7.4-->7.5. * Albumin 3.1-->2.9. * Lactic acid 1.1. * Ferritin 3732. * D-dimer 1.43. * SARS-CoV-2 RNA is positive. * He is given 6 mg dexamethasone and 2 g of Rocephin. He is also given 2 puffs of an albuterol inhaler and ibuprofen. * Subsequently admitted to the medical floor on telemetry for management of his COVID-19 pneumonia. * CT obtained on floor on 03/12/2021 shows: * 1. No evidence of pulmonary embolus * 2. Moderate bilateral airspace disease compatible with infection * 3. Mild to moderate mediastinal and bihilar adenopathy * 4. Moderate hepatic steatosis * 5. Cholelithiasis 03/14/2021 This is a 60-year-old male admitted for COVID-19 treatment and hypoxia. Overall he is been doing quite well. Has been ambulating around the room. He did note some blood in his urine today so UA will be ordered. labs today show WBC 5.20. Hemoglobin 14.5. Hematocrit 43.6. Platelet improved to 100,000. Neutrophils elevated at 74.7.sodium of 139. Potassium 4.6. Chloride 103. Carbon dioxide 28. Anion gap 12.6. BUN 22. Creatinine 1.2. GFR greater than 60. Glucose has been 1 37-2 12. Calcium is 8.0. Magnesium 2.5. Total bilirubin 0.8. AST is 80, ALT 77, alkaline phosphatase 27. CRP is 12.6. Albumin is 2.7. We will recheck a D-dimer tomorrow. He has been weaned down to 1 L of oxygen. He has been utilizing his incentive spirometry and Acapella. He reports he is still tired but feels pretty good. We will continue treatment plan with likely discharge after completing remdesivir. 03/15/2021 Patient with mild cough denies chest pain denies sob no further hematuria 03/16/2021 denies chest pain on supplemental oxygen intermittent cough no diarrhea 03/17/2021 60-year-old male admitted for treatment of COVID-19 hypoxia. Late 03-14-2021 patient was noted to have gross bleeding from his penis. UA was obtained and CT scan of the abdomen pelvis was also obtained showing 1. Obstructing calculus within the distal right ureter located proximal to the UVJ. This obstructing calculus measures approximately 3.5 mm. This obstructing calculus causes obstructive changes within the right kidney as noted above. 2. Findings of Covid pneumonia within both lung bases. 3. Other findings as noted above which are nonacute. Three-way irrigating Gonzalez catheter was placed. Attending hospitalist did contact urology who reported a high probability of the patient passing the stone. He was placed on Flomax. Gonzalez catheter was ultimately removed. Since that time patient has had worsening desaturations. He was switched to high flow 50 L with an FiO2 of 65%. He was given Actemra. We will start the patient on 125 mg Solu-Medrol every 12 hours for now. Repeat chest x-ray was obtained showing worsening infiltrates. We again discussed proning, although the patient reports that he is unable to prone. We discussed utilizing incentive spirometry and Acapella. Labs today show a WBC of 5.44. Hemoglobin 13.6. Platelet 181,000. Neutrophils 67%. D-dimer is 1.99. Sodium 143. Potassium 4.1. Chloride 108. Carbon dioxide 25. Anion gap 14.1. BUN is 20. Creatinine 0.9. GFR greater than 60. Glucose is 239. Calcium 7.7. Magnesium is 2.3. Bilirubin 0.8. AST 65, ALT 83, alkaline phosphatase 27. CRP is 6.5. Albumin is 2.4. Patient did complete remdesivir treatment today. As his bleeding from his penis is stopped and as he has no gross hematuria anymore we will begin Lovenox 40 mg daily for VTE prophylaxis. Unknown length of stay pending oxygen wean. 03/18/2021 This is a 64-year-old male admitted for Covid pneumonia and after admission found to have a renal stone. Overall he states that he is doing okay. He reports he is chilled but otherwise has no concerns. He has been cautious not overdo it has he feels like he pushed himself a little too hard a few days ago and he had difficulty recovering from that. He denies any abdominal pain or continued bleeding from his penis. He was placed on Lovenox 40 mg daily. We will recheck a D-dimer tomorrow. Labs today show WBC of 7.05. Hemoglobin 13.4. Platelet 221,000. Neutrophils are elevated 85%. Sodium 141. Potassium 4.7. Chloride 104. Carbon dioxide 22. Anion gap 19.7. BUN is 21. Creatinine 0.9. GFR greater than 60. Glucose has been 209 to 304. Magnesium 2.3. Total bilirubin 0.6. AST is 47, ALT 76, alkaline phosphatase 28. CRP is 6.3. Protein 6.8. Albumin 2.5. We will increase sliding scale insulin to high dose and monitor need for long-acting insulin. He continues to utilize incentive spirometry and Acapella. He is on high flow currently 50 L with FiO2 of 60. We will continue to work on weaning oxygen. He received Actemra and has been on twice daily 125 mg Solu-Medrol since. Unknown length of stay due to severity of COVID-19 symptoms. 03/19/2021 This is a 60-year-old male admitted to the floor for treatment of COVID-19. Once on the floor he was noted to have some bleeding from his penis and was noted to have a renal stone. Bleeding is since resolved. Unfortunate his oxygen demand has been increasing and he is currently on BiPAP. Labs today show WBC of 10.67 which is likely steroid related. Hemoglobin is 13.8. Hematocrit 41.7. Platelet 251,000. Neutrophils are elevated at 87.1%. D-dimer is 1.79 which is slightly decreased from prior. Sodium is 142. Potassium 4.7. Chloride 109. Carbon dioxide 25. Anion gap 12.7. BUN is 23. Creatinine 0.9. GFR is greater than 60. Glucose is 214-310. Calcium is 8.4. Magnesium 2.4. Bilirubin 0.8. AST is 30, ALT 70, alkaline phosphatase 33. CRP is down to 3.8. Protein 6.8. Albumin is up to 2.6. Recheck a chest x-ray today shows worsening infiltrates bilaterally. Lung sounds are significantly diminished over prior day. Will upgrade to ICU status due to worsening saturations. Ever Preston contacted at patient request ([phone]). While in room samanta conrad reports that he does not want to be resuscitated and does not want intubation should he take a turn for the worse. He reports he has paperwork on file that says he is DO NOT RESUSCITATE/DO NOT INTUBATE. CODE STATUS changed at patient's request. Dr. Hernandez, attending hospitalist in the room to discuss plan with patient. Patient aware of poor prognosis given worsening symptoms and need for BiPAP. 03/20/2021 60-year-old male admitted to the floor for hypoxia secondary to Covid pneumonia. On the floor patient was found to have renal stone with gross bleeding from his penis. Urology was consulted and stated that this stone will pass. Patient was started on Flomax. Yesterday patient was noted to have worsening saturations and was placed on BiPAP. Chest x-ray was obtained which showed worsening bilateral infiltrates discussion ensued and patient requested to be DNR/DNI status. Patient was upgraded to ICU. Today patient has been on high flow and tolerating this well. Saturations have been low 90s. He is on 60 L with 90% FiO2. He has been proning occasionally and his saturations have been in the upper 90s when he is doing this. He continues to receive 125 mg Solu-Medrol twice daily I will look at decreasing this in the future if he continues to improve. Labs today show WBC of 10.02. He hemoglobin 14.0. Platelet 270,000. Neutrophils 90.6. Sodium 141. Potassium 4.9. Chloride 108. Carbon dioxide 25. Anion gap 12.9. BUN is 26. Creatinine 0.9. GFR greater than 60. Blood glucose readings have been elevated from 221-265. Calcium is 8.4. Magnesium 2.4. Total bilirubin 0.9. AST 35, ALT 74. Alkaline phosphatase 34. CRP is improved to 2.0. Protein 6.8. Albumin 2.7. Procalcitonin less than 0.05. Given the patient's increased blood sugars and need for 6 to 9 units per dosing of Humalog we will start 20 units Lantus daily. This will likely need to be decreased or discontinued as the patient weans off of steroids. Patient will continue admission in the ICU. Overall he remains stable to improved. Continues to be short of breath. Unknown length of stay is will depend on continued response to treatment. We again discussed CODE STATUS. Patient reports he would like to remain DNR/DNI and should he get to the point where he needs intubation we will readdress this, per his wishes. 03/21/2021 This is a 60-year-old male admitted to the floor with hypoxia secondary to COVID-19 pneumonia. Today patient's lung sounds are greatly improved however still quite diminished. He remains on high flow 60 L at 85% FiO2. Labs show a WBC of 11.32 which is likely steroid induced. Hemoglobin 14.5. Platelet 259,000. Neutrophils are elevated 91.2%. D-dimer is 1.88. Sodium is 142. Potassium 5.2. Chloride 107. Carbon dioxide 24. Anion gap is 16.2. BUN is 27. Creatinine 1.0. GFR greater than 60. Glucose has been 2 64-2 81. Calcium is 8.3. Magnesium 2.3. Total bilirubin 0.9. AST is 35, ALT 79, alkaline phosphatase 32. CRP is 1.2. Protein 6.8. Albumin 2.7. Patient has been proni ng but states he can only do this for short periods due to back pain. He has been utilizing his incentive spirometer and Acapella. Nursing were instructed to continue to encourage this. Patient may resume PT and OT today. He was stepdown from ICU to [facility] on telemetry. We will increase his long-acting insulin to 30 units daily due to continued elevated blood sugars. Steroid will be decreased to 60 mg every 8 hours. Continue current treatment plan. Unknown length of stay pending improvement from COVID-19 pneumonia. 03/22/2021 The patient is a 60-year-old gentleman who was admitted secondary to respiratory failure due to COVID-19 pneumonia. His chest x-ray taken on March 19, 2021 showed worsening pneumonia. I have ordered repeat chest x-ray for tomorrow. Repeat laboratory studies have been ordered for the morning. The patient also has hyperglycemia likely secondary to steroids. The patient will be kept on his high-dose insulin. The patient has been encouraged to ambulate. He was also instructed on incentive spirometer and Acapella. Continue on diabetic diet as tolerated. Patient should be appropriate for discharge pending resolution of his symptoms as well as a reduction in his oxygen demand. This should happen in 1 to 2 days. - Plan Plan:: Case discussed in full. Agree with evaluation, assessment and plan.
[2021-03-22] MEDS: Insulin Lispro 100 UNIT/ML 10 ML Vial SUBCUT SCH ×4 (08:13→21:20)
[2021-03-22] MEDS: Insulin Glarg,Human.Rec.Analog 100 Unit/ML SUBCUT SCH (08:13)
[2021-03-22] MEDS: Multivitamin Tab PO SCH (08:14)
[2021-03-22] MEDS: Enoxaparin 40 MG/0.4 ML Syringe SUBCUT SCH (08:14)
[2021-03-22] MEDS: Tamsulosin 0.4 MG Cap.ER PO SCH (08:14)
[2021-03-22] MEDS: Famotidine 20 MG Tab PO SCH ×2 (08:15→20:13)
[2021-03-22] MEDS: Aspirin 81 MG Tab.EC PO SCH (08:15)
[2021-03-22] MEDS: Benzocaine/Cetylpyridinium/Menthol Lozenge MUCMEM PRN ×2 (11:10→20:13)
[2021-03-23] MEDS: Albuterol/Ipratropium 3.0-0.5 MG/3 ML Neb Soln NEB SCH ×6 (03:40→21:53)
[2021-03-23] MEDS: methylPREDNISolone Sodium Succinate 125 MG/2 ML SDV IVPUSH SCH ×3 (04:39→20:48)
--- NOTE | 2021-03-23 08:42 | PCM.PN ---
- General Info Date of Service: 03/23/21 Admission Dx/Problem (Free Text): The patient was admitted secondary to COVID-19 pneumonia. Subjective Update: The patient is a 60-year-old gentleman who had been admitted on March 13, 2021 due to COVID-19 pneumonia. The patient has experienced slow recovery. He has completed all of his antibiotics and remdesivir. The patient is still requiring oxygen. He is denied any pain. The patient says that he feels better today. Overall, no new complaints. Functional Status: Reports: Pain Controlled, Tolerating Diet - Review of Systems General: Reports: No Symptoms HEENT: Reports: No Symptoms Pulmonary: Reports: Shortness of Breath Cardiovascular: Reports: No Symptoms Gastrointestinal: Reports: No Symptoms Genitourinary: Reports: No Symptoms Musculoskeletal: Reports: No Symptoms Skin: Reports: No Symptoms Neurological: Reports: No Symptoms Psychiatric: Reports: No Symptoms - Patient Data Vitals - Most Recent: Last Vital Signs Temp 36.1 C 03/23/21 04:00 Pulse 67 03/22/21 06:00 Resp 21 H 03/23/21 06:49 BP 138/68 03/23/21 04:00 Pulse Ox 89 L 03/23/21 06:51 Weight - Most Recent: 151.5 kg I&O - Last 24 Hours: Intake & Output 03/22/21 03/23/21 03/23/21 22:59 06:59 14:59 Intake Total 180 600 Output Total 800 500 Balance -620 100 Lab Results Last 24 Hours: Laboratory Results - last 24 hr 03/22/21 03/22/21 03/22/21 Range/Units 10:35 16:34 20:19 WBC (4.23-9.07) K/mm3 RBC (4.63-6.08) M/mm3 Hgb (13.7-17.5) gm/dl Hct (40.1-51.0) % MCV (79.0-92.2) fl MCH (25.7-32.2) pg MCHC (32.2-35.5) g/dl RDW Std Deviation (35.1-43.9) fL Plt Count (163-337) K/mm3 MPV (9.4-12.3) fl Neut % (Auto) (34.0-67.9) % Lymph % (Auto) (21.8-53.1) % Garden % (Auto) (5.3-12.2) % Eos % (Auto) (0.8-7.0) Baso % (Auto) (0.1-1.2) % Neut # (Auto) (1.78-5.38) K/mm3 Lymph # (Auto) (1.32-3.57) K/mm3 Garden # (Auto) (0.30-0.82) K/mm3 Eos # (Auto) (0.04-0.54) K/mm3 Baso # (Auto) (0.01-0.08) K/mm3 Manual Slide Review Sodium (136-145) mEq/L Potassium (3.5-5.1) mEq/L Chloride (98-107) mEq/L Carbon Dioxide (21-32) mEq/L Anion Gap (5-15) BUN (7-18) mg/dL Creatinine (0.7-1.3) mg/dL Est Cr Clr Drug Dosing mL/min Estimated GFR (MDRD) (>60) mL/min BUN/Creatinine Ratio (14-18) Glucose (70-99) mg/dL POC Glucose 323 H 301 H 387 H (70-99) mg/dL Calcium (8.5-10.1) mg/dL Magnesium (1.8-2.4) mg/dL Total Bilirubin (0.2-1.0) mg/dL AST (15-37) U/L ALT (16-63) U/L Alkaline Phosphatase (46-116) U/L C-Reactive Protein (<1.0) mg/dL Total Protein (6.4-8.2) g/dl Albumin (3.4-5.0) g/dl Globulin gm/dL Albumin/Globulin Ratio (1-2) 03/23/21 03/23/21 03/23/21 Range/Units 06:05 06:05 06:05 WBC 13.57 H (4.23-9.07) K/mm3 RBC 4.78 (4.63-6.08) M/mm3 Hgb 13.9 (13.7-17.5) gm/dl Hct 42.6 (40.1-51.0) % MCV 89.1 (79.0-92.2) fl MCH 29.1 (25.7-32.2) pg MCHC 32.6 (32.2-35.5) g/dl RDW Std Deviation 45.6 H (35.1-43.9) fL Plt Count 234 (163-337) K/mm3 MPV 10.8 (9.4-12.3) fl Neut % (Auto) 91.4 H (34.0-67.9) % Lymph % (Auto) 3.2 L (21.8-53.1) % Garden % (Auto) 4.9 L (5.3-12.2) % Eos % (Auto) 0.1 L (0.8-7.0) Baso % (Auto) 0.0 L (0.1-1.2) % Neut # (Auto) 12.39 H (1.78-5.38) K/mm3 Lymph # (Auto) 0.44 L (1.32-3.57) K/mm3 Garden # (Auto) 0.66 (0.30-0.82) K/mm3 Eos # (Auto) 0.02 L (0.04-0.54) K/mm3 Baso # (Auto) 0.00 L (0.01-0.08) K/mm3 Manual Slide Review Normal smear Sodium 139 (136-145) mEq/L Potassium 4.4 (3.5-5.1) mEq/L Chloride 105 (98-107) mEq/L Carbon Dioxide 25 (21-32) mEq/L Anion Gap 13.4 (5-15) BUN 24 H (7-18) mg/dL Creatinine 0.9 (0.7-1.3) mg/dL Est Cr Clr Drug Dosing 91.80 mL/min Estimated GFR (MDRD) > 60 (>60) mL/min BUN/Creatinine Ratio 26.7 H (14-18) Glucose 269 H (70-99) mg/dL POC Glucose 264 H (70-99) mg/dL Calcium 8.1 L (8.5-10.1) mg/dL Magnesium 2.1 (1.8-2.4) mg/dL Total Bilirubin 0.8 (0.2-1.0) mg/dL AST 31 (15-37) U/L ALT 84 H (16-63) U/L Alkaline Phosphatase 32 L (46-116) U/L C-Reactive Protein 0.2 (<1.0) mg/dL Total Protein 6.3 L (6.4-8.2) g/dl Albumin 2.7 L (3.4-5.0) g/dl Globulin 3.6 gm/dL Albumin/Globulin Ratio 0.8 L (1-2) Med Orders - Current: Current Medications Albuterol (Albuterol 6.7 Gm Inhaler) 0 gm INH Q6H PRN PRN Reason: Shortness of Breath Last Admin: 03/19/21 08:35 Dose: 2 puff Documented by: Albuterol/Ipratropium (Albuterol/Ipratropium 3.0-0.5 Mg/3 Ml Neb Soln) 3 ml NEB Q4H COUNTS INCLUDE 234 BEDS AT THE [facility] Last Admin: 03/23/21 06:17 Dose: 3 ml Documented by: Aspirin (Aspirin 81 Mg Tab.Ec) 81 mg PO DAILY COUNTS INCLUDE 234 BEDS AT THE [facility] Last Admin: 03/22/21 08:15 Dose: 81 mg Documented by: Benzocaine/Menthol (Benzocaine/Cetylpyridinium/Menthol Lozenge) 1 lozenge MUCMEM Q4HR PRN PRN Reason: Sore Throat Last Admin: 03/22/21 20:13 Dose: 1 lozenge Documented by: Enoxaparin Sodium (Enoxaparin 40 Mg/0.4 Ml Syringe) 40 mg SUBCUT DAILY COUNTS INCLUDE 234 BEDS AT THE [facility] Last Admin: 03/22/21 08:14 Dose: 40 mg Documented by: Famotidine (Famotidine 20 Mg Tab) 20 mg PO BID COUNTS INCLUDE 234 BEDS AT THE [facility] Last Admin: 03/22/21 20:13 Dose: 20 mg Documented by: Hydromorphone HCl (Hydromorphone 0.5 Mg/0.5 Ml Syringe) 0.5 mg IVPUSH Q1H PRN PRN Reason: Pain (severe 7-10) Last Admin: 03/16/21 21:20 Dose: 0.5 mg Documented by: Ibuprofen (Ibuprofen 600 Mg Tab) 600 mg PO Q6H PRN PRN Reason: fever/pain Last Admin: 03/13/21 17:57 Dose: 600 mg Documented by: Insulin Glargine (Insulin Glarg,Human.Rec.Analog 100 Unit/Ml) 30 unit SUBCUT DAILY COUNTS INCLUDE 234 BEDS AT THE [facility] Last Admin: 03/22/21 08:13 Dose: 30 units Documented by: Insulin Human Lispro (Insulin Lispro 100 Unit/Ml 10 Ml Vial) 0 unit SUBCUT QIDACANDBED COUNTS INCLUDE 234 BEDS AT THE [facility]; Protocol Last Admin: 03/22/21 21:20 Dose: 15 unit Documented by: Methylprednisolone Sodium Succinate (Methylprednisolone Sodium Succinate 125 Mg/2 Ml Sdv) 60 mg IVPUSH Q8H COUNTS INCLUDE 234 BEDS AT THE [facility] Last Admin: 03/23/21 04:39 Dose: 60 mg Documented by: Multivitamins/Minerals/Vitamin C (Multivitamin Tab) 1 tab PO DAILY COUNTS INCLUDE 234 BEDS AT THE [facility] Last Admin: 03/22/21 08:14 Dose: 1 tab Documented by: Ondansetron HCl (Ondansetron 4 Mg/2 Ml Sdv) 4 mg IV Q6H PRN PRN Reason: Nausea/Vomiting Oxycodone HCl (Oxycodone 5 Mg Tab) 5 mg PO Q4H PRN PRN Reason: Pain (moderate 4-6) Last Admin: 03/18/21 21:52 Dose: 5 mg Documented by: Sodium Chloride (Sodium Chloride 0.9% 10 Ml Syringe) 10 ml FLUSH ASDIRECTED PRN PRN Reason: Keep Vein Open Last Admin: 03/12/21 17:49 Dose: 10 ml Documented by: Tamsulosin HCl (Tamsulosin 0.4 Mg Cap.Er) 0.4 mg PO DAILY COUNTS INCLUDE 234 BEDS AT THE [facility] Last Admin: 03/22/21 08:14 Dose: 0.4 mg Documented by: Discontinued Medications Albuterol (Albuterol 6.7 Gm Inhaler) 0 gm INH ONETIME ONE Stop: 03/12/21 17:41 Last Admin: 03/12/21 17:49 Dose: 2 puff Documented by: Dexamethasone (Dexamethasone 10 Mg/Ml Sdv) 6 mg IVPUSH ONETIME ONE Stop: 03/12/21 19:50 Last Admin: 03/12/21 20:24 Dose: 6 mg Documented by: Dexamethasone (Dexamethasone 4 Mg Tab) 6 mg PO Q24H COUNTS INCLUDE 234 BEDS AT THE [facility] Stop: 03/21/21 18:01 Last Admin: 03/16/21 17:43 Dose: 6 mg Documented by: Diatrizoate Meglum/Diatrizoate Sod (Diatrizoate Meglumine/Diatrizoate Sodium 37% 120 Ml Bottle) 60 ml PO ONETIME ONE Stop: 03/14/21 16:44 Last Admin: 03/14/21 16:55 Dose: 60 ml Documented by: Heparin Sodium (Porcine) (Heparin Sodium 5,000 Units/Ml Vial) 5,000 units SUBCUT Q8H COUNTS INCLUDE 234 BEDS AT THE [facility] Last Admin: 03/14/21 06:31 Dose: Not Given Documented by: Ceftriaxone Sodium 2 gm/ (Sodium Chloride) 100 mls @ 200 mls/hr IV ONETIME ONE Stop: 03/12/21 18:08 Last Admin: 03/12/21 17:49 Dose: 200 mls/hr Documented by: Remdesivir 200 mg/ Sodium (Chloride) 250 mls @ 250 mls/hr IV ONETIME ONE Stop: 03/13/21 09:29 Last Admin: 03/13/21 08:28 Dose: 250 mls/hr Documented by: Remdesivir 100 mg/ Sodium (Chloride) 100 mls @ 100 mls/hr IV Q24H COUNTS INCLUDE 234 BEDS AT THE [facility] Stop: 03/17/21 09:29 Last Admin: 03/17/21 09:50 Dose: 100 mls/hr Documented by: Tocilizumab 800 mg/ Sodium (Chloride) 100 mls @ 100 mls/hr IV ONETIME ONE Stop: 03/17/21 11:29 Last Admin: 03/17/21 11:24 Dose: 100 mls/hr Documented by: Ibuprofen (Ibuprofen 600 Mg Tab) 600 mg PO ONETIME ONE Stop: 03/12/21 17:43 Last Admin: 03/12/21 17:49 Dose: 600 mg Documented by: Insulin Glargine (Insulin Glarg,Human.Rec.Analog 100 Unit/Ml) 20 unit SUBCUT DAILY COUNTS INCLUDE 234 BEDS AT THE [facility] Last Admin: 03/21/21 08:56 Dose: 20 units Documented by: Iopamidol (Iopamidol 612 Mg/Ml 100 Ml Bottle) 100 ml IVPUSH ONETIME ONE Stop: 03/14/21 16:44 Last Admin: 03/14/21 16:56 Dose: 100 ml Documented by: Lidocaine HCl (Lidocaine 2% Jelly 10 Ml Urojet) 10 ml MUCMEM ONETIME ONE Stop: 03/14/21 16:01 Last Admin: 03/14/21 16:54 Dose: 10 ml Documented by: Magnesium Hydroxide (Magnesium Hydroxide 400 Mg/5 Ml Susp 30 Ml Cup) 30 ml PO ONETIME ONE Stop: 03/18/21 06:31 Last Admin: 03/18/21 06:30 Dose: Not Given Documented by: Metformin HCl (Metformin 500 Mg Tab) 500 mg PO BIDMEALS COUNTS INCLUDE 234 BEDS AT THE [facility] Last Admin: 03/13/21 07:36 Dose: Not Given Documented by: Methylprednisolone Sodium Succinate (Methylprednisolone Sodium Succinate 125 Mg/2 Ml Sdv) 125 mg IVPUSH Q12H COUNTS INCLUDE 234 BEDS AT THE [facility] Last Admin: 03/21/21 00:41 Dose: 125 mg Documented by: Sodium Chloride (Sodium Chloride 0.9% 10 Ml Syringe) 10 ml FLUSH ONETIME PRN PRN Reason: Keep Vein Open Stop: 03/14/21 19:00 Last Admin: 03/14/21 16:56 Dose: 10 ml Documented by: Tamsulosin HCl (Tamsulosin 0.4 Mg Cap.Er) 0.4 mg PO ONETIME ONE Stop: 03/14/21 17:56 Last Admin: 03/14/21 18:09 Dose: 0.4 mg Documented by: - Exam Quality Assessment: Supplemental Oxygen, DVT Prophylaxis Urinary Catheter Total Time: 0Days 0Hours General: Alert, Oriented, Cooperative HEENT: Pupils Equal, Pupils Reactive, EOMI Neck: Supple, Trachea Midline Lungs: Clear to Auscultation, Normal Respiratory Effort Cardiovascular: Regular Rate, Regular Rhythm GI/Abdominal Exam: Normal Bowel Sounds, Soft, No Distention (Male) Exam: Deferred Back Exam: Normal Inspection, Full Range of Motion Extremities: Normal Inspection, Normal Range of Motion, No Pedal Edema Skin: Warm, Dry, Intact Neurological: No New Focal Deficit, Normal Gait Psy/Mental Status: Alert, Normal Affect, Normal Mood - Patient Data Lab Results Last 24 hrs: Laboratory Results - last 24 hr 03/22/21 03/22/21 03/22/21 Range/Units 10:35 16:34 20:19 WBC (4.23-9.07) K/mm3 RBC (4.63-6.08) M/mm3 Hgb (13.7-17.5) gm/dl Hct (40.1-51.0) % MCV (79.0-92.2) fl MCH (25.7-32.2) pg MCHC (32.2-35.5) g/dl RDW Std Deviation (35.1-43.9) fL Plt Count (163-337) K/mm3 MPV (9.4-12.3) fl Neut % (Auto) (34.0-67.9) % Lymph % (Auto) (21.8-53.1) % Garden % (Auto) (5.3-12.2) % Eos % (Auto) (0.8-7.0) Baso % (Auto) (0.1-1.2) % Neut # (Auto) (1.78-5.38) K/mm3 Lymph # (Auto) (1.32-3.57) K/mm3 Garden # (Auto) (0.30-0.82) K/mm3 Eos # (Auto) (0.04-0.54) K/mm3 Baso # (Auto) (0.01-0.08) K/mm3 Manual Slide Review Sodium (136-145) mEq/L Potassium (3.5-5.1) mEq/L Chloride (98-107) mEq/L Carbon Dioxide (21-32) mEq/L Anion Gap (5-15) BUN (7-18) mg/dL Creatinine (0.7-1.3) mg/dL Est Cr Clr Drug Dosing mL/min Estimated GFR (MDRD) (>60) mL/min BUN/Creatinine Ratio (14-18) Glucose (70-99) mg/dL POC Glucose 323 H 301 H 387 H (70-99) mg/dL Calcium (8.5-10.1) mg/dL Magnesium (1.8-2.4) mg/dL Total Bilirubin (0.2-1.0) mg/dL AST (15-37) U/L ALT (16-63) U/L Alkaline Phosphatase (46-116) U/L C-Reactive Protein (<1.0) mg/dL Total Protein (6.4-8.2) g/dl Albumin (3.4-5.0) g/dl Globulin gm/dL Albumin/Globulin Ratio (1-2) 03/23/21 03/23/21 03/23/21 Range/Units 06:05 06:05 06:05 WBC 13.57 H (4.23-9.07) K/mm3 RBC 4.78 (4.63-6.08) M/mm3 Hgb 13.9 (13.7-17.5) gm/dl Hct 42.6 (40.1-51.0) % MCV 89.1 (79.0-92.2) fl MCH 29.1 (25.7-32.2) pg MCHC 32.6 (32.2-35.5) g/dl RDW Std Deviation 45.6 H (35.1-43.9) fL Plt Count 234 (163-337) K/mm3 MPV 10.8 (9.4-12.3) fl Neut % (Auto) 91.4 H (34.0-67.9) % Lymph % (Auto) 3.2 L (21.8-53.1) % Garden % (Auto) 4.9 L (5.3-12.2) % Eos % (Auto) 0.1 L (0.8-7.0) Baso % (Auto) 0.0 L (0.1-1.2) % Neut # (Auto) 12.39 H (1.78-5.38) K/mm3 Lymph # (Auto) 0.44 L (1.32-3.57) K/mm3 Garden # (Auto) 0.66 (0.30-0.82) K/mm3 Eos # (Auto) 0.02 L (0.04-0.54) K/mm3 Baso # (Auto) 0.00 L (0.01-0.08) K/mm3 Manual Slide Review Normal smear Sodium 139 (136-145) mEq/L Potassium 4.4 (3.5-5.1) mEq/L Chloride 105 (98-107) mEq/L Carbon Dioxide 25 (21-32) mEq/L Anion Gap 13.4 (5-15) BUN 24 H (7-18) mg/dL Creatinine 0.9 (0.7-1.3) mg/dL Est Cr Clr Drug Dosing 91.80 mL/min Estimated GFR (MDRD) > 60 (>60) mL/min BUN/Creatinine Ratio 26.7 H (14-18) Glucose 269 H (70-99) mg/dL POC Glucose 264 H (70-99) mg/dL Calcium 8.1 L (8.5-10.1) mg/dL Magnesium 2.1 (1.8-2.4) mg/dL Total Bilirubin 0.8 (0.2-1.0) mg/dL AST 31 (15-37) U/L ALT 84 H (16-63) U/L Alkaline Phosphatase 32 L (46-116) U/L C-Reactive Protein 0.2 (<1.0) mg/dL Total Protein 6.3 L (6.4-8.2) g/dl Albumin 2.7 L (3.4-5.0) g/dl Globulin 3.6 gm/dL Albumin/Globulin Ratio 0.8 L (1-2) Result Diagrams: 03/23/21 06:05 03/23/21 06:05 Sepsis Event Note - Evaluation Sepsis Screening Result: Possible Sepsis Risk - Focused Exam Vital Signs: Vital Signs Temp Resp BP Pulse Ox Pulse Ox 03/23/21 06:51 89 L 03/23/21 06:49 21 H 88 L 03/23/21 06:18 88 L 03/23/21 06:00 22 H 87 L 03/23/21 05:00 20 88 L 03/23/21 04:00 36.1 C 20 138/68 91 L 03/23/21 03:59 89 L 03/23/21 03:00 20 92 L 03/23/21 02:00 20 91 L 03/23/21 00:00 36.1 C 18 134/82 90 L 03/22/21 23:00 20 93 L 03/22/21 22:21 93 L 03/22/21 22:00 20 94 L 03/22/21 21:00 24 H 93 L - Problem List & Annotations (1) Acute respiratory failure due to COVID-19 SNOMED Code(s): 686658739 Code(s): U07.1 - COVID-19; J96.00 - ACUTE RESPIRATORY FAILURE, UNSP W HYPOXIA OR HYPERCAPNIA Status: Acute Priority: High Current Visit: Yes (2) Hypoxia SNOMED Code(s): 866637447 Code(s): R09.02 - HYPOXEMIA Status: Acute Priority: High Current Visit: Yes (3) Pneumonia due to COVID-19 virus SNOMED Code(s): 049713801781587583 Code(s): U07.1 - COVID-19; J12.82 - PNEUMONIA DUE TO CORONAVIRUS DISEASE 2019 Status: Acute Priority: High Current Visit: Yes (4) Hypertension SNOMED Code(s): 30631967 Code(s): I10 - ESSENTIAL (PRIMARY) HYPERTENSION Status: Chronic Priority: Medium Current Visit: Yes Qualifiers: Hypertension type: primary hypertension Qualified Code(s): I10 - Essential (primary) hypertension (5) Type II diabetes mellitus SNOMED Code(s): 82094422 Code(s): E11.9 - TYPE 2 DIABETES MELLITUS WITHOUT COMPLICATIONS Status: Chronic Priority: Medium Current Visit: Yes Qualifiers: Diabetes mellitus manager long term care insulin use: without manager long term care use Diabetes mellitus complication status: without complication Qualified Code(s): E11.9 - Type 2 diabetes mellitus without complications - Problem List Review Problem List Initiated/Reviewed/Updated: Yes - My Orders Last 24 Hours: My Active Orders 03/22/21 10:53 Benzocaine/Cetylpyrd/Menthol [Cepacol Sore Throat] 1 lozenge MUCMEM Q4HR PRN 03/23/21 05:11 CXR [Chest 1V Frontal] [CR] Routine - Assessment Assessment:: Assessment - 03/13/2021 (admitted late 03/12/2021) * This is a 60-year-old male presents to ED with dyspnea and hypoxia * Hx of hypertension though was able to come off his medications due to weight loss. He is a type II diabetic on Metformin. * Went to the walk-in clinic who sent him here * Symptoms began about 2 to 3 days prior * Denies a cough but was noted to have a fever on arrival of 101 * Chest x-ray was obtained at the walk-in clinic which showed bilateral infiltrates in the lower lobes consistent with COVID-19 pneumonia. * He was reportedly checked with a rapid Covid screen and was negative there * Saturations were noted to decrease to 80% and he was started on oxygen and sent here. 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 No history of lung problems such as asthma or COPD * Obese with a BMI of 48.3 however he reports he recently lost 80 pounds * Denies any chest pain, abdominal pain, nausea, or vomiting. * 12-lead EKG was obtained showing sinus tachycardia at 107 bpm with no ectopy. * Labs are obtained in ED and on floor: * WBC 4.57-->3.82 * Hemoglobin 14.6 ->14.9 * Platelet 91,000-->96,000 * Neutrophils 77.1%. * ABGs obtained with a pH of 7.45. PCO2 of 29.6. PO2 of 74.0. HCO3 of 20.3. Saturations of 96.3. This is on 2 L. * VB.32. PCO2 53.7. PO2 26.0. HCO3 of 26.8. Oxygen saturation 35.4. On 3 L. * Sodium 135-->141 * Potassium 3.9-->4.9 * Chloride 100-->103 * Carbon dioxide 23-->29 * Anion gap 15.9-->13.9 * BUN is 13-->16. Creatinine 1.2-->1.1. GFR greater than 60--> Greater than 60. * Glucose 153-->231. * Calcium 8.0-->8.1. * Bilirubin 1.1-->0.8. Direct bilirubin 0.50, Indirect bilirubin 0.30 * AST 115-->99. ALT 89-->87. Alkaline phosphatase 32-->31. * LDH 562. * Troponin 0.019. * CRP 16.9. * Protein 7.4-->7.5. * Albumin 3.1-->2.9. * Lactic acid 1.1. * Ferritin 3732. * D-dimer 1.43. * SARS-CoV-2 RNA is positive. * He is given 6 mg dexamethasone and 2 g of Rocephin. He is also given 2 puffs of an albuterol inhaler and ibuprofen. * Subsequently admitted to the medical floor on telemetry for management of his COVID-19 pneumonia. * CT obtained on floor on 03/12/2021 shows: * 1. No evidence of pulmonary embolus * 2. Moderate bilateral airspace disease compatible with infection * 3. Mild to moderate mediastinal and bihilar adenopathy * 4. Moderate hepatic steatosis * 5. Cholelithiasis 03/14/2021 This is a 60-year-old male admitted for COVID-19 treatment and hypoxia. Overall he is been doing quite well. Has been ambulating around the room. He did note some blood in his urine today so UA will be ordered. labs today show WBC 5.20. Hemoglobin 14.5. Hematocrit 43.6. Platelet improved to 100,000. Neutrophils elevated at 74.7.sodium of 139. Potassium 4.6. Chloride 103. Carbon dioxide 28. Anion gap 12.6. BUN 22. Creatinine 1.2. GFR greater than 60. Glucose has been 1 37-2 12. Calcium is 8.0. Magnesium 2.5. Total bilirubin 0.8. AST is 80, ALT 77, alkaline phosphatase 27. CRP is 12.6. Albumin is 2.7. We will recheck a D-dimer tomorrow. He has been weaned down to 1 L of oxygen. He has been utilizing his incentive spirometry and Acapella. He reports he is still tired but feels pretty good. We will continue treatment plan with likely discharge after completing remdesivir. 03/15/2021 Patient with mild cough denies chest pain denies sob no further hematuria 03/16/2021 denies chest pain on supplemental oxygen intermittent cough no diarrhea 03/17/2021 60-year-old male admitted for treatment of COVID-19 hypoxia. Late 03-14-2021 patient was noted to have gross bleeding from his penis. UA was obtained and CT scan of the abdomen pelvis was also obtained showing 1. Obstructing calculus within the distal right ureter located proximal to the UVJ. This obstructing calculus measures approximately 3.5 mm. This obstructing calculus causes obstructive changes within the right kidney as noted above. 2. Findings of Covid pneumonia within both lung bases. 3. Other findings as noted above which are nonacute. Three-way irrigating Gonzalez catheter was placed. Attending hospitalist did contact urology who reported a high probability of the patient passing the stone. He was placed on Flomax. Gonzalez catheter was ultimately removed. Since that time patient has had worsening desaturations. He was switched to high flow 50 L with an FiO2 of 65%. He was given Actemra. We will start the patient on 125 mg Solu-Medrol every 12 hours for now. Repeat chest x-ray was obtained showing worsening infiltrates. We again discussed proning, although the patient reports that he is unable to prone. We discussed utilizing incentive spirometry and Acapella. Labs today show a WBC of 5.44. Hemoglobin 13.6. Platelet 181,000. Neutrophils 67%. D-dimer is 1.99. Sodium 143. Potassium 4.1. Chloride 108. Carbon dioxide 25. Anion gap 14.1. BUN is 20. Creatinine 0.9. GFR greater than 60. Glucose is 239. Calcium 7.7. Magnesium is 2.3. Bilirubin 0.8. AST 65, ALT 83, alkaline phosphatase 27. CRP is 6.5. Albumin is 2.4. Patient did complete remdesivir treatment today. As his bleeding from his penis is stopped and as he has no gross hematuria anymore we will begin Lovenox 40 mg daily for VTE prophylaxis. Unknown length of stay pending oxygen wean. 03/18/2021 This is a 64-year-old male admitted for Covid pneumonia and after admission found to have a renal stone. Overall he states that he is doing okay. He reports he is chilled but otherwise has no concerns. He has been cautious not overdo it has he feels like he pushed himself a little too hard a few days ago and he had difficulty recovering from that. He denies any abdominal pain or continued bleeding from his penis. He was placed on Lovenox 40 mg daily. We will recheck a D-dimer tomorrow. Labs today show WBC of 7.05. Hemoglobin 13.4. Platelet 221,000. Neutrophils are elevated 85%. Sodium 141. Potassium 4.7. Chloride 104. Carbon dioxide 22. Anion gap 19.7. BUN is 21. Creatinine 0.9. GFR greater than 60. Glucose has been 209 to 304. Magnesium 2.3. Total bilirubin 0.6. AST is 47, ALT 76, alkaline phosphatase 28. CRP is 6.3. Protein 6.8. Albumin 2.5. We will increase sliding scale insulin to high dose and monitor need for long-acting insulin. He continues to utilize incentive spirometry and Acapella. He is on high flow currently 50 L with FiO2 of 60. We will continue to work on weaning oxygen. He received Actemra and has been on twice daily 125 mg Solu-Medrol since. Unknown length of stay due to severity of COVID-19 symptoms. 03/19/2021 This is a 60-year-old male admitted to the floor for treatment of COVID-19. Once on the floor he was noted to have some bleeding from his penis and was noted to have a renal stone. Bleeding is since resolved. Unfortunate his oxygen demand has been increasing and he is currently on BiPAP. Labs today show WBC of 10.67 which is likely steroid related. Hemoglobin is 13.8. Hematocrit 41.7. Platelet 251,000. Neutrophils are elevated at 87.1%. D-dimer is 1.79 which is slightly decreased from prior. Sodium is 142. Potassium 4.7. Chloride 109. Carbon dioxide 25. Anion gap 12.7. BUN is 23. Creatinine 0.9. GFR is greater than 60. Glucose is 214-310. Calcium is 8.4. Magnesium 2.4. Bilirubin 0.8. AST is 30, ALT 70, alkaline phosphatase 33. CRP is down to 3.8. Protein 6.8. Albumin is up to 2.6. Recheck a chest x-ray today shows worsening infiltrates bilaterally. Lung sounds are significantly diminished over prior day. Will upgrade to ICU status due to worsening saturations. Stewarteliesergian Preston contacted at patient request ([phone]). While in room patient reports that he does not want to be resuscitated and does not want intubation should he take a turn for the worse. He reports he has paperwork on file that says he is DO NOT RESUSCITATE/DO NOT INTUBATE. CODE STATUS changed at patient's request. Dr. Hernandez, attending hospitalist in the room to discuss plan with patient. Patient aware of poor prognosis given worsening symptoms and need for BiPAP. 03/20/2021 60-year-old male admitted to the floor for hypoxia secondary to Covid pneumonia. On the floor patient was found to have renal stone with gross bleeding from his penis. Urology was consulted and stated that this stone will pass. Patient was started on Flomax. Yesterday patient was noted to have worsening saturations and was placed on BiPAP. Chest x-ray was obtained which showed worsening bilateral infiltrates discussion ensued and patient requested to be DNR/DNI status. Patient was upgraded to ICU. Today patient has been on high flow and tolerating this well. Saturations have been low 90s. He is on 60 L with 90% FiO2. He has been proning occasionally and his saturations have been in the upper 90s when he is doing this. He continues to receive 125 mg Solu- Medrol twice daily I will look at decreasing this in the future if he continues to improve. Labs today show WBC of 10.02. He hemoglobin 14.0. Platelet 270,000. Neutrophils 90.6. Sodium 141. Potassium 4.9. Chloride 108. Carbon dioxide 25. Anion gap 12.9. BUN is 26. Creatinine 0.9. GFR greater than 60. Blood glucose readings have been elevated from 221-265. Calcium is 8.4. Magne sium 2.4. Total bilirubin 0.9. AST 35, ALT 74. Alkaline phosphatase 34. CRP is improved to 2.0. Protein 6.8. Albumin 2.7. Procalcitonin less than 0.05. Given the patient's increased blood sugars and need for 6 to 9 units per dosing of Humalog we will start 20 units Lantus daily. This will likely need to be decreased or discontinued as the patient weans off of steroids. Patient will continue admission in the ICU. Overall he remains stable to improved. Continues to be short of breath. Unknown length of stay is will depend on continued response to treatment. We again discussed CODE STATUS. Patient reports he would like to remain DNR/DNI and should he get to the point where he needs intubation we will readdress this, per his wishes. 03/21/2021 This is a 60-year-old male admitted to the floor with hypoxia secondary to COVID-19 pneumonia. Today patient's lung sounds are greatly improved however still quite diminished. He remains on high flow 60 L at 85% FiO2. Labs show a WBC of 11.32 which is likely steroid induced. Hemoglobin 14.5. Platelet 259 ,000. Neutrophils are elevated 91.2%. D-dimer is 1.88. Sodium is 142. Potassium 5.2. Chloride 107. Carbon dioxide 24. Anion gap is 16.2. BUN is 27. Creatinine 1.0. GFR greater than 60. Glucose has been 2 64-2 81. Calcium is 8.3. Magnesium 2.3. Total bilirubin 0.9. AST is 35, ALT 79, alkaline phosphatase 32. CRP is 1.2. Protein 6.8. Albumin 2.7. Patient has been proning but states he can only do this for short periods due to back pain. He has been utilizing his incentive spirometer and Acapella. Nursing were instructed to continue to encourage this. Patient may resume PT and OT today. He was stepdown from ICU to [facility] on telemetry. We will increase his long- acting insulin to 30 units daily due to continued elevated blood sugars. Steroid will be decreased to 60 mg every 8 hours. Continue current treatment plan. Unknown length of stay pending improvement from COVID-19 pneumonia. 03/22/2021 The patient is a 60-year-old gentleman who was admitted secondary to respiratory failure due to COVID-19 pneumonia. His chest x-ray taken on March 19, 2021 showed worsening pneumonia. I have ordered repeat chest x-ray for tomorrow. Repeat laboratory studies have been ordered for the morning. The patient also has hyperglycemia likely secondary to steroids. The patient will be kept on his high-dose insulin. The patient has been encouraged to ambulate. He was also instructed on incentive spirometer and Acapella. Continue on diabetic diet as tolerated. Patient should be appropriate for discharge pending resolution of his symptoms as well as a reduction in his oxygen demand. This should happen in 1 to 2 days. 03/23/2021 Patient is a 60-year-old gentleman who will continue in hospitalization until his oxygen demands have improved. The patient has been slow to recover. Overall the patient is doing better. He will be continued on oxygen support to keep his saturations between 90 and 92%. I have advised the patient that he will likely be discharged home with home oxygen. Repeat laboratory studies have been ordered. The patient will have regular diabetic diet as tolerated. Continue with DVT prophylaxis. He also will be kept on high-dose insulin as his blood sugars have been markedly elevated secondary to steroid usage. The patient also has been encouraged to continue with the use of the incentive spirometer and Acapella. He has also been encouraged to ambulate in the room. The patient should be appropriate for discharge 1 to 2 days depending on his oxygen demand. - Plan Plan:: Case discussed in full. Agree with evaluation, assessment and plan.
--- NOTE | 2021-03-23 09:11 | CR ---
Chest: Frontal view of the chest was obtained. Comparison: Prior chest x-ray 03/19/[address] study of 03/12/21. Patchy areas of increased density are seen peripherally within both lungs. Findings are without definite change from prior exam when allowing for technique change. Heart size and mediastinum are within normal limits. Bony structures shows nothing acute. Impression: 1. Patchy increased density peripherally within both lungs. No definite change is seen when allowing for differences in technique. Diagnostic code #3
[2021-03-23] MEDS: Aspirin 81 MG Tab.EC PO SCH (09:17)
[2021-03-23] MEDS: Benzocaine/Cetylpyridinium/Menthol Lozenge MUCMEM PRN (09:17)
[2021-03-23] MEDS: Enoxaparin 40 MG/0.4 ML Syringe SUBCUT SCH (09:17)
[2021-03-23] MEDS: Multivitamin Tab PO SCH (09:17)
[2021-03-23] MEDS: Insulin Glarg,Human.Rec.Analog 100 Unit/ML SUBCUT SCH (09:17)
[2021-03-23] MEDS: Famotidine 20 MG Tab PO SCH ×2 (09:17→20:48)
[2021-03-23] MEDS: Tamsulosin 0.4 MG Cap.ER PO SCH (09:18)
[2021-03-23] MEDS: Insulin Lispro 100 UNIT/ML 10 ML Vial SUBCUT SCH ×4 (09:18→21:32)
[2021-03-24] MEDS: Albuterol/Ipratropium 3.0-0.5 MG/3 ML Neb Soln NEB SCH ×7 (02:01→21:48)
[2021-03-24] MEDS: methylPREDNISolone Sodium Succinate 125 MG/2 ML SDV IVPUSH SCH (04:44)
[2021-03-24] MEDS: Enoxaparin 40 MG/0.4 ML Syringe SUBCUT SCH (07:59)
[2021-03-24] MEDS: Insulin Glarg,Human.Rec.Analog 100 Unit/ML SUBCUT SCH (08:00)
--- NOTE | 2021-03-24 08:00 | PCM.PN ---
<Red Lutz - Last Filed: 03/24/21 13:12> - General Info Date of Service: 03/24/21 Admission Dx/Problem (Free Text): The patient was admitted secondary to COVID-19 pneumonia. Functional Status: Reports: Pain Controlled, Tolerating Diet, Ambulating, Urinating, Incentive Spirometry, Other (Acapella ). Denies: New Symptoms - Review of Systems General: Reports: No Symptoms. Denies: Fever, Weakness, Fatigue, Malaise, Chills HEENT: Reports: No Symptoms. Denies: Headaches, Sore Throat Pulmonary: Reports: Shortness of Breath, Cough, Sputum. Denies: Pleuritic Chest Pain, Wheezing Cardiovascular: Reports: Dyspnea on Exertion. Denies: Chest Pain, Palpitations Gastrointestinal: Reports: No Symptoms. Denies: Abdominal Pain, Constipation (Orts BM yesterday), Decreased Appetite, Diarrhea, Nausea, Vomiting Genitourinary: Reports: No Symptoms. Denies: Pain Musculoskeletal: Reports: No Symptoms Skin: Reports: No Symptoms. Denies: Cyanosis Neurological: Reports: No Symptoms. Denies: Confusion, Numbness, Pre-Existing Deficit, Tingling, Difficulty Walking, Weakness, Gait Disturbance Psychiatric: Reports: No Symptoms - Patient Data Vitals - Most Recent: Last Vital Signs Temp 96.8 F L 03/24/21 04:00 Pulse 67 03/22/21 06:00 Resp 16 03/24/21 06:00 BP 131/70 03/24/21 04:43 Pulse Ox 93 L 03/24/21 05:55 Weight - Most Recent: 150.139 kg I&O - Last 24 Hours: Intake & Output 03/23/21 03/24/21 03/24/21 22:59 06:59 14:59 Intake Total 1040 400 Output Total 900 800 Balance 140 -400 Lab Results Last 24 Hours: Laboratory Results - last 24 hr 03/23/21 03/23/21 03/23/21 Range/Units 06:05 10:08 12:09 WBC (4.23-9.07) K/mm3 RBC (4.63-6.08) M/mm3 Hgb (13.7-17.5) gm/dl Hct (40.1-51.0) % MCV (79.0-92.2) fl MCH (25.7-32.2) pg MCHC (32.2-35.5) g/dl RDW Std Deviation (35.1-43.9) fL Plt Count (163-337) K/mm3 MPV (9.4-12.3) fl Neut % (Auto) (34.0-67.9) % Lymph % (Auto) (21.8-53.1) % [place] % (Auto) (5.3-12.2) % Eos % (Auto) (0.8-7.0) Baso % (Auto) (0.1-1.2) % Neut # (Auto) (1.78-5.38) K/mm3 Lymph # (Auto) (1.32-3.57) K/mm3 [place] # (Auto) (0.30-0.82) K/mm3 Eos # (Auto) (0.04-0.54) K/mm3 Baso # (Auto) (0.01-0.08) K/mm3 Manual Slide Review Normal smear D-Dimer, Quantitative 0.91 H (0.19-0.50) mg/L Sodium (136-145) mEq/L Potassium (3.5-5.1) mEq/L Chloride (98-107) mEq/L Carbon Dioxide (21-32) mEq/L Anion Gap (5-15) BUN (7-18) mg/dL Creatinine (0.7-1.3) mg/dL Est Cr Clr Drug Dosing mL/min Estimated GFR (MDRD) (>60) mL/min BUN/Creatinine Ratio (14-18) Glucose (70-99) mg/dL POC Glucose 226 H (70-99) mg/dL Calcium (8.5-10.1) mg/dL Magnesium (1.8-2.4) mg/dL Total Bilirubin (0.2-1.0) mg/dL AST (15-37) U/L ALT (16-63) U/L Alkaline Phosphatase (46-116) U/L C-Reactive Protein (<1.0) mg/dL Total Protein (6.4-8.2) g/dl Albumin (3.4-5.0) g/dl Globulin gm/dL Albumin/Globulin Ratio (1-2) 08/22/21 08/22/21 08/23/21 Range/Units 17:12 20:46 05:26 WBC 14.76 H (4.23-9.07) K/mm3 RBC 4.93 (4.63-6.08) M/mm3 Hgb 14.5 (13.7-17.5) gm/dl Hct 44.1 (40.1-51.0) % MCV 89.5 (79.0-92.2) fl MCH 29.4 (25.7-32.2) pg MCHC 32.9 (32.2-35.5) g/dl RDW Std Deviation 46.4 H (35.1-43.9) fL Plt Count 223 (163-337) K/mm3 MPV 10.6 (9.4-12.3) fl Neut % (Auto) 91.1 H (34.0-67.9) % Lymph % (Auto) 3.2 L (21.8-53.1) % [place] % (Auto) 4.9 L (5.3-12.2) % Eos % (Auto) 0.2 L (0.8-7.0) Baso % (Auto) 0.1 (0.1-1.2) % Neut # (Auto) 13.44 H (1.78-5.38) K/mm3 Lymph # (Auto) 0.47 L (1.32-3.57) K/mm3 [place] # (Auto) 0.73 (0.30-0.82) K/mm3 Eos # (Auto) 0.03 L (0.04-0.54) K/mm3 Baso # (Auto) 0.01 (0.01-0.08) K/mm3 Manual Slide Review Abnormal smear D-Dimer, Quantitative (0.19-0.50) mg/L Sodium (136-145) mEq/L Potassium (3.5-5.1) mEq/L Chloride (98-107) mEq/L Carbon Dioxide (21-32) mEq/L Anion Gap (5-15) BUN (7-18) mg/dL Creatinine (0.7-1.3) mg/dL Est Cr Clr Drug Dosing mL/min Estimated GFR (MDRD) (>60) mL/min BUN/Creatinine Ratio (14-18) Glucose (70-99) mg/dL POC Glucose 229 H 312 H (70-99) mg/dL Calcium (8.5-10.1) mg/dL Magnesium (1.8-2.4) mg/dL Total Bilirubin (0.2-1.0) mg/dL AST (15-37) U/L ALT (16-63) U/L Alkaline Phosphatase (46-116) U/L C-Reactive Protein (<1.0) mg/dL Total Protein (6.4-8.2) g/dl Albumin (3.4-5.0) g/dl Globulin gm/dL Albumin/Globulin Ratio (1-2) 03/24/21 Range/Units 05:26 WBC (4.23-9.07) K/mm3 RBC (4.63-6.08) M/mm3 Hgb (13.7-17.5) gm/dl Hct (40.1-51.0) % MCV (79.0-92.2) fl MCH (25.7-32.2) pg MCHC (32.2-35.5) g/dl RDW Std Deviation (35.1-43.9) fL Plt Count (163-337) K/mm3 MPV (9.4-12.3) fl Neut % (Auto) (34.0-67.9) % Lymph % (Auto) (21.8-53.1) % [place] % (Auto) (5.3-12.2) % Eos % (Auto) (0.8-7.0) Baso % (Auto) (0.1-1.2) % Neut # (Auto) (1.78-5.38) K/mm3 Lymph # (Auto) (1.32-3.57) K/mm3 [place] # (Auto) (0.30-0.82) K/mm3 Eos # (Auto) (0.04-0.54) K/mm3 Baso # (Auto) (0.01-0.08) K/mm3 Manual Slide Review D-Dimer, Quantitative (0.19-0.50) mg/L Sodium 141 (136-145) mEq/L Potassium 5.2 H (3.5-5.1) mEq/L Chloride 105 (98-107) mEq/L Carbon Dioxide 28 (21-32) mEq/L Anion Gap 13.2 (5-15) BUN 24 H (7-18) mg/dL Creatinine 1.0 (0.7-1.3) mg/dL Est Cr Clr Drug Dosing 82.62 mL/min Estimated GFR (MDRD) > 60 (>60) mL/min BUN/Creatinine Ratio 24.0 H (14-18) Glucose 262 H (70-99) mg/dL POC Glucose (70-99) mg/dL Calcium 8.2 L (8.5-10.1) mg/dL Magnesium 2.3 (1.8-2.4) mg/dL Total Bilirubin 0.8 (0.2-1.0) mg/dL AST 34 (15-37) U/L ALT 100 H (16-63) U/L Alkaline Phosphatase 34 L (46-116) U/L C-Reactive Protein <0.2 (<1.0) mg/dL Total Protein 6.5 (6.4-8.2) g/dl Albumin 2.8 L (3.4-5.0) g/dl Globulin 3.7 gm/dL Albumin/Globulin Ratio 0.8 L (1-2) Med Orders - Current: Current Medications Albuterol (Albuterol 6.7 Gm Inhaler) 0 gm INH Q6H PRN PRN Reason: Shortness of Breath Last Admin: 03/19/21 08:35 Dose: 2 puff Documented by: Albuterol/Ipratropium (Albuterol/Ipratropium 3.0-0.5 Mg/3 Ml Neb Soln) 3 ml NEB Q4H REPLACED BY [facility] Last Admin: 03/24/21 05:55 Dose: 3 ml Documented by: Aspirin (Aspirin 81 Mg Tab.Ec) 81 mg PO DAILY REPLACED BY [facility] Last Admin: 03/23/21 09:17 Dose: 81 mg Documented by: Benzocaine/Menthol (Benzocaine/Cetylpyridinium/Menthol Lozenge) 1 lozenge MUCMEM Q4HR PRN PRN Reason: Sore Throat Last Admin: 03/23/21 09:17 Dose: 1 lozenge Documented by: Enoxaparin Sodium (Enoxaparin 40 Mg/0.4 Ml Syringe) 40 mg SUBCUT DAILY REPLACED BY [facility] Last Admin: 03/23/21 09:17 Dose: 40 mg Documented by: Famotidine (Famotidine 20 Mg Tab) 20 mg PO BID REPLACED BY [facility] Last Admin: 03/23/21 20:48 Dose: 20 mg Documented by: Hydromorphone HCl (Hydromorphone 0.5 Mg/0.5 Ml Syringe) 0.5 mg IVPUSH Q1H PRN PRN Reason: Pain (severe 7-10) Last Admin: 03/16/21 21:20 Dose: 0.5 mg Documented by: Ibuprofen (Ibuprofen 600 Mg Tab) 600 mg PO Q6H PRN PRN Reason: fever/pain Last Admin: 03/13/21 17:57 Dose: 600 mg Documented by: Insulin Glargine (Insulin Glarg,Human.Rec.Analog 100 Unit/Ml) 30 unit SUBCUT DAILY REPLACED BY [facility] Last Admin: 03/23/21 09:17 Dose: 30 units Documented by: Insulin Human Lispro (Insulin Lispro 100 Unit/Ml 10 Ml Vial) 0 unit SUBCUT QID ACANDBED REPLACED BY [facility]; Protocol Last Admin: 03/23/21 21:32 Dose: 12 unit Documented by: Methylprednisolone Sodium Succinate (Methylprednisolone Sodium Succinate 125 Mg/2 Ml Sdv) 60 mg IVPUSH Q8H REPLACED BY [facility] Last Admin: 03/24/21 04:44 Dose: 60 mg Documented by: Multivitamins/Minerals/Vitamin C (Multivitamin Tab) 1 tab PO DAILY REPLACED BY [facility] Last Admin: 03/23/21 09:17 Dose: 1 tab Documented by: Ondansetron HCl (Ondansetron 4 Mg/2 Ml Sdv) 4 mg IV Q6H PRN PRN Reason: Nausea/Vomiting Oxycodone HCl (Oxycodone 5 Mg Tab) 5 mg PO Q4H PRN PRN Reason: Pain (moderate 4-6) Last Admin: 03/18/21 21:52 Dose: 5 mg Documented by: Sodium Chloride (Sodium Chloride 0.9% 10 Ml Syringe) 10 ml FLUSH ASDIRECTED PRN PRN Reason: Keep Vein Open Last Admin: 03/12/21 17:49 Dose: 10 ml Documented by: Tamsulosin HCl (Tamsulosin 0.4 Mg Cap.Er) 0.4 mg PO DAILY REPLACED BY [facility] Last Admin: 03/23/21 09:18 Dose: 0.4 mg Documented by: Discontinued Medications Albuterol (Albuterol 6.7 Gm Inhaler) 0 gm INH ONETIME ONE Stop: 03/12/21 17:41 Last Admin: 03/12/21 17:49 Dose: 2 puff Documented by: Dexamethasone (Dexamethasone 10 Mg/Ml Sdv) 6 mg IVPUSH ONETIME ONE Stop: 03/12/21 19:50 Last Admin: 03/12/21 20:24 Dose: 6 mg Documented by: Dexamethasone (Dexamethasone 4 Mg Tab) 6 mg PO Q24H CURLY Stop: 03/21/21 18:01 Last Admin: 03/16/21 17:43 Dose: 6 mg Documented by: Diatrizoate Meglum/Diatrizoate Sod (Diatrizoate Meglumine/Diatrizoate Sodium 37% 120 Ml Bottle) 60 ml PO ONETIME ONE Stop: 03/14/21 16:44 Last Admin: 03/14/21 16:55 Dose: 60 ml Documented by: Heparin Sodium (Porcine) (Heparin Sodium 5,000 Units/Ml Vial) 5,000 units SUBCUT Q8H CURLY Last Admin: 03/14/21 06:31 Dose: Not Given Documented by: Ceftriaxone Sodium 2 gm/ (Sodium Chloride) 100 mls @ 200 mls/hr IV ONETIME ONE Stop: 03/12/21 18:08 Last Admin: 03/12/21 17:49 Dose: 200 mls/hr Documented by: Remdesivir 200 mg/ Sodium (Chloride) 250 mls @ 250 mls/hr IV ONETIME ONE Stop: 03/13/21 09:29 Last Admin: 03/13/21 08:28 Dose: 250 mls/hr Documented by: Remdesivir 100 mg/ Sodium (Chloride) 100 mls @ 100 mls/hr IV Q24H CURLY Stop: 03/17/21 09:29 Last Admin: 03/17/21 09:50 Dose: 100 mls/hr Documented by: Tocilizumab 800 mg/ Sodium (Chloride) 100 mls @ 100 mls/hr IV ONETIME ONE Stop: 03/17/21 11:29 Last Admin: 03/17/21 11:24 Dose: 100 mls/hr Documented by: Ibuprofen (Ibuprofen 600 Mg Tab) 600 mg PO ONETIME ONE Stop: 03/12/21 17:43 Last Admin: 03/12/21 17:49 Dose: 600 mg Documented by: Insulin Glargine (Insulin Glarg,Human.Rec.Analog 100 Unit/Ml) 20 unit SUBCUT DAILY REPLACED BY [facility] Last Admin: 03/21/21 08:56 Dose: 20 units Documented by: Iopamidol (Iopamidol 612 Mg/Ml 100 Ml Bottle) 100 ml IVPUSH ONETIME ONE Stop: 03/14/21 16:44 Last Admin: 03/14/21 16:56 Dose: 100 ml Documented by: Lidocaine HCl (Lidocaine 2% Jelly 10 Ml Urojet) 10 ml MUCMEM ONETIME ONE Stop: 03/14/21 16:01 Last Admin: 03/14/21 16:54 Dose: 10 ml Documented by: Magnesium Hydroxide (Magnesium Hydroxide 400 Mg/5 Ml Susp 30 Ml Cup) 30 ml PO ONETIME ONE Stop: 03/18/21 06:31 Last Admin: 03/18/21 06:30 Dose: Not Given Documented by: Metformin HCl (Metformin 500 Mg Tab) 500 mg PO BIDMEALS REPLACED BY [facility] Last Admin: 03/13/21 07:36 Dose: Not Given Documented by: Methylprednisolone Sodium Succinate (Methylprednisolone Sodium Succinate 125 Mg/2 Ml Sdv) 125 mg IVPUSH Q12H REPLACED BY [facility] Last Admin: 03/21/21 00:41 Dose: 125 mg Documented by: Sodium Chloride (Sodium Chloride 0.9% 10 Ml Syringe) 10 ml FLUSH ONETIME PRN PRN Reason: Keep Vein Open Stop: 03/14/21 19:00 Last Admin: 03/14/21 16:56 Dose: 10 ml Documented by: Tamsulosin HCl (Tamsulosin 0.4 Mg Cap.Er) 0.4 mg PO ONETIME ONE Stop: 03/14/21 17:56 Last Admin: 03/14/21 18:09 Dose: 0.4 mg Documented by: - Exam Quality Assessment: Supplemental Oxygen (3 L), DVT Prophylaxis. No: Urine Catheter Urinary Catheter Total Time: 0Days 0Hours General: Alert, Oriented, Cooperative, No Acute Distress HEENT: Pupils Equal, Pupils Reactive, Mucous Membr. Moist/[place] Neck: Supple, Trachea Midline Lungs: Normal Respiratory Effort, Decreased Breath Sounds (Greatly improved). No: Crackles, Rhonchi, Wheezing Cardiovascular: Regular Rate, Regular Rhythm GI/Abdominal Exam: Normal Bowel Sounds, Soft, Non-Tender, No Distention (Male) Exam: Deferred Back Exam: Normal Inspection, Full Range of Motion Extremities: Normal Inspection, Normal Range of Motion, Non-Tender, No Pedal Alexandr ma, Normal Capillary Refill Peripheral Pulses: 2+: Dorsalis Pedis (L), Dorsalis Pedis (R), 3+: Radial (L), Radial (R) Skin: Warm, Dry, Intact Neurological: No New Focal Deficit Psy/Mental Status: Alert, Normal Affect, Normal Mood - Patient Data Lab Results Last 24 hrs: Laboratory Results - last 24 hr 03/23/21 03/23/21 03/23/21 Range/Units 06:05 10:08 12:09 WBC (4.23-9.07) K/mm3 RBC (4.63-6.08) M/mm3 Hgb (13.7-17.5) gm/dl Hct (40.1-51.0) % MCV (79.0-92.2) fl MCH (25.7-32.2) pg MCHC (32.2-35.5) g/dl RDW Std Deviation (35.1-43.9) fL Plt Count (163-337) K/mm3 MPV (9.4-12.3) fl Neut % (Auto) (34.0-67.9) % Lymph % (Auto) (21.8-53.1) % [place] % (Auto) (5.3-12.2) % Eos % (Auto) (0.8-7.0) Baso % (Auto) (0.1-1.2) % Neut # (Auto) (1.78-5.38) K/mm3 Lymph # (Auto) (1.32-3.57) K/mm3 [place] # (Auto) (0.30-0.82) K/mm3 Eos # (Auto) (0.04-0.54) K/mm3 Baso # (Auto) (0.01-0.08) K/mm3 Manual Slide Review Normal smear D-Dimer, Quantitative 0.91 H (0.19-0.50) mg/L Sodium (136-145) mEq/L Potassium (3.5-5.1) mEq/L Chloride (98-107) mEq/L Carbon Dioxide (21-32) mEq/L Anion Gap (5-15) BUN (7-18) mg/dL Creatinine (0.7-1.3) mg/dL Est Cr Clr Drug Dosing mL/min Estimated GFR (MDRD) (>60) mL/min BUN/Creatinine Ratio (14-18) Glucose (70-99) mg/dL POC Glucose 226 H (70-99) mg/dL Calcium (8.5-10.1) mg/dL Magnesium (1.8-2.4) mg/dL Total Bilirubin (0.2-1.0) mg/dL AST (15-37) U/L ALT (16-63) U/L Alkaline Phosphatase (46-116) U/L C-Reactive Protein (<1.0) mg/dL Total Protein (6.4-8.2) g/dl Albumin (3.4-5.0) g/dl Globulin gm/dL Albumin/Globulin Ratio (1-2) 03/23/21 03/23/21 03/24/21 Range/Units 17:12 20:46 05:26 WBC 14.76 H (4.23-9.07) K/mm3 RBC 4.93 (4.63-6.08) M/mm3 Hgb 14.5 (13.7-17.5) gm/dl Hct 44.1 (40.1-51.0) % MCV 89.5 (79.0-92.2) fl MCH 29.4 (25.7-32.2) pg MCHC 32.9 (32.2-35.5) g/dl RDW Std Deviation 46.4 H (35.1-43.9) fL Plt Count 223 (163-337) K/mm3 MPV 10.6 (9.4-12.3) fl Neut % (Auto) 91.1 H (34.0-67.9) % Lymph % (Auto) 3.2 L (21.8-53.1) % [place] % (Auto) 4.9 L (5.3-12.2) % Eos % (Auto) 0.2 L (0.8-7.0) Baso % (Auto) 0.1 (0.1-1.2) % Neut # (Auto) 13.44 H (1.78-5.38) K/mm3 Lymph # (Auto) 0.47 L (1.32-3.57) K/mm3 [place] # (Auto) 0.73 (0.30-0.82) K/mm3 Eos # (Auto) 0.03 L (0.04-0.54) K/mm3 Baso # (Auto) 0.01 (0.01-0.08) K/mm3 Manual Slide Review Abnormal smear D-Dimer, Quantitative (0.19-0.50) mg/L Sodium (136-145) mEq/L Potassium (3.5-5.1) mEq/L Chloride (98-107) mEq/L Carbon Dioxide (21-32) mEq/L Anion Gap (5-15) BUN (7-18) mg/dL Creatinine (0.7-1.3) mg/dL Est Cr Clr Drug Dosing mL/min Estimated GFR (MDRD) (>60) mL/min BUN/Creatinine Ratio (14-18) Glucose (70-99) mg/dL POC Glucose 229 H 312 H (70-99) mg/dL Calcium (8.5-10.1) mg/dL Magnesium (1.8-2.4) mg/dL Total Bilirubin (0.2-1.0) mg/dL AST (15-37) U/L ALT (16-63) U/L Alkaline Phosphatase (46-116) U/L C-Reactive Protein (<1.0) mg/dL Total Protein (6.4-8.2) g/dl Albumin (3.4-5.0) g/dl Globulin gm/dL Albumin/Globulin Ratio (1-2) 03/24/21 Range/Units 05:26 WBC (4.23-9.07) K/mm3 RBC (4.63-6.08) M/mm3 Hgb (13.7-17.5) gm/dl Hct (40.1-51.0) % MCV (79.0-92.2) fl MCH (25.7-32.2) pg MCHC (32.2-35.5) g/dl RDW Std Deviation (35.1-43.9) fL Plt Count (163-337) K/mm3 MPV (9.4-12.3) fl Neut % (Auto) (34.0-67.9) % Lymph % (Auto) (21.8-53.1) % [place] % (Auto) (5.3-12.2) % Eos % (Auto) (0.8-7.0) Baso % (Auto) (0.1-1.2) % Neut # (Auto) (1.78-5.38) K/mm3 Lymph # (Auto) (1.32-3.57) K/mm3 [place] # (Auto) (0.30-0.82) K/mm3 Eos # (Auto) (0.04-0.54) K/mm3 Baso # (Auto) (0.01-0.08) K/mm3 Manual Slide Review D-Dimer, Quantitative (0.19-0.50) mg/L Sodium 141 (136-145) mEq/L Potassium 5.2 H (3.5-5.1) mEq/L Chloride 105 (98-107) mEq/L Carbon Dioxide 28 (21-32) mEq/L Anion Gap 13.2 (5-15) BUN 24 H (7-18) mg/dL Creatinine 1.0 (0.7-1.3) mg/dL Est Cr Clr Drug Dosing 82.62 mL/min Estimated GFR (MDRD) > 60 (>60) mL/min BUN/Creatinine Ratio 24.0 H (14-18) Glucose 262 H (70-99) mg/dL POC Glucose (70-99) mg/dL Calcium 8.2 L (8.5-10.1) mg/dL Magnesium 2.3 (1.8-2.4) mg/dL Total Bilirubin 0.8 (0.2-1.0) mg/dL AST 34 (15-37) U/L ALT 100 H (16-63) U/L Alkaline Phosphatase 34 L (46-116) U/L C-Reactive Protein <0.2 (<1.0) mg/dL Total Protein 6.5 (6.4-8.2) g/dl Albumin 2.8 L (3.4-5.0) g/dl Globulin 3.7 gm/dL Albumin/Globulin Ratio 0.8 L (1-2) Result Diagrams: 03/24/21 05:26 03/24/21 05:26 Sepsis Event Note - Evaluation Sepsis Screening Result: Possible Sepsis Risk - Focused Exam Vital Signs: Vital Signs Temp Resp BP BP Pulse Ox Pulse Ox 03/24/21 06:00 16 03/24/21 05:55 93 L 03/24/21 04:43 131/70 03/24/21 04:00 96.8 F L 19 131/70 92 L 03/24/21 03:00 22 H 92 L 03/24/21 02:01 93 L 03/24/21 02:00 18 92 L 03/24/21 01:30 93 L 03/24/21 01:00 19 93 L 03/24/21 00:00 96.8 F L 19 142/81 H 93 L 03/23/21 23:00 21 H 95 03/23/21 22:34 94 L 03/23/21 22:00 19 91 L 03/23/21 21:54 91 L 03/23/21 21:00 16 92 L 03/23/21 20:50 92 L 03/23/21 20:20 94 L - Problem List & Annotations (1) Type II diabetes mellitus SNOMED Code(s): 12364603 Code(s): E11.9 - TYPE 2 DIABETES MELLITUS WITHOUT COMPLICATIONS Status: Chronic Priority: Medium Current Visit: Yes Qualifiers: Diabetes mellitus tax specialist insulin use: without fpc use Diabetes mellitus complication status: without complication Qualified Code(s): E11.9 - Type 2 diabetes mellitus without complications (2) History of hypertension SNOMED Code(s): 218658490 Code(s): Z86.79 - PERSONAL HISTORY OF OTHER DISEASES OF THE CIRCULATORY SYSTEM Status: Chronic Priority: Low Current Visit: No (3) Morbid obesity SNOMED Code(s): 793290997 Code(s): E66.01 - MORBID (SEVERE) OBESITY DUE TO EXCESS CALORIES Status: Chronic Priority: Low Current Visit: No (4) Elevated d-dimer SNOMED Code(s): 284728460 Code(s): R79.89 - OTHER SPECIFIED ABNORMAL FINDINGS OF BLOOD CHEMISTRY Status: Acute Priority: Medium Current Visit: Yes (5) COVID-19 SNOMED Code(s): 642447558 Code(s): U07.1 - COVID-19 Status: Acute Priority: High Current Visit: Y es (6) Hypoxia SNOMED Code(s): 360882238 Code(s): R09.02 - HYPOXEMIA Status: Acute Priority: High Current Visit: Yes (7) Thrombocytopenia SNOMED Code(s): 841083388 Code(s): D69.6 - THROMBOCYTOPENIA, UNSPECIFIED Status: Resolved Priority: High Current Visit: Yes (8) Hepatic steatosis SNOMED Code(s): 727621099 Code(s): K76.0 - FATTY (CHANGE OF) LIVER, NOT ELSEWHERE CLASSIFIED Status: Chronic Priority: Low Current Visit: Yes (9) Cholelithiasis SNOMED Code(s): 514299612 Code(s): K80.20 - CALCULUS OF GALLBLADDER W/O CHOLECYSTITIS W/O OBSTRUCTION Status: Chronic Priority: Low Current Visit: Yes Qualifiers: Cholelithiasis location: gallbladder Cholecystitis presence: with cholecystitis Cholecystitis acuity: chronic Biliary obstruction: without biliary obstruction Qualified Code(s): K80.10 - Calculus of gallbladder with chronic cholecystitis without obstruction (10) Hypoalbuminemia SNOMED Code(s): 469564494 Code(s): E88.09 - OTH DISORDERS OF PLASMA-PROTEIN METABOLISM, NEC Status: Acute Priority: Medium Current Visit: Yes (11) Nephrolithiasis SNOMED Code(s): 82360574 Code(s): N20.0 - CALCULUS OF KIDNEY Status: Acute Current Visit: Yes (12) Hydroureter on right SNOMED Code(s): 24427428 Code(s): N13.4 - HYDROURETER Status: Acute Current Visit: Yes (13) Hydronephrosis SNOMED Code(s): 11823299 Code(s): N13.30 - UNSPECIFIED HYDRONEPHROSIS Status: Acute Priority: High Current Visit: Yes Qualifiers: Hydronephrosis type: unspecified Qualified Code(s): N13.30 - Unspecified hydronephrosis - Problem List Review Problem List Initiated/Reviewed/Updated: Yes - My Orders Last 24 Hours: My Active Orders 03/25/21 05:11 CBC WITH AUTO DIFF [HEME] AM CMP [COMPREHENSIVE METABOLIC PN,CMP] [CHEM] AM CRP [C-REACTIVE PROTEIN] [CHEM] AM MAGNESIUM [CHEM] AM - Assessment Assessment:: Assessment - 03/13/2021 (admitted late 03/12/2021) * This is a 60-year-old male presents to ED with dyspnea and hypoxia * Hx of hypertension though was able to come off his medications due to weight loss. He is a type II diabetic on Metformin. * Went to the walk-in clinic who sent him here * Symptoms began about 2 to 3 days prior * Denies a cough but was noted to have a fever on arrival of 101 * Chest x-ray was obtained at the walk-in clinic which showed bilateral infiltrates in the lower lobes consistent with COVID-19 pneumonia. * He was reportedly checked with a rapid Covid screen and was negative there * Saturations were noted to decrease to 80% and he was started on oxygen and sent here. 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 No history of lung problems such as asthma or COPD * Obese with a BMI of 48.3 however he reports he recently lost 80 pounds * Denies any chest pain, abdominal pain, nausea, or vomiting. * 12-lead EKG was obtained showing sinus tachycardia at 107 bpm with no ectopy. * Labs are obtained in ED and on floor: * WBC 4.57-->3.82 * Hemoglobin 14.6 ->14.9 * Platelet 91,000-->96,000 * Neutrophils 77.1%. * ABGs obtained with a pH of 7.45. PCO2 of 29.6. PO2 of 74.0. HCO3 of 20.3. Saturations of 96.3. This is on 2 L. * VB.32. PCO2 53.7. PO2 26.0. HCO3 of 26.8. Oxygen saturation 35.4. On 3 L. * Sodium 135-->141 * Potassium 3.9-->4.9 * Chloride 100-->103 * Carbon dioxide 23-->29 * Anion gap 15.9-->13.9 * BUN is 13-->16. Creatinine 1.2-->1.1. GFR greater than 60--> Greater than 60. * Glucose 153-->231. * Calcium 8.0-->8.1. * Bilirubin 1.1-->0.8. Direct bilirubin 0.50, Indirect bilirubin 0.30 * AST 115-->99. ALT 89-->87. Alkaline phosphatase 32-->31. * LDH 562. * Troponin 0.019. * CRP 16.9. * Protein 7.4-->7.5. * Albumin 3.1-->2.9. * Lactic acid 1.1. * Ferritin 3732. * D-dimer 1.43. * SARS-CoV-2 RNA is positive. * He is given 6 mg dexamethasone and 2 g of Rocephin. He is also given 2 puffs of an albuterol inhaler and ibuprofen. * Subsequently admitted to the medical floor on telemetry for management of his COVID-19 pneumonia. * CT obtained on floor on 03/12/2021 shows: * 1. No evidence of pulmonary embolus * 2. Moderate bilateral airspace disease compatible with infection * 3. Mild to moderate mediastinal and bihilar adenopathy * 4. Moderate hepatic steatosis * 5. Cholelithiasis 03/14/2021 This is a 60-year-old male admitted for COVID-19 treatment and hypoxia. Overall he is been doing quite well. Has been ambulating around the room. He did note some blood in his urine today so UA will be ordered. labs today show WBC 5.20. Hemoglobin 14.5. Hematocrit 43.6. Platelet improved to 100,000. Neutrophils elevated at 74.7.sodium of 139. Potassium 4.6. Chloride 103. Carbon dioxide 28. Anion gap 12.6. BUN 22. Creatinine 1.2. GFR greater than 60. Glucose has been 1 37-2 12. Calcium is 8.0. Magnesium 2.5. Total bilirubin 0.8. AST is 80, ALT 77, alkaline phosphatase 27. CRP is 12.6. Albumin is 2.7. We will recheck a D-dimer tomorrow. He has been weaned down to 1 L of oxygen. He has been utilizing his incentive spirometry and Acapella. He reports he is still tired but feels pretty good. We will continue treatment plan with likely discharge after completing remdesivir. 03/15/2021 Patient with mild cough denies chest pain denies sob no further hematuria 03/16/2021 denies chest pain on supplemental oxygen intermittent cough no diarrhea 03/17/2021 60-year-old male admitted for treatment of COVID-19 hypoxia. Late 03-14-2021 patient was noted to have gross bleeding from his penis. UA was obtained and CT scan of the abdomen pelvis was also obtained showing 1. Obstructing calculus within the distal right ureter located proximal to the UVJ. This obstructing calculus measures approximately 3.5 mm. This obstructing calculus causes obstructive changes within the right kidney as noted above. 2. Findings of Covid pneumonia within both lung bases. 3. Other findings as noted above which are nonacute. Three-way irrigating Gonzalez catheter was placed. Attending hospitalist did contact urology who reported a high probability of the patient passing the stone. He was placed on Flomax. Gonzalez catheter was ultimately removed. Since that time patient has had worsening desaturations. He was switched to high flow 50 L with an FiO2 of 65%. He was given Actemra. We will start the patient on 125 mg Solu-Medrol every 12 hours for now. Repeat chest x-ray was obtained showing worsening infiltrates. We again discussed proning, although the patient reports that he is unable to prone. We discussed utilizing incentive spirometry and Acapella. Labs today show a WBC of 5.44. Hemoglobin 13.6. Platelet 181,000. Neut rophils 67%. D-dimer is 1.99. Sodium 143. Potassium 4.1. Chloride 108. Carbon dioxide 25. Anion gap 14.1. BUN is 20. Creatinine 0.9. GFR greater than 60. Glucose is 239. Calcium 7.7. Magnesium is 2.3. Bilirubin 0.8. AST 65, ALT 83, alkaline phosphatase 27. CRP is 6.5. Albumin is 2.4. Patient did complete remdesivir treatment today. As his bleeding from his penis is stopped and as he has no gross hematuria anymore we will begin Lovenox 40 mg daily for VTE prophylaxis. Unknown length of stay pending oxygen wean. 03/18/2021 This is a 64-year-old male admitted for Covid pneumonia and after admission found to have a renal stone. Overall he states that he is doing okay. He reports he is chilled but otherwise has no concerns. He has been cautious not overdo it has he feels like he pushed himself a little too hard a few days ago and he had difficulty recovering from that. He denies any abdominal pain or continued bleeding from his penis. He was placed on Lovenox 40 mg daily. We will recheck a D-dimer tomorrow. Labs today show WBC of 7.05. Hemoglobin 13.4. Platelet 221,000. Neutrophils are elevated 85%. Sodium 141. Potassium 4.7. Chloride 104. Carbon dioxide 22. Anion gap 19.7. BUN is 21. Creatinine 0.9. GFR greater than 60. Glucose has been 209 to 304. Magnesium 2.3. Total bilirubin 0.6. AST is 47, ALT 76, alkaline phosphatase 28. CRP is 6.3. Protein 6.8. Albumin 2.5. We will increase sliding scale insulin to high dose and monitor need for long-acting insulin. He continues to utilize incentive spirometry and Acapella. He is on high flow currently 50 L with FiO2 of 60. We will continue to work on weaning oxygen. He received Actemra and has been on twice daily 125 mg Solu-Medrol since. Unknown length of stay due to severity of COVID-19 symptoms. 03/19/2021 This is a 60-year-old male admitted to the floor for treatment of COVID-19. Once on the floor he was noted to have some bleeding from his penis and was noted to have a renal stone. Bleeding is since resolved. Unfortunate his oxygen demand has been increasing and he is currently on BiPAP. Labs today show WBC of 10.67 which is likely steroid related. Hemoglobin is 13.8. Hematocrit 41.7. Platelet 251,000. Neutrophils are elevated at 87.1%. D-dimer is 1.79 which is slightly decreased from prior. Sodium is 142. Potassium 4.7. Chl oride 109. Carbon dioxide 25. Anion gap 12.7. BUN is 23. Creatinine 0.9. GFR is greater than 60. Glucose is 214-310. Calcium is 8.4. Magnesium 2.4. Bilirubin 0.8. AST is 30, ALT 70, alkaline phosphatase 33. CRP is down to 3.8. Protein 6.8. Albumin is up to 2.6. Recheck a chest x-ray today shows worsening infiltrates bilaterally. Lung sounds are significantly diminished over prior day. Will upgrade to ICU status due to worsening saturations. Stepdagian Preston contacted at patient request ([phone]). While in room patient reports that he does not want to be resuscitated and does not want intubation should he take a turn for the worse. He reports he has paperwork on file that says he is DO NOT RESUSCITATE/DO NOT INTUBATE. CODE STATUS changed at patient's request. Dr. Hernandez, attending hospitalist in the room to discuss plan with patient. Patient aware of poor prognosis given worsening symptoms and need for BiPAP. 03/20/2021 60-year-old male admitted to the floor for hypoxia secondary to Covid pneumonia. On the floor patient was found to have renal stone with gross bleeding from his penis. Urology was consulted and stated that this stone will pass. Patient was started on Flomax. Yesterday patient was noted to have worsening satura tions and was placed on BiPAP. Chest x-ray was obtained which showed worsening bilateral infiltrates discussion ensued and patient requested to be DNR/DNI status. Patient was upgraded to ICU. Today patient has been on high flow and tolerating this well. Saturations have been low 90s. He is on 60 L with 90% FiO2. He has been proning occasionally and his saturations have been in the upper 90s when he is doing this. He continues to receive 125 mg Solu-Medrol twice daily I will look at decreasing this in the future if he continues to improve. Labs today show WBC of 10.02. He hemoglobin 14.0. Platelet 270,000. Neutrophils 90.6. Sodium 141. Potassium 4.9. Chloride 108. Carbon dioxide 25. Anion gap 12.9. BUN is 26. Creatinine 0.9. GFR greater than 60. Blood glucose readings have been elevated from 221-265. Calcium is 8.4. Magnesium 2.4. Total bilirubin 0.9. AST 35, ALT 74. Alkaline phosphatase 34. CRP is improved to 2.0. Protein 6.8. Albumin 2.7. Procalcitonin less than 0.05. Given the patient's increased blood sugars and need for 6 to 9 units per dosing of Humalog we will start 20 units Lantus daily. This will likely need to be decreased or discontinued as the patient weans off of steroids. Patient will continue admission in the ICU. Overall he remains stable to improved. Continues to be short of breath. Unknown length of stay is will depend on cont inued response to treatment. We again discussed CODE STATUS. Patient reports he would like to remain DNR/DNI and should he get to the point where he needs intubation we will readdress this, per his wishes. 03/21/2021 This is a 60-year-old male admitted to the floor with hypoxia secondary to COVID-19 pneumonia. Today patient's lung sounds are greatly improved however still quite diminished. He remains on high flow 60 L at 85% FiO2. Labs show a WBC of 11.32 which is likely steroid induced. Hemoglobin 14.5. Platelet 259,000. Neutrophils are elevated 91.2%. D-dimer is 1.88. Sodium is 142. Potassium 5.2. Chloride 107. Carbon dioxide 24. Anion gap is 16.2. BUN is 27. Creatinine 1.0. GFR greater than 60. Glucose has been 2 64-2 81. Calcium is 8.3. Magnesium 2.3. Total bilirubin 0.9. AST is 35, ALT 79, alkaline phosphatase 32. CRP is 1.2. Protein 6.8. Albumin 2.7. Patient has been proning but states he can only do this for short periods due to back pain. He has been utilizing his incentive spirometer and Acapella. Nursing were instructed to continue to encourage this. Patient may resume PT and OT today. He was stepdown from ICU to [facility] on telemetry. We will increase his long- acting insulin to 30 units daily due to continued elevated blood sugars. Steroid will be decreased to 60 mg every 8 hours. Continue current treatment plan. Unknown length of stay pending improvement from COVID-19 pneumonia. 03/22/2021 The patient is a 60-year-old gentleman who was admitted secondary to respiratory failure due to COVID-19 pneumonia. His chest x-ray taken on March 19, 2021 showed worsening pneumonia. I have ordered repeat chest x-ray for tomorrow. Repeat laboratory studies have been ordered for the morning. The patient also has hyperglycemia likely secondary to steroids. The patient will be kept on his high-dose insulin. The patient has been encouraged to ambulate. He was also instructed on incentive spirometer and Acapella. Continue on diabetic diet as tolerated. Patient should be appropriate for discharge pending resolution of his symptoms as well as a reduction in his oxygen demand. This should happen in 1 to 2 days. 03/23/2021 Patient is a 60-year-old gentleman who will continue in hospitalization until his oxygen demands have improved. The patient has been slow to recover. Overall the patient is doing better. He will be continued on oxygen support to keep his saturations between 90 and 92%. I have advised the patient that he will likely be discharged home with home oxygen. Repeat laboratory studies have been ordered. The patient will have regular diabetic diet as tolerated. Continue with DVT prophylaxis. He also will be kept on high-dose insulin as his blood sugars have been markedly elevated secondary to steroid usage. The patient also has been encouraged to continue with the use of the incentive spirometer and Acapella. He has also been encouraged to ambulate in the room. The patient should be appropriate for discharge 1 to 2 days depending on his oxygen demand. 03/24/2021 60-year-old male admitted for Covid. He continues to improve and is down to 3 L of oxygen today. We will decrease his steroid dosing today. He states he overall feels pretty good but continues to have a productive cough. Labs today show a leukocytosis of 14.76 which is likely steroid related. Platelets 243,000. Hemoglobin is 14.5. CMP is grossly stable but sugars have been 226- 312. Anticipate improvement in sugars with decrease in steroids. Patient has had no hematuria or bleeding from his penis. No abdominal pain. Lung sounds remain diminished but greatly improved. He remains on 30 units long-acting insulin and high intensity sliding scale. Discharged home on oxygen. He continues to utilize his incentive spirometer and Acapella. He continues to prone occasionally. Likely discharge in 1 to 2 days pending improvement in oxygen demand. - Plan Plan:: COVID-19 Hypoxia Elevated d-dimer Hypoalbuminemia * O2 as needed with goal saturations of 88-95% * Completed Remdesivir * Decrease Solu-Medrol to 40 mg Q12hr * IS/Acapella * RT consultation * Airborne and contact isolation * Telemetry * Continuous pulse oximetry * Encourage proning * Encourage ambulation around room * CTA obtained and negative * Lovenox subcutaneous * Continue daily aspirin * Materials Clerk consultation * Daily labs * Famotidine 20mg BID * PRN motrin for pain/fever (Reported adverse reaction to Tylenol) * Given Actemera on 03/17/2021 * Procalcitonin negative * Cultures negative thus far * PT/OT - resume today Type II diabetes mellitus * Hold home metformin * High dose sliding scale insulin * QID AC and Bedtime blood glucose checks * Anticipate rise in blood glucose readings due to steroids * Increase Lantus to 30 units daily due to continued increased blood sugars History of hypertension * No current home BP meds * Monitor vital signs Thrombocytopenia, Resolved * Monitor Morbid obesity * Materials Clerk consultation Hepatic steatosis Cholelithiasis * No acute concerns * PCP follow-up Nephrolithiasis Right hydroureteronephrosis * CT obtained * Case discussed with urology; per urology 90% likelihood that stone will pass by itself * Started on Flomax 03/14 Code status: DNR/DNI - Patient would like us to re-address this if it appears he is worsening and may need intubation. PCP: Tricai Mohr NP DVT prohylaxis: Lovenox Disposition: Patient admitted to [facility] on telemetry for COVID-19 treatment. U pgraded to ICU status on 03/19/2021 due to worsening saturations. Downgraded to MedSurg status on telemetry on 03/21/2021. LOS >96Hrs due to need for continued COVID-19 treatment. <Man [place] - Last Filed: 03/24/21 13:42> - Patient Data Vitals - Most Recent: Last Vital Signs Temp 36.0 C L 03/24/21 04:00 Pulse 67 03/22/21 06:00 Resp 18 03/24/21 12:00 BP 133/72 03/24/21 11:12 Pulse Ox 92 L 03/24/21 12:00 I&O - Last 24 Hours: Intake & Output 03/23/21 03/24/21 03/24/21 22:59 06:59 14:59 Intake Total 1040 400 Output Total 900 800 Balance 140 -400 Lab Results Last 24 Hours: Laboratory Results - last 24 hr 03/23/21 03/23/21 03/24/21 Range/Units 17:12 20:46 05:26 WBC 14.76 H (4.23-9.07) K/mm3 RBC 4.93 (4.63-6.08) M/mm3 Hgb 14.5 (13.7-17.5) gm/dl Hct 44.1 (40.1-51.0) % MCV 89.5 (79.0-92.2) fl MCH 29.4 (25.7-32.2) pg MCHC 32.9 (32.2-35.5) g/dl RDW Std Deviation 46.4 H (35.1-43.9) fL Plt Count 223 (163-337) K/mm3 MPV 10.6 (9.4-12.3) fl Neut % (Auto) 91.1 H (34.0-67.9) % Lymph % (Auto) 3.2 L (21.8-53.1) % [place] % (Auto) 4.9 L (5.3-12.2) % Eos % (Auto) 0.2 L (0.8-7.0) Baso % (Auto) 0.1 (0.1-1.2) % Neut # (Auto) 13.44 H (1.78-5.38) K/mm3 Lymph # (Auto) 0.47 L (1.32-3.57) K/mm3 [place] # (Auto) 0.73 (0.30-0.82) K/mm3 Eos # (Auto) 0.03 L (0.04-0.54) K/mm3 Baso # (Auto) 0.01 (0.01-0.08) K/mm3 Manual Slide Review Abnormal smear Sodium (136-145) mEq/L Potassium (3.5-5.1) mEq/L Chloride (98-107) mEq/L Carbon Dioxide (21-32) mEq/L Anion Gap (5-15) BUN (7-18) mg/dL Creatinine (0.7-1.3) mg/dL Est Cr Clr Drug Dosing mL/min Estimated GFR (MDRD) (>60) mL/min BUN/Creatinine Ratio (14-18) Glucose (70-99) mg/dL POC Glucose 229 H 312 H (70-99) mg/dL Calcium (8.5-10.1) mg/dL Magnesium (1.8-2.4) mg/dL Total Bilirubin (0.2-1.0) mg/dL AST (15-37) U/L ALT (16-63) U/L Alkaline Phosphatase (46-116) U/L C-Reactive Protein (<1.0) mg/dL Total Protein (6.4-8.2) g/dl Albumin (3.4-5.0) g/dl Globulin gm/dL Albumin/Globulin Ratio (1-2) 03/24/21 Range/Units 05:26 WBC (4.23-9.07) K/mm3 RBC (4.63-6.08) M/mm3 Hgb (13.7-17.5) gm/dl Hct (40.1-51.0) % MCV (79.0-92.2) fl MCH (25.7-32.2) pg MCHC (32.2-35.5) g/dl RDW Std Deviation (35.1-43.9) fL Plt Count (163-337) K/mm3 MPV (9.4-12.3) fl Neut % (Auto) (34.0-67.9) % Lymph % (Auto) (21.8-53.1) % [place] % (Auto) (5.3-12.2) % Eos % (Auto) (0.8-7.0) Baso % (Auto) (0.1-1.2) % Neut # (Auto) (1.78-5.38) K/mm3 Lymph # (Auto) (1.32-3.57) K/mm3 [place] # (Auto) (0.30-0.82) K/mm3 Eos # (Auto) (0.04-0.54) K/mm3 Baso # (Auto) (0.01-0.08) K/mm3 Manual Slide Review Sodium 141 (136-145) mEq/L Potassium 5.2 H (3.5-5.1) mEq/L Chloride 105 (98-107) mEq/L Carbon Dioxide 28 (21-32) mEq/L Anion Gap 13.2 (5-15) BUN 24 H (7-18) mg/dL Creatinine 1.0 (0.7-1.3) mg/dL Est Cr Clr Drug Dosing 82.62 mL/min Estimated GFR (MDRD) > 60 (>60) mL/min BUN/Creatinine Ratio 24.0 H (14-18) Glucose 262 H (70-99) mg/dL POC Glucose (70-99) mg/dL Calcium 8.2 L (8.5-10.1) mg/dL Magnesium 2.3 (1.8-2.4) mg/dL Total Bilirubin 0.8 (0.2-1.0) mg/dL AST 34 (15-37) U/L ALT 100 H (16-63) U/L Alkaline Phosphatase 34 L (46-116) U/L C-Reactive Protein <0.2 (<1.0) mg/dL Total Protein 6.5 (6.4-8.2) g/dl Albumin 2.8 L (3.4-5.0) g/dl Globulin 3.7 gm/dL Albumin/Globulin Ratio 0.8 L (1-2) Med Orders - Current: Current Medications Albuterol (Albuterol 6.7 Gm Inhaler) 0 gm INH Q6H PRN PRN Reason: Shortness of Breath Last Admin: 03/19/21 08:35 Dose: 2 puff Documented by: Albuterol/Ipratropium (Albuterol/Ipratropium 3.0-0.5 Mg/3 Ml Neb Soln) 3 ml NEB Q4H REPLACED BY [facility] Last Admin: 03/24/21 09:47 Dose: Not Given Documented by: Aspirin (Aspirin 81 Mg Tab.Ec) 81 mg PO DAILY REPLACED BY [facility] Last Admin: 03/24/21 08:02 Dose: 81 mg Documented by: Benzocaine/Menthol (Benzocaine/Cetylpyridinium/Menthol Lozenge) 1 lozenge MUCMEM Q4HR PRN PRN Reason: Sore Throat Last Admin: 03/23/21 09:17 Dose: 1 lozenge Documented by: Enoxaparin Sodium (Enoxaparin 40 Mg/0.4 Ml Syringe) 40 mg SUBCUT DAILY REPLACED BY [facility] Last Admin: 03/24/21 07:59 Dose: 40 mg Documented by: Famotidine (Famotidine 20 Mg Tab) 20 mg PO BID REPLACED BY [facility] Last Admin: 03/24/21 08:02 Dose: 20 mg Documented by: Hydromorphone HCl (Hydromorphone 0.5 Mg/0.5 Ml Syringe) 0.5 mg IVPUSH Q1H PRN PRN Reason: Pain (severe 7-10) Last Admin: 03/16/21 21:20 Dose: 0.5 mg Documented by: Ibuprofen (Ibuprofen 600 Mg Tab) 600 mg PO Q6H PRN PRN Reason: fever/pain Last Admin: 03/13/21 17:57 Dose: 600 mg Documented by: Insulin Glargine (Insulin Glarg,Human.Rec.Analog 100 Unit/Ml) 30 unit SUBCUT DAILY REPLACED BY [facility] Last Admin: 03/24/21 08:00 Dose: 30 units Documented by: Insulin Human Lispro (Insulin Lispro 100 Unit/Ml 10 Ml Vial) 0 unit SUBCUT QIDACANDBED REPLACED BY [facility]; Protocol Last Admin: 03/24/21 12:34 Dose: 9 unit Documented by: Methylprednisolone Sodium Succinate (Methylprednisolone Sodium Succinate 40 Mg/1 Ml Sdv) 40 mg IVPUSH Q12H REPLACED BY [facility] Multivitamins/Minerals/Vitamin C (Multivitamin Tab) 1 tab PO DAILY REPLACED BY [facility] Last Admin: 03/24/21 08:02 Dose: 1 tab Documented by: Ondansetron HCl (Ondansetron 4 Mg/2 Ml Sdv) 4 mg IV Q6H PRN PRN Reason: Nausea/Vomiting Oxycodone HCl (Oxycodone 5 Mg Tab) 5 mg PO Q4H PRN PRN Reason: Pain (moderate 4-6) Last Admin: 03/18/21 21:52 Dose: 5 mg Documented by: Sodium Chloride (Sodium Chloride 0.9% 10 Ml Syringe) 10 ml FLUSH ASDIRECTED PRN PRN Reason: Keep Vein Open Last Admin: 03/12/21 17:49 Dose: 10 ml Documented by: Tamsulosin HCl (Tamsulosin 0.4 Mg Cap.Er) 0.4 mg PO DAILY REPLACED BY [facility] Last Admin: 03/24/21 08:02 Dose: 0.4 mg Documented by: Discontinued Medications Albuterol (Albuterol 6.7 Gm Inhaler) 0 gm INH ONETIME ONE Stop: 03/12/21 17:41 Last Admin: 03/12/21 17:49 Dose: 2 puff Documented by: Dexamethasone (Dexamethasone 10 Mg/Ml Sdv) 6 mg IVPUSH ONETIME ONE Stop: 03/12/21 19:50 Last Admin: 03/12/21 20:24 Dose: 6 mg Documented by: Dexamethasone (Dexamethasone 4 Mg Tab) 6 mg PO Q24H REPLACED BY [facility] Stop: 03/21/21 18:01 Last Admin: 03/16/21 17:43 Dose: 6 mg Documented by: Diatrizoate Meglum/Diatrizoate Sod (Diatrizoate Meglumine/Diatrizoate Sodium 37% 120 Ml Bottle) 60 ml PO ONETIME ONE Stop: 03/14/21 16:44 Last Admin: 03/14/21 16:55 Dose: 60 ml Documented by: Heparin Sodium (Porcine) (Heparin Sodium 5,000 Units/Ml Vial) 5,000 units SUBC UT Q8H REPLACED BY [facility] Last Admin: 03/14/21 06:31 Dose: Not Given Documented by: Ceftriaxone Sodium 2 gm/ (Sodium Chloride) 100 mls @ 200 mls/hr IV ONETIME ONE Stop: 03/12/21 18:08 Last Admin: 03/12/21 17:49 Dose: 200 mls/hr Documented by: Remdesivir 200 mg/ Sodium (Chloride) 250 mls @ 250 mls/hr IV ONETIME ONE Stop: 03/13/21 09:29 Last Admin: 03/13/21 08:28 Dose: 250 mls/hr Documented by: Remdesivir 100 mg/ Sodium (Chloride) 100 mls @ 100 mls/hr IV Q24H REPLACED BY [facility] Stop: 03/17/21 09:29 Last Admin: 03/17/21 09:50 Dose: 100 mls/hr Documented by: Tocilizumab 800 mg/ Sodium (Chloride) 100 mls @ 100 mls/hr IV ONETIME ONE Stop: 03/17/21 11:29 Last Admin: 03/17/21 11:24 Dose: 100 mls/hr Documented by: Ibuprofen (Ibuprofen 600 Mg Tab) 600 mg PO ONETIME ONE Stop: 03/12/21 17:43 Last Admin: 03/12/21 17:49 Dose: 600 mg Documented by: Insulin Glargine (Insulin Glarg,Human.Rec.Analog 100 Unit/Ml) 20 unit SUBCUT DAILY REPLACED BY [facility] Last Admin: 03/21/21 08:56 Dose: 20 units Documented by: Iopamidol (Iopamidol 612 Mg/Ml 100 Ml Bottle) 100 ml IVPUSH ONETIME ONE Stop: 03/14/21 16:44 Last Admin: 03/14/21 16:56 Dose: 100 ml Documented by: Lidocaine HCl (Lidocaine 2% Jelly 10 Ml Urojet) 10 ml MUCMEM ONETIME ONE Stop: 03/14/21 16:01 Last Admin: 03/14/21 16:54 Dose: 10 ml Documented by: Magnesium Hydroxide (Magnesium Hydroxide 400 Mg/5 Ml Susp 30 Ml Cup) 30 ml PO ONETIME ONE Stop: 03/18/21 06:31 Last Admin: 03/18/21 06:30 Dose: Not Given Documented by: Metformin HCl (Metformin 500 Mg Tab) 500 mg PO BIDMEALS REPLACED BY [facility] Last Admin: 03/13/21 07:36 Dose: Not Given Documented by: Methylprednisolone Sodium Succinate (Methylprednisolone Sodium Succinate 125 Mg/2 Ml Sdv) 125 mg IVPUSH Q12H REPLACED BY [facility] Last Admin: 03/21/21 00:41 Dose: 125 mg Documented by: Methylprednisolone Sodium Succinate (Methylprednisolone Sodium Succinate 125 Mg/2 Ml Sdv) 60 mg IVPUSH Q8H REPLACED BY [facility] Last Admin: 03/24/21 04:44 Dose: 60 mg Documented by: Sodium Chloride (Sodium Chloride 0.9% 10 Ml Syringe) 10 ml FLUSH ONETIME PRN PRN Reason: Keep Vein Open Stop: 03/14/21 19:00 Last Admin: 03/14/21 16:56 Dose: 10 ml Documented by: Tamsulosin HCl (Tamsulosin 0.4 Mg Cap.Er) 0.4 mg PO ONETIME ONE Stop: 03/14/21 17:56 Last Admin: 03/14/21 18:09 Dose: 0.4 mg Documented by: - Patient Data Lab Results Last 24 hrs: Laboratory Results - last 24 hr 03/23/21 03/23/21 03/24/21 Range/Units 17:12 20:46 05:26 WBC 14.76 H (4.23-9.07) K/mm3 RBC 4.93 (4.63-6.08) M/mm3 Hgb 14.5 (13.7-17.5) gm/dl Hct 44.1 (40.1-51.0) % MCV 89.5 (79.0-92.2) fl MCH 29.4 (25.7-32.2) pg MCHC 32.9 (32.2-35.5) g/dl RDW Std Deviation 46.4 H (35.1-43.9) fL Plt Count 223 (163-337) K/mm3 MPV 10.6 (9.4-12.3) fl Neut % (Auto) 91.1 H (34.0-67.9) % Lymph % (Auto) 3.2 L (21.8-53.1) % [place] % (Auto) 4.9 L (5.3-12.2) % Eos % (Auto) 0.2 L (0.8-7.0) Baso % (Auto) 0.1 (0.1-1.2) % Neut # (Auto) 13.44 H (1.78-5.38) K/mm3 Lymph # (Auto) 0.47 L (1.32-3.57) K/mm3 [place] # (Auto) 0.73 (0.30-0.82) K/mm3 Eos # (Auto) 0.03 L (0.04-0.54) K/mm3 Baso # (Auto) 0.01 (0.01-0.08) K/mm3 Manual Slide Review Abnormal smear Sodium (136-145) mEq/L Potassium (3.5-5.1) mEq/L Chloride (98-107) mEq/L Carbon Dioxide (21-32) mEq/L Anion Gap (5-15) BUN (7-18) mg/dL Creatinine (0.7-1.3) mg/dL Est Cr Clr Drug Dosing mL/min Estimated GFR (MDRD) (>60) mL/min BUN/Creatinine Ratio (14-18) Glucose (70-99) mg/dL POC Glucose 229 H 312 H (70-99) mg/dL Calcium (8.5-10.1) mg/dL Magnesium (1.8-2.4) mg/dL Total Bilirubin (0.2-1.0) mg/dL AST (15-37) U/L ALT (16-63) U/L Alkaline Phosphatase (46-116) U/L C-Reactive Protein (<1.0) mg/dL Total Protein (6.4-8.2) g/dl Albumin (3.4-5.0) g/dl Globulin gm/dL Albumin/Globulin Ratio (1-2) 03/24/21 Range/Units 05:26 WBC (4.23-9.07) K/mm3 RBC (4.63-6.08) M/mm3 Hgb (13.7-17.5) gm/dl Hct (40.1-51.0) % MCV (79.0-92.2) fl MCH (25.7-32.2) pg MCHC (32.2-35.5) g/dl RDW Std Deviation (35.1-43.9) fL Plt Count (163-337) K/mm3 MPV (9.4-12.3) fl Neut % (Auto) (34.0-67.9) % Lymph % (Auto) (21.8-53.1) % [place] % (Auto) (5.3-12.2) % Eos % (Auto) (0.8-7.0) Baso % (Auto) (0.1-1.2) % Neut # (Auto) (1.78-5.38) K/mm3 Lymph # (Auto) (1.32-3.57) K/mm3 [place] # (Auto) (0.30-0.82) K/mm3 Eos # (Auto) (0.04-0.54) K/mm3 Baso # (Auto) (0.01-0.08) K/mm3 Manual Slide Review Sodium 141 (136-145) mEq/L Potassium 5.2 H (3.5-5.1) mEq/L Chloride 105 (98-107) mEq/L Carbon Dioxide 28 (21-32) mEq/L Anion Gap 13.2 (5-15) BUN 24 H (7-18) mg/dL Creatinine 1.0 (0.7-1.3) mg/dL Est Cr Clr Drug Dosing 82.62 mL/min Estimated GFR (MDRD) > 60 (>60) mL/min BUN/Creatinine Ratio 24.0 H (14-18) Glucose 262 H (70-99) mg/dL POC Glucose (70-99) mg/dL Calcium 8.2 L (8.5-10.1) mg/dL Magnesium 2.3 (1.8-2.4) mg/dL Total Bilirubin 0.8 (0.2-1.0) mg/dL AST 34 (15-37) U/L ALT 100 H (16-63) U/L Alkaline Phosphatase 34 L (46-116) U/L C-Reactive Protein <0.2 (<1.0) mg/dL Total Protein 6.5 (6.4-8.2) g/dl Albumin 2.8 L (3.4-5.0) g/dl Globulin 3.7 gm/dL Albumin/Globulin Ratio 0.8 L (1-2) Result Diagrams: 03/24/21 05:26 03/24/21 05:26 Sepsis Event Note - Focused Exam Vital Signs: Vital Signs Temp Resp BP BP Pulse Ox Pulse Ox 03/24/21 12:00 18 92 L 03/24/21 11:12 23 H 133/72 89 L 03/24/21 11:11 18 87 L 03/24/21 11:00 18 89 L 03/24/21 10:00 22 H 89 L 03/24/21 09:09 90 L 03/24/21 09:00 23 H 91 L 03/24/21 08:00 21 H 87 L 03/24/21 07:56 21 H 138/78 88 L 03/24/21 07:55 15 89 L 03/24/21 07:00 19 88 L 03/24/21 06:00 16 03/24/21 05:55 93 L 03/24/21 04:43 131/70 03/24/21 04:00 36.0 C L 19 131/70 92 L 03/24/21 03:00 22 H 92 L 03/24/21 02:01 93 L 03/24/21 02:00 18 92 L - Problem List & Annotations (1) Acute respiratory failure due to COVID-19 SNOMED Code(s): 855395410 Code(s): U07.1 - COVID-19; J96.00 - ACUTE RESPIRATORY FAILURE, UNSP W HYPOXIA OR HYPERCAPNIA Status: Acute Priority: High Current Visit: Yes (2) Hypoxia SNOMED Code(s): 560678583 Code(s): R09.02 - HYPOXEMIA Status: Acute Priority: High Current Visit: Yes (3) Pneumonia due to COVID-19 virus SNOMED Code(s): 233979041679852694 Code(s): U07.1 - COVID-19; J12.82 - PNEUMONIA DUE TO CORONAVIRUS DISEASE 2019 Status: Acute Priority: High Current Visit: Yes (4) Hypertension SNOMED Code(s): 66930315 Code(s): I10 - ESSENTIAL (PRIMARY) HYPERTENSION Status: Chronic Priority: Medium Current Visit: Yes Qualifiers: Hypertension type: primary hypertension Qualified Code(s): I10 - Essential (primary) hypertension (5) Type II diabetes mellitus SNOMED Code(s): 77282151 Code(s): E11.9 - TYPE 2 DIABETES MELLITUS WITHOUT COMPLICATIONS Status: Chronic Priority: Medium Current Visit: Yes Qualifiers: Diabetes mellitus fpc insulin use: without fpc use Diabetes mellitus complication status: without complication Qualified Code(s): E11.9 - Type 2 diabetes mellitus without complications - Free Text/Narrative Note: I have seen and examined the patient independently of Red Lutz PA-C and have discussed the case with him. I have reviewed and agree with the orders and plan of care outlined by him. Please see orders.
[2021-03-24] MEDS: Aspirin 81 MG Tab.EC PO SCH (08:02)
[2021-03-24] MEDS: Tamsulosin 0.4 MG Cap.ER PO SCH (08:02)
[2021-03-24] MEDS: Multivitamin Tab PO SCH (08:02)
[2021-03-24] MEDS: Famotidine 20 MG Tab PO SCH ×2 (08:02→21:35)
[2021-03-24] MEDS: Insulin Lispro 100 UNIT/ML 10 ML Vial SUBCUT SCH ×4 (08:04→21:44)
[2021-03-24] MEDS ORDERED: Aspirin 81 MG Tab.EC PO SCH (09:00)
[2021-03-24] MEDS: methylPREDNISolone Sodium Succinate 40 MG/1 ML SDV IVPUSH SCH (17:36)
[2021-03-25] MEDS: Albuterol/Ipratropium 3.0-0.5 MG/3 ML Neb Soln NEB SCH ×3 (03:32→09:56)
[2021-03-25] MEDS: methylPREDNISolone Sodium Succinate 40 MG/1 ML SDV IVPUSH SCH (06:20)
--- NOTE | 2021-03-25 08:20 | PCM.DCSUM1 ---
<Red Lutz - Last Filed: 03/25/21 11:29> Discharge Summary - Hospital Course HPI Initial Comments: This is a 60-year-old male presents to ED on 03/12/2021 with dyspnea and hypoxia. He reportedly went to the walk-in clinic who sent him here. He states symptoms began about 2 to 3 days prior. Denies a cough but was noted to have a fever on arrival of 101. Chest x-ray was obtained at the walk-in clinic which showed bilateral infiltrates in the lower lobes consistent with COVID-19 pneumonia. He was reportedly checked with a rapid Covid screen and was negative there. Saturations were noted to decrease to 80% and he was started on oxygen and sent here. They tried to send him by ambulance but he refused. 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 Patient is a former tobacco user quit 20 years ago. No hi story of lung problems such as asthma or COPD. He is obese with a BMI of 48.3 however he reports he recently lost 80 pounds. Was hypertensive though was able to come off his medications due to weight loss. He is a type II diabetic on Metformin. Denies any chest pain, abdominal pain, nausea, or vomiting. In the ED twelve-lead EKG was obtained showing sinus tachycardia at 107 bpm with no ectopy. Respirations were 24. Blood pressure 166/79. Pulse ox 96% on oxygen. Labs are obtained with a WBC of 4.57. Hemoglobin 14.6. Platelet 91,000. Neutrophils 77.1%. ABGs obtained with a pH of 7.45. PCO2 of 29.6. PO2 of 74.0. HCO3 of 20.3. Saturations of 96.3. This is well on 2 L. Sodium was 135. Potassium 3.9. Chloride 100. Carbon dioxide 23. Anion gap is 15.9. BUN is 13. Creatinine 1.2. GFR greater than 60. Glucose is 153. Calcium 8.0. Bilirubin 1.1. AST is 115. ALT 89. Alkaline phosphatase 32. LDH is 562. Troponin 0 0.019. CRP is 16.9. Protein 7.4. Albumin 3.1. Lactic acid is 1.1. Ferritin is 3732. D-dimer is 1.43. SARS-CoV-2 RNA is positive. He is given 6 mg dexamethasone and 2 g of Rocephin. He is also given an albuterol puff and ibuprofen. He carries a history of hypertension type II DM. He is a former smoker. His PCP is Tricia Mohr NP. He is subsequently admitted to the medical floor on telemetry for management of his COVID-19 pneumonia. Diagnosis: Stroke: No - Discharge Data Discharge Date: 03/25/21 (Admit date: 03/12/2021) Discharge Disposition: Home, Self-Care 01 Condition: Good - Referral to Home Health Primary Care Physician: Tricia Mohr NP - Discharge Diagnosis/Problem(s) (1) Type II diabetes mellitus SNOMED Code(s): 64459381 ICD Code: E11.9 - TYPE 2 DIABETES MELLITUS WITHOUT COMPLICATIONS Status: Chronic Priority: Medium Qualifiers: Diabetes mellitus predatory animal exterminator insulin use: without predatory animal exterminator use Diabetes mellitus complication status: without complication Qualified Code(s): E11.9 - Type 2 diabetes mellitus without complications (2) History of hypertension SNOMED Code(s): 198282187 ICD Code: Z86.79 - PERSONAL HISTORY OF OTHER DISEASES OF THE CIRCULATORY SYSTEM Status: Chronic Priority: Low (3) Morbid obesity SNOMED Code(s): 545328803 ICD Code: E66.01 - MORBID (SEVERE) OBESITY DUE TO EXCESS CALORIES Status: Chronic Priority: Low (4) Elevated d-dimer SNOMED Code(s): 424566227 ICD Code: R79.89 - OTHER SPECIFIED ABNORMAL FINDINGS OF BLOOD CHEMISTRY Status: Acute Priority: Medium (5) COVID-19 SNOMED Code(s): 273921571 ICD Code: U07.1 - COVID-19 Status: Acute Priority: High (6) Hypoxia SNOMED Code(s): 292392574 ICD Code: R09.02 - HYPOXEMIA Status: Acute Priority: High (7) Thrombocytopenia SNOMED Code(s): 717792173 ICD Code: D69.6 - THROMBOCYTOPENIA, UNSPECIFIED Status: Resolved Priority: High (8) Hepatic steatosis SNOMED Code(s): 836580778 ICD Code: K76.0 - FATTY (CHANGE OF) LIVER, NOT ELSEWHERE CLASSIFIED Status: Chronic Priority: Low (9) Cholelithiasis SNOMED Code(s): 026776800 ICD Code: K80.20 - CALCULUS OF GALLBLADDER W/O CHOLECYSTITIS W/O OBSTRUCTION Status: Chronic Priority: Low Qualifiers: Cholelithiasis location: gallbladder Cholecystitis presence: with cholecystitis Cholecystitis acuity: chronic Biliary obstruction: without biliary obstruction Qualified Code(s): K80.10 - Calculus of gallbladder with chronic cholecystitis without obstruction (10) Hypoalbuminemia SNOMED Code(s): 390353092 ICD Code: E88.09 - OTH DISORDERS OF PLASMA-PROTEIN METABOLISM, NEC Status: Acute Priority: Medium (11) Nephrolithiasis SNOMED Code(s): 78360144 ICD Code: N20.0 - CALCULUS OF KIDNEY Status: Acute (12) Hydroureter on right SNOMED Code(s): 92286415 ICD Code: N13.4 - HYDROURETER Status: Acute (13) Hydronephrosis SNOMED Code(s): 34032875 ICD Code: N13.30 - UNSPECIFIED HYDRONEPHROSIS Status: Acute Priority: High Qualifiers: Hydronephrosis type: unspecified Qualified Code(s): N13.30 - Unspecified hydronephrosis - Patient Summary/Data Consults: Consultations 03/13/21 07:43 OT Evaluation and Treatment [CONS] Routine PT Evaluation and Treatment [CONS] Routine Respiratory Care Assess and Treatment [CONS] Routine 03/13/21 08:05 Consult to Steam Engineer [CONS] Routine Labs Pending at D/C: None Recommended Follow-up Testing/Procedures: Follow-up with primary care provider within 7 to 10 days of discharge, sooner if needed. * Patient treated for COVID-19 pneumonia. * Discharged on 3 L of oxygen with activity or 2 L continuous. * Patient was instructed to obtain pulse oximeter and check this reading twice daily. Please follow-up on this * Patient discharged on 10-day steroid taper * Please review blood glucose readings as patient has had elevated readings while here, likely due to steroid. * Patient noted to have renal stone was started on Flomax. Please follow-up on this * Recommend repeat CBC, CMP, and magnesium in follow-up. Hospital Course: This is a 60-year-old male who presented to ED on late 03/12/2021 with dyspnea and hypoxia. He reports symptoms began 2 to 3 days prior. Was noted to have a fever of 101 on arrival and a chest x-ray in the ED showed bilateral infiltrates in the lower lobes consistent with Covid pneumonia. He had been seen at the walk-in clinic prior and Covid screen there was negative however our Covid screen did return back positive. Saturations prior to arrival in the walk-in clinic were noted to be around 80%. He is a former smoker and carries a history of type 2 diabetes on Metformin. He does reportedly have a history of hypertension however he lost a significant amount of weight and has not been on medications for this. In the ED started on dexamethasone and given 2 g of Rocephin. He is also given albuterol inhaler and ibuprofen. Chest CTA obtained on floor due to an elevated D-dimer 1.43 on 03/12/2021 shows: 1. No evidence of pulmonary embolus 2. Moderate bilateral airspace disease compatible with infection 3. Mild to moderate mediastinal and bihilar adenopathy 4. Moderate hepatic steatosis 5. Cholelithiasis. Unfortunately initially on the floor patient was refusing to prone and using his incentive spirometer and Acapella very sporadically. On late 03/14/2021 patient was noted to have gross bleeding from his penis. UA was obtained and CT scan of the abdomen pelvis showed 1. Obstructing calculus within the distal right ureter located proximal to the UVJ. This obstructing calculus measures approximately 3.5 mm. This obstructing calculus causes obstructive changes within the right kidney as noted above. 2. Findings of Covid pneumonia within both lung bases. 3. Other findings as noted above which are nonacute. Three-way irrigating Gonzalez catheter was placed. Attending hospitalist did contact urology who reported a high probability of the patient passing the stone. He was placed on Flomax. Gonzlaez catheter was ultimately removed. Patient's desaturations continue to worsen and he was placed on BiPAP. He was also upgraded to ICU status. Actemra was given and steroids were increased 225 mg Solu-Medrol twice daily. These have since been weaned down to 40 mg twice daily. Patient is a DNR/DNI and multiple discussions were had regarding his CODE STATUS. Ultimately patient requested to remain DNR/DNI but did state that he would like us to discuss with him further if he worsened to the point of needing intubation. Fortunately patient was able to be weaned off of BiPAP and down to high flow. He was further weaned to nasal cannula today. He will be discharged on 2 L nasal cannula at all times or 3 L with activity. Patient is a diabetic was on Metformin this was held and he was requiring significant amounts of insulin while here. This is not surprisingly gone down with the decrease in his steroids. He was utilizing 30 units long- acting insulin and high sliding scale insulin. Discussed with Dr. Monaco, attending hospitalist, and we will discharge the patient on his Metformin. Patient started to check his blood glucose readings twice a day and contact primary care provider if they are regularly over 400. Will be discharged on steroid taper with 40 mg prednisone twice daily x2 days, then 40 mg daily x2 days, 30 mg daily x2 days, 20 mg daily x2 days, and finally 10 mg daily x2 days. He will be discharged on Flomax, although this can likely be stopped once the patient passes his stone. He has had no bleeding or abdominal pain since admission. Gonzalez catheter was removed and there have been no issues since. He will be continued on his 81 mg aspirin daily. He was given a as needed 2 puff every 2 hour prescription for albuterol inhaler. Recommend patient follow-up with his primary care provider within 7 to 10 days of discharge, sooner if needed. Recommend repeat CBC, CMP, and magnesium at that appointment. Consider follow-up chest x-ray. Patient discharged on oxygen as noted above. He was instructed to obtain a fingertip pulse oximeter and record this twice daily. He was instructed to check his blood sugars twice daily and record this as well. He was instructed to continue to lyse incentive spirometer and Acapella for 1 to 2 weeks or until symptoms resolve. He was discharged on oxygen as noted above and this will need to be weaned as the patient tolerates. He was instructed to not overwork himself and to take it easy. He was also instructed to contact his primary care provider return the emergency room should symptoms return or worsen. Discharged home today. Patient instructed to continue to quarantine/isolate for a total of 20 days since symptom onset. - Patient Instructions Diet: Diabetic Diet Activity: As Tolerated Driving: Do Not Drive Showering/Bathing: May Shower Notify Provider of: Fever, Increased Pain, Nausea and/or Vomiting Other/Special Instructions: Follow-up with primary care provider within 7 to 10 days of discharge, sooner if needed. Continue to wear your oxygen as directed, 2 L at all times and 3 L with activity. Obtain a fingertip pulse oximeter and check this value twice a day. Record this in a medical journal and bring this with to all medical appointments. Your blood sugars will likely remain high as we stepdown your steroids. Unfortunately cannot just discontinue your steroids at discharge. Take your blood sugar at least twice a day and record this in a journal. Bring it with to all medical appointments. Contact your primary care provider if you note that you are consistently greater than 400. Continue to utilize your incentive spirometer (clear/blue device you inhale through) and Acapella (green tube you blow through) for 1 to 2 weeks or until symptoms resolve. Continue to prone (lay on your belly) whenever able. You should continue to isolate/quarantine for 20 days from symptom onset. You will likely receive a call from a parcel post truck driver with the [facility]. Please follow their directions.. Stay active but listen to your body. If you start to feel tired take it easy and rest. You were given a albuterol inhaler. Utilize this as needed for shortness of breath or wheezing. You were given a steroid taper. You should take 40 mg (four 10mg pills) twice a day for 2 days. You should then take 40 mg (four 10mg pills) daily for 2 days. After this take 30 mg (three 10mg pills) for 2 days. Then 20 mg (two 10mg pills) daily for 2 days. Finally take 10 mg (one 10mg pill) daily for 2 days. You were prescribed Flomax which is a medication that can help you pass out renal stone. Continue taking this as directed and discussed this with your primary care provider. You will likely not need to take this long-term. Should symptoms return or worsen contact your primary care provider or return to the emergency room. - Discharge Plan *PRESCRIPTION DRUG MONITORING PROGRAM REVIEWED*: No *COPY OF PRESCRIPTION DRUG MONITORING REPORT IN PATIENT VICKIE: No Prescriptions/Med Rec: Tamsulosin [Flomax] 0.4 mg PO DAILY #20 cap.er predniSONE [Prednisone] 10 mg PO ASDIRECTED #36 tablet Albuterol [Proventil HFA] 2 puff INH Q2H PRN #1 inhaler PRN Reason: Shortness Of Breath/Wheezing Home Medications: Home Meds Aspirin [Adult Aspirin Regimen] 81 mg PO DAILY 03/12/21 [History] metFORMIN [Glucophage XR] 1,000 mg PO BID 03/12/21 [History] Albuterol [Proventil HFA] 2 puff INH Q2H PRN #1 inhaler 03/25/21 [Rx] Tamsulosin [Flomax] 0.4 mg PO DAILY #20 cap.er 03/25/21 [Rx] predniSONE [Prednisone] 10 mg PO ASDIRECTED #36 tablet 03/25/21 [Rx] Oxygen Therapy Mode: Nasal Cannula Oxygen Flow Rate (L/min): 2 (2L at all times, 3L with activity) Maintain SpO2% greater than: 88 Patient Handouts: COVID-19, Home Oxygen Use, Adult, Type 2 Diabetes Mellitus, Self-Care, Adult, [id number], Blood Glucose Monitoring, Adult, Sepsis, Self Care, Adult Referrals: Tricia Mohr NP [Primary Care Provider] - 04/02/21 11:00 am (Please arrive 15 minutes prior to your appointment to register.) - Discharge Summary/Plan Comment DC Time >30 min.: Yes Total # of Minutes for Discharge Time: 45 - General Info Date of Service: 03/25/21 Admission Dx/Problem (Free Text: The patient was admitted secondary to COVID-19 pneumonia. Functional Status: Reports: Pain Controlled, Tolerating Diet, Ambulating, Urinating, Incentive Spirometry, Other (Acapella ). Denies: New Symptoms - Review of Systems General: Reports: No Symptoms. Denies: Fever, Weakness, Fatigue, Malaise, Chills HEENT: Reports: No Symptoms. Denies: Headaches, Sore Throat Pulmonary: Reports: No Symptoms. Denies: Shortness of Breath, Cough, Sputum, Wheezing Cardiovascular: Reports: Dyspnea on Exertion (very mild ). Denies: Chest Pain, Palpitations, Edema Gastrointestinal: Reports: No Symptoms. Denies: Abdominal Pain, Constipation, Diarrhea, Nausea, Vomiting Genitourinary: Reports: No Symptoms. Denies: Pain Musculoskeletal: Reports: No Symptoms Skin: Reports: No Symptoms. Denies: Cyanosis Neurological: Reports: No Symptoms. Denies: Confusion, Dizziness, Headache, Pre-Existing Deficit, Syncope, Tingling, Difficulty Walking, Weakness, Gait Disturbance Psychiatric: Reports: No Symptoms - Patient Data Vitals - Most Recent: Last Vital Signs Temp 97.5 F 03/25/21 04:00 Pulse 67 03/22/21 06:00 Resp 18 03/25/21 04:00 BP 135/80 03/25/21 04:00 Pulse Ox 94 L 03/25/21 06:17 Weight - Most Recent: 149.685 kg I&O - Last 24 hours: Intake & Output 03/24/21 03/25/21 03/25/21 22:59 06:59 14:59 Intake Total 1520 350 Output Total 1200 1000 Balance 320 -650 Lab Results - Last 24 hrs: Laboratory Results - last 24 hr 03/24/21 03/24/21 03/24/21 Range/Units 05:25 11:08 17:23 WBC (4.23-9.07) K/mm3 RBC (4.63-6.08) M/mm3 Hgb (13.7-17.5) gm/dl Hct (40.1-51.0) % MCV (79.0-92.2) fl MCH (25.7-32.2) pg MCHC (32.2-35.5) g/dl RDW Std Deviation (35.1-43.9) fL Plt Count (163-337) K/mm3 MPV (9.4-12.3) fl Neut % (Auto) (34.0-67.9) % Lymph % (Auto) (21.8-53.1) % [place] % (Auto) (5.3-12.2) % Eos % (Auto) (0.8-7.0) Baso % (Auto) (0.1-1.2) % Neut # (Auto) (1.78-5.38) K/mm3 Lymph # (Auto) (1.32-3.57) K/mm3 [place] # (Auto) (0.30-0.82) K/mm3 Eos # (Auto) (0.04-0.54) K/mm3 Baso # (Auto) (0.01-0.08) K/mm3 Manual Slide Review Sodium (136-145) mEq/L Potassium (3.5-5.1) mEq/L Chloride (98-107) mEq/L Carbon Dioxide (21-32) mEq/L Anion Gap (5-15) BUN (7-18) mg/dL Creatinine (0.7-1.3) mg/dL Est Cr Clr Drug Dosing mL/min Estimated GFR (MDRD) (>60) mL/min BUN/Creatinine Ratio (14-18) Glucose (70-99) mg/dL POC Glucose 222 H 269 H 186 H (70-99) mg/dL Calcium (8.5-10.1) mg/dL Magnesium (1.8-2.4) mg/dL Total Bilirubin (0.2-1.0) mg/dL AST (15-37) U/L ALT (16-63) U/L Alkaline Phosphatase (46-116) U/L C-Reactive Protein (<1.0) mg/dL Total Protein (6.4-8.2) g/dl Albumin (3.4-5.0) g/dl Globulin gm/dL Albumin/Globulin Ratio (1-2) 03/24/21 03/25/21 03/25/21 Range/Units 21:40 05:25 05:25 WBC 12.21 H (4.23-9.07) K/mm3 RBC 4.89 (4.63-6.08) M/mm3 Hgb 14.3 (13.7-17.5) gm/dl Hct 43.6 (40.1-51.0) % MCV 89.2 (79.0-92.2) fl MCH 29.2 (25.7-32.2) pg MCHC 32.8 (32.2-35.5) g/dl RDW Std Deviation 46.0 H (35.1-43.9) fL Plt Count 180 (163-337) K/mm3 MPV 10.9 (9.4-12.3) fl Neut % (Auto) 85.6 H (34.0-67.9) % Lymph % (Auto) 6.3 L (21.8-53.1) % [place] % (Auto) 7.6 (5.3-12.2) % Eos % (Auto) 0 L (0.8-7.0) Baso % (Auto) 0.1 (0.1-1.2) % Neut # (Auto) 10.45 H (1.78-5.38) K/mm3 Lymph # (Auto) 0.77 L (1.32-3.57) K/mm3 [place] # (Auto) 0.93 H (0.30-0.82) K/mm3 Eos # (Auto) 0.00 L (0.04-0.54) K/mm3 Baso # (Auto) 0.01 (0.01-0.08) K/mm3 Manual Slide Review Abnormal smear Sodium 138 (136-145) mEq/L Potassium 4.1 (3.5-5.1) mEq/L Chloride 104 (98-107) mEq/L Carbon Dioxide 28 (21-32) mEq/L Anion Gap 10.1 (5-15) BUN 24 H (7-18) mg/dL Creatinine 0.9 (0.7-1.3) mg/dL Est Cr Clr Drug Dosing 91.80 mL/min Estimated GFR (MDRD) > 60 (>60) mL/min BUN/Creatinine Ratio 26.7 H (14-18) Glucose 213 H (70-99) mg/dL POC Glucose 309 H (70-99) mg/dL Calcium 8.2 L (8.5-10.1) mg/dL Magnesium 2.3 (1.8-2.4) mg/dL Total Bilirubin 0.8 (0.2-1.0) mg/dL AST 45 H (15-37) U/L ALT 116 H (16-63) U/L Alkaline Phosphatase 32 L (46-116) U/L C-Reactive Protein <0.2 (<1.0) mg/dL Total Protein 6.1 L (6.4-8.2) g/dl Albumin 2.8 L (3.4-5.0) g/dl Globulin 3.3 gm/dL Albumin/Globulin Ratio 0.9 L (1-2) Med Orders - Current: Current Medications Albuterol (Albuterol 6.7 Gm Inhaler) 0 gm INH Q6H PRN PRN Reason: Shortness of Breath Last Admin: 03/19/21 08:35 Dose: 2 puff Documented by: Albuterol/Ipratropium (Albuterol/Ipratropium 3.0-0.5 Mg/3 Ml Neb Soln) 3 ml NEB Q4H [facility] Last Admin: 03/25/21 06:16 Dose: 3 ml Documented by: Aspirin (Aspirin 81 Mg Tab.Ec) 81 mg PO DAILY [facility] Last Admin: 03/24/21 08:02 Dose: 81 mg Documented by: Benzocaine/Menthol (Benzocaine/Cetylpyridinium/Menthol Lozenge) 1 lozenge MUCMEM Q4HR PRN PRN Reason: Sore Throat Last Admin: 03/23/21 09:17 Dose: 1 lozenge Documented by: Enoxaparin Sodium (Enoxaparin 40 Mg/0.4 Ml Syringe) 40 mg SUBCUT DAILY [facility] Last Admin: 03/24/21 07:59 Dose: 40 mg Documented by: Famotidine (Famotidine 20 Mg Tab) 20 mg PO BID [facility] Last Admin: 03/24/21 21:35 Dose: 20 mg Documented by: Hydromorphone HCl (Hydromorphone 0.5 Mg/0.5 Ml Syringe) 0.5 mg IVPUSH Q1H PRN PRN Reason: Pain (severe 7-10) Last Admin: 03/16/21 21:20 Dose: 0.5 mg Documented by: Ibuprofen (Ibuprofen 600 Mg Tab) 600 mg PO Q6H PRN PRN Reason: fever/pain Last Admin: 03/13/21 17:57 Dose: 600 mg Documented by: Insulin Glargine (Insulin Glarg,Human.Rec.Analog 100 Unit/Ml) 30 unit SUBCUT DAILY [facility] Last Admin: 03/24/21 08:00 Dose: 30 units Documented by: Insulin Human Lispro (Insulin Lispro 100 Unit/Ml 10 Ml Vial) 0 unit SUBCUT QIDACANDBED [facility]; Protocol Last Admin: 03/24/21 21:44 Dose: 12 unit Documented by: Methylprednisolone Sodium Succinate (Methylprednisolone Sodium Succinate 40 Mg/1 Ml Sdv) 40 mg IVPUSH Q12H [facility] Last Admin: 03/25/21 06:20 Dose: 40 mg Documented by: Multivitamins/Minerals/Vitamin C (Multivitamin Tab) 1 tab PO DAILY [facility] Last Admin: 03/24/21 08:02 Dose: 1 tab Documented by: Ondansetron HCl (Ondansetron 4 Mg/2 Ml Sdv) 4 mg IV Q6H PRN PRN Reason: Nausea/Vomiting Oxycodone HCl (Oxycodone 5 Mg Tab) 5 mg PO Q4H PRN PRN Reason: Pain (moderate 4-6) Last Admin: 03/18/21 21:52 Dose: 5 mg Documented by: Sodium Chloride (Sodium Chloride 0.9% 10 Ml Syringe) 10 ml FLUSH ASDIRECTED PRN PRN Reason: Keep Vein Open Last Admin: 03/12/21 17:49 Dose: 10 ml Documented by: Tamsulosin HCl (Tamsulosin 0.4 Mg Cap.Er) 0.4 mg PO DAILY [facility] Last Admin: 03/24/21 08:02 Dose: 0.4 mg Documented by: Discontinued Medications Albuterol (Albuterol 6.7 Gm Inhaler) 0 gm INH ONETIME ONE Stop: 03/12/21 17:41 Last Admin: 03/12/21 17:49 Dose: 2 puff Documented by: Dexamethasone (Dexamethasone 10 Mg/Ml Sdv) 6 mg IVPUSH ONETIME ONE Stop: 03/12/21 19:50 Last Admin: 03/12/21 20:24 Dose: 6 mg Documented by: Dexamethasone (Dexamethasone 4 Mg Tab) 6 mg PO Q24H [facility] Stop: 03/21/21 18:01 Last Admin: 03/16/21 17:43 Dose: 6 mg Documented by: Diatrizoate Meglum/Diatrizoate Sod (Diatrizoate Meglumine/Diatrizoate Sodium 37% 120 Ml Bottle) 60 ml PO ONETIME ONE Stop: 03/14/21 16:44 Last Admin: 03/14/21 16:55 Dose: 60 ml Documented by: Heparin Sodium (Porcine) (Heparin Sodium 5,000 Units/Ml Vial) 5,000 units SUBCU T Q8H [facility] Last Admin: 03/14/21 06:31 Dose: Not Given Documented by: Ceftriaxone Sodium 2 gm/ (Sodium Chloride) 100 mls @ 200 mls/hr IV ONETIME ONE Stop: 03/12/21 18:08 Last Admin: 03/12/21 17:49 Dose: 200 mls/hr Documented by: Remdesivir 200 mg/ Sodium (Chloride) 250 mls @ 250 mls/hr IV ONETIME ONE Stop: 03/13/21 09:29 Last Admin: 03/13/21 08:28 Dose: 250 mls/hr Documented by: Remdesivir 100 mg/ Sodium (Chloride) 100 mls @ 100 mls/hr IV Q24H [facility] Stop: 03/17/21 09:29 Last Admin: 03/17/21 09:50 Dose: 100 mls/hr Documented by: Tocilizumab 800 mg/ Sodium (Chloride) 100 mls @ 100 mls/hr IV ONETIME ONE Stop: 03/17/21 11:29 Last Admin: 03/17/21 11:24 Dose: 100 mls/hr Documented by: Ibuprofen (Ibuprofen 600 Mg Tab) 600 mg PO ONETIME ONE Stop: 03/12/21 17:43 Last Admin: 03/12/21 17:49 Dose: 600 mg Documented by: Insulin Glargine (Insulin Glarg,Human.Rec.Analog 100 Unit/Ml) 20 unit SUBCUT DAILY [facility] Last Admin: 03/21/21 08:56 Dose: 20 units Documented by: Iopamidol (Iopamidol 612 Mg/Ml 100 Ml Bottle) 100 ml IVPUSH ONETIME ONE Stop: 03/14/21 16:44 Last Admin: 03/14/21 16:56 Dose: 100 ml Documented by: Lidocaine HCl (Lidocaine 2% Jelly 10 Ml Urojet) 10 ml MUCMEM ONETIME ONE Stop: 03/14/21 16:01 Last Admin: 03/14/21 16:54 Dose: 10 ml Documented by: Magnesium Hydroxide (Magnesium Hydroxide 400 Mg/5 Ml Susp 30 Ml Cup) 30 ml PO ONETIME ONE Stop: 03/18/21 06:31 Last Admin: 03/18/21 06:30 Dose: Not Given Documented by: Metformin HCl (Metformin 500 Mg Tab) 500 mg PO BIDMEALS [facility] Last Admin: 03/13/21 07:36 Dose: Not Given Documented by: Methylprednisolone Sodium Succinate (Methylprednisolone Sodium Succinate 125 Mg/2 Ml Sdv) 125 mg IVPUSH Q12H [facility] Last Admin: 03/21/21 00:41 Dose: 125 mg Documented by: Methylprednisolone Sodium Succinate (Methylprednisolone Sodium Succinate 125 Mg/2 Ml Sdv) 60 mg IVPUSH Q8H [facility] Last Admin: 03/24/21 04:44 Dose: 60 mg Documented by: Sodium Chloride (Sodium Chloride 0.9% 10 Ml Syringe) 10 ml FLUSH ONETIME PRN PRN Reason: Keep Vein Open Stop: 03/14/21 19:00 Last Admin: 03/14/21 16:56 Dose: 10 ml Documented by: Tamsulosin HCl (Tamsulosin 0.4 Mg Cap.Er) 0.4 mg PO ONETIME ONE Stop: 03/14/21 17:56 Last Admin: 03/14/21 18:09 Dose: 0.4 mg Documented by: - Exam Quality Assessment: Reports: Supplemental Oxygen (2L), DVT Prophylaxis. Denies: Urine Catheter General: Reports: Alert, Oriented, Cooperative, No Acute Distress HEENT: Reports: Pupils Equal, Pupils Reactive, Mucous Membr. Moist/[place] Neck: Reports: Supple, Trachea Midline Lungs: Reports: Clear to Auscultation, Normal Respiratory Effort, Decreased Breath Sounds (Greatly improved throughout stay). Denies: Crackles, Rales, Rhonchi, Rub, Stridor, Wheezing Cardiovascular: Reports: Regular Rate, Regular Rhythm GI/Abdominal Exam: Normal Bowel Sounds, Soft, Non-Tender, No Distention (Male) Exam: Deferred Rectal (Males) Exam: Deferred Back Exam: Reports: Normal Inspection, Full Range of Motion Extremities: Normal Inspection, Normal Range of Motion, Non-Tender, No Pedal Edema, Normal Capillary Refill Skin: Reports: Warm, Dry, Intact Neurological: Reports: No New Focal Deficit Psy/Mental Status: Reports: Alert, Normal Affect, Normal Mood <Man [place] - Last Filed: 03/25/21 17:04> Discharge Summary - Referral to Home Health Primary Care Physician: Tricia Mohr NP - Discharge Diagnosis/Problem(s) (1) Acute respiratory failure due to COVID-19 SNOMED Code(s): 733620073 ICD Code: U07.1 - COVID-19; J96.00 - ACUTE RESPIRATORY FAILURE, UNSP W HYPOXIA OR HYPERCAPNIA Status: Acute Priority: High (2) Hypoxia SNOMED Code(s): 738640671 ICD Code: R09.02 - HYPOXEMIA Status: Acute Priority: High (3) Pneumonia due to COVID-19 virus SNOMED Code(s): 511792974102568892 ICD Code: U07.1 - COVID-19; J12.82 - PNEUMONIA DUE TO CORONAVIRUS DISEASE 2019 Status: Acute Priority: High (4) Hypertension SNOMED Code(s): 17138336 ICD Code: I10 - ESSENTIAL (PRIMARY) HYPERTENSION Status: Chronic Priority: Medium Qualifiers: Hypertension type: primary hypertension Qualified Code(s): I10 - Essential (primary) hypertension (5) Type II diabetes mellitus SNOMED Code(s): 40495196 ICD Code: E11.9 - TYPE 2 DIABETES MELLITUS WITHOUT COMPLICATIONS Status: Chronic Priority: Medium Qualifiers: Diabetes mellitus longterm insulin use: without longterm use Diabetes mellitus complication status: without complication Qualified Code(s): E11.9 - Type 2 diabetes mellitus without complications - Patient Summary/Data Consults: Consultations 03/13/21 07:43 OT Evaluation and Treatment [CONS] Routine PT Evaluation and Treatment [CONS] Routine Respiratory Care Assess and Treatment [CONS] Routine 03/13/21 08:05 Consult to Steam Engineer [CONS] Routine Hospital Course: I have seen and examined the patient independently of Red Lutz PA-C and have discussed the case with him. I have reviewed and agree with the orders and plan of care outlined by him. Please see orders. - Patient Data Vitals - Most Recent: Last Vital Signs Temp 36.3 C 03/25/21 08:00 Pulse 67 03/22/21 06:00 Resp 20 03/25/21 10:00 BP 134/93 H 03/25/21 09:04 Pulse Ox 92 L 03/25/21 10:00 I&O - Last 24 hours: Intake & Output 03/25/21 03/25/21 03/25/21 06:59 14:59 22:59 Intake Total 350 Output Total 1000 Balance -650 Lab Results - Last 24 hrs: Laboratory Results - last 24 hr 03/24/21 03/24/21 03/25/21 Range/Units 17:23 21:40 05:25 WBC 12.21 H (4.23-9.07) K/mm3 RBC 4.89 (4.63-6.08) M/mm3 Hgb 14.3 (13.7-17.5) gm/dl Hct 43.6 (40.1-51.0) % MCV 89.2 (79.0-92.2) fl MCH 29.2 (25.7-32.2) pg MCHC 32.8 (32.2-35.5) g/dl RDW Std Deviation 46.0 H (35.1-43.9) fL Plt Count 180 (163-337) K/mm3 MPV 10.9 (9.4-12.3) fl Neut % (Auto) 85.6 H (34.0-67.9) % Lymph % (Auto) 6.3 L (21.8-53.1) % [place] % (Auto) 7.6 (5.3-12.2) % Eos % (Auto) 0 L (0.8-7.0) Baso % (Auto) 0.1 (0.1-1.2) % Neut # (Auto) 10.45 H (1.78-5.38) K/mm3 Lymph # (Auto) 0.77 L (1.32-3.57) K/mm3 [place] # (Auto) 0.93 H (0.30-0.82) K/mm3 Eos # (Auto) 0.00 L (0.04-0.54) K/mm3 Baso # (Auto) 0.01 (0.01-0.08) K/mm3 Manual Slide Review Abnormal smear Sodium (136-145) mEq/L Potassium (3.5-5.1) mEq/L Chloride (98-107) mEq/L Carbon Dioxide (21-32) mEq/L Anion Gap (5-15) BUN (7-18) mg/dL Creatinine (0.7-1.3) mg/dL Est Cr Clr Drug Dosing mL/min Estimated GFR (MDRD) (>60) mL/min BUN/Creatinine Ratio (14-18) Glucose (70-99) mg/dL POC Glucose 186 H 309 H (70-99) mg/dL Calcium (8.5-10.1) mg/dL Magnesium (1.8-2.4) mg/dL Total Bilirubin (0.2-1.0) mg/dL AST (15-37) U/L ALT (16-63) U/L Alkaline Phosphatase (46-116) U/L C-Reactive Protein (<1.0) mg/dL Total Protein (6.4-8.2) g/dl Albumin (3.4-5.0) g/dl Globulin gm/dL Albumin/Globulin Ratio (1-2) 03/25/21 03/25/21 Range/Units 05:25 08:33 WBC (4.23-9.07) K/mm3 RBC (4.63-6.08) M/mm3 Hgb (13.7-17.5) gm/dl Hct (40.1-51.0) % MCV (79.0-92.2) fl MCH (25.7-32.2) pg MCHC (32.2-35.5) g/dl RDW Std Deviation (35.1-43.9) fL Plt Count (163-337) K/mm3 MPV (9.4-12.3) fl Neut % (Auto) (34.0-67.9) % Lymph % (Auto) (21.8-53.1) % [place] % (Auto) (5.3-12.2) % Eos % (Auto) (0.8-7.0) Baso % (Auto) (0.1-1.2) % Neut # (Auto) (1.78-5.38) K/mm3 Lymph # (Auto) (1.32-3.57) K/mm3 [place] # (Auto) (0.30-0.82) K/mm3 Eos # (Auto) (0.04-0.54) K/mm3 Baso # (Auto) (0.01-0.08) K/mm3 Manual Slide Review Sodium 138 (136-145) mEq/L Potassium 4.1 (3.5-5.1) mEq/L Chloride 104 (98-107) mEq/L Carbon Dioxide 28 (21-32) mEq/L Anion Gap 10.1 (5-15) BUN 24 H (7-18) mg/dL Creatinine 0.9 (0.7-1.3) mg/dL Est Cr Clr Drug Dosing 91.80 mL/min Estimated GFR (MDRD) > 60 (>60) mL/min BUN/Creatinine Ratio 26.7 H (14-18) Glucose 213 H (70-99) mg/dL POC Glucose 172 H (70-99) mg/dL Calcium 8.2 L (8.5-10.1) mg/dL Magnesium 2.3 (1.8-2.4) mg/dL Total Bilirubin 0.8 (0.2-1.0) mg/dL AST 45 H (15-37) U/L ALT 116 H (16-63) U/L Alkaline Phosphatase 32 L (46-116) U/L C-Reactive Protein <0.2 (<1.0) mg/dL Total Protein 6.1 L (6.4-8.2) g/dl Albumin 2.8 L (3.4-5.0) g/dl Globulin 3.3 gm/dL Albumin/Globulin Ratio 0.9 L (1-2) Med Orders - Current: Current Medications Discontinued Medications Albuterol (Albuterol 6.7 Gm Inhaler) 0 gm INH ONETIME ONE Stop: 03/12/21 17:41 Last Admin: 03/12/21 17:49 Dose: 2 puff Documented by: Albuterol (Albuterol 6.7 Gm Inhaler) 0 gm INH Q6H PRN PRN Reason: Shortness of Breath Last Admin: 03/19/21 08:35 Dose: 2 puff Documented by: Albuterol/Ipratropium (Albuterol/Ipratropium 3.0-0.5 Mg/3 Ml Neb Soln) 3 ml NEB Q4H [facility] Last Admin: 03/25/21 09:56 Dose: 3 ml Documented by: Aspirin (Aspirin 81 Mg Tab.Ec) 81 mg PO DAILY [facility] Last Admin: 03/25/21 08:30 Dose: 81 mg Documented by: Benzocaine/Menthol (Benzocaine/Cetylpyridinium/Menthol Lozenge) 1 lozenge MUCMEM Q4HR PRN PRN Reason: Sore Throat Last Admin: 03/23/21 09:17 Dose: 1 lozenge Documented by: Dexamethasone (Dexamethasone 10 Mg/Ml Sdv) 6 mg IVPUSH ONETIME ONE Stop: 03/12/21 19:50 Last Admin: 03/12/21 20:24 Dose: 6 mg Documented by: Dexamethasone (Dexamethasone 4 Mg Tab) 6 mg PO Q24H [facility] Stop: 03/21/21 18:01 Last Admin: 03/16/21 17:43 Dose: 6 mg Documented by: Diatrizoate Meglum/Diatrizoate Sod (Diatrizoate Meglumine/Diatrizoate Sodium 37% 120 Ml Bottle) 60 ml PO ONETIME ONE Stop: 03/14/21 16:44 Last Admin: 03/14/21 16:55 Dose: 60 ml Documented by: Enoxaparin Sodium (Enoxaparin 40 Mg/0.4 Ml Syringe) 40 mg SUBCUT DAILY [facility] Last Admin: 03/25/21 08:31 Dose: 40 mg Documented by: Famotidine (Famotidine 20 Mg Tab) 20 mg PO BID [facility] Last Admin: 03/25/21 08:30 Dose: 20 mg Documented by: Heparin Sodium (Porcine) (Heparin Sodium 5,000 Units/Ml Vial) 5,000 units SUBCUT Q8H [facility] Last Admin: 03/14/21 06:31 Dose: Not Given Documented by: Hydromorphone HCl (Hydromorphone 0.5 Mg/0.5 Ml Syringe) 0.5 mg IVPUSH Q1H PRN PRN Reason: Pain (severe 7-10) Last Admin: 03/16/21 21:20 Dose: 0.5 mg Documented by: Ceftriaxone Sodium 2 gm/ (Sodium Chloride) 100 mls @ 200 mls/hr IV ONETIME ONE Stop: 03/12/21 18:08 Last Admin: 03/12/21 17:49 Dose: 200 mls/hr Documented by: Remdesivir 200 mg/ Sodium (Chloride) 250 mls @ 250 mls/hr IV ONETIME ONE Stop: 03/13/21 09:29 Last Admin: 03/13/21 08:28 Dose: 250 mls/hr Documented by: Remdesivir 100 mg/ Sodium (Chloride) 100 mls @ 100 mls/hr IV Q24H [facility] Stop: 03/17/21 09:29 Last Admin: 03/17/21 09:50 Dose: 100 mls/hr Documented by: Tocilizumab 800 mg/ Sodium (Chloride) 100 mls @ 100 mls/hr IV ONETIME ONE Stop: 03/17/21 11:29 Last Admin: 03/17/21 11:24 Dose: 100 mls/hr Documented by: Ibuprofen (Ibuprofen 600 Mg Tab) 600 mg PO ONETIME ONE Stop: 03/12/21 17:43 Last Admin: 03/12/21 17:49 Dose: 600 mg Documented by: Ibuprofen (Ibuprofen 600 Mg Tab) 600 mg PO Q6H PRN PRN Reason: fever/pain Last Admin: 03/13/21 17:57 Dose: 600 mg Documented by: Insulin Glargine (Insulin Glarg,Human.Rec.Analog 100 Unit/Ml) 20 unit SUBCUT DAILY [facility] Last Admin: 03/21/21 08:56 Dose: 20 units Documented by: Insulin Glargine (Insulin Glarg,Human.Rec.Analog 100 Unit/Ml) 30 unit SUBCUT DAILY [facility] Last Admin: 03/25/21 08:34 Dose: 30 units Documented by: Insulin Human Lispro (Insulin Lispro 100 Unit/Ml 10 Ml Vial) 0 unit SUBCUT QIDACANDBED [facility]; Protocol Last Admin: 03/25/21 09:04 Dose: 3 unit Documented by: Iopamidol (Iopamidol 612 Mg/Ml 100 Ml Bottle) 100 ml IVPUSH ONETIME ONE Stop: 03/14/21 16:44 Last Admin: 03/14/21 16:56 Dose: 100 ml Documented by: Lidocaine HCl (Lidocaine 2% Jelly 10 Ml Urojet) 10 ml MUCMEM ONETIME ONE Stop: 03/14/21 16:01 Last Admin: 03/14/21 16:54 Dose: 10 ml Documented by: Magnesium Hydroxide (Magnesium Hydroxide 400 Mg/5 Ml Susp 30 Ml Cup) 30 ml PO ONETIME ONE Stop: 03/18/21 06:31 Last Admin: 03/18/21 06:30 Dose: Not Given Documented by: Metformin HCl (Metformin 500 Mg Tab) 500 mg PO BIDMEALS [facility] Last Admin: 03/13/21 07:36 Dose: Not Given Documented by: Methylprednisolone Sodium Succinate (Methylprednisolone Sodium Succinate 125 Mg/2 Ml Sdv) 125 mg IVPUSH Q12H [facility] Last Admin: 03/21/21 00:41 Dose: 125 mg Documented by: Methylprednisolone Sodium Succinate (Methylprednisolone Sodium Succinate 125 Mg/2 Ml Sdv) 60 mg IVPUSH Q8H [facility] Last Admin: 03/24/21 04:44 Dose: 60 mg Documented by: Methylprednisolone Sodium Succinate (Methylprednisolone Sodium Succinate 40 Mg/1 Ml Sdv) 40 mg IVPUSH Q12H [facility] Last Admin: 03/25/21 06:20 Dose: 40 mg Documented by: Multivitamins/Minerals/Vitamin C (Multivitamin Tab) 1 tab PO DAILY [facility] Last Admin: 03/25/21 08:31 Dose: 1 tab Documented by: Ondansetron HCl (Ondansetron 4 Mg/2 Ml Sdv) 4 mg IV Q6H PRN PRN Reason: Nausea/Vomiting Oxycodone HCl (Oxycodone 5 Mg Tab) 5 mg PO Q4H PRN PRN Reason: Pain (moderate 4-6) Last Admin: 03/18/21 21:52 Dose: 5 mg Documented by: Sodium Chloride (Sodium Chloride 0.9% 10 Ml Syringe) 10 ml FLUSH ASDIRECTED PRN PRN Reason: Keep Vein Open Last Admin: 03/12/21 17:49 Dose: 10 ml Documented by: Sodium Chloride (Sodium Chloride 0.9% 10 Ml Syringe) 10 ml FLUSH ONETIME PRN PRN Reason: Keep Vein Open Stop: 03/14/21 19:00 Last Admin: 03/14/21 16:56 Dose: 10 ml Documented by: Tamsulosin HCl (Tamsulosin 0.4 Mg Cap.Er) 0.4 mg PO ONETIME ONE Stop: 03/14/21 17:56 Last Admin: 03/14/21 18:09 Dose: 0.4 mg Documented by: Tamsulosin HCl (Tamsulosin 0.4 Mg Cap.Er) 0.4 mg PO DAILY [facility] Last Admin: 03/25/21 08:30 Dose: 0.4 mg Documented by:
[2021-03-25] MEDS: Aspirin 81 MG Tab.EC PO SCH (08:30)
[2021-03-25] MEDS: Tamsulosin 0.4 MG Cap.ER PO SCH (08:30)
[2021-03-25] MEDS: Famotidine 20 MG Tab PO SCH (08:30)
[2021-03-25] MEDS: Multivitamin Tab PO SCH (08:31)
[2021-03-25] MEDS: Enoxaparin 40 MG/0.4 ML Syringe SUBCUT SCH (08:31)
[2021-03-25] MEDS: Insulin Glarg,Human.Rec.Analog 100 Unit/ML SUBCUT SCH (08:34)
[2021-03-25] MEDS: Insulin Lispro 100 UNIT/ML 10 ML Vial SUBCUT SCH (09:04)
== END 2021-03-25 12:10 | disposition home or self-care (01) | DRG 177 ==
LOC: JD.ED 17:28 → JD.MS 19:54 → JD.ICU 03-19 12:57
PROVIDERS: ADMIT Hospitalist; ATTEND Hospitalist
PROC: 8E0ZXY6 Isolation (ICD-10-PCS; principal; 2021-03-12)
PROC: XW033E5 Introduction of Remdesivir Anti-infective into Peripheral Vein, Percutaneous Approach, New Technology Group 5 (ICD-10-PCS; principal; 2021-03-12)
DX: U07.1 COVID-19 (principal); J12.82 Pneumonia due to coronavirus disease 2019; J96.01 Acute respiratory failure with hypoxia; Z68.42 Body mass index [BMI] 45.0-49.9, adult; K80.10 Calculus of gallbladder with chronic cholecystitis without obstruction; N13.4 Hydroureter; N13.2 Hydronephrosis with renal and ureteral calculous obstruction; Z66 Do not resuscitate; I10 Essential (primary) hypertension; E11.9 Type 2 diabetes mellitus without complications; E66.01 Morbid (severe) obesity due to excess calories; R79.89 Other specified abnormal findings of blood chemistry; D69.6 Thrombocytopenia, unspecified; H54.7 Unspecified visual loss; K76.0 Fatty (change of) liver, not elsewhere classified; E11.65 Type 2 diabetes mellitus with hyperglycemia; E88.09 Other disorders of plasma-protein metabolism, not elsewhere classified; Z79.82 Long term (current) use of aspirin; Z79.52 Long term (current) use of systemic steroids; Z79.899 Other long term (current) drug therapy; Z79.84 Long term (current) use of oral hypoglycemic drugs; Z88.6 Allergy status to analgesic agent; Z87.891 Personal history of nicotine dependence; Z90.89 Acquired absence of other organs
CPT/HCPCS: 36415; 36600; 51702; 71045; 71045-26; 71275; 71275-26; 74177; 74177-26; 80048; 80053; 80076; 81001; 82728; 82803; 82947; 83036; 83605; 83615; 83735; 84145; 84484; 85025; 85027; 85379; 85610; 85730; 86140; 87040; 93005; 93010; 94640; 94660; 94667; 94668; 94760; 94761; 94762; 96365; 97161-GP; 97162-GP; 97530-GP; 99223; 99233; 99239; 99284; 99285-25; A9270-GY; J0696; J1100; J1170; J1644; J1650; J1815-GY; J2920; J2930; J7050; J7620-GY; J8540; M0249; Q0249; Q9967; U0002